=== PATIENT | female | born 1990 | race Caucasian/White ===

== ENCOUNTER 2017-05-30 17:30 | Outpatient (RCR) | payer MEDICARE, MEDICAID, SELFPAY ==
--- NOTE | 2017-02-23 19:43 | HP.PTDCS(2) ---
HP - PT D/C Summary (2) It has been my pleasure to treat CELESTE SIDHU under orders from Pamella Mccall D.C., for the diagnosis of for a total of visit(s). Discharge Date: Please see the following information for a summary of their discharge status. - D/C Information If there are questions or concerns regarding this patient's physical therapy, please feel free to call me at [phone]. Thank you for the referral of this patient. Sincerely, Linette Clarke
--- NOTE | 2017-02-23 19:45 | HP.PTEVAL_ITS ---
Patient's Visit Information CELESTE SIDHU is a 26 year old F referred to Physical Therapy by Pamella Mccall D.C. with a diagnosis of CP and Ligament laxity. Date of Evaluation: 02/22/17 Physical Therapist: Linette Clarke - Visit Plan Frequency: 1x/Week Duration: 2 Weeks Plan: At this point we will see the pt one additional time to see if she will be more of an active participant in therapy. We will teach parents ROM and some exercises for them to do with the pt at home. AT this time I would recommend a tilted wheelchair with a neck support as the way the pt is sitting now is NOT in any way good for the patient and I fear if she continues to hang her head in this posture further damage to her neck and ligaments will occur. - Subjective Subjective: Pt's mom Trini gave most of the information. Pt was here in the fall with her mom in the pool in the fall for therapy. Mom reports that is made her legs stronger but she trips on her one foot. When she was in her 20's is when the CP came into her legs. She falls easy. SHe walks around at home and tires easy. Pt was seeing Dr Henriquez...pt is non-verbal. Pt is getting a new wheel chair at home that is more of a tilt type chair and a portable adult stroller. - Objective Pt is able to sit to stand with some CGA. She is able to stand for approx [address] before she begins to bounce as her legs start to gicw out. Posture: She sits in her chair with her head flexed to her chest with abnormal posture. She is unable to lift her head into full upright position. She is able to laterally felx her neck to lift her head some but unable to hold that position for more than seconds. SHe does not follow commands. She tolerated PROM in sitting of neck extension with no active assisted help. Therapist held that position for approx 30 seconds and then the pt would activily flex her neck into or she would use her hands to pull me my hands away. She was put on a nu-step bike but did not activly initiate the bike. Mom and therapist held hands on the handles and pushed bike but she would not help with the movement. Tried the pt on the leg press and the pt would push with both legs into extension after therapist placed legs on the plate at 12.5#. She would not activly bend knees from the extended position - Rehabilitation Potential Rehabilitation Potential: Questionable - Anticipated Interventions Therapeutic Exercise to Include: Strength training, Postural training, Passive ROM, Active ROM, Scapular Strength/Stabilization For the Purpose of:: To decrease pain, To increase ROM, To increase oxygenation perfusion Thank you for the opportunity to evaluate your patient. For Medicare and Medicare HMO plans, please review the plan of care and approve it. It will need to be FAXED BACK to us at [phone] for Medicare purposes. Please let me know if there are questions or concerns regarding this plan of care. Physician Signature: Date:
--- NOTE | 2017-03-23 18:04 | HP.SP.AD ---
History - History Date of Eval: 03/21/17 Medical Diagnosis (from RX): expressive language Previous speech therapy: Yes Results: Unavailable Other Relevant Medical History/Diagnoses/Surgery: autism, CP, and seizures Medications related to this diagnosis: List no provided, but medication is seizure related Smoking Status: Never smoker Hx Smoking: No Hx Tobacco Use: No - Pain Is pain an issue with your current prescribed condition?: No - Personal Occupation: workshop Right Hearing Abillity: Normal Left Hearing Abillity: Normal Visual Assistive Devices: None Patients Living Arrangements: With Family Patient Allergies - Allergies Allergies No Known Allergies Allergy (Verified 06/15/13 18:59) Subjective AAC - AAC Subjective: Per mom, pt had some words and may or may not use them. Mom would like pt to communicate since pt is older. Pt used to have low tech device used via pictures for communication. Objective AAC - AAC Objective: Pt given two choices to select from for markers for phrase competion of I want... Pt selected picture wanted and used marker presented to pt for simple line on paper. Pt made five other choices for communicating the color wanted. Pt then provide with yes/no faces and asked if wanted to listen to music, per mom information. Pt did not answer to mom modeled and received music as chosen. Pt still did not choose. Pt given choice of three animals to chose to look at. Pt made selection given time and repetitions. Pt is able to choose from field of 2 and 3. This LIEUTENANT FIRE FIGHTER suggested that mom bring activities to assist with making choices. Plan - Plan Plan: ST warranted to trial basic communication methods via selection from ervin of at least 4 from a variety of AAC pictures from low vs high tech. Pt mom would like some form of communication. - Frequency Frequency: 1x/Week Duration: 2-4 Months - Prognosis Prognosis: Good - Goal #1-5 Goal #1: Pt will communicate basic wants from field of at least 4 pictures when given a choice. Prompts: Min Accuracy: 80% # Sessions: 3/4 Goal #2: Pt will complete simple phrases using a variety of devices (low vs high) from a field of at least 4. Accuracy: 80% # Sessions: 3/4 Goal #3: Pt will complete additional evaluation of communication as warranted for goal modification and addition. G Codes - Type of Therapy Type of Therapy: Speech-Language Pathology - Other LIEUTENANT FIRE FIGHTER Other LIEUTENANT FIRE FIGHTER Current: CL - 60-79% Other LIEUTENANT FIRE FIGHTER Goal: CI - 1-19% Education - Patient has Indicated that the Following Identified Educational Needs: Motivation, Cognitively Impaired - Patient Instruction Patient Education: Treatment Plan, Goals Person Taught: Primary Caregiver Teaching Method: Discussion, Demonstration Response to teaching: Verbalize understanding
--- NOTE | 2017-06-01 12:24 | HP.SP.LETT ---
HP - SP Letter - Letter AAC Considerations Communication: Liset's mom is seeking improved functional communication for her daughter. I have seen Liset for five therapy sessions. Liset has limited joint attention but attention does wax and wane depending on the activity. She is primarily non-verbal, though Mom reports that she has verbalized words and phrases in the past. This has not yet been observed during therapy sessions. To make requests at this time, Liset will choose a desired object from a field of two by touching the object. She has limited fine motor skills which makes isolating a finger for pointing difficult. In addition, Liset has limited eye contact with people and often items, so eye gaze is limited. Mom reports that picture exchange has been attempted in the past, but that Liset was not motivated to use the pictures and did not have any success. She does seem more motivated by cause and effect toys/devices that talk and/or make noise. Mom reports that 2-3 years ago, the patient did attempt manipulation of a game on an iPad; however, Liset has not had access to a tablet since that time. Any advice and/or recommendations for AAC options would be appreciated.
--- NOTE | 2017-12-26 15:33 | HP.SP.DC_ITS ---
ST Discharge Summary - Discharged: Discharge: Liset Alvarado is discharged from outpatient speech therapy at this time. Liset attended 7 therapy sessions following her initial evaluation targeting functional language skills via any modality - speech, sign, pictures, and AAC. Limited progress was made and it was recommended that the patient attend an AAC clinic for further ideas. The patient was on a planned hold from therapy until the evaluation was completed, however, per Liset's mother, due to insurance changes Liset did not complete an evaluation at the AAC clinic. She does have a new script in place for this fall, however. Therefore, it was determined we would hold therapy until after the evaluation, with Liset's mom encouraged to reach out to this CUSTOMER SERVICE SECURITY OFFICER before or after the evaluation for assistance as needed. Please reconsult as necessary.
== END 2017-05-30 19:00 | disposition home or self-care (01) ==
LOC: SP 17:30
PROVIDERS: Family Provider Student in an Organized Health Care Education/Training Program; PCP Student in an Organized Health Care Education/Training Program; Visit Provider Chiropractor
DX: F84.0 Autistic disorder (principal); F73 Profound intellectual disabilities; Q89.8 Other specified congenital malformations; G40.309 Generalized idiopathic epilepsy and epileptic syndromes, not intractable, without status epilepticus; M24.20 Disorder of ligament, unspecified site; F80.1 Expressive language disorder
CPT/HCPCS: 92507; 92523; 97162; 97530; G8981; G8982; G9174; G9175

== ENCOUNTER 2017-09-27 13:08 | Outpatient (RCR) | payer MEDICARE, SELFPAY ==
--- NOTE | 2017-09-30 11:51 | HP.PTEVAL ---
Patient's Visit Information CELESTE SIDHU is a 27 year old F referred to Physical Therapy by EVELINA VEGA with a diagnosis of EPILEPSY,HYPOTONIA. Date of Evaluation: 09/27/17 Physical Therapist: Pee Castillo, PT, - Visit Plan Frequency: 1 VISIT Plan: RECOMMEND MANUAL W/C TILT AND SPACE WITH ALL ASSESSORIES DUE TO PATIENT UNABLE TO WALK SAFELY DUE TO SEIZURES ,HYPOTONIA LEGS/ARM UNABLE TO HOLD HEAD UP AND CONSTANT FALLING - Subjective Subjective: This 27 y/o female presents to physical therapy for w/c evaluation with diagnosis of epilepsy and hypotonia. Patient will need w/c for community moblity and at home due to seizures which patient will fall which seizures can last up to over a minute.Ocassionally,will have grand mall seizure. Patient is aphasic. Patient express wants needs by grabbing by hand. Patient is continence. Patient also attends workshops. Patient will be needing w/c for 3- 4hours at at time. Patient needs w/c to maintain optimize level of function.Patient is inable to ambulate safely because of seizures. Patient ambulation is compared by stamina endurance When patient patient has seizure ,patient will fall. The w/c will be used at home and work shop. Patient is dependant with bathing,dressing ,ADLS' 24 supervision. Patient dominic to feeed self but with assist. HOME SITUATION: alena with ramp ,walk in shower ,manual w/c hospital bed with rails. 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 PALPALTION: unremarkable. TRANSFERS: extra time SBA/CGA with vebal cues. BED MOBILITY:SBA/CGA with verbal cues. NEURO: unable to assess comprehension and aphasia expressive,poor tone hypotonic,reflexes achilles ,patella 0/3. PROM: WFL all planes of motion. MMT: at least 3/5 ,unable to test due to unable to follow commands. BALANCE: sitting fair,standing fair-. GAIT: ambulates unsteady hips/knees mod flexed ,right leg ER greater than left less than 10 feet in PT with close SBA /CGA - Goals Goal 1:: Complete W/C Evalution. - Rehabilitation Potential Physical Therapy Diagnosis: This patient has epilepsy with grand mal seizures ,hypotonia with unable to ambulate safely. along with poor stamina ,endurance this benifit from manual tilt n space w/c ,patient unable to use cane or walker. Also due to poor tone patient is not a safe in ambulation. Rehabilitation Potential: Poor - Anticipated Interventions Patient/Client Instruction: Educate patient on: Condition Other: W/C Thank you for the opportunity to evaluate your patient. For Medicare and Medicare HMO plans, please review the plan of care and approve it. It will need to be FAXED BACK to us at [phone] for Medicare purposes. Please let me know if there are questions or concerns regarding this plan of care. Physician Signature: Date:
--- NOTE | 2017-10-07 14:16 | HP.PTEVAL ---
Patient's Visit Information CELESTE SIDHU is a 27 year old F referred to Physical Therapy by EVELINA EVGA with a diagnosis of EPILEPSY,HYPOTONIA. Date of Evaluation: 09/27/17 Physical Therapist: Pee Castillo PT, - Visit Plan Frequency: 1WEEK Plan: RECOMMEND MANUAL W/C TILT AND SPACE WITH ALL ASSESSORIES DUE TO PATIENT UNABLE TO WALK SAFELY DUE TO SEIZURES ,HYPOTONIA LEGS/ARM UNABLE TO HOLD HEAD UP AND CONSTANT FALLING - Subjective Subjective: This 27 y/o female presents to physical therapy for w/c evaluation with diagnosis of epilepsy and hypotonia. Patient will need w/c for community moblity and at home due to seizures which patient will fall which seizures can last up to over a minute.Ocassionally,will have grand mall seizure. Patient is aphasic. Patient express wants needs by grabbing by hand. Patient is continence. Patient also attends workshops. Patient will be needing w/c for 3- 4hours at at time. Patient needs w/c to maintain optimize level of function.Patient is unable to ambulate safely because of seizures. Patient ambulation is comprimised by decrease stamina endurance.During a seisure ,patient may collapse. The w/c will be used at home and work shop. Patient is dependant with bathing,dressing ,ADLS' 24 supervision. Patient able to feed self but with assist. HOME SITUATION: alena with ramp ,walk in shower ,manual w/c hospital bed with rails. 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 PALPALTION: unremarkable. TRANSFERS: extra time SBA/CGA with vebal cues. BED MOBILITY:SBA/CGA with verbal cues. NEURO: unable to assess due to comprehension and aphasia expressive,poor tone hypotonic,reflexes achilles ,patella 0/3. PROM: WFL all planes of motion. MMT: at least 3/5 ,unable to test due to unable to follow commands. BALANCE: sitting fair,standing fair-. GAIT: ambulates unsteady hips/knees mod flexed ,right leg ER greater than left less than 10 feet in PT with close SBA /CGA - Goals Goal 1:: Complete W/C Evalution. - Rehabilitation Potential Physical Therapy Diagnosis: This patient has epilepsy with grand mal seizures ,hypotonia with unable to ambulate safely. along with poor stamina ,endurance this benifit from manual tilt n space w/c ,patient unable to use cane or walker. Also due to poor tone patient is not a safe in ambulation. Rehabilitation Potential: Poor - Anticipated Interventions Patient/Client Instruction: Educate patient on: Condition Other: W/C Thank you for the opportunity to evaluate your patient. For Medicare and Medicare HMO plans, please review the plan of care and approve it. It will need to be FAXED BACK to us at [phone] for Medicare purposes. Please let me know if there are questions or concerns regarding this plan of care. Physician Signature: Date:
== END 2017-09-27 19:00 | disposition home or self-care (01) ==
LOC: PT 13:08
PROVIDERS: Family Provider Student in an Organized Health Care Education/Training Program; PCP Student in an Organized Health Care Education/Training Program
DX: G40.919 Epilepsy, unspecified, intractable, without status epilepticus (principal); R29.898 Other symptoms and signs involving the musculoskeletal system
CPT/HCPCS: 97163

== ENCOUNTER 2018-05-02 13:51 | Emergency (ER) | payer MEDICARE, MEDICAID, SELFPAY ==
[2018-05-02 13:53] VITALS: BP 111/78; PULSE 83; RESP 16; TEMP 35.6; BMI 25.7
--- NOTE | 2018-05-02 14:24 | ED.VISSUMM ---
- ER Visit Summary Date of Service: 05/02/18 Chief Complaint: Cough History of Present Illness: The patient is a 27 F informant is mother and caregiver due to history of autism and nonverbal. Cough for 3 weeks. No fevers. No wheeze. Reports appears patient unable to clear her congestion. Clear rhinorrhea. No respiratory distress. Reports saw PCP 3 weeks ago was put on a 5-day course of antibiotics, likely Zithromax. States still coughing. Reports she was at 2-3 years ago had suctioning, she was not intubated. Caregiver states likely from [facility] for secretions. No vomiting or diarrhea. He is tolerating oral fluids. Mother tried [id number] dextromethorphan and Mucinex, however patient would not take the medications. She does not do liquids. These were pills. Mother states has to crush her pills and Heideman in her food. Physical Examination: General: Nonverbal, nontoxic no acute distress HEENT: Normocephalic, atraumatic. No posterior pharyngeal erythema. TMs normal bilaterally moist mucosa membranes Neck: supple, nontender. Cardiovascular: Regular rate and rhythm, no murmurs Respiratory: Normal breath sounds, symmetric, no distress. No wheezing. Abdomen: Soft, nontender, nondistended Extremities: Nontender, no edema, pulses intact ?4 Neuro: no focal neurological deficits. Test Results: chest x-ray: No acute process Emergency Department Course and Treatment: Patient vital signs completely normal. There is no coughing episodes during my evaluation. Chest x-ray was obtained and reviewed myself shows no acute process. Family reassured. Discussed using vapor. Prescription for loratadine to help with drainage. Follow-up with PCP. Treatment Plan: [] Disposition: Discharge Impression: Upper respiratory infection This note was generated with [employer] dictation software. It may contain incorrect words, spelling, and punctuation that were not noted in review of the chart prior to signing ED Disposition - Plan for ED Patient: Disposition: Home or Assisted Living Chief Complaint: Cough Diagnosis: Upper respiratory infection Instructions: ED Upper Resp Infec No Abx Tx Prescriptions: Loratadine [Claritin] 10 mg PO DAILY #30 tablet Referrals: Gen Reed DO [Primary Care Provider] - 5-7 Days Additional Instructions: May use vapor rubs at night. Continue oral hydration. Loratadine to help with drainage.
--- NOTE | 2018-05-02 14:27 | ED.DCSUM_ITS ---
- ER Visit Summary Date of Service: 05/02/18 Chief Complaint: Cough History of Present Illness: The patient is a 27 F informant is mother and caregiver due to history of autism and nonverbal. Cough for 3 weeks. No fevers. No wheeze. Reports appears patient unable to clear her congestion. Clear rhinorrhea. No respiratory distress. Reports saw PCP 3 weeks ago was put on a 5-day course of antibiotics, likely Zithromax. States still coughing. Reports she was at 2-3 years ago had suctioning, she was not intubated. Caregiver states likely from [facility] for secretions. No vomiting or diarrhea. He is tolerating oral fluids. Mother tried [id number] dextromethorphan and Mucinex, however patient would not take the medications. She does not do liquids. These were pills. Mother states has to crush her pills and Heideman in her food. Physical Examination: General: Nonverbal, nontoxic no acute distress HEENT: Normocephalic, atraumatic. No posterior pharyngeal erythema. TMs normal bilaterally moist mucosa membranes Neck: supple, nontender. Cardiovascular: Regular rate and rhythm, no murmurs Respiratory: Normal breath sounds, symmetric, no distress. No wheezing. Abdomen: Soft, nontender, nondistended Extremities: Nontender, no edema, pulses intact ?4 Neuro: no focal neurological deficits. Test Results: chest x-ray: No acute process Emergency Department Course and Treatment: Patient vital signs completely normal. There is no coughing episodes during my evaluation. Chest x-ray was obtained and reviewed myself shows no acute process. Family reassured. Discussed using vapor. Prescription for loratadine to help with drainage. Follow-up with PCP. Treatment Plan: [] Disposition: Discharge Impression: Upper respiratory infection This note was generated with [employer] dictation software. It may contain incorrect words, spelling, and punctuation that were not noted in review of the chart prior to signing ED Disposition - Plan for ED Patient: Disposition: Home or Assisted Living Chief Complaint: Cough Diagnosis: Upper respiratory infection Instructions: ED Upper Resp Infec No Abx Tx Prescriptions: Loratadine [Claritin] 10 mg PO DAILY #30 tablet Referrals: Gen Reed DO [Primary Care Provider] - 5-7 Days Additional Instructions: May use vapor rubs at night. Continue oral hydration. Loratadine to help with drainage.
--- NOTE | 2018-05-02 14:57 | RAD_ITS ---
STUDY: X-RAY CHEST REASON FOR EXAM: Female, 27 years old. Congestion. TECHNIQUE: PA and lateral views of the chest. COMPARISON: Comparison is made with prior study dated March 11, 2016. FINDINGS: There is a 2.4 cm x 0.8 cm cylindrical metallic density overlying the T1 vertebrae. This may be outside the patient. Clinical correlation is recommended. The lungs are clear and expanded. There is no demonstrated pleural abnormality. Normal size heart. Normal mediastinum and wily. Normal visualized pulmonary arteries. Normal visualized aortic arch and descending thoracic aorta. Normal visualized thoracic spine. Normal visualized ribs, clavicles, and shoulders. There is no demonstrated abnormality of the visualized soft tissue structures of the upper abdomen. RAD/Chest PA and Lateral IMPRESSION: No acute adenopathy is seen. Cylindrical metallic density is seen in the lower cervical region as described. Electronically Signed: Chin Gonzales MD at 15:15 EST Tel [phone], Service support ,
== END 2018-05-02 15:22 | disposition home or self-care (01) ==
PROVIDERS: Emergency Provider Emergency Medicine; Family Provider Student in an Organized Health Care Education/Training Program; PCP Student in an Organized Health Care Education/Training Program
DX: J06.9 Acute upper respiratory infection, unspecified (principal); G40.909 Epilepsy, unspecified, not intractable, without status epilepticus; F84.0 Autistic disorder; Z79.899 Other long term (current) drug therapy
CPT/HCPCS: 71046; 99282

== ENCOUNTER 2018-06-10 20:06 | Emergency (ER) | payer MEDICARE, MEDICAID, SELFPAY ==
[2018-06-10 20:08] VITALS: PULSE 90; RESP 18; TEMP 36.8; O2SAT 100; BMI 26.3
--- NOTE | 2018-06-10 20:14 | ED.RN ---
PATIENT ACTIVELY SEIZING. PATIENT PROTECTING AIRWAY. MAINTAINING O2 SATURATION. DR. DÍAZ AT BEDSIDE.
[2018-06-10] MEDS: LORazepam 2 MG/ML Syringe IV ×4 (20:16→21:01)
--- NOTE | 2018-06-10 20:19 | ED.RN ---
PATIENT ACTIVELY SEIZING. DR DÍAZ AT BEDSIDE. NEW ORDERS OBTAINED. WILL CONTINUE TO MONITOR.
--- NOTE | 2018-06-10 20:20 | ED.RN ---
PATIENT RESTLESS AND PULLING AT TUBES AND THRASHING AROUND IN BED. ATTEMPTED TO REDIRECT PATIENT AND EXPLAIN TO PATIENT, AND FAMILY TRIED TO DE-ESCALATE PATIENT WITH NO SUCCESS. ORDER FOR SOFT WRIST RESTRAINTS OBTAINED. PATIENT TOLERATED WELL. FAMILY AGREEABLE.
--- NOTE | 2018-06-10 20:26 | ED.RN ---
PATIENT ACTIVELY SEIZING. DR DÍAZ NOTIFIED. PATIENT CONTINUES TO PROTECT AIRWAY. MAINTAINING O2 SATURATION OF 95% OR GREATER. NEW ORDERS OBTAINED. WILL CONTINUE TO MONITOR.
[2018-06-10] MEDS: levETIRAcetam IV 1,000 MG/100 ML BAG 400 MG IV (20:27)
[2018-06-10 20:29] VITALS: BP 129/83; PULSE 99; RESP 18; O2SAT 100
--- NOTE | 2018-06-10 20:45 | ED.RN ---
PATIENT IS AUTISTIC AND NONVERBAL.
[2018-06-10 20:53] LABS: Absolute Lymphocyte Count 0.79 X10^3/ul (0.83-4.51); Absolute Neutrophil Count 2.7 X10^3/uL (2.0-7.7); Eosinophil# 0.05 X10^3/uL; Eosinophils% 1.2 % (0-5); Hematocrit 41.2 % (37-47); Lymphocyte # 0.79 X10^3/ul (4.0); Lymphocyte % 19.3 % (19-41); Mean Corpuscular Hgb 29.9 pg (27.0-32.0); Mean Platelet Vol. 9.1 fl (6.2-12.0); Monocyte# 0.51 X10^3/uL; Monocyte% 12.5 % (0-10); Neutrophil # 2.74 X10^3/uL (2.7-7.7); Platelet Count 141 K/mm3 (150-450); RBC Distribution Width CV 12.8 % (11.6-14.6); RBC Distribution Width SD 41.1 fl (35.1-43.9); Red Blood Count 4.68 M/mm3 (4.2-5.4); White Blood Count 4.1 K/mm3 (4.4-11.0)
[2018-06-10 20:54] LABS: POSITIVE COUNT NO; POSITIVE DIFFERENTIAL NO; POSITIVE MORPHOLOGY NO
--- NOTE | 2018-06-10 21:00 | ED.RN ---
PATIENT ACTIVELY SEIZING. DR DÍAZ NOTIFIED. NEW ORDERS OBTAINED. WILL CONTINUE TO MONITOR.
[2018-06-10 21:08] LABS: AST(SGOT) 21 U/L (15-37); Alanine Aminotransfer ALT/SGPT 24 U/L (13-56); Albumin, Serum 3.9 g/dL (3.2-5.0); Alkaline Phosphatase 87 U/L (45-117); Anion Gap 10 (5-15); BUN 11 mg/dL (7-18); BUN/Creat Ratio 15.9 RATIO (10-20); Calcium,Total 8.8 mg/dL (8.5-10.1); Chloride 106 mmol/L (98-107); Creatinine, Serum 0.69 mg/dL (0.55-1.02); EST Glomerular Filtration Rate 107 mL/min (>60); Est Glom Filt Rate - Afr Amer 129 mL/min (>60); Estimated Creatinine Clearance 99.52 ml/min; Globulin 3.9 g/dL (2.2-4.2); Glucose 98 mg/dL (74-106); Potassium 3.8 mmol/L (3.5-5.1); Protein, Total 7.8 g/dL (6.4-8.2); Sodium Level 140 mmol/L (136-145)
[2018-06-10 21:17] LABS: Phenytoin (Dilantin) Level 11.1 mL (10.0-20.0)
[2018-06-10 21:27] VITALS: BP 104/69; PULSE 85; RESP 15; O2SAT 99
--- NOTE | 2018-06-10 21:59 | CT_ITS ---
STUDY: CT BRAIN WITHOUT CONTRAST REASON FOR EXAM: Female, 28 years old. Seizures and fall, hitting head. History of seizures. History of autism with a chromosomal abnormality. RADIATION DOSAGE (If Supplied By Facility): CTDIvol = ( 44.99 ) mGy, DLP = ( 745.49 ) mGycm TECHNIQUE: Transaxial CT imaging of the brain was performed without administration of intravenous contrast material. Individualized dose optimization techniques were used for this CT. COMPARISON: 05/17/2012. FINDINGS: Normal soft tissue structures. Normal calvarium. Normal size ventricles and extra-axial spaces for the patient's age. Normal white matter tracts of the cerebral hemispheres. Normal basal ganglia and thalami. Normal brainstem. Normal cerebellum. There is no intracranial hemorrhage. There are no findings of an acute ischemic infarction. Normal visualized paranasal sinuses. CT/Brain/Head without Contrast IMPRESSION: Normal unenhanced CT scan of the brain. Electronically Signed: Melecio Otero MD at 0:11 EST , Service support ,
[2018-06-10 22:02] VITALS: BP 111/73; PULSE 79; RESP 15; O2SAT 100
--- NOTE | 2018-06-10 22:25 | ED.RN ---
ATTEMPTED TO CALL REPORT, RN TAKING PATIENT UNABLE TO TAKE REPORT AT THIS TIME. ASKED TO CALL BACK IN 15 MINUTES.
--- NOTE | 2018-06-10 22:39 | ED.VISSUMM ---
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 She presents today by EMS for seizures. She had seizure activity starting around 6 PM. She has had multiple seizures this evening. EMS was unable to obtain IV access, so the patient was not treated prior to arrival. She does take Dilantin, clonazepam, and Keppra. She has been compliant, except this evening, she had some issues with drooling and spitting and she has been up some pill fragments. She has been having seizures every day this week. They have been getting worse and more frequent. Her doctor checked a Dilantin level and increase her dose of clonazepam, but this is not helping. Family reports that she has been hitting her head more frequently given her more frequent seizures. Other than that, no changes or new issues for the patient. Physical Examination: Afebrile and vital signs unremarkable. Head and neck are grossly atraumatic. Patient is staring and responds to pain only on my evaluation. Heart regular. Lungs clear. Abdomen soft. Patient is moving all extremities. Skin appears unremarkable. Test Results: CBC and CMP unremarkable. Phenytoin level 11.1. CT brain pending. Emergency Department Course and Treatment: Patient presents with ongoing and intermittent seizures. Shortly after I began examining her, she had some repetitive and tonic movements. She received 2 mg of Ativan and had continued seizure activity, so 2 more were ordered. I also ordered a gram of Keppra. Seizures briefly stopped, and the patient began moaning. She is nonverbal at baseline. Family thought that she was coming out of her seizure. She had at least 2 other seizures after that while she was here and required a total of 8 mg of Ativan. She did receive Keppra. Her phenytoin level was therapeutic. I advised the family that if the patient has continued seizures, she will have respiratory depression. She will need intubation and possible further sedation to stop her seizures. Family advised that intubation and sedation makes her seizures worse. They are opposed to intubation and refusing intubation. I discussed the risks. Seizure activity seemed to stop, and the patient improved. Family requested a CT of her brain because she is sitting her head frequently. We will check that. Results are pending. I did speak with Dr. Spear at [facility]. The patient will need further monitoring. He accepted the patient and we are awaiting transport. On reevaluation, prior to transport, the patient is doing better. Given the patient's presentation and medication requirements, I still believe the patient would benefit from neuro evaluation. Patient will be transferred. Oncoming physician will check the results of the CT. Treatment Plan: As above Disposition: Transfer to [facility] Impression: 1. Status epilepticus This note was generated with [employer] dictation software. It may contain incorrect words, spelling, and punctuation that were not noted in review of the chart prior to signing ED Disposition - Plan for ED Patient: Chief Complaint: Seizure Referrals: Gen Reed DO [Primary Care Provider] -
--- NOTE | 2018-06-10 22:47 | ED.DCSUM_ITS ---
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 She presents today by EMS for seizures. She had seizure activity starting around 6 PM. She has had multiple seizures this evening. EMS was unable to obtain IV access, so the patient was not treated prior to arrival. She does take Dilantin, clonazepam, and Keppra. She has been compliant, except this evening, she had some issues with drooling and spitting and she has been up some pill fragments. She has been having seizures every day this week. They have been getting worse and more frequent. Her doctor checked a Dilantin level and increase her dose of clonazepam, but this is not helping. Family reports that she has been hitting her head more frequently given her more frequent seizures. Other than that, no changes or new issues for the patient. Physical Examination: Afebrile and vital signs unremarkable. Head and neck are grossly atraumatic. Patient is staring and responds to pain only on my evaluation. Heart regular. Lungs clear. Abdomen soft. Patient is moving all extremities. Skin appears unremarkable. Test Results: CBC and CMP unremarkable. Phenytoin level 11.1. CT brain pending. Emergency Department Course and Treatment: Patient presents with ongoing and intermittent seizures. Shortly after I began examining her, she had some repetitive and tonic movements. She received 2 mg of Ativan and had continued seizure activity, so 2 more were ordered. I also ordered a gram of Keppra. Seizures briefly stopped, and the patient began moaning. She is nonverbal at baseline. Family thought that she was coming out of her seizure. She had at least 2 other seizures after that while she was here and required a total of 8 mg of Ativan. She did receive Keppra. Her phenytoin level was therapeutic. I advised the family that if the patient has continued seizures, she will have respiratory depression. She will need intubation and possible further sedation to stop her seizures. Family advised that intubation and sedation makes her seizures worse. They are opposed to intubation and refusing intubation. I discussed the risks. Seizure activity seemed to stop, and the patient improved. Family requested a CT of her brain because she is sitting her head frequently. We will check that. Results are pending. I did speak with Dr. Spear at [facility]. The patient will need further monitoring. He accepted the patient and we are awaiting transport. On reevaluation, prior to transport, the patient is doing better. Given the patient's presentation and medication requirements, I still believe the patient would benefit from neuro evaluation. Patient will be transferred. Oncoming physician will check the results of the CT. Treatment Plan: As above Disposition: Transfer to [facility] Impression: 1. Status epilepticus This note was generated with [employer] dictation software. It may contain incorrect words, spelling, and punctuation that were not noted in review of the chart prior to signing ED Disposition - Plan for ED Patient: Chief Complaint: Seizure Referrals: Gen Reed DO [Primary Care Provider] -
[2018-06-10 22:49] VITALS: BP 108/67; PULSE 82; RESP 15; O2SAT 99
[2018-06-10 23:20] VITALS: BP 120/85; PULSE 83; RESP 16; O2SAT 100
[2018-06-11 00:16] VITALS: BP 107/76; PULSE 88; RESP 15; O2SAT 100
--- NOTE | 2018-06-11 00:24 | ED.RN ---
WHILE TRANSPORT TEAM HOOKING PATIENT UP TO MONITOR PATIENT HAD SEIZURE. DR. CURRY NOTIFIED. NEW ORDER OBTAINED.
[2018-06-11] MEDS: LORazepam 2 MG/ML Syringe IV (00:26)
== END 2018-06-11 00:46 | disposition short-term general hospital (02) ==
PROVIDERS: Emergency Medicine; Emergency Provider Emergency Medicine; Family Provider Student in an Organized Health Care Education/Training Program; PCP Student in an Organized Health Care Education/Training Program
DX: G40.901 Epilepsy, unspecified, not intractable, with status epilepticus (principal); F84.0 Autistic disorder; G80.9 Cerebral palsy, unspecified; Q99.8 Other specified chromosome abnormalities; Z79.899 Other long term (current) drug therapy
CPT/HCPCS: 70450; 80053; 80185; 85025; 96365; 96375; 96376; 99285; A4216

== ENCOUNTER 2018-06-29 17:59 | Emergency (ER) | payer MEDICARE, MEDICAID, SELFPAY ==
[2018-06-29] VITALS (7 sets, daily range): BP systolic 101–146; BP diastolic 60–120; PULSE 73–98; RESP 12–22; TEMP 37.3; O2SAT 79–98; BMI 25.0
[2018-06-29] MEDS: LORazepam 2 MG/ML Syringe IV ×3 (18:05→20:19)
--- NOTE | 2018-06-29 18:14 | EKG12_ITS ---
Test Reason : SEIZURE Blood Pressure : / mmHG Vent. Rate : 094 BPM Atrial Rate : 094 BPM P-R Int : 156 ms QRS Dur : 078 ms QT Int : 358 ms P-R-T Axes : 042 081 039 degrees QTc Int : 447 ms Normal sinus rhythm Normal ECG Confirmed by LIANG ORTIZ, ZENAIDA ([id number]), city editor ANGUS LINN ([id number] on 07/03/2018 9:20:23 AM Referred By: BEBA Confirmed By:ZENAIDA TAVERA MD
[2018-06-29 19:08] LABS: Phosphorus 3.4 mg/dL (2.5-4.9)
[2018-06-29 19:10] LABS: ALB/GLOB Ratio 0.7 RATIO (0.9-2.4); AST(SGOT) 19 U/L (15-37); Alanine Aminotransfer ALT/SGPT 22 U/L (13-56); Albumin, Serum 3.4 g/dL (3.2-5.0); Alkaline Phosphatase 75 U/L (45-117); Anion Gap 11 (5-15); BUN 7 mg/dL (7-18); BUN/Creat Ratio 10.8 RATIO (10-20); Chloride 106 mmol/L (98-107); Creatinine, Serum 0.65 mg/dL (0.55-1.02); EST Glomerular Filtration Rate 114 mL/min (>60); Est Glom Filt Rate - Afr Amer 139 mL/min (>60); Estimated Creatinine Clearance 114.91 ml/min; Globulin 4.8 g/dL (2.2-4.2); Glucose 108 mg/dL (74-106); Magnesium 2.1 mg/dL (1.6-2.6); Potassium 3.5 mmol/L (3.5-5.1); Protein, Total 8.2 g/dL (6.4-8.2); Sodium Level 139 mmol/L (136-145)
[2018-06-29 19:34] LABS: Bacteria 0 SEEN /hpf (None Seen); White Blood Cells 0 SEEN /hpf (0-5)
[2018-06-29 19:35] LABS: Color, Urine Yellow (Yellow); Glucose, Dipstick Normal (Normal); Ketone-Dipstick Negative (Negative); Leukocyte Esterase-Dipstick Negative /ul (Negative); Nitrite-Dipstick Negative (Negative); Occult Blood-Urine 25 /ul (Negative); Protein-Dipstick 15 mg/dl (Negative); Urine Bilirubin Dipstick Negative (Negative); Urine Clarity Clear (Clear); Urine Urobilinogen Normal (Normal)
[2018-06-29 19:41] LABS: Mucous, Urine 1+ /hpf (<or=2+); Red Blood Cells-Urine 0-5 SEEN /hpf (0-5); Squamous Epithelial Cells - UA 0-5 SEEN /hpf (5-10)
--- NOTE | 2018-06-29 20:14 | ED.RN ---
[facility] neuro paged at this time
--- NOTE | 2018-06-29 20:55 | ED.RN ---
spoke with neurology with again repaging doctor at this time
--- NOTE | 2018-06-29 21:00 | ED.RN ---
[facility] neurology called back at this time
--- NOTE | 2018-06-29 22:32 | ED.VISSUMM ---
- ER Visit Summary Date of Service: 06/29/18 Chief Complaint: Seizure History of Present Illness: The patient is a 28 F presenting for evaluation secondary to seizures. Patient has a underlying history of difficult to control seizure disorder with partial seizures. Patient is on Dilantin, Klonopin, Keppra, and Banzel. Patient was admitted early June for worsening tract infection. She had increasing doses given to her of her Keppra. She currently is on 2000 mg twice daily of Keppra. Patient apparently over the course of the last day or so has been complaining of some GI symptoms. This morning at about 11:00 she had some difficulty with increasing seizure activity. These are partial seizures. Patient was not able to keep down her nighttime doses of medications, and was having persistent seizure activity, so family decided to have her brought into the emergency department. Physical Examination: Vital signs within normal limits. Well-nourished female. Head normocephalic. PRL, evidence of eye deviation on initial exam without any evidence of icterus. Moist mucous membranes. No JVD. Heart regular rate and rhythm lungs clear. Abdomen soft nontender. Extremities nontender nonedematous. Skin normal color no rash, patient was alert but not verbally responsive having occasional partial seizures with contracture of the left side of her body and deviation of the eyes. Test Results: Chemistry panel unremarkable, urinalysis negative. EKG shows sinus with isoelectric ST segments normal T waves normal intervals. Emergency Department Course and Treatment: Patient presented with refractory seizures. Patient was given 5 mg of Valium by EMS. On initial presentation the patient was given 4 mg of Ativan IV. He had some improvement of her seizure activity, and then during the workup she had some worsening again so she was given another 2 mg. Patient is very difficult to obtain IV access on, so we were only able to obtain a metabolic panel on the patient which was found to be normal. Urinalysis and EKG were also normal. I had a discussion with pharmacy as well as with the on-call neurology resident at [facility] that helps care for the patient, and they recommended loading IV doses of Keppra at 2000 mg, and Dilantin at 1.3 g. Patient had improvement of her seizure activity throughout a 5-1/2-hour observation time and medication time in the emergency department with multiple re-evaluations. Plan at this time is for the patient to be discharged with close outpatient follow-up. Family is very reliable, and the understands signs and symptoms for which to return. Disposition: Discharge Impression: 1. Breakthrough partial seizures with status epilepticus, resolved Critical care time 45 This note was generated with [employer] dictation software. It may contain incorrect words, spelling, and punctuation that were not noted in review of the chart prior to signing ED Disposition - Plan for ED Patient: Disposition: Home or Assisted Living Chief Complaint: Seizure Diagnosis: Breakthrough seizure Instructions: ED Seizure Recurrent Referrals: Gen Reed DO [Primary Care Provider] - Additional Instructions: Re-start your medications as usual Followup GREGORY with neurology
--- NOTE | 2018-06-29 22:35 | ED.DCSUM_ITS ---
- ER Visit Summary Date of Service: 06/29/18 Chief Complaint: Seizure History of Present Illness: The patient is a 28 F presenting for evaluation secondary to seizures. Patient has a underlying history of difficult to control seizure disorder with partial seizures. Patient is on Dilantin, Klonopin, Keppra, and Banzel. Patient was admitted early June for worsening tract infection. She had increasing doses given to her of her Keppra. She currently is on 2000 mg twice daily of Keppra. Patient apparently over the course of the last day or so has been complaining of some GI symptoms. This morning at about 11:00 she had some difficulty with increasing seizure activity. These are partial seizures. Patient was not able to keep down her nighttime doses of medications, and was having persistent seizure activity, so family decided to have her brought into the emergency department. Physical Examination: Vital signs within normal limits. Well-nourished female. Head normocephalic. PRL, evidence of eye deviation on initial exam without any evidence of icterus. Moist mucous membranes. No JVD. Heart regular rate and rhythm lungs clear. Abdomen soft nontender. Extremities nontender nonedematous. Skin normal color no rash, patient was alert but not verbally responsive having occasional partial seizures with contracture of the left side of her body and deviation of the eyes. Test Results: Chemistry panel unremarkable, urinalysis negative. EKG shows sinus with isoelectric ST segments normal T waves normal intervals. Emergency Department Course and Treatment: Patient presented with refractory s eizures. Patient was given 5 mg of Valium by EMS. On initial presentation the patient was given 4 mg of Ativan IV. He had some improvement of her seizure activity, and then during the workup she had some worsening again so she was given another 2 mg. Patient is very difficult to obtain IV access on, so we were only able to obtain a metabolic panel on the patient which was found to be normal. Urinalysis and EKG were also normal. I had a discussion with pharmacy as well as with the on-call neurology resident at [facility] that helps care for the patient, and they recommended loading IV doses of Keppra at 2000 mg, and Dilantin at 1.3 g. Patient had improvement of her seizure activity throughout a 5-1/2-hour observation time and medication time in the emergency department with multiple re-evaluations. Plan at this time is for the patient to be discharged with close outpatient follow-up. Family is very reliable, and the understands signs and symptoms for which to return. Disposition: Discharge Impression: 1. Breakthrough partial seizures with status epilepticus, resolved Critical care time 45 This note was generated with [employer] dictation software. It may contain incorrect words, spelling, and punctuation that were not noted in review of the chart prior to signing ED Disposition - Plan for ED Patient: Disposition: Home or Assisted Living Chief Complaint: Seizure Diagnosis: Breakthrough seizure Instructions: ED Seizure Recurrent Referrals: Gen Reed DO [Primary Care Provider] - Additional Instructions: Re-start your medications as usual Followup GREGORY with neurology
--- OUTSIDE RECORDS SUMMARY | 2018-09-03 12:34 | XMS RPT_ITS ---
:1990 Author Organization OHIP Support Name Relationship Address Phone D Unavailable Unavailable Unavailable LIPARMOND PETER/VENITA Unavailable [address] + [place] [address] WELLERT, VENITA Unavailable Unavailable + VENITA, LIPIAN Unavailable Unavailable + VENITA, LIPIAN Unavailable Unavailable + LIPIAN, VENITA HOLLEY Unavailable Unavailable + D Unavailable Unavailable Unavailable LIPARMOND, PETER/VENITA Unavailable [address] + [place] [address] WELLERT, VENITA Unavailable Unavailable + VENITA, LIPIAN Unavailable Unavailable + VENITA, LIPIAN Unavailable Unavailable + LIPIAN, VENITA HOLLEY Unavailable Unavailable + D Unavailable Unavailable Unavailable LIPARMOND, PETER/VENITA Unavailable [address] + [place] [address] WELLERT, VENITA Unavailable Unavailable + VENITA, LIPIAN Unavailable Unavailable + VENITA, LIPIAN Unavailable Unavailable + LIPIAN, VENITA HOLLEY Unavailable Unavailable + D Unavailable Unavailable Unavailable LIPARMOND, PETER/VENITA Unavailable [address] + [place] [address] WELLERT, VENITA Unavailable / + [place] [address] D Unavailable Unavailable Unavailable LIPTAHMINA LEAHY/VENITA Unavailable [address] + [place] [address] WELLERT, VENITA Unavailable / + [place] [address] Care Team Providers Name Role Phone Juan Manuelsideann, Pamella Monroy Attending Unavailable Gen Reed Primary Care Unavailable HEATHER UNGER Attending Unavailable HEATHER UNGER Referring Unavailable ReedGen Primary Care Unavailable Reed, Gen Primary Care Unavailable Stephon Olmedo Attending Unavailable Reed, Gen Primary Care Unavailable Demetrsi Blevins Attending Unavailable Reed, Gen Primary Care Unavailable Rommel Burns Attending Unavailable KAMILLA MERA L (FRENCH EDGE OPERATOR) Attending Unavailable YOHANNES MERAANDA L (FRENCH EDGE OPERATOR) Referring Unavailable KEVIN TREVIZO (CLASSIFIED COPY CONTROL CLERK) Referring Unavailable KEVIN TREVIZO (CLASSIFIED COPY CONTROL CLERK) Attending Unavailable KAMILLA MERA (FRENCH EDGE OPERATOR) Attending Unavailable DEEPAK HOPE (IT SUPPORT TECHNICIAN) Attending Unavailable Ms. Ene Graham Attending Unavailable Dr. Gen Reed Primary Care Unavailable Dr. Jacob Jameson Attending Unavailable Dr. Gen Reed Primary Care Unavailable RAINER HIDALGO, SHAMA Admitting Unavailable RAINER HIDALGO CIRO Referring Unavailable Dr. Gen Reed Primary Care Unavailable Dr. Roque Read Attending Unavailable PROBLEMS PROBLEMS DATE TYPE CONDITION / CODE ATTENDING STATUS SOURCE 06/14/2018 Final diagnosis Other specified [facility] (discharge[facility] chromosome [facility] Grac[facility] abnormalities / [facility] Q99.8(ICD-10) 06/14/2018 Admitting Generalized [facility] diagnosis idiopathic epilepsy, Dr. Graciela [facility] intractable, w stat [facility] epi / G40.311(ICD-10) 06/14/2018 Final diagnosis Generalized [facility] (discharge) idiopathic epilepsy, Dr. Graciela [facility] intractable, w stat [facility] epi / G40.311(ICD-10) 06/14/2018 Final diagnosis Autistic disorder / [facility] (discharge) F84.0(ICD-10) [facility] 06/14/2018 Final diagnosis Urinary tract [facility] (discharge) infection, site not Dr. Yolis Owens specified / [facility] N39.0(ICD-10) 06/14/2018 Final diagnosis Unsp Escherichia [facility] (discharge) coli as the cause of Dr. Graciela [facility] diseases classd [facility] elswhr / B96.20(ICD-10) 06/14/2018 Final diagnosis Dysphagia, Miguel Active [place] (discharge) unspecified / Dr. Graciela [facility] R13.10(ICD-10) [facility] 06/14/2018 Final diagnosis Flex-[facility] (discharge) syndrome, Dr. Graciel[facility] intractable, w [facility] status epilepticus / G40.813(ICD-10) 06/14/2018 Final diagnosis Unspecified Miguel [facility] [place] (discharge) intellectual Dr. Graciela [facility] disabilities / [facility] F79(ICD-10) 11/17/2016 Active Generalized NA Active [place] idiopathic epilepsy Clinic Main and epileptic [place] syndromes, not Repository intractable, without status epilepticus / G40.309(ICD-10) 06/09/2018 Active Other fatigue / NA Active [place] R53.83(ICD-10) Clinic Main [place] Rep[facility] 05/25/2018 Final diagnosis Epilepsy, unsp, Dr. Gisell [facility] (discharge) intractable, without [facility] status epilepticus / Repository G40.919(ICD-10) 05/25/2018 Final diagnosis Oth symptoms and Dr. Gisell [facility] (discharge) signs w cognitive [facility] functions and Repository awareness / R41.89(ICD-10) 05/25/2018 Final diagnosis Gingival enlargement Dr. Gisell [facility] (discharge) / K06.1(ICD-10) [facility] Repository 12/22/2017 Final diagnosis Oth symptoms and Ms. Santos [facility] (discharge) signs involving the [facility] musculoskeletal Repository system / R29.898(ICD-10) 12/22/2017 Final diagnosis Disturbances of Ms. Santos [facility] (discharge) salivary secretion / [facility] K11.7(ICD-10) Repository 01/18/2018 Unknown G40.919 - Epilepsy, HEATHER UNGER Active [place] unspecified, Community intractable, without Hospital status epilepticus / Repository G40.919(ICD-10) 12/27/2017 Unknown F84.0 - Autistic Dossie, Pamella Active [place] disorder / [facility] F84.0(ICD-10) Hospital Repository PROCEDURES PROCEDURES DATE CODE DESCRIPTION STATUS SOURCE 06/12/2018 [id number](ICD10- [id number] Completed [facility] Repository RESULTS RESULTS PROGRESS Observed: 07/06/2018 Status: COMPLETED Source: [place] 9:23 AM [facility] REPOSITORY HNO ID: [id number] Author: Kamilla Quan (John) Samaria Service: (none) Author Type: Nurse Practitioner Type: Progress Notes Filed: 07/06/2018 9:58 AM Note Text: HPI/CC: Liset Sidhu is a 28 year old female who presents to the office today for ER F/U UTI on 06/29/18. Patient presents with recurrent sz activity. She was also admitted for UTI for 5 days a UH from 06/13- 06/17. UTI cleared as of 06/29. Family and caregiver report decreased appetite. Denies fevers, chills, vomiting, change in stools or urination, cough. Concerned for ear infection or throat infection. Awaiting call from neurology for further recommendations Requesting lift chair for assistance to lower level family area. ROS as above, otherwise non-contributory. Reviewed PMHx, PSHx, social Hx, medications and allergies. 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 [facility] at [facility] PAST SURGICAL HISTORY Procedure Laterality Date - NONE FAMILY HISTORY Problem Relation Age of Onset - other (Gallbladder) Father - Stroke Paternal Grandmother - Cancer Paternal Grandmother - Diabetes Paternal Grandmother Social History Marital status: Single Spouse name: Years of education: Number of children: Occupational History Occupation Employer Comment disabled Social History Main Topics Smoking status: Never Smoker Smokeless tobacco: Never Used Alcohol use: No Drug use: No Sexual activity: No Social History Narrative Lives with mother, her caregiver. Current Outpatient Prescriptions on File Prior to Visit: nystatin (MYCOSTATIN) powder Apply 1 application to affected area four times daily. Menthol-Zinc Oxide (CALMOSEPTINE) 0.44-20.6 % Apply 1 application to affected area twice daily as needed. Rash in groin clotrimazole (ANTIFUNGAL, CLOTRIMAZOLE,) 1 % cream Apply 1 application to affected area twice daily. triamcinolone (KENALOG) 0.1 % lotion Apply 1 application to affected area three times daily. rufinamide (BANZEL) 200 mg tablet 1/2 tablet twice daily folic acid 1 mg tablet Take 1 tablet by mouth once daily. clonazePAM 1 mg tablet 1 tab by mouth three times a day scopolamine (TRANSDERM-SCOP) 1.5 mg TRANSDERM. PT72 Apply 1 patch every 3-4 days No current facility-administered medications on file prior to visit. ALLERGIES No Known Allergies PHYSICAL EXAMINATION: BP 112/62 Pulse 84 Resp 16 General appearance: Well appearing, alert, in no acute distress, well-hydrated, well nourished. and Overweight Skin: Skin color, texture, turgor normal, no suspicious rashes or lesions Head: Normocephalic, no masses, lesions, tenderness or abnormalities Ears: External ears normal, canals clear, TM's normal Nose/Sinuses: Not examined Oropharynx: Lips, mucosa, and tongue normal, teeth and gums normal, oropharynx normal Lungs: Lungs clear to auscultation. No wheezing, rhonchi, rales Heart: RRR without murmur, gallop, or rubs. No ectopy Abdomen: Normal abdominal exam, Abdomen soft, non-tender. Bowel sounds normal. No masses, organomegaly ASSESSMENT/PLAN: 1. Active autistic disorder - ICD9: 299.00, ICD10: F84.0 (primary diagnosis) 2. Profound intellectual disabilities - ICD9: 318.2, ICD10: F73 3. 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 Nonintractable generalized idiopathic epilepsy without status epilepticus (HCC) - ICD9: 345.90, ICD10: G40.309 - follow with neurology for recommendations Kamilla Mera APRN.FRENCH EDGE OPERATOR CNOV Observed: 07/06/2018 Status: COMPLETED Source: [place] 9:20 AM [facility] REPOSITORY [facility] LISET SIDHU ([id number]) 1990 F Date Time Provider Department 07/06/18 9:20 AM KAMILLA MERA (JOHN) ROSEANNE During your visit today, we recorded the following information about you: Pulse Respiration Blood pressure 84/minute 16/minute 112/62 Kamilla Mera APRN.CNP 07/06/2018 9:58 AM Signed HPI/CC: Liset Sidhu is a 28 year old female who presents to the office today for ER F/U UTI on 06/29/18. Patient presents with recurrent sz activity. She was also admitted for UTI for 5 days a UH from 06/13- 06/17. UTI cleared as of 06/29. Family and caregiver report decreased appetite. Denies fevers, chills, vomiting, change in stools or urination, cough. Concerned for ear infection or throat infection. Awaiting call from neurology for further recommendations Requesting lift chair for assistance to lower level family area. ROS as above, otherwise non-contributory. Reviewed PMHx, PSHx, social Hx, medications and allergies. 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 [facility] at [facility] PAST SURGICAL HISTORY Procedure Laterality Date - NONE FAMILY HISTORY Problem Relation Age of Onset - other (Gallbladder) Father - Stroke Paternal Grandmother - Cancer Paternal Grandmother - Diabetes Paternal Grandmother Social History Marital status: Single Spouse name: Years of education: Number of children: Occupational History Occupation Employer Comment disabled Social History Main Topics Smoking status: Never Smoker Smokeless tobacco: Never Used Alcohol use: No Drug use: No Sexual activity: No Social History Narrative Lives with mother, her caregiver. Current Outpatient Prescriptions on File Prior to Visit: nystatin (MYCOSTATIN) powder Apply 1 application to affected area four times daily. Menthol-Zinc Oxide (CALMOSEPTINE) 0.44-20.6 % Apply 1 application to affected area twice daily as needed. Rash in groin clotrimazole (ANTIFUNGAL, CLOTRIMAZOLE,) 1 % cream Apply 1 application to affected area twice daily. triamcinolone (KENALOG) 0.1 % lotion Apply 1 application to affected area three times daily. rufinamide (BANZEL) 200 mg tablet 1/2 tablet twice daily folic acid 1 mg tablet Take 1 tablet by mouth once daily. clonazePAM 1 mg tablet 1 tab by mouth three times a day scopolamine (TRANSDERM-SCOP) 1.5 mg TRANSDERM. PT72 Apply 1 patch every 3-4 days No current facility-administered medications on file prior to visit. ALLERGIES No Known Allergies PHYSICAL EXAMINATION: BP 112/62 Pulse 84 Resp 16 General appearance: Well appearing, alert, in no acute distress, well-hydrated, well nourished. and Overweight Skin: Skin color, texture, turgor normal, no suspicious rashes or lesions Head: Normocephalic, no masses, lesions, tenderness or abnormalities Ears: External ears normal, canals clear, TM's normal Nose/Sinuses: Not examined Oropharynx: Lips, mucosa, and tongue normal, teeth and gums normal, oropharynx normal Lungs: Lungs clear to auscultation. No wheezing, rhonchi, rales Heart: RRR without murmur, gallop, or rubs. No ectopy Abdomen: Normal abdominal exam, Abdomen soft, non-tender. Bowel sounds normal. No masses, organomegaly ASSESSMENT/PLAN: 1. Active autistic disorder - ICD9: 299.00, ICD10: F84.0 (primary diagnosis) 2. Profound intellectual disabilities - ICD9: 318.2, ICD10: F73 3. 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 [Q99.8] Nonintractable generalized idiopathic epilepsy without status epilepticus (HCC) [G40.309] Order(s):COMPOUNDED PRESCRIPTIONObtain and install Electronic Straight StairliftDisp: 1 EachRfl: 0 Prescriptions as of 07/06/2018 Sig: PHENYTOIN SODIUM EXTENDED 100* Take 1 capsule morning and unique* LEVETIRACETAM 1,000 MG TABLET Take 2 tablets by mouth twice* RUFINAMIDE 200 MG TABLET Take 3 tablets by mouth twice* NYSTATIN 100,000 UNIT/GRAM TO* Apply 1 application to affect* MENTHOL 0.44 %-ZINC OXIDE 20.* Apply 1 application to affect* CLOTRIMAZOLE 1 % TOPICAL CREAM Apply 1 application to affect* TRIAMCINOLONE ACETONIDE 0.1 %* Apply 1 application to affect* FOLIC ACID 1 MG TABLET Take 1 tablet by mouth once d* * CLONAZEPAM 1 MG TABLET 1 tab by mouth three times a * * TRANSDERM-SCOP 1.5 MG TRANSDE* Apply 1 patch every 3- 4 days COMPOUNDED PRESCRIPTION Obtain and install Electronic* Problem List As Of Date 07/06/2018 Noted Resolved Active autistic disorder [F84.0] INVALID FOR* GEN CONVULSIVE EPILEPSY [345.1] INVALID FOR*01/23/2008 Nonintractable generalized idiopathic epilepsy *INVALID FOR* PROFOUND MENTAL RETARDAT [F73] INVALID FOR* 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 Disc: Duplicate Entry leveTIRAcetam (KEPPRA) 500 mg tablet 0 03/20/2012 07/06/2018 Class: Med Update Sig: three tabs in the a.m. and three tabs at night Disc: Duplicate Entry Cosign accepted by MEGAN MEJIAS DO[[id number]] on 03/20/2012 3:15 PM rufinamide (BANZEL) 200 mg tablet 06/22/2013 07/06/2018 Class: Historical Med Si/2 tablet twice daily Disc: Reason for discontinue is not on file. Encounter Status:Closed by KAMILLA MERA CNP on 07/06/18 12 LEAD ELECTROCARDIOGRAM Observed: 07/03/2018 Status: F Source: [place] 9:20 AM [facility] Cardiovascular Services [address] [place] [address] 12 Lead EKG 06/29/18 1840 MR#: [id number] Acct: [id number] Name: LISET SIDHU Rep #: [id number] : 1990 28 From: José Miguel Eaton MD Attending Dr: Status: DEP ER Ordering Dr: Rommel Burns MD Date: 06/29/18 Location: ED Sex: F C Admitted: Test Reason : SEIZURE Blood Pressure : / mmHG Vent. Rate : 094 BPM Atrial Rate : 094 BPM P-R Int : 156 ms QRS Dur : 078 ms QT Int : 358 ms P-R-T Axes : 042 081 039 degrees QTc Int : 447 ms Normal sinus rhythm Normal ECG Confirmed by JOSÉ MIGUEL EATON MD ([id number]), advertising editor ANGUS LINN ([id number]) on 07/03/2018 9:20:23 AM Referred By: BEBA Confirmed By:JOSÉ MIGUEL EATON MD 07/03/18 0920 Date José Miguel Eaton MD CC: Gen Aguirre DO; Rommel Burns Signed EMERGENCY DEPARTMENT Observed: 06/30/2018 Status: F Source: [facility]OS[facility] SUMMARY 12:21 AM [facility] Medical Records Department [address] [place] [address] Emergency Department Summary 06/29/18 2232 MR#: [id number] Acct: [id number] Name: LISET SIDHU Rep #: [id number] : 1990 28 From: Rommel Burns MD PCP: Gen Aguirre DO Status: DEP ER - ER Visit Summary Date of Service: 06/29/18 Chief Complaint: Seizure History of Present Illness: The patient is a 28 F presenting for evaluation secondary to seizures. Patient has a underlying history of difficult to control seizure disorder with partial seizures. Patient is on Dilantin, Klonopin, Keppra, and Banzel. Patient was admitted early June for worsening tract infection. She had increasing doses given to her of her Keppra. She currently is on 2000 mg twice daily of Keppra. Patient apparently over the course of the last day or so has been complaining of some GI symptoms. This morning at about 11:00 she had some difficulty with increasing seizure activity. These are partial seizures. Patient was not able to keep down her nighttime doses of medications, and was having persistent seizure activity, so family decided to have her brought into the emergency department. Physical Examination: Vital signs within normal limits. Well- nourished female. Head normocephalic. PRL, evidence of eye deviation on initial exam without any evidence of icterus. Moist mucous membranes. No JVD. Heart regular rate and rhythm lungs clear. Abdomen soft nontender. Extremities nontender nonedematous. Skin normal color no rash, patient was alert but not verbally responsive having occasional partial seizures with contracture of the left side of her body and deviation of the eyes. Test Results: Chemistry panel unremarkable, urinalysis negative. EKG shows sinus with isoelectric ST segments normal T waves normal intervals. Emergency Department Course and Treatment: Patient presented with refractory seizures. Patient was given 5 mg of Valium by EMS. On initial presentation the patient was given 4 mg of Ativan IV. He had some improvement of her seizure activity, and then during the workup she had some worsening again so she was given another 2 mg. Patient is very difficult to obtain IV access on, so we were only able to obtain a metabolic panel on the patient which was found to be normal. Urinalysis and EKG were also normal. I had a discussion with pharmacy as well as with the on-call neurology resident at [facility] that helps care for the patient, and they recommended loading IV doses of Keppra at 2000 mg, and Dilantin at 1.3 g. Patient had improvement of her seizure activity throughout a 5-1/2-hour observation time and medication time in the emergency department with multiple re-evaluations. Plan at this time is for the patient to be discharged with close outpatient follow-up. Family is very reliable, and the understands signs and symptoms for which to return. Disposition: Discharge Impression: 1. Breakthrough partial seizures with status epilepticus, resolved Critical care time 45 This note was generated with [employer]ation software. It may contain incorrect words, spelling, and punctuation that were not noted in review of the chart prior to signing ED Disposition - Plan for ED Patient: Disposition: Home or Assisted Living Chief Complaint: Seizure Diagnosis: Breakthrough seizure Instructions: ED Seizure Recurrent Referrals: Gen Reed DO [Primary Care Provider] - Additional Instructions: Re-start your medications as usual Followup GREGORY with neurology What to do if you have Problems For any increased pain, shortness of breath, bleeding, nausea or vomiting, chest pain, or any unexpected problems, contact your Primary Care Provider. Call [facility] ([phone]) or report to the closest Emergency Room. Call 911 if necessary. 06/30/18 0021 <Electronically signed by Rommel Burns MD> Date Rommel Burns MD Cosigner Signature (If Indicated): Date CC: Gen Aguirre DO URINALYSIS, COMPLETE Collected: 06/29/2018 Status: F Source: [place] 7:30 PM [facility] REPOSITORY Order Comment: Order Date: 06/29/18 How was Urine Obtained? CATHETER SPECIMEN TYPE CODE TESTS RESULT OUT OF RANGE REFERENCE UNITS LAB L400.3000 Yellow COLOR Normal Yellow LAB L400.3050 Clear Normal CLARITY Clear LAB L400.3200 Normal mg/dl Normal GLUCOSE, UR Normal LAB L400.3300 Negative mg/dL Normal BILIRUBIN URINE Negative LAB L400.3400 Negative mg/dl Normal KETONE UR Negative LAB L400.3465 1.002-1.030 Normal SP.GR. DIPSTX 1.020 LAB L400.3550 5.0 - 8.0 pH UR Normal 6.0 LAB L400.3600 Negative mg/dl High PROT 15 DIPSTX LAB L400.3700 Normal mg/dl Normal UROBILI Normal LAB L400.3750 Negative Normal NITRITE UR Negative LAB L400.3780 Negative /ul High 25 OCCULT BLOOD-UR LAB L400.3800 Negative /ul LEUK Normal ESTERASE Negative LAB L400.4050 0-5 /hpf WBC 0 Normal SEEN LAB L400.4100 0-5 /hpf Normal RBC-UA 0-5 SEEN LAB L400.4150 5-10 /hpf SQUAM Normal EPI 0-5 SEEN LAB L400.4300 None Seen /hpf 0 Normal BACTERIA SEEN LAB L400.4350 <or=2+ /hpf 1+ Normal MUCUS, URINE Performed By: #### L400.0001 #### [facility] [address] [place], [address] PHOSPHORUS Collected: 06/29/2018 Status: F Source: [place] 6:35 PM [facility] REPOSITORY TYPE CODE TESTS RESULT OUT OF RANGE REFERENCE UNITS LAB L501.2300 2.5-4.9 mg/dL Normal PHOS 3.4 Performed By: #### L501.2300 #### [facility] [address] [place], [address] COMPREHENSIVE METABOLIC Collected: 06/29/2018 Status: F Source: [facility] 6:35 PM [facility] REPOSITORY TYPE CODE TESTS RESULT OUT OF RANGE REFERENCE UNITS LAB L501.0100 74-106 mg/dL High GLU 108 Result Comment: Fasting Glucose result from 100 to 125 mg/dL suggests IMPAIRED HOMEOSTASIS per A.D.A. criteria. Please note revised GLUCOSE reference range effective 2017. LAB L501.1000 7-18 mg/dL Normal BUN 7 LAB L501.1100 0.55-1.02 mg/dL Normal CREAT,SERUM 0.65 Result Comment: The validity of the calculated GFR AND GFRAA in patients over 70 years has not been determined. Clinical correlation is essential. LAB L501.1110 >60 mL/min Normal EST GFR 114 Result Comment: Non- GFR Calc LAB L501.1115 >60 mL/min Normal EST GFR - AA 139 Result Comment: GFR Calc LAB L501.1255 ml/min Normal Estimated CRCL 114.91 LAB L501.1300 10-20 RATIO BUN/CRE Normal 10.8 LAB L501.1500 6.4-8. g/dL 2 T PROT Normal 8.2 LAB L501.1800 3.2-5. g/dL 0 ALB Normal 3.4 LAB L501.1950 2.2-4. g/dL High 2 GLOB 4.8 LAB L501.2000 0.9-2. RATIO Low 4 A/G 0.7 LAB L501.2200 8.5-10 mg/dL .1 CA Normal 9.0 LAB L501.4100 15-37 U/L AST Normal 19 LAB L501.4305 45-117 U/L ALK P Normal 75 LAB L501.4405 13-56 U/L ALT Normal 22 LAB L501.4600 0.20-1 mg/dL .00 T BILI Normal 0.20 LAB L501.5300 136-14 mmol/L 5 NA Normal 139 LAB L501.5600 3.5-5. mmol/L 1 K Normal 3.5 LAB L501.5900 98-107 mmol/L CL Normal 106 LAB L501.6100 21.0-3 mmol/L 2.0 CO2 Normal 22.0 LAB L501.6200 5-15 GAP Normal 11 Performed By: #### L500.4050, L501.5200 #### [facility] [address] [place], [address] MAGNESIUM Collected: 06/29/2018 Status: F Source: ABIE 6:35 PM [facility] REPOSITORY TYPE CODE TESTS RESULT OUT OF RANGE REFERENCE UNITS LAB L501.5200 1.6-2.6 mg/dL Normal MG 2.1 Performed By: #### L500.4050, L501.5200 #### [facility] [address] [place], [address] DISCHARGE PROFILE2 Observed: 06/14/2018 Status: UNK Source: [facility] 12:54 PM HOSPITALS REPOSITORY Discharge Orders: Anticipated Discharge Date: Anticipated Discharge [id number] Problem List: Admitting Dx: Status epilepticus: Catalog Name: Epilepsy, unspecified, not intractable, with status epilepticus 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 May shower. Weight-bearing Instructions: weight-bearing as tolerated. Other activity instructions: No engagement in any activity that might result in harm to self and/or others in the event of altered awareness and/or loss of consciousness, these include (but not limited to) driving, climbing ladders, swimming, hot-tub bathing, cooking, operating heavy machinery; for at least 6 months from time of last seizure and until next follow up appointment/upon further discussion with your Neurologist. Diet: Dietregular Diet Consistency/Texturepureed, nectar/thick Additional Orders: Additional Instructions Please start patient on pureed diet with thickened liquids. As patient becomes more alert can slowly advance diet to previous diet of regular solids/thin liquids. Referral given for outpatient speech therapy who can assist with timing of diet advancement. Provider FINAL REVIEW of Orders: Final Review: Final Review of Medication Reconciliation and Orders Completedby Physician Reviewing ProviderRoselia Mora MD (Resident) at 14-Jun-2018 14:09:05 Appointments: Follow-Up Appointment 01: Physician/Dept/ServiceDr. Jameson - Pediatric Neurology Call to Schedule in4 weeks Scheduled Date/Ravu45-[id number]-[id number] 11:00 Phone [phone] CommentsOrder received after discharge Electronic Signatures: Oskar Ledezma (PT ACC REP) (Signed 16-Jun-2018 16:24) Authored: Appointments Roselia Mora (Resident)) (Signed 14-Jun-2018 14:09) Authored: Discharge Orders, Stroke, Provider FINAL REVIEW of Orders, Appointments, Gold Form - Commercial Retoucher Summary Last Updated: 16-Jun-2018 16:24 by Oskar Ledezma (PT ACC REP) CBC Collected: 06/14/2018 Status: F Source: [facility] 4:10 AM HOSPITALS REPOSITORY TYPE CODE TESTS RESULT OUT OF REFERENCE UNITS RANGE LAB WBCR(LOINC 4.4 - 11.3 x10E9/L ) Low WBC 3.5 LAB NRBC(LOINC 0.0-0.0 /100 WBC ) NUCLEATED RBC 0.0 LAB RBCCT(LOIN 4.00 - 5.20 x10E12/L C) RBC 4.15 LAB HGB(LOINC) 12.0 - 16.0 g/dL HGB 12.7 LAB HCT(LOINC) 36.0 - 46.0 % HCT 36.2 LAB MCV(LOINC) 80 - 100 fL MCV 87 LAB MCHC2(LOIN 32.0 - 36.0 g/dL C) MCHC 35.1 LAB PLTCT(LOIN 150 - 450 x10E9/L C) Low PLT 139 LAB RDWCV(LOIN 11.5 - 14.5 % C) RDW-CV 12.3 Performed By: #### CBC #### [facility] [address] [place] [address] RENAL FUNCTION PANEL Collected: 06/14/2018 Status: F Source: [facility] 4:10 AM HOSPITALS REPOSITORY TYPE CODE TESTS RESULT OUT OF REFERENCE UNITS RANGE LAB GLU(LOINC) 74 - 99 mg/dL GLUCOSE 93 LAB SOD(LOINC) 136 - 145 mmol/L SODIUM 137 LAB K(LOINC) 3.5 - 5.3 mmol/L POTASSIUM 4.0 LAB CHLOR(LOIN 98 - 107 mmol/L C) CHLORIDE 101 LAB BIC(LOINC) 21 - 32 mmol/L BICARBONATE 29 LAB ANGAP(LOIN 10 - 20 mmol/L C) ANION GAP 11 LAB UREA(LOINC 6 - 23 mg/dL ) UREA NITROGEN 11 LAB CREA(LOINC 0.50 - 1.05 mg/dL ) CREATININE 0.56 LAB GFRFN(LOIN >60 mL/min/1.7 C) 3m2 GFR-NON AM. >60 LAB GFRAA(LOIN >60 mL/min/1.7 C) 3m2 GFR- AM. >60 Result Comment: CALCULATIONS OF ESTIMATED GFR ARE PERFORMED USING THE MDRD STUDY EQUATION FOR THE IDMS-TRACEABLE CREATININE METHODS. CLIN CHEM 2007;53:766-72 LAB CA(LOINC) 8.6 - 10.6 mg/dL CALCIUM 9.0 LAB PHOS(LOINC) 2.5 - 4.9 mg/dL PHOSPHORUS 4.7 Result Comment: The performance characteristics of phosphorus testing in heparinized plasma have been validated by the individual laboratory site where testing is performed. Testing on heparinized plasma is not approved by the FDA; however, such approval is not necessary. LAB ALB(LOINC) 3.4 - 5.0 g/dL ALBUMIN 3.7 Performed By: #### RENAL #### [facility] [address] [place] [address] CLINICAL EVENT Observed: 06/14/2018 Status: UNK Source: [place] NOTE-RESTRAINT RENEWAL 1:21 AM HOSPITALS REPOSITORY Event: Topic: Restraint renewal Details: Patient's restraints renewed overnight after discussion with nursing. Patient's was recently seizing very frequently, Dobhoff and peripheral IV in place and must not be disturbed. Will not trial off restraints overnight given prior reaching for lines this admission. Benefits outweigh risks. Electronic Signatures: Jesus Porras ( (Resident)) (Signed 14-Jun-2018 01:22) Authored: Event Last Updated: 14-Jun-2018 01:22 by Jesus Porras (Resident)) SWALLOW EVALUATION Observed: 06/13/2018 Status: UNK Source: [place] V2-BEDSIDE CLINICAL 10:58 AM HOSPITALS REPOSITORY SWALLOW, CULL GRADER Rehab: Info: Mode of TreatmentSpeech-Language Pathology Time IN07:50 Time OUT08:30 Total Treatment [id number] Patient in ... 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 Jameson), autism, intellectual disability presenting [facility] as a transfer from OSH in setting of increased seizure frequency. Infectious work up to date is negative. Cause of increased seizure frequency at this time is unclear but could be due to missed medication doses (which could be suspected given patients reported history of missing doses by drooling or spitting out medication). Now has IV access and fospheny and keppra load given yesterday 06/11 Impression: CULL GRADER Swallowing DiagnosisDysphagia Assessment (Swallow Eval)Swallow evaluation completed. Pt known to CULL GRADER from previous admit. MBSS completed 02/2016 with recs for puree/nectar thick liquids. Per mother, at bedside, pt only consumed that diet while in the hospital and has eaten a regular diet/thin liquids since. This date, pt lethargic with decreased ability to manage secretions independently. Pt non- verbal and unable to follow commands at baseline. Given tsp sips of thin liquids x3. Pt with limited bolus manipulation; anterior loss of majority of bolus noted. No initiation of the swallow observed with the remainder of the liquid suctioned by CULL GRADER via Y[place]auer. No further trials given 2/2 severity/risk of aspiration/hx of dysphagia. CULL GRADER recommends STRICT NPO with frequent aggressive oral care. Instrumental assessment contraindicated at this time given baseline mental status, current medical status and lethargy. Question need at this time for GOC discussion vs. care home means nutrition/hydration. Extensive education provided to mother regarding NPO status and the need for repeat instrumental exam when appropriate prior to PO intake. Mother reported that she was not interested in instrumental swallow assessment and would feed her dtr despite the risk of aspiration; defer PO intake to medical team. Nursing and MD aware of recommendations/results. Will follow peripherally/as indicated by medical team. Therapy Frequency (CULL GRADER)1 time/wk CULL GRADER Diet Recommendations (Swallow Eval)STRICT NPO with frequent aggressive oral care Short Term Goals: Dysphagia/Swallow: Established [id number] Dysphagia/Swallow: Goal DetailsPt will tolerate the least restrictive diet with no overt clinical s/s of aspiration/penetration 100% of the time. Dysphagia/Swallow: Time Frame for GoalBy discharge Electronic Signatures: Taina James (ANU) (Signed 13-Jun-2018 11:12) Authored: Rehab Last Updated: 13-Jun-2018 11:12 by Tania James (ANU) DAILY PROGRESS Observed: 06/13/2018 Status: COMPLETED Source: [facility]ERS[facility] NOTE-EPILEPSY 8:37 AM HOSPITALS REPOSITORY Service: Epilepsy Subjective Data: LISET SIDHU is a 28 year old Female who is Hospital Day # 3. Objective Data: Objective Information: ---- Intake and Output ----- Mn/Dy/Year TimeIntakeOutputNet Jun 13, 2018 6:00 [id number] Jun 12, 2018 10:00 [id number] Jun 12, 2018 2:00 [id number] The Intake and Output Totals for the last 24 hours are: IntakeOutputNet [id number] T PRBPSpO2 [id number]/6599% Date/Time06/13 8: 8: 8: 8:/ 8:00 Range(36C - 36.9C ) (72 - 102 ) (12 - 20 ) (81 - 108 )/ (55 - 70 ) (98% - 100% ) As of 12-Jun-2018 16:00:00, patient is on 0 L/min of oxygen via room air. Highest temp of 36.9 C was recorded at 06/13 0:00 Physical Exam: Neurological: Eyes closed, does not open to command but will open briefly to noxious stim, unable to assess orientation, CN exam grossly normal with limited exam, motor moves all extremities to noxious stim, sensory withdraw to noxious stim Medication: Medications: CENTRAL NERVOUS SYSTEM AGENTS: 1. Acetaminophen Oral Liquid: 650 mg Oral Every 4 Hours PRN 2. fentaNYL Injectable: 100 microgram(s) IntraVenous Push Once 3. levETIRAcetam Oral Liquid: 2000 mg Feeding tube 2 Times a Day 4. Phenytoin Oral Liquid: 100 mg Feeding tube Daily 5. Phenytoin Oral Liquid: 100 mg Feeding tube <User Schedule> 6. Phenytoin Oral Liquid: 200 mg Feeding tube Every Night 7. Rufinamide - PEDS: 600 mg NasoGastric Tube Every 12 Hours 8. clonazePAM (KLONOPIN): 1.5 mg Feeding tube Every 8 Hours 9. LORazepam Injectable - PEDS: 2 mg IntraVenous Push Every 5 Minutes PRN 10. Midazolam Injectable: 2 mg IntraVenous Push Once COAGULATION MODIFIERS: 1. Enoxaparin SubCutaneous: 40 mg SubCutaneous Every 24 Hours 2. Heparin Flush 10 unit/ mL PF Injectable: 5 mL IntraVenous Flush Every 12 Hours PRN 3. Heparin Flush 10 unit/ mL PF Injectable PRN: 5 mL IntraVenous Flush According to Flush Policy PRN GASTROINTESTINAL AGENTS: 1. Esomeprazole Oral Packet: 20 mg NasoGastric Tube Daily METABOLIC AGENTS: 1. Dextrose 50% in Water Injectable: 12.5 gram(s) IntraVenous Push Every 15 Minutes PRN 2. Dextrose 50% in Water Injectable: 25 gram(s) IntraVenous Push Every 15 Minutes PRN 3. Glucagon Injectable: 1 mg IntraMuscular Every 15 Minutes PRN NUTRITIONAL PRODUCTS: 1. Magnesium Sulfate 2 gram/Sterile Water 50 mL Premix Soln: 2 gram(s) IntraVenous Piggyback Every 6 Hours PRN 2. Magnesium Sulfate 4 gram/Sterile Water 100 mL Premix Soln: 4 gram(s) IntraVenous Piggyback Every 6 Hours PRN 3. Potassium Chloride 20 mEq/Sterile Water 100 mL Premix IVPB: 20 mEq IntraVenous Piggyback Every 6 Hours PRN 4. Sodium Chloride 0.9% Injectable Flush: 10 mL IntraVenous Flush Every 12 Hours 5. Sodium Chloride 0.9% Injectable Flush PRN: 10 mL IntraVenous Flush According to Flush Policy PRN 6. Sodium Chloride 0.9% Injectable Flush PRN: 20 mL IntraVenous Flush According to Flush Policy PRN 7. Folic Acid: 1 mg Feeding tube Daily Recent Lab Results: Results: I have reviewed these laboratory results: Glucose_POCT 13-Jun-2018 05:55:00 ResultValue Glucose-POCT 103 H Complete Blood Count + Differential 13-Jun-2018 02:46:00 ResultValue White Blood Cell Count 3.6 L Nucleated Erythrocyte Count 0.0 Red Blood Cell Count 4.09 HGB 12.5 HCT 35.0 L MCV 86 MCHC 35.7 PLT 144 L RDW-CV 12.2 Neutrophil % 68.9 Immature Granulocytes % 0.3 Lymphocyte % 17.0 Monocyte % 12.1 Eosinophil % 1.4 Basophil % 0.3 Neutrophil Count 2.51 Lymphocyte Count 0.62 L Monocyte Count 0.44 Eosinophil Count 0.05 Basophil Count 0.01 Renal Function Panel 13-Jun-2018 02:46:00 ResultValue Glucose, Serum 127 H NA 138 K 4.0 CL 102 Bicarbonate, Serum 28 Anion Gap, Serum 12 BUN 8 CREAT 0.56 GFR-Non >60 GFR- >60 Calcium, Serum 9.1 Phosphorus, Serum 3.9 ALB 3.7 Magnesium, Serum 13-Jun-2018 02:46:00 ResultValue Magnesium, Serum 1.96 Calcium, Ionized Level 13-Jun-2018 02:46:00 ResultValue Calcium, Ionized Level 1.24 Assessment and Plan: Assessment: 28 yo woman w/ hx of Chr 15 anomaly, epilepsy followed by peds neuro, autism presenting with increased frequency of seizures for 1 week. Presented to OSH for GTC and transferred for further workup. Phenytoin level OSH was 11.1. Unclear etiology of increased seizure frequency, although this may be due to spitting up of pills leading to subtherapeutic AED level, vs. increased episodes in setting of increased clonazepam. vEEG improved overnight, 7 brief automotor seizures were seen overnight. Per discussion with relatives this is her baseline. #breakthrough seizures -PHT level 19.5 -Continue keppra 2gm BID IV -Continue phenytoin dose 100mg qam, 100mg noon, 200mg every night -Continue clonazepam 1.5mg TID -Continue banzel 600mg BID -Continue VEEG #UTI -UCx growing E coli -started bactrim DS BID for 3 day course #dysphagia -CULL GRADER evaluated - recommended NPO with MBS -in past pt was recommended a thickened liquid diet based on MBS but family was not adherent -will discuss further testing and GOC with family regarding nutrition F: 200 cc water flushes q6 E: daily rfp, replete as needed N: TF via NG FULL CODE Signature/Cosignature/Attestation: Attending AttestationI saw and evaluated the patient. I personally obtained the guerra and critical portions of the history and physical exam or was physically present for guerra and critical portions performed by the resident/fellow. I reviewed the resident/fellows documentation and discussed the patient with the resident/fellow. I agree with the resident/fellows medical decision making as documented in the residents note. I personally evaluated the patient (as noted in the above attestation) on 13-Jun-2018 Comments/ Additional Findings I spent 30 minutes with this patient. Greater than 50% of this time was spent in counseling and /or coordination of care. Electronic Signatures: Roque Read) (Signed 13-Jun-2018 20:43) Authored: Assessment and Plan, Signature/Cosignature/Attestation Co-Signer: Signature/Cosignature/Attestation Roselia Mora (Resident)) (Signed 13-Jun-2018 13:44) Authored: Service, Subjective Data, Objective Data, Assessment and Plan, Signature/Cosignature/Attestation Last Updated: 13-Jun-2018 20:43 by Roque Read) DAILY PROGRESS NOTE - Observed: 06/13/2018 Status: UNK Source: [facility] 6:06 AM HOSPITALS REPOSITORY This report has been cancelled. GLUCOSE-POCT Collected: 06/13/2018 Status: F Source: [place] 5:55 AM HOSPITALS REPOSITORY TYPE CODE TESTS RESULT OUT OF RANGE REFERENCE UNITS LAB GLUP(LOINC) 74 - 99 mg/dL High 103 GLUCOSE-POCT Performed By: #### GLUPO #### [facility] [address] [place] [address] CBC AND DIFFERENTIAL Collected: 06/13/2018 Status: F Source: [place] 2:46 AM HOSPITALS REPOSITORY TYPE CODE TESTS RESULT OUT OF REFERENCE UNITS RANGE LAB WBCR(LOINC 4.4 - 11.3 x10E9/L ) Low WBC 3.6 LAB NRBC(LOINC 0.0-0.0 /100 WBC ) NUCLEATED RBC 0.0 LAB RBCCT(LOIN 4.00 - 5.20 x10E12/L C) RBC 4.09 LAB HGB(LOINC) 12.0 - 16.0 g/dL HGB 12.5 LAB HCT(LOINC) 36.0 - 46.0 % Low HCT 35.0 LAB MCV(LOINC) 80 - 100 fL MCV 86 LAB MCHC2(LOIN 32.0 - 36.0 g/dL C) MCHC 35.7 LAB PLTCT(LOIN 150 - 450 x10E9/L C) Low PLT 144 LAB RDWCV(LOIN 11.5 - 14.5 % C) RDW-CV 12.2 LAB NEUT(LOINC 40.0 - 80.0 % ) % NEUTROPHIL 68.9 LAB IG(LOINC) 0.0 - 0.9 % % AUTOMATED 0.3 IMMATURE GRAN Result Comment: Percent differential counts (%) should be interpreted in the context of the absolute cell counts (cells/L). LAB LYMPH(LOINC) 13.0 - 44.0 % % LYMPHOCYTE 17.0 LAB MONO(LOINC) 2.0 - 10.0 % % MONOCYTE 12.1 LAB EOS(LOINC) 0.0 - 6.0 % % EOSINOPHIL 1.4 LAB BASO(LOINC) 0.0 - 2.0 % % BASOPHIL 0.3 LAB #NEUT(LOINC) 1.20 - 7.70 x10E9/L NEUTROPHIL 2.51 LAB #LYMP(LOINC) 1.20 - 4.80 x10E9/L LYMPHOCYTE Low 0.62 LAB #MONO(LOINC) 0.10 - 1.00 x10E9/L MONOCYTE 0.44 LAB #EOS(LOINC) 0.00 - 0.70 x10E9/L EOSINOPHIL 0.05 LAB #BASO(LOINC) 0.00 - 0.10 x10E9/L BASOPHIL 0.01 Performed By: #### CBCDF #### [facility] [address] [place] [address] CALCIUM, IONIZED Collected: 06/13/2018 Status: F Source: [place] 2:[address] [place] [address] REPOSITORY TYPE CODE TESTS RESULT OUT OF RANGE REFERENCE UNITS LAB CAION(LOINC 1.10 - 1.33 mmol/L ) 1.24 CALCIUM,IONI ZED Result Comment: The performance characteristics of ionized calcium tested in heparinized plasma or serum have been validated by the individual laboratory site where testing is performed. Testing on heparinized plasma or serum is not approved by the FDA; however, such approval is not necessary. Performed By: #### IONC1 #### [facility] [address] [place] [address] MAGNESIUM Collected: 06/13/2018 Status: F Source: [place] 2:[address] [place] [address] REPOSITORY TYPE CODE TESTS RESULT OUT OF REFERENCE UNITS RANGE LAB MG(LOINC) 1.60 - 2.40 mg/dL MAGNESIUM 1.96 Performed By: #### MG #### [facility] [address] [place] [address] RENAL FUNCTION PANEL Collected: 06/13/2018 Status: F Source: [place] [id number] [place] [address] REPOSITORY TYPE CODE TESTS RESULT OUT OF REFERENCE UNITS RANGE LAB GLU(LOINC) 74 - 99 mg/dL GLUCOSE High 127 LAB SOD(LOINC) 136 - 145 mmol/L SODIUM 138 LAB K(LOINC) 3.5 - 5.3 mmol/L POTASSIUM 4.0 LAB CHLOR(LOIN 98 - 107 mmol/L C) CHLORIDE 102 LAB BIC(LOINC) 21 - 32 mmol/L BICARBONATE 28 LAB ANGAP(LOIN 10 - 20 mmol/L C) ANION GAP 12 LAB UREA(LOINC 6 - 23 mg/dL ) UREA NITROGEN 8 LAB CREA(LOINC 0.50 - 1.05 mg/dL ) CREATININE 0.56 LAB GFRFN(LOIN >60 mL/min/1.7 C) 3m2 GFR-NON AM. >60 LAB GFRAA(LOIN >60 mL/min/1.7 C) 3m2 GFR- AM. >60 Result Comment: CALCULATIONS OF ESTIMATED GFR ARE PERFORMED USING THE MDRD STUDY EQUATION FOR THE IDMS-TRACEABLE CREATININE METHODS. CLIN CHEM 2007;53:766-72 LAB CA(LOINC) 8.6 - 10.6 mg/dL CALCIUM 9.1 LAB PHOS(LOINC) 2.5 - 4.9 mg/dL PHOSPHORUS 3.9 Result Comment: The performance characteristics of phosphorus testing in heparinized plasma have been validated by the individual laboratory site where testing is performed. Testing on heparinized plasma is not approved by the FDA; however, such approval is not necessary. LAB ALB(LOINC) 3.4 - 5.0 g/dL ALBUMIN 3.7 Performed By: #### RENAL #### [facility] [address] [place] [address] GLUCOSE-POCT Collected: 06/12/2018 Status: F Source: [place] 11:26 PM HOSPITALS REPOSITORY TYPE CODE TESTS RESULT OUT OF RANGE REFERENCE UNITS LAB GLUP(LOINC) 74 - 99 mg/dL High 120 GLUCOSE-POCT Performed By: #### GLUPO #### [facility] [address] [place] [id number] URINE Observed: 06/12/2018 Status: F Source: [place] CULTURE,BACTERIAL 5:24 PM HOSPITALS REPOSITORY PATIENT: LISET SIDHU LOCATION: [facility] BILL#: [id number] : 88 AGE: SEX: F ORDERED BY: MISTI COTTER SOURCE: URINE COLLECTED: 06/12/18 17:24 ANTIBIOTICS AT KAN.: RECEIVED : 06/12/18 21:12 SITE: Straight Cath R E S U L T S URINE CULTURE,BACTERIAL FINAL 06/13/18 16:30 ISOLATE1 : Escherichia coli >100,000 CFU/ML SENSITIVITIES RECENTLY PERFORMED- SEE PREVIOUS CULTURE RESULTS. [id number] 06/11/18 Performed By: #### URINC #### [facility] [address] [place] [address] EMR ADDON Collected: 06/12/2018 Status: F Source: [facility] 3:12 PM HOSPITALS REPOSITORY TYPE CODE TESTS RESULT OUT OF REFERENCE UNITS RANGE LAB EMRAC(MANDYIN C) ADDON CONFIRMATION REQUEST REC'D Performed By: #### EMRAD #### NO LOCATION NEEDED SWALLOW EVALUATION Observed: 06/12/2018 Status: UNK Source: [place] [id number] PATHOLOGY 2:23 PM HOSPITALS REPOSITORY Rehab: Info: Mode of Treatmentattempted; speech-language pathology Time IN14:23 Communicated with ... at end of sessionbedside nurse; physician Evaluation Not Performedpt unable to open eyes d/t lethargy post seizures. postictal state pt's mom present and states pt ate regular p.o. and liquids well prior to admit ( last meal was 06/10.) Pt now NPO with dobhoff with family considering a peg tube for seizure meds to ensue proper dosage d/t pt pockets meds even when crushed. Pt drools baseline. pt nonverbal baseline and uses a picture ACC device Electronic Signatures: Gayatri Fields (ANU) (Signed 12-Jun-2018 14:29) Authored: Rehab Last Updated: 12-Jun-2018 14:29 by Gayatri Fields (SP) NUTRITION THERAPY-ASSESSMENT Observed: 06/12/2018 Status: UNK Source: [facility] 11:41 AM HOSPITALS REPOSITORY Assessment Subjective/Objective: Note Type: Assessment Note Authored by: Registered Dietitian Manager Occupational Pager Number: [phone] Nutrition Note: The patient is a 28 year old Female with PMH of chromosome pair 15 anomoly, intractable epilepsy, autism, and intellectual disability who presented to OSH with increase in seizure activity (baseline a few seizures per month). Transferred to [facility] for further care. Etiology: possibly missed medications vs. infection vs. combination of both. Pt inappropriate for swallow eval with CULL GRADER d/t seizure activity. Has dobhoff. Objective Information: Intake Output Enteral - Tube 220 mL Urine 200 mL IV Fluids 460 mL Height/Weight: Height in cm: 157.4 centimeter(s) Weight (kg): 66.3 BMI (kg/m2): 26.761 square meter DBW (kg): 50 %DBW: 133 Weight history/ % weight change: 03/12/16: 64.8 kg -from previous admission. Significant Weight Change: no Recent Lab Results: Results: I have reviewed these laboratory results: Renal Function Panel 12-Jun-2018 03:42:00 ResultValue Glucose, Serum 121 H NA 136 K 3.3 L CL 103 Bicarbonate, Serum 27 Anion Gap, Serum 9 L BUN 7 CREAT 0.51 GFR-Non >60 GFR- >60 Calcium, Serum 9.0 Phosphorus, Serum 4.2 ALB 3.8 Magnesium, Serum 12-Jun-2018 03:42:00 ResultValue Magnesium, Serum 2.11 Complete Blood Count + Differential 12-Jun-2018 03:40:00 ResultValue White Blood Cell Count 5.2 Nucleated Erythrocyte Count 0.0 Red Blood Cell Count 4.29 HGB 13.2 HCT 39.1 MCV 91 MCHC 33.8 PLT 152 RDW-CV 12.4 Neutrophil % 82.3 Immature Granulocytes % 0.2 Lymphocyte % 9.5 Monocyte % 7.4 Eosinophil % 0.4 Basophil % 0.2 Neutrophil Count 4.25 Lymphocyte Count 0.49 L Monocyte Count 0.38 Eosinophil Count 0.02 Basophil Count 0.01 Calcium, Ionized Level 12-Jun-2018 03:40:00 ResultValue Calcium, Ionized Level 1.24 Brain Natriuretic Peptide 11-Jun-2018 17:26:00 ResultValue Brain Natriuretic Peptide 21 Current Active Medications/PN: Folic Acid, Tablet DOSE = 1 mg Feeding tube Daily, 11-Jun-2018 Esomeprazole Oral Packet, DOSE = 20 mg NasoGastric Tube Daily, 11-Jun-2018 levETIRAcetam Oral Liquid, (KEPPRA) DOSE = 2,000 mg Feeding tube 2 Times a Day, 11-Jun-2018 Nutrition Orders: NPO, Routine ., 11-Jun-2018 Enteral Feeding ([facility]), Routine, Isosource 1.5 Andrew Rate: ( Continuous & Cycle Only)- mL/hr: 20 ,<Continuous> Route: PO/NG/OG, Continuous Special Instructions: start at 10ml/H, after 6 H inc to 20ml/H, 11-Jun-2018 Food/Nutrition Related History: Pt consumes a regular consistency, gluten free diet at baseline. Appetite has been good. No recent weight changes. Pt non-verbal at baseline. Total feed. Nutrition Focused Physical Findings: Physical Findings: deferred Too many visitors in room. Other Physical Findings: Skin: intact Edema: +1, generalized Change in Metabolic Demand: unclear Subjective Global Assessment Rating: malnutrition not present at this time Estimated Needs: kcals/day: ~1600 gms protein/day: ~60-70 mL fluid/day: ~1600 or per MD Nutrition Diagnosis: No Nutritional Diagnosis at this time. Additional Assessment Information: Pt unable to take PO at this time d/t decreased level of alertness from seizure activity and AED load. Has dobhoff. Nutrition Interventions: Individualized Nutrition Prescription Provided for: enteral nutrition, fluids Provided Nutrition Support Recommendations: Isosource 1.5 @ 45ml/hr (TF + Prostat provides 1620 kcals, 73 grams protein, 825ml free water daily) Coordination of Care with: NSU team, nursing Nutrition Goals: Goals: Nutrition Therapy: nutrition support is meeting 75% of nutrient needs, tube feed tolerance, electrolytes within normal limits, maintain stable weight NUTRITION RECOMMENDATIONS: Recommendations: -Please increase TF by 10ml every 6 hrs as tolerated to new goal of 45ml/hr. -Free water per NSU team or consider 200ml every 6 hours. -Formal swallow eval with CULL GRADER once seizures controlled and level of alertness improves. Once put on PO diet, please add gluten free to diet order. Dietitian Monitoring and Evaluation Plan: Monitoring and Evaluation Plan: Nutrition Support tolerance/adequacy, weight trend, labs Time Spent (minutes): 60 Nutrition Support: yes Electronic Signatures: Terri Mcgovern (BLESSING, BRANDAN) (Signed 12-Jun-2018 11:54) Authored: Assessment Subjective/Objective, Nutrition Focused Physical Findings, Estimated Needs, Nutrition Diagnosis, Nutrition Interventions, Nutrition Goals, Nutrition Recommendations, Dietitian Monitoring and Evaluation Plan, Time Spent/Nutrition Support Last Updated: 12-Jun-2018 11:54 by Terri Mcgovern (BLESSING, BRANDAN) CLINICAL EVENT Observed: 06/12/2018 Status: UNK Source: [facility] NOTE-CLARIFICATION ON XRAY 8:51 AM [facility] REPOSITORY RESULT Event: Topic: clarification on xray result Details: Patient had chest xray yesterday after attempted subclavian placement. No pneumothorax. Final radiology read note: Linear opacity overlying the neck and superior mediastinum could represent a retained wire from central venous access versus overlying lead placement. Please correlate clinically. Short-term follow- up recommended. To clarify, guidewire was never even used given inability to get in the vessel. The image is demonstrating a lead, not a guidewire. No further chest xray needed at this time. Brionna Vizcarra MD Pediatric Neurology PGY-3 #[id number] Electronic Signatures: Brionna Vizcarra ( (Resident)) (Signed 12-Jun-2018 08:54) Authored: Event Last Updated: 12-Jun-2018 08:54 by Brionna Vizcarra ( (Resident)) DAILY PROGRESS Observed: 06/12/2018 Status: COMPLETED Source: [facility] NOTE-EPILEPSY 8:07 AM [facility]IT[facility] REPOSITORY Service: Epilepsy Subjective Data: LISET SIDHU is a 28 year old Female who is Hospital Day # 2. No events overnight, received keppra and fosphenytoin load. Objective Data: Objective Information: ---- Intake and Output ----- Mn/Dy/Year TimeIntakeOutputNet Jun 12, 2018 6:00 [id number] Jun 11, 2018 10:00 [id number] Jun 11, 2018 2:00 pm000 The Intake and Output Totals for the last 24 hours are: IntakeOutputNet [id number] T PRBPSpO2 [id number]/97306% Date/Time06/12 8: 8: 8: 8: 8:00 Range(35.6C - 36.3C ) (57 - 101 ) (7 - 19 ) (92 - 133 )/ (54 - 96 ) (94% - 100% ) As of 12-Jun-2018 08:00:00, patient is on 2 L/min of oxygen via nasal cannula. Physical Exam: Neurological: Eyes closed, does not open to command but will open briefly to noxious stim, unable to assess orientation, CN exam grossly normal with limited exam, motor moves all extremities to noxious stim, sensory withdraw to noxious stim Medication: Medications: CENTRAL NERVOUS SYSTEM AGENTS: 1. Acetaminophen Oral Liquid: 650 mg Oral Every 4 Hours PRN 2. fentaNYL Injectable: 100 microgram(s) IntraVenous Push Once 3. levETIRAcetam Oral Liquid: 2000 mg Feeding tube 2 Times a Day 4. Phenytoin Oral Liquid: 100 mg Feeding tube Daily 5. Phenytoin Oral Liquid: 100 mg Feeding tube <User Schedule> 6. Phenytoin Oral Liquid: 200 mg Feeding tube Every Night 7. Rufinamide - PEDS: 600 mg NasoGastric Tube Every 12 Hours 8. clonazePAM (KLONOPIN): 1.5 mg Feeding tube Every 8 Hours 9. LORazepam Injectable - PEDS: 2 mg IntraVenous Push Every 5 Minutes PRN 10. Midazolam Injectable: 2 mg IntraVenous Push Once COAGULATION MODIFIERS: 1. Enoxaparin SubCutaneous: 40 mg SubCutaneous Every 24 Hours 2. Heparin Flush 10 unit/ mL PF Injectable: 5 mL IntraVenous Flush Every 12 Hours PRN 3. Heparin Flush 10 unit/ mL PF Injectable PRN: 5 mL IntraVenous Flush According to Flush Policy PRN GASTROINTESTINAL AGENTS: 1. Esomeprazole Oral Packet: 20 mg NasoGastric Tube Daily METABOLIC AGENTS: 1. Dextrose 50% in Water Injectable: 12.5 gram(s) IntraVenous Push Every 15 Minutes PRN 2. Dextrose 50% in Water Injectable: 25 gram(s) IntraVenous Push Every 15 Minutes PRN 3. Glucagon Injectable: 1 mg IntraMuscular Every 15 Minutes PRN MISCELLANEOUS AGENTS: 1. Lidocaine 1% Injectable (PICC KIT): 1 mL IntraDermal Once PRN NUTRITIONAL PRODUCTS: 1. Calcium Gluconate IVPB: 1 gram(s) IntraVenous Piggyback Every 6 Hours PRN 2. Calcium Gluconate IVPB: 2 gram(s) IntraVenous Piggyback Every 6 Hours PRN 3. Magnesium Sulfate 2 gram/Sterile Water 50 mL Premix Soln: 2 gram(s) IntraVenous Piggyback Every 6 Hours PRN 4. Magnesium Sulfate 4 gram/Sterile Water 100 mL Premix Soln: 4 gram(s) IntraVenous Piggyback Every 6 Hours PRN 5. Potassium Chloride 20 mEq/Sterile Water 100 mL Premix IVPB: 20 mEq IntraVenous Piggyback Every 6 Hours PRN 6. Potassium Chloride Powder Packet: 40 mEq Oral Once 7. Sodium Chloride 0.9% Injectable Flush: 10 mL IntraVenous Flush Every 12 Hours 8. Sodium Chloride 0.9% Injectable Flush PRN: 10 mL IntraVenous Flush According to Flush Policy PRN 9. Sodium Chloride 0.9% Injectable Flush PRN: 20 mL IntraVenous Flush According to Flush Policy PRN 10. Sodium Chloride 0.9% IV Bolus: 500 mL IntraVenous Piggyback Once 11. 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 Presented to OSH for GTC and transferred for further workup. Phenytoin level OSH was 11.1. Unclear etiology of increased seizure frequency, although this may be due to spitting up of pills leading to subtherapeutic AED level, vs. increased episodes in setting of increased clonazepam. vEEG improved overnight, no seizures noted in last 24 hours, likely due to increase in keppra and phenytoin load. -Continue keppra 2gm BID IV -Continue phenytoin dose 100mg qam, 100mg noon, 200mg every night, please check level tomorrow AM -Continue clonazepam 1.5mg TID -Continue banzel 600mg BID -Continue VEEG -CULL GRADER assessment pending Signature/Cosignature/Attestation: Attending AttestationI saw and evaluated the patient. I personally obtained the guerra and critical portions of the history and physical exam or was physically present for guerra and critical portions performed by the resident/fellow. I reviewed the resident/fellows documentation and discussed the patient with the resident/fellow. I agree with the resident/fellows medical decision making as documented in the residents note. I personally evaluated the patient (as noted in the above attestation) on 12-Jun-2018 Comments/ Additional Findings I spent 30 minutes with this patient. Greater than 50% of this time was spent in counseling and /or coordination of care. Electronic Signatures: Roque Read) (Signed 13-Jun-2018 20:39) Authored: Signature/Cosignature/Attestation Co-Signer: Assessment and Plan, Signature/Cosignature/Attestation Rommel Layne (Resident)) (Signed 12-Jun-2018 12:01) Authored: Service, Subjective Data, Objective Data, Assessment and Plan, Signature/Cosignature/Attestation Last Updated: 13-Jun-2018 20:39 by Roque Read) DAILY PROGRESS NOTE Observed: 06/12/2018 Status: COMPLETED Source: [facility] 6:04 AM HOSPITALS REPOSITORY Service: Critical Care Service: ServiceNSU Subjective Data: ID Statement: LISET SIDHU is a 28 year old Female who is Hospital Day # 2 and ICU Day #2. No acute events overnight. No EEG report yet. Obtained IV access (had to be central line after many peripheral attempts). Received 20mg/kg keppra load and 5mg/kg fosphenytoin load. Basic labs and infectious work up completed. CBC unremarkable. UA unremarkable. Bcx x1 pending. K+ slightly low. UOP low- bolus this morning. Objective Data: Objective Information T PRBPSpO2 [id number]% Date/Time06/12 4: 5: 5: 5: 5:00 Range(35.6C - 36.3C ) (57 - 101 ) (7 - 19 ) (92 - 133 )/ (54 - 96 ) (96% - 100% ) As of 12-Jun-2018 04:00:00, patient is on 2 L/min of oxygen via nasal cannula. Pain reported at 06/11 22:00: 0 ---- Intake and Output ----- Mn/Dy/Year TimeIntakeOutputNet Jun 12, 2018 6:00 [id number] Jun 11, 2018 10:00 [id number] Jun 11, 2018 2:00 pm000 The Intake and Output Totals for the last 24 hours are: IntakeOutputNet [id number] Physical Exam: Physical Exam: Neurological: Mental status: baseline nonverbal and minimally responds and minimally follows commands per family. Opens eyes to noxious stim. does not track. Does not follow commands. PERRL. Motor: WD to noxious stim in all 4 extremities, some spontaneous movement of all 4. Normal bulk and tone Cardiovascular: RRR, no m/r/g Respiratory/Thorax: CTAB no increased WOB Genitourinary: diapered Gastrointestinal: abd soft, nontender nondistended Constitutional: nonverbal at baseline Allergies: Allergies: vancomycin: Itching, Rash, Other, Hives/Urticaria lithium: Unknown Medications: Medications: Continuous Medications No continuous medications are active Scheduled Medications 1. clonazePAM (KLONOPIN): 1.5 mg Feeding tube Every 8 Hours 2. Enoxaparin SubCutaneous: 40 mg SubCutaneous Every 24 Hours 3. Esomeprazole Oral Packet: 20 mg NasoGastric Tube Daily 4. fentaNYL Injectable: 100 microgram(s) IntraVenous Push Once 5. Folic Acid: 1 mg Feeding tube Daily 6. levETIRAcetam Oral Liquid: 2000 mg Feeding tube 2 Times a Day 7. Midazolam Injectable: 2 mg IntraVenous Push Once 8. Phenytoin Oral Liquid: 100 mg Feeding tube Daily 9. Phenytoin Oral Liquid: 100 mg Feeding tube <User Schedule> 10. Phenytoin Oral Liquid: 200 mg Feeding tube Every Night 11. Rufinamide - PEDS: 600 mg NasoGastric Tube Every 12 Hours 12. Sodium Chloride 0.9% Injectable Flush: 10 mL IntraVenous Flush Every 12 Hours PRN Medications 1. Acetaminophen Oral Liquid: 650 mg Oral Every 4 Hours 2. Calcium Gluconate IVPB: 1 gram(s) IntraVenous Piggyback Every 6 Hours 3. Calcium Gluconate IVPB: 2 gram(s) IntraVenous Piggyback Every 6 Hours 4. Dextrose 50% in Water Injectable: 12.5 gram(s) IntraVenous Push Every 15 Minutes 5. Dextrose 50% in Water Injectable: 25 gram(s) IntraVenous Push Every 15 Minutes 6. Glucagon Injectable: 1 mg IntraMuscular Every 15 Minutes 7. Heparin Flush 10 unit/ mL PF Injectable: 5 mL IntraVenous Flush Every 12 Hours 8. Heparin Flush 10 unit/ mL PF Injectable PRN: 5 mL IntraVenous Flush According to Flush Policy 9. Lidocaine 1% Injectable (PICC KIT): 1 mL IntraDermal Once 10. LORazepam Injectable - PEDS: 2 mg IntraVenous Push Every 5 Minutes 11. Magnesium Sulfate 2 gram/Sterile Water 50 mL Premix Soln: 2 gram(s) IntraVenous Piggyback Every 6 Hours 12. Magnesium Sulfate 4 gram/Sterile Water 100 mL Premix Soln: 4 gram(s) IntraVenous Piggyback Every 6 Hours 13. Potassium Chloride 20 mEq/Sterile Water 100 mL Premix IVPB: 20 mEq IntraVenous Piggyback Every 6 Hours 14. Sodium Chloride 0.9% Injectable Flush PRN: 10 mL IntraVenous Flush According to Flush Policy 15. Sodium Chloride 0.9% Injectable Flush PRN: 20 mL IntraVenous Flush According to Flush Policy Recent Lab Results: Results: CBC: 06/12/2018 03:40 \ Hgb / \ 13.2 / WBC Plt 5.2 152 / Hct \ / 39.1 \ RBC: 4.29 MCV: 91 Neutrophil %: 82.3 CMP: 06/11/2018 16:28 NA+ Cl- BUN / 139 104 6 / Glucose 99 K+ HCO3- Creat \ 3.4 L 27 0.47 L \ \ T Bili / \ 0.4 / AST x ---- x ALT null x ---- x 13 / Alk P \ / 81 \ Calcium : 9.0 Anion Gap : 11 Albumin : 3.9 T Protein : 6.7 RFP: 06/12/2018 03:42 NA+ Cl- BUN / 136 103 7 / Glucose 121 H K+ HCO3- Creat \ 3.3 L 27 0.51 \ Calcium : 9.0Anion Gap : 9 L Albumin : 3.8 Phos : 4.2 Coagulation: 06/12/2018 03:41 PT / 13.5 H / -------< INR < 1.2 H PTT\ 27 L \ Assessment and Plan: Daily Risk Screen: Does patient have a central lineyes Central Line Typenon-tunneled Plan for non-tunneled central line removal todayyes Does patient have an indwelling urinary catheterno Is the patient intubatedno Neurology: Assessment: Liset is a 28 year 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 Jameson), autism, intellectual disability presenting to the [facility] overnight as a transfer from OSH in setting of increased seizure frequency. Infectious work up to date is negative. Cause of increased seizure frequency at this time is unclear but could be due to missed medication doses (which could be suspected given patients reported history of missing doses by drooling or spitting out medication). Now has IV access and fospheny and keppra load given yesterday. Plan: NEURO #intractable seizures -vEEG (follow up report) -rufinamide 600mg BID -clonazepam 1.5mg TID (after confirming with sister, she was taking 2mg TID for last week or so) -keppra 2000mg BID (increased 06/11) -s/p keppra load 1500mg IV 06/11 -Phenytoin 100mg AM and noon, 200mg HS -s/p IV fosfenytoin load 5mg/kg (06/11) -phenytoin level 06/12 19.5 -f/u epilepsy recs Pulm: -No acute issues -On room air GI: -dobhoff placed -start tube feeds today while sleepy, then CULL GRADER assessment once more awake and sz under better control Renal/: -low UOP today--> bolus Hematologic: -No acute issues ID: -No leukocytosis, UA normal, CXR ok -Bcx x1 pending 06/11 Endocrine: -No acute issues Trauma/MSK/Ortho/Skin: -No acute issues Fluids: none--> 500ccNS bolus today given low uop Diet: tube feeds to start Access: R fem line DVT PPX: Lovenox, SCDs GI PPX: PPI Sleep/Delirium PPX: Blinds open during day, lights on. At night, lights out, blinds closed, minimal interruptions. FULL CODE Code Status: Code StatusFull Code Signature/Cosignature/Attestation: Attending AttestationI saw and evaluated the patient. I personally obtained the guerra and critical portions of the history and physical exam or was physically present for guerra and critical portions performed by the resident/fellow. I reviewed the resident/fellows documentation and discussed the patient with the resident/fellow. I agree with the resident/fellows medical decision making as documented in the resident/fellows note with the exception/addition of the following: I personally evaluated the patient (as noted in the above attestation) on 12-Jun-2018 Comments/ Additional Findings 28 yo PMH of autism, epilepsy (PHT, clonazepam, LEV, benzal) p/w status epilepticus (PHT 11). NRL: EEG, cont AEDs. F/u epilepsy recs. CCV: no issues. Pulm: NC. GI: on feeds. On ppx. Hem: On ppx. FC Statement of Acuity: I have reviewed and evaluated all relevant data of the last 24 hours, personally examined the patient and formulated the plan of care. This patient was critically ill and required continued critical care treatment. Total critical care time: 35 min. Critical Care PatientI have reviewed and evaluated the most recent data and results, personally examined the patient, and formulated the plan of care as presented above. This patient was critically ill and required continued critical care treatment. Teaching and any separately billable procedures are not included in the time calculation. Billing Provider Critical Care Time35 minute(s) Primary Critical Care Issue/Treatment (See Assessment and Plan for greater detail)-- For the nature of the critical condition and treatment, this documentation has been prepared by the attending physician/WANDY- billing provider of these critical care services. Electronic Signatures: Shama Pillai) (Signed 12-Jun-2018 11:29) Authored: Signature/Cosignature/Attestation Brionna Vizcarra (Resident)) (Signed 12-Jun-2018 09:44) Authored: Service, Subjective Data, Objective Data, Assessment and Plan, Signature/Cosignature/Attestation Last Updated: 12-Jun-2018 11:29 by Shama Pillai) PHENYTOIN Collected: 06/12/2018 Status: F Source: [facility] 3:42 [facility] REPOSITORY TYPE CODE TESTS RESULT OUT OF REFERENCE UNITS RANGE LAB PHNYT(LOIN 10.0 - 20.0 ug/mL C) PHENYTOIN 19.5 Performed By: #### PHNYT #### [facility] [address] [place] [address] MAGNESIUM Collected: 06/12/2018 Status: F Source: [facility] 3:42 [facility] REPOSITORY TYPE CODE TESTS RESULT OUT OF REFERENCE UNITS RANGE LAB MG(LOINC) 1.60 - 2.40 mg/dL MAGNESIUM 2.11 Performed By: #### MG #### [facility] [address] [place] [address] RENAL FUNCTION PANEL Collected: 06/12/2018 Status: F Source: [facility] 3:42 AM [facility] REPOSITORY TYPE CODE TESTS RESULT OUT OF REFERENCE UNITS RANGE LAB GLU(LOINC) 74 - 99 mg/dL GLUCOSE High 121 LAB SOD(LOINC) 136 - 145 mmol/L SODIUM 136 LAB K(LOINC) 3.5 - 5.3 mmol/L Low POTASSIUM 3.3 LAB CHLOR(LOIN 98 - 107 mmol/L C) CHLORIDE 103 LAB BIC(LOINC) 21 - 32 mmol/L BICARBONATE 27 LAB ANGAP(LOIN 10 - 20 mmol/L C) Low ANION GAP 9 LAB UREA(LOINC 6 - 23 mg/dL ) UREA NITROGEN 7 LAB CREA(LOINC 0.50 - 1.05 mg/dL ) CREATININE 0.51 LAB GFRFN(LOIN >60 mL/min/1.7 C) 3m2 GFR-NON AM. >60 LAB GFRAA(LOIN >60 mL/min/1.7 C) 3m2 GFR- AM. >60 Result Comment: CALCULATIONS OF ESTIMATED GFR ARE PERFORMED USING THE MDRD STUDY EQUATION FOR THE IDMS-TRACEABLE CREATININE METHODS. CLIN CHEM 2007;53:766-72 LAB CA(LOINC) 8.6 - 10.6 mg/dL CALCIUM 9.0 LAB PHOS(LOINC) 2.5 - 4.9 mg/dL PHOSPHORUS 4.2 Result Comment: The performance characteristics of phosphorus testing in heparinized plasma have been validated by the individual laboratory site where testing is performed. Testing on heparinized plasma is not approved by the FDA; however, such approval is not necessary. LAB ALB(LOINC) 3.4 - 5.0 g/dL ALBUMIN 3.8 Performed By: #### RENAL #### [facility] [address] [place] [address] PROCALCITONIN Collected: 06/12/2018 Status: F Source: [facility] 3:42 [facility] REPOSITORY TYPE CODE TESTS RESULT OUT OF REFERENCE UNITS RANGE LAB PCALC(LOIN <=0.07 ng/mL C) PROCALCITONIN <0.02 Result Comment: Note new reference range and methodology as of 07/26/2017. . Procalcitonin (PCT) results measured serially can aid in decision-making for antibiotic discontinuation in patients with suspected or confirmed sepsis in conjunction with additional clinical information. Antibiotic discontinuation may be considered with a change in PCT of >80% from the peak result or when PCT falls below 0.50 ng/mL. . Procalcitonin results should not be used in isolation but should be interpreted in conjunction with additional clinical and laboratory findings. Procalcitonin results should not be used to guide the initiation of antibiotic therapy. . Falsely low PCT values in the presence of bacterial infection may occur in early infection, with atypical pathogens, localized infections, and subacute infectious endocarditis. . Falsely elevated results outside of severe bacterial infection/sepsis may be seen in patients with renal failure or insufficiency, severe trauma or hicks, recent major abdominal/cardiac surgery, acute multi-organ failure, rarely in patients with medullary thyroid carcinoma and rare neuroendocrine tumors, and non-specific interfering antibodies (heterophile antibodies, rheumatoid factor, human anti-mouse antibodies (HAMA), etc). . Performance of the PCT test in pediatric patients (<18yo), women, immunocompromised patients, and patients on immunomodulatory medications has not been evaluated. Performed By: #### PCALC #### [facility] [email or web address] [address] COAGULATION SCREEN Collected: 06/12/2018 Status: F Source: [facility] 3:41 [facility] REPOSITORY TYPE CODE TESTS RESULT OUT OF REFERENCE UNITS RANGE LAB PT(LOINC) 9.7 - 12.7 sec PROTHROMBIN High TIME 13.5 Result Comment: Note new reference range as of 04/04/2018. LAB INR(LOINC) 0.9 - 1.1 High PT, INR 1.2 LAB APTT(LOINC) 28 - 38 sec Low APTT 27 Result Comment: Note new reference range as of 04/04/2018. THE APTT IS NO LONGER USED FOR MONITORING UNFRACTIONATED HEPARIN THERAPY. FOR MONITORING HEPARIN THERAPY, USE THE HEPARIN ASSAY. Performed By: #### COAGS #### [facility] [email or web address] [address] CBC AND DIFFERENTIAL Collected: 06/12/2018 Status: F Source: [facility] 3:40 [facility] REPOSITORY TYPE CODE TESTS RESULT OUT OF REFERENCE UNITS RANGE LAB WBCR(LOINC 4.4 - 11.3 x10E9/L ) WBC 5.2 LAB NRBC(LOINC 0.0-0.0 /100 WBC ) NUCLEATED RBC 0.0 LAB RBCCT(LOIN 4.00 - 5.20 x10E12/L C) RBC 4.29 LAB HGB(LOINC) 12.0 - 16.0 g/dL HGB 13.2 LAB HCT(LOINC) 36.0 - 46.0 % HCT 39.1 LAB MCV(LOINC) 80 - 100 fL MCV 91 LAB MCHC2(LOIN 32.0 - 36.0 g/dL C) MCHC 33.8 LAB PLTCT(LOIN 150 - 450 x10E9/L C) PLT 152 LAB RDWCV(LOIN 11.5 - 14.5 % C) RDW-CV 12.4 LAB NEUT(LOINC 40.0 - 80.0 % ) % NEUTROPHIL 82.3 LAB IG(LOINC) 0.0 - 0.9 % % AUTOMATED 0.2 IMMATURE GRAN Result Comment: Percent differential counts (%) should be interpreted in the context of the absolute cell counts (cells/L). LAB LYMPH(LOINC) 13.0 - 44.0 % % LYMPHOCYTE 9.5 LAB MONO(LOINC) 2.0 - 10.0 % % MONOCYTE 7.4 LAB EOS(LOINC) 0.0 - 6.0 % % EOSINOPHIL 0.4 LAB BASO(LOINC) 0.0 - 2.0 % % BASOPHIL 0.2 LAB #NEUT(LOINC) 1.20 - 7.70 x10E9/L NEUTROPHIL 4.25 LAB #LYMP(LOINC) 1.20 - 4.80 x10E9/L LYMPHOCYTE Low 0.49 LAB #MONO(LOINC) 0.10 - 1.00 x10E9/L MONOCYTE 0.38 LAB #EOS(LOINC) 0.00 - 0.70 x10E9/L EOSINOPHIL 0.02 LAB #BASO(LOINC) 0.00 - 0.10 x10E9/L BASOPHIL 0.01 Performed By: #### CBCDF #### [facility] [address] [place] [address] CALCIUM, IONIZED Collected: 06/12/2018 Status: F Source: [facility] 3:40 [facility] REPOSITORY TYPE CODE TESTS RESULT OUT OF RANGE REFERENCE UNITS LAB CAREN(LOINC 1.10 - 1.33 mmol/L ) 1.24 CALCIUM,IONI ZED Result Comment: The performance characteristics of ionized calcium tested in heparinized plasma or serum have been validated by the individual laboratory site where testing is performed. Testing on heparinized plasma or serum is not approved by the FDA; however, such approval is not necessary. Performed By: #### IONC1 #### [facility] [address] [place] [id number] URINALYSIS Collected: 06/11/2018 Status: F Source: [facility] 5:41 [facility] [[email or web address]] REPOSITORY TYPE CODE TESTS RESULT OUT OF RANGE REFERENCE UNITS LAB COLU(LOIN STRAW,YELLOW C) COLOR YELLOW LAB APPRU(YOLANDA CLEAR NC) APPEARANCE CLEAR LAB SPGRU(YOLANDA 1.005 - 1.035 NC) SPECIFIC GRAVITY 1.010 LAB MICHELLE(LOINC 5.0 - 8.0 ) pH 6.0 LAB PROTU(YOLANDA NEGATIVE mg/dL NC) PROTEIN NEGATIVE LAB GLUCU(YOLANDA NEGATIVE mg/dL NC) GLUCOSE NEGATIVE LAB BLDU(LOIN NEGATIVE C) BLOOD NEGATIVE LAB KETU(LOIN NEGATIVE mg/dL C) KETONES NEGATIVE LAB BILIU(YOLANDA NEGATIVE NC) BILIRUBIN NEGATIVE LAB UROU2(YOLANDA 0.0 - 1.9 mg/dL NC) UROBILINOGEN <2.0 LAB NITRU(YOLANDA NEGATIVE NC) NITRITE NEGATIVE LAB LEUKU(YOLANDA NEGATIVE NC) LEUKOCYTE Abnormal ESTERASE TRACE Performed By: #### UA #### [facility] [address] [place] [id number] UA MICROSCOPIC Collected: 06/11/2018 Status: F Source: [facility] 5:[address] [place] [address] REPOSITORY TYPE CODE TESTS RESULT OUT OF RANGE REFERENCE UNITS LAB WBCUR(LOIN 0-5 /HPF C) WBC <1 LAB RBCUR(LOIN 0-5 /HPF C) RBC 1 LAB EPSQE(LOIN /HPF C) SQUAMOUS 1 EPITH. CELLS LAB BACUR(LOIN /HPF C) Abnormal BACTERIA 1+ Performed By: #### UAMIC #### [facility] [address] [place] [address] URINE Observed: 06/11/2018 Status: F Source: [facility] CULTURE,BACTERIAL 5:41 [facility] [[email or web address]] REPOSITORY PATIENT: LISET SIDHU LOCATION: [facility] BILL#: [id number] : 88 AGE: SEX: F ORDERED BY: RITA JOHNSON SOURCE: URINE COLLECTED: 06/11/18 17:41 ANTIBIOTICS AT KAN.: RECEIVED : 06/11/18 21:23 SITE: Clean Catch/Voided R E S U L T S URINE CULTURE,BACTERIAL FINAL 06/13/18 09:04 ISOLATE1 : Escherichia coli >100,000 CFU/ML Organism E coli Antibiotic BP INTRP Ampicillin R Amox/Clavulanate S Cefazolin S Ciprofloxacin S Nitrofurantoin S Gentamicin S Levofloxacin S Piperc/Tazobact S Trimeth/Sulfa S Tetracycline S S=SUSCEPTIBLE I=INTERMEDIATE R=RESISTANT SDD=SUSCEPTIBLE DOSE DEPENDENT NS=NONSUSCEPTIBLE X=REPORTED IN ERROR Performed By: #### URINC #### [facility] [address] [place] [address] COAGULATION SCREEN Collected: 06/11/2018 Status: F Source: [facility] 5:40 [facility] REPOSITORY TYPE CODE TESTS RESULT OUT OF REFERENCE UNITS RANGE LAB PT(LOINC) 9.7 - 12.7 sec PROTHROMBIN High TIME 14.3 Result Comment: Note new reference range as of 04/04/2018. LAB INR(LOINC) 0.9 - 1.1 High PT, INR 1.3 LAB APTT(LOINC) 28 - 38 sec APTT 32 Result Comment: Note new reference range as of 04/04/2018. THE APTT IS NO LONGER USED FOR MONITORING UNFRACTIONATED HEPARIN THERAPY. FOR MONITORING HEPARIN THERAPY, USE THE HEPARIN ASSAY. Performed By: #### COAGS #### [facility] [address] [place] [address] BNP Collected: 06/11/2018 Status: F Source: [facility] 5:26 PM HOSPITALS REPOSITORY TYPE CODE TESTS RESULT OUT OF RANGE REFERENCE UNITS LAB BNP2(LOINC) 0 - 99 pg/mL BNP 21 Result Comment: . <100 pg/mL - Heart failure unlikely 100-299 pg/mL - Intermediate probability of acute heart . failure exacerbation. Correlate with clinical . context and patient history. >=300 pg/mL - Heart Failure likely. Correlate with clinical . context and patient history. BNP testing is performed using different testing methodology at [facility] than at other [facility]. Direct result comparisons should only be made within the same method. Performed By: #### BNP2 #### [facility] [address] [place] [address] CHEST 1 VIEW Observed: 06/11/2018 Status: F Source: [facility] 4:49 PM [facility] REPOSITORY Patient Name: LISET SIDHU STUDY: CHEST 1 VIEW; 06/11/2018 4:49 pm INDICATION: Signs/Symptoms: attempted subclavian placement- unsuccessful, r/o pneumothorax. COMPARISON: Radiograph dated 06/11/2020 at 3 a.m. ACCESSION NUMBER(S): [id number] ORDERING CLINICIAN: BRIONNA VIZCARRA FINDINGS: There is a linear opacity overlying left neck and superior mediastinum, which may represent a retained wire from central venous catheter placement versus overlying lead placement. Enteric tube is seen descending midleft as diaphragm with bone field of view of this examination. CARDIOMEDIASTINAL SILHOUETTE: Cardiomediastinal silhouette is normal in size and configuration. LUNGS: There is no focal consolidation, sizeable pleural effusion, or pneumothorax. ABDOMEN: No remarkable upper abdominal findings. BONES: No acute osseous changes. IMPRESSION: 1. Linear opacity overlying the neck and superior mediastinum could represent a retained wire from central venous access versus overlying lead placement. Please correlate clinically. Short-term follow-up recommended. 2. No pneumothorax. I personally reviewed the images/study and I agree with the findings as stated. This study was interpreted at [place], [place]. Electronically signed by: Bre LAWSON MD POST PROCEDURE NOTE - Observed: 06/11/2018 Status: COMPLETED Source: [facility] NOT IN OR-RIGHT 4:38 PM HOSPITALS REPOSITORY FEMORAL CENTRAL LINE Pre-procedure Verification and Time Out: Pre-Procedure Verification and Time Out: Procedure Locationbedside PRE-PROCEDURE Verificationcompleted TIME OUT - Final Verificationcompleted General Information: Date/Time of Procedure: 11-Jun-2018 16:38 Post-Procedure Diagnosis: Right femoral line Procedure Name: Right femoral central line Findings: grossly normal anatomy Procedure performed by: Tool And Die Technician(s): none Estimated Blood Loss (mL): none Specimen: no Informed Consent: written consent obtained Procedure Details: Procedure Details: The patient was prepped and draped in the usual sterile manner using chlorhexidine scrub. 1% lidocaine was used to numb the region. The finder needle was used to locate the right femoral vein. A quad-lumen 8.5 Lao 20 cm catheter was inserted using the Seldinger technique. All ports aspirate and flushed without difficulty. The patient tolerated the procedure well without any immediate complications. The line was sutured into place and the area was cleaned and Tegaderm applied. Tolerance: good Signature/Cosignature/Attestation: Attending AttestationI was not present for the procedure Electronic Signatures: Trung Shields (Resident)) (Signed 11-Jun-2018 16:39) Authored: Pre-procedure Verification and Time Out, General Information, Procedure Details, Signature/Cosignature/Attestation Shama Pillai) (Signed 12-Jun-2018 12:18) Authored: Signature/Cosignature/Attestation Co-Signer: Pre-procedure Verification and Time Out, General Information, Procedure Details, Signature/Cosignature/Attestation Last Updated: 12-Jun-2018 12:18 by Shama Pillai) POST PROCEDURE NOTE - Observed: 06/11/2018 Status: COMPLETED Source: [facility] NOT IN OR-LEFT 4:33 PM HOSPITALS REPOSITORY SUBCLAVIAN CENTRAL LINE Pre-procedure Verification and Time Out: Pre-Procedure Verification and Time Out: Procedure Locationbedside PRE-PROCEDURE Verificationcompleted TIME OUT - Final Verificationcompleted General Information: Date/Time of Procedure: 11-Jun-2018 14:33 Post-Procedure Diagnosis: attempted Left subclavian central line Procedure Name: Left subclavian central line Findings: grossly normal anatomy Procedure performed by: Tool And Die Technician(s): none Estimated Blood Loss (mL): none Specimen: no Informed Consent: written consent obtained Procedure Details: Procedure Details: CENTRAL LINE PROCEDURE NOTE: A time out was preformed identifying the correct procedure, the correct location with the nursing staff. The ([id number]) was prepped with 2% chlorhexidine and draped with a full length sterile sheet in the usual fashion. 1% lidocaine was administered subcutaneously for local anesthesia. 3 attempts were made to access the Left subclavian. Procedure was aborted and CXR was ordered to confirm absence of pneumothorax Tolerance: good Signature/Cosignature/Attestation: Attending AttestationI was not present for the procedure Electronic Signatures: Trung Shields (Resident)) (Signed 11-Jun-2018 16:38) Authored: Pre-procedure Verification and Time Out, General Information, Procedure Details, Signature/Cosignature/Attestation Shama Pillai) (Signed 12-Jun-2018 12:18) Authored: Signature/Cosignature/Attestation Co-Signer: Pre-procedure Verification and Time Out, General Information, Procedure Details, Signature/Cosignature/Attestation Last Updated: 12-Jun-2018 12:18 by Shama Pillai) CBC AND DIFFERENTIAL Collected: 06/11/2018 Status: F Source: [facility] 4:28 PM HOSPITALS REPOSITORY TYPE CODE TESTS RESULT OUT OF REFERENCE UNITS RANGE LAB WBCR(LOINC 4.4 - 11.3 x10E9/L ) WBC 5.8 LAB NRBC(LOINC 0.0-0.0 /100 WBC ) NUCLEATED RBC 0.0 LAB RBCCT(LOIN 4.00 - 5.20 x10E12/L C) RBC 4.43 LAB HGB(LOINC) 12.0 - 16.0 g/dL HGB 13.3 LAB HCT(LOINC) 36.0 - 46.0 % HCT 39.5 LAB MCV(LOINC) 80 - 100 fL MCV 89 LAB MCHC2(LOIN 32.0 - 36.0 g/dL C) MCHC 33.7 LAB PLTCT(LOIN 150 - 450 x10E9/L C) PLT 153 LAB RDWCV(LOIN 11.5 - 14.5 % C) RDW-CV 12.5 LAB NEUT(LOINC 40.0 - 80.0 % ) % NEUTROPHIL 80.9 LAB IG(LOINC) 0.0 - 0.9 % % AUTOMATED 0.5 IMMATURE GRAN Result Comment: Percent differential counts (%) should be interpreted in the context of the absolute cell counts (cells/L). LAB LYMPH(LOINC) 13.0 - 44.0 % % LYMPHOCYTE 9.9 LAB MONO(LOINC) 2.0 - 10.0 % % MONOCYTE 8.2 LAB EOS(LOINC) 0.0 - 6.0 % % EOSINOPHIL 0.3 LAB BASO(LOINC) 0.0 - 2.0 % % BASOPHIL 0.2 LAB #NEUT(LOINC) 1.20 - 7.70 x10E9/L NEUTROPHIL 4.71 LAB #LYMP(LOINC) 1.20 - 4.80 x10E9/L LYMPHOCYTE Low 0.58 LAB #MONO(LOINC) 0.10 - 1.00 x10E9/L MONOCYTE 0.48 LAB #EOS(LOINC) 0.00 - 0.70 x10E9/L EOSINOPHIL 0.02 LAB #BASO(LOINC) 0.00 - 0.10 x10E9/L BASOPHIL 0.01 Performed By: #### CBCDF #### [facility] [id number] [place] [address] CALCIUM, IONIZED Collected: 06/11/2018 Status: F Source: [facility] 4:[address] [place] [address] REPOSITORY TYPE CODE TESTS RESULT OUT OF RANGE REFERENCE UNITS LAB CAION(LOINC 1.10 - 1.33 mmol/L ) 1.29 CALCIUM,IONI ZED Result Comment: The performance characteristics of ionized calcium tested in heparinized plasma or serum have been validated by the individual laboratory site where testing is performed. Testing on heparinized plasma or serum is not approved by the FDA; however, such approval is not necessary. Performed By: #### IONC1 #### [facility] [address] [place] [address] COMPREHENSIVE PANEL Collected: 06/11/2018 Status: F Source: [facility] 4:28 PM HOSPITALS REPOSITORY TYPE CODE TESTS RESULT OUT OF REFERENCE UNITS RANGE LAB GLU(LOINC) 74 - 99 mg/dL GLUCOSE 99 LAB SOD(LOINC) 136 - 145 mmol/L SODIUM 139 LAB K(LOINC) 3.5 - 5.3 mmol/L Low POTASSIUM 3.4 LAB CHLOR(LOIN 98 - 107 mmol/L C) CHLORIDE 104 LAB BIC(LOINC) 21 - 32 mmol/L BICARBONATE 27 LAB ANGAP(LOIN 10 - 20 mmol/L C) ANION GAP 11 LAB UREA(LOINC 6 - 23 mg/dL ) UREA NITROGEN 6 LAB CREA(LOINC 0.50 - 1.05 mg/dL ) Low CREATININE 0.47 LAB GFRFN(LOIN >60 mL/min/1.7 C) 3m2 GFR-NON AM. >60 LAB GFRAA(LOIN >60 mL/min/1.7 C) 3m2 GFR- AM. >60 Result Comment: CALCULATIONS OF ESTIMATED GFR ARE PERFORMED USING THE MDRD STUDY EQUATION FOR THE IDMS-TRACEABLE CREATININE METHODS. CLIN CHEM 2007;53:766-72 LAB CA(LOINC) 8.6 - 10.6 mg/dL CALCIUM 9.0 LAB ALB(LOINC) 3.4 - 5.0 g/dL ALBUMIN 3.9 LAB AP(LOINC) 33 - 110 U/L ALKALINE PHOSPHATASE 81 LAB TP(LOINC) 6.4 - 8.2 g/dL TOTAL PROTEIN 6.7 LAB AST(LOINC) 9 - 39 U/L AST 11 LAB TBILI(LOINC) 0.0 - 1.2 mg/dL BILIRUBIN,TOTAL 0.4 LAB ALT(LOINC) 7 - 45 U/L ALT 13 Result Comment: Patients treated with Sulfasalazine may generate falsely decreased results for ALT. Performed By: #### CMP #### [facility] [address] [place] [address] MAGNESIUM Collected: 06/11/2018 Status: F Source: [facility] 4:28 [facility] [[email or web address]] REPOSITORY TYPE CODE TESTS RESULT OUT OF REFERENCE UNITS RANGE LAB MG(LOINC) 1.60 - 2.40 mg/dL MAGNESIUM 2.06 Performed By: #### MG #### [facility] [address] [place] [address] PHOSPHORUS Collected: 06/11/2018 Status: F Source: [facility] 4:28 PM HOSPITALS REPOSITORY TYPE CODE TESTS RESULT OUT OF REFERENCE UNITS RANGE LAB PHOS(LOINC 2.5 - 4.9 mg/dL ) PHOSPHORUS 3.8 Result Comment: The performance characteristics of phosphorus testing in heparinized plasma have been validated by the individual laboratory site where testing is performed. Testing on heparinized plasma is not approved by the FDA; however, such approval is not necessary. Performed By: #### PHOS #### [facility] [address] [place] [address] Observed: 06/11/2018 Status: F Source: [facility] BLOOD CULTURE, 4:28 PM HOSPITALS REPOSITORY BACTERIAL PATIENT: LISET SIDHU LOCATION: [facility] BILL#: [id number] : 88 AGE: SEX: F ORDERED BY: JESUS PORRAS SOURCE: Blood COLLECTED: 06/11/18 16:28 ANTIBIOTICS AT KAN.: RECEIVED : 06/11/18 21:25 SITE: CENTRAL LINE R E S U L T S BLOOD CULTURE, BACTERIAL FINAL 06/16/18 21:42 No Growth at 1 days No Growth at 2 days No Growth at 3 days No Growth at 4 days NO GROWTH - FINAL REPORT Performed By: #### BLDC #### [facility] [address] [place] [address] DAILY PROGRESS Observed: 06/11/2018 Status: COMPLETED Source: [facility] NOTE-EPILEPSY 10:14 AM HOSPITALS REPOSITORY Service: Epilepsy Subjective Data: LISET SIDHU is a 28 year old Female who is Hospital Day # 1. Transferred overnight for seizures, she had 2-3 clinical episodes of seizure per hour overnight and 15-20 episodes of subclinical per hour. Objective Data: Objective Information: T PRBPSpO2 [id number]/6699% Date/Time06/11 8: 8: 8: 8: 8:00 Range(36.1C - 36.5C ) (77 - 86 ) (13 - 18 ) (98 - 120 )/ (66 - 84 ) (86% - 99% ) As of 11-Jun-2018 08:00:00, patient is on 2 L/min of oxygen via nasal cannula. Pain reported at 06/11 8:00: 0 Physical Exam: Neurological: Eyes closed, does not open to command but will open briefly to noxious stim, unable to assess orientation, CN exam grossly normal with limited exam, motor moves all extremities to noxious stim, sensory withdraw to noxious stim Medication: Medications: CENTRAL NERVOUS SYSTEM AGENTS: 1. Fosphenytoin IV Piggy Back: 1500 mg Phenytoin Equiv IntraVenous Piggyback Once 2. levETIRAcetam Oral Liquid: 1500 mg Feeding tube 2 Times a Day 3. Phenytoin Oral Liquid: 100 mg Feeding tube Daily 4. Phenytoin Oral Liquid: 100 mg Feeding tube <User Schedule> 5. Phenytoin Oral Liquid: 200 mg Feeding tube Every Night 6. Rufinamide - PEDS: 600 mg NasoGastric Tube Every 12 Hours 7. clonazePAM (KLONOPIN): 1.5 mg Feeding tube Every 8 Hours 8. LORazepam Injectable - PEDS: 2 mg IntraVenous Push Every 5 Minutes PRN COAGULATION MODIFIERS: 1. Enoxaparin SubCutaneous: 40 mg SubCutaneous Every 24 Hours GASTROINTESTINAL AGENTS: 1. Esomeprazole Oral Packet: 20 mg NasoGastric Tube Daily METABOLIC AGENTS: 1. Dextrose 50% in Water Injectable: 25 gram(s) IntraVenous Push Every 15 Minutes PRN 2. Dextrose 50% in Water Injectable: 12.5 gram(s) IntraVenous Push Every 15 Minutes PRN 3. Glucagon Injectable: 1 mg IntraMuscular Every 15 Minutes PRN NUTRITIONAL PRODUCTS: 1. Calcium Gluconate IVPB: 1 gram(s) IntraVenous Piggyback Every 6 Hours PRN 2. Calcium Gluconate IVPB: 2 gram(s) IntraVenous Piggyback Every 6 Hours PRN 3. Magnesium Sulfate 2 gram/Sterile Water 50 mL Premix Soln: 2 gram(s) IntraVenous Piggyback Every 6 Hours PRN 4. Magnesium Sulfate 4 gram/Sterile Water 100 mL Premix Soln: 4 gram(s) IntraVenous Piggyback Every 6 Hours PRN 5. Potassium Chloride 20 mEq/Sterile Water 100 mL Premix IVPB: 20 mEq IntraVenous Piggyback Every 6 Hours PRN 6. Sodium Chloride 0.9% Infusion: 1000 mL IntraVenous <Continuous> 7. 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 Presented to OSH for GTC and transferred for further workup. Phenytoin level OSH was 11.1. Unclear etiology of increased seizure frequency, although this may be due to spitting up of pills leading to subtherapeutic AED level, vs. increased episodes in setting of increased clonazepam. Currently having multiple electrographic seizures and clinical seizures each hour. -Increase keppra 2gm BID IV, load 1500mg now -Fosphenytonin 5mg/kg load, target level 20, check level tomorrow, continue phenytoin dose 100mg qam, 100mg noon, 200mg qhs -Wean clonazepam, 1/2 dose to 1.5mg TID given she was taking 3mg TID for last week -Continue banzel -Continue VEEG Signature/Cosignature/Attestation: Attending AttestationI saw and evaluated the patient. I personally obtained the guerra and critical portions of the history and physical exam or was physically present for guerra and critical portions performed by the resident/fellow. I reviewed the resident/fellows documentation and discussed the patient with the resident/fellow. I agree with the resident/fellows medical decision making as documented in the residents note. I personally evaluated the patient (as noted in the above attestation) on 12-Jun-2018 Comments/ Additional Findings I spent 30 minutes with this patient. Greater than 50% of this time was spent in counseling and /or coordination of care. Electronic Signatures: Roma Perez) (Signed 27-Jun-2018 20:43) Co-Signer: Assessment and Plan, Signature/Cosignature/Attestation Roque Read) (Signed 13-Jun-2018 20:37) Authored: Signature/Cosignature/Attestation Rommel Layne (Resident)) (Signed 11-Jun-2018 11:03) Authored: Service, Subjective Data, Objective Data, Assessment and Plan, Signature/Cosignature/Attestation Last Updated: 27-Jun-2018 20:43 by Roma Perez) DAILY PROGRESS NOTE Observed: 06/11/2018 Status: COMPLETED Source: [facility] 8:08 AM HOSPITALS REPOSITORY Service: Critical Care Service: ServiceNSU Subjective Data: ID Statement: LISET SIDHU is a 28 year old Female who is Hospital Day # 1 and ICU Day #1. Formal EEG report not yet read, but prelim reported to show episode of status last night which resolved and she has ongoing intermittent seizure activity. She continues to have intermittent clinical seizures characterized by head drop and some arm flexing/stiffening. Objective Data: Objective Information T PRBPSpO2 [id number]/7199% Date/Time06/11 8: 6: 6: 6: 6:00 Range(36.1C - 36.5C ) (84 - 86 ) (13 - 18 ) (98 - 120 )/ (71 - 84 ) (86% - 99% ) As of 11-Jun-2018 06:00:00, patient is on 2 L/min of oxygen via nasal cannula. Weights 06/11 2:42: Weight in kg (Weight (kg)) 66.3 06/11 2:42: Weight in lbs ((lbs)) 146.1 06/11 2:42: BMI (kg/m2) (BMI (kg/m2)) 26.761 Physical Exam: Physical Exam: Neurological: Mental status: baseline nonverbal and minimally responds and minimally follows commands per family. Opens eyes to noxious stim. does not track. Does not follow commands. PERRL. Motor: WD to noxious stim in all 4 extremities, some spontaneous movement of all 4. Normal bulk and tone Unable to elicit patellar reflexes Cardiovascular: RRR, no m/r/g Respiratory/Thorax: CTAB no increased WOB Genitourinary: diapered Gastrointestinal: abd soft, nontender nondistended Constitutional: nonverbal at baseline Allergies: Allergies: vancomycin: Itching, Rash, Other, Hives/Urticaria lithium: Unknown Recent Lab Results: Results: CBC: 06/11/2018 03:46 \ Hgb / \ Canceled / WBC Plt Canceled Canceled / Hct \ / Canceled \ RBC: Canceled MCV: Canceled Neutrophil %: Canceled CMP: 06/11/2018 03:46 NA+ Cl- BUN / Canceled Canceled Canceled / Glucose Canceled K+ HCO3- Creat \ Canceled Canceled Canceled \ \ T Bili / \ Canceled / AST x ---- x ALT null x ---- x Canceled Patients treated with Sulfasalazine may generate falsely decreased results for ALT. / Alk P \ / Canceled \ Calcium : Canceled Anion Gap : Canceled Albumin : Canceled T Protein : Canceled Coagulation: 06/11/2018 03:46 PT / Canceled Note new reference range as of 04/04/2018. / -------< INR < Canceled PTT\ Canceled Note new reference range as of 04/04/2018. THE APTT IS NO LONGER USED FOR MONITORING UNFRACTIONATED HEPARIN THERAPY. FOR MONITORING HEPARIN THERAPY, USE THE HEPARIN ASSAY. 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 Jameson), autism, intellectual disability presenting to the [facility] overnight as a transfer from OSH in setting of increased seizure frequency. Cause of increased seizure frequency at this time is unclear but could be due to missed medication doses (which could be suspected given patients reported history of missing doses by drooling or spitting out medication) versus infection (which seems a bit less likely as patient looks well and per family hasnt been ill- appearing of late) versus a combination of the two. Basic labs at OSH and CXR not concerning for infection. Unable to obtain working IV access today so proceeding with central line (no PICC team on weekend). Plan: NEURO #intractable seizures -vEEG (follow up report) -rufinamide 600mg BID -clonazepam 1.5mg TID (after confirming with sister, she was taking 2mg TID for last week or so) -keppra 1500mgBID--> increase to 2000mg BID after load of 1500mg IV today -Phenytoin 100mg AM and noon, 200mg HS -IV fosfenytoin load 5mg/kg once IV access obtained -check phenytoin level tomorrow Pulm: -No acute issues -On room air GI: -dobhoff placed -start tube feeds today while sleepy, then CULL GRADER assessment once more awake and sz under better control Renal/: -No acute issues Hematologic: -No acute issues ID: -repeat CBC given potential leukopenia (WBC 4 at OSH) -obtain bxc, UA, UCx Endocrine: -No acute issues Trauma/MSK/Ortho/Skin: -No acute issues Fluids: none Diet: tube feeds to start Access: will need central line today, then PICC DVT PPX: Lovenox, SCDs GI PPX: PPI Sleep/Delirium PPX: Blinds open during day, lights on. At night, lights out, blinds closed, minimal interruptions. FULL CODE Code Status: Code StatusFull Code Signature/Cosignature/Attestation: Attending AttestationI saw and evaluated the patient. I personally obtained the guerra and critical portions of the history and physical exam or was physically present for guerra and critical portions performed by the resident/fellow. I reviewed the resident/fellows documentation and discussed the patient with the resident/fellow. I agree with the resident/fellows medical decision making as documented in the resident/fellows note with the exception/addition of the following: I personally evaluated the patient (as noted in the above attestation) on 11-Jun-2018 Comments/ Additional Findings 28 yo PMH of autism, epilepsy (PHT, clonazepam, LEV, benzal) p/w status epilepticus (PHT 11). NRL: EEG, cont AEDs. CCV: no issues. Pulm: NC. GI: on feeds. On ppx. Hem: On ppx. FC Statement of Acuity: I have reviewed and evaluated all relevant data of the last 24 hours, personally examined the patient and formulated the plan of care. This patient was critically ill and required continued critical care treatment. Total critical care time: 35 min. Critical Care PatientI have reviewed and evaluated the most recent data and results, personally examined the patient, and formulated the plan of care as presented above. This patient was critically ill and required continued critical care treatment. Teaching and any separately billable procedures are not included in the time calculation. Billing Provider Critical Care Time35 minute(s) Primary Critical Care Issue/Treatment (See Assessment and Plan for greater detail)-- For the nature of the critical condition and treatment, this documentation has been prepared by the attending physician/WANDY- billing provider of these critical care services. Electronic Signatures: Shama Pillai) (Signed 11-Jun-2018 09:55) Authored: Signature/Cosignature/Attestation Brionna Vizcarra ( (Resident)) (Signed 11-Jun-2018 14:04) Authored: Service, Subjective Data, Objective Data, Assessment and Plan Last Updated: 11-Jun-2018 14:04 by Brionna Vizcarra ( (Resident)) HISTORY AND PHYSICAL - Observed: 06/11/2018 Status: COMPLETED Source: [facility] NEURO-EPILEPSY 3:31 AM HOSPITALS REPOSITORY History of Present Illness: /Lactating: Are You no (1) Are You Currently Breastfeedingno (1) Service: Service: Epilepsy History Present Illness: HPI: HPI This is a 28 year old female with PMH pertinent for 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 Jameson), autism, intellectual disability presenting to the [facility] overnight as a transfer from OSH in setting of increased seizure frequency. At OSH ED ([facility]) prior to transfer patient received Ativan 2mg x4, 1g keppra. Phenytoin level was 11 (levels prior to discharge in 2016 at same phenytoin dose were in the 23-27 range). The patients seizures typically occur sporadically (a few times per month during the day). She has frequent seizures at night which manifest as head drop. She has at baseline different types of seizures including atonic seizures, absence seizures and GTCs. They have also historically presented in a subclinical setting. Exam on recent 05/25/[address] Jameson office notable for 5/5 strength throughout, normal reflexes, narrow based gait, gingival hyperplasia. Since approximately 05/28/2018 the patient has been having more frequent day time seizures. These seizures have manifested in various ways including head drop, mouth movement, and episodes of flexion of hands up toward the head. They have now been occurring up to >10 times per day. On 06/10 (day prior to admission) the patient had a GTC which lasted <1 minute. No tongue biting that family is aware of. At [facility], CBC 4.1>14.0<141. RFP notable for BUN/Cr 11/0.69. Phenytoin 11.1. Epilepsy risk factors: The patient was the product of a NVD of a full term , with no complications at . There was no history of febrile convulsions or IT SUPPORT TECHNICIAN infections. At age 6 months the patient stopped moving, was further evaluated and ultimately diagnosed with autism. No history of IT SUPPORT TECHNICIAN surgery. No epilepsy in the family. Sleep is interrupted at night with seizures manifesting as head drop episodes. Denies EtOH or substance use. 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 Jameson) Autistic Intellectual disability Social history Lives with parents No alcohol No smoking No drugs Surgical history None Allergies: vancomycin: Itching, Rash, Other, Hives/Urticaria lithium: Unknown General Neurology: General Neurology Extensive Exam: GENERAL APPEARANCE: No distress, alert, interactive and cooperative. CARDIOVASCULAR: Regular rate and rhythm. MENTAL STATE: Unable to assess. Patient non-verbal at baseline. OPHTHALMOSCOPIC: Limited. Patient poorly cooperative. CRANIAL NERVES: CN 2 Difficult to assess blink to threat, patient poorly cooperative. CN 3, 4, 6 VOR intact. CN 5 Unable to assess readily. Patient non-verbal at baseline. CN 7 Face grossly symmetric. CN 8 Responds in limited, non-verbal fashion to sister at bedside. CN 9 Unable to assess. Patient poorly cooperative. CN 11 Unable to assess. Patient poorly cooperative. CN 12 Unable to assess. Patient poorly cooperative. MOTOR: Moving all four extremities. Unable to assess in great detail. Patient poorly cooperative. REFLEXES: RIGHT UE LEFT UE Biceps:2 Biceps:2 Triceps:2 Triceps:2 RIGHT LLE LEFT LLE Knee:mute Knee:mute Ankle:mute Ankle:mute SENSORY: Moves to noxious stimuli in all four extremities. Sensory exam was normal. In both upper and lower extremities, sensation was intact to light touch; sharp/dull, vibration and joint position sense. COORDINATION: Unable to assess given baseline mental status. GAIT: Deferred for patient safety. 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 Jameson), autism, intellectual disability [facility] as a transfer from [facility]SH in setting of increased seizure frequency. Cause of increased seizure frequency at this time is unclear but could be due to missed medication doses (which could be suspected given patients reported history of missing doses by drooling or spitting out medication) versus infection (which seems a bit less likely as patient looks well and per family hasnt been ill- appearing of late) versus a combination of the two. Plan Briefly: -Basic labs -vEEG -Dobhoff placement -Continue home meds -Infectious workup Neuro: #Seizure -On arrival 12/30 AM, s/p Ativan 2mg x4, 1g keppra -Continuous vEEG monitoring -EKG given use of Banzel -Continue home AEDs -Workup for infectious causes of seizure (blood cultures x2, UA with reflex to urine culture, CXR) Pulm: -No acute issues -On room air GI: -No acute issues Renal/: -No acute issues Hematologic: -No acute issues ID: -Infectious workup as per above Endocrine: -No acute issues Trauma/MSK/Ortho/Skin: -No acute issues Fluids: Diet: Access: maintain PIV DVT PPX: Lovenox, SCDs GI PPX: PPI Sleep/Delirium PPX: Blinds open during day, lights on. At night, lights out, blinds closed, minimal interruptions. Dispo: PT/OT/CULL GRADER Code: FULL CODE (confirmed with family on admission; our team spoke with them in-depth on this point; they would NOT want intubation electively simply in setting of concern for airway protection -- only intubation in extremem circumstances, e.g., respiratory failure) Signatures/Attestation/Certification: Attending AttestationI saw and evaluated the patient. I personally obtained the guerra and critical portions of the history and physical exam or was physically present for guerra and critical portions performed by the resident/fellow. I reviewed the resident/fellows documentation and discussed the patient with the resident/fellow. I agree with the resident/fellows medical decision making as documented in the residents note. I personally evaluated the patient (as noted in the above attestation) on 12-Jun-2018 Comments/ Additional Findings I spent 50 minutes with this patient. Greater than 50% of this time was spent in counseling and /or coordination of care. Attending Provider Inpatient Certification StatementI certify this patients need for inpatient care based on the above documentation including; the order to admit as inpatient, the anticipated length of stay, diagnosis, problem list and plan of care, and discharge plan. Electronic Signatures: Jesus Porras (Resident)) (Signed 11-Jun-2018 04:22) Authored: History of Present Illness, Allergies, Objective, Assessment and Plan, Signatures/Attestation/Certification, Comorbidities Roma Perez) (Signed 27-Jun-2018 20:43) Co-Signer: History of Present Illness, Allergies, Objective, Assessment and Plan, Signatures/Attestation/Certification, Comorbidities Roque Read) (Signed 13-Jun-2018 20:33) Authored: Signatures/Attestation/Certification Last Updated: 27-Jun-2018 20:43 by Roma Perez) DISCHARGE PLANNING Observed: 06/11/2018 Status: UNK Source: UNIVERSITY NOTE 3:28 AM HOSPITALS REPOSITORY Other Learner: Learnerlegal guardian(1) Factors that Impact Ability to Learnnone(2) Other Factors: Functional Screen: In the recent/past 2-4 weeks, patient or family have noticeda significant change in function affecting balance, or the ability to safely transfer or ambulate (And is not on bedrest)(2) Discharge Planning: Discharge Planning: Pt was admitted from outside hospital. Pt is here for seizures and unable to discharge at this time Electronic Signatures: Rommel Zamarripa (GERMAN) (Signed 11-Jun-2018 03:31) Authored: Discharge Planning Note Last Updated: 11-Jun-2018 03:31 by Rommel Zamarripa (GERMAN) References: 1. Data Referenced From 5. Education 06/11/2018 02:29 AM 2. Data Referenced From Admission Risk Screen - Adult 06/11/2018 02:29 AM CHEST 1 VIEW Observed: 06/11/2018 Status: F Source: [facility] 3:08 AM HOSPITALS REPOSITORY Patient Name: LISET SIDHU STUDY: CHEST 1 VIEW; 06/11/2018 3:08 am INDICATION: Signs/Symptoms: possible aspiration. COMPARISON: Chest radiograph dated 03/13/2016 ACCESSION NUMBER(S): [id number] ORDERING CLINICIAN: RITA JOHNSON FINDINGS: Patient is rotated to the left. Enteric tube is seen coursing below the left hemidiaphragm with distal tip projecting over the expected location of the gastric body. CARDIOMEDIASTINAL SILHOUETTE: Cardiomediastinal silhouette is normal in size and configuration. LUNGS: There is no focal consolidation, pleural effusion, or pneumothorax. ABDOMEN: No remarkable upper abdominal findings. BONES: No acute osseous changes. IMPRESSION: 1. No evidence of acute cardiopulmonary process. I personally reviewed the images/study and I agree with the findings as stated. This study was interpreted at [facility], [place], [place]. Electronically signed by: Bre LAWSON MD PATIENT PROFILE - Observed: 06/11/2018 Status: UNK Source: [facility] ADULT V2 2:42 AM HOSPITALS REPOSITORY Profile: Initial Info: How to be AddressedEsther. Spoken Language PreferredEnglish Source of Informationlegal guardian Are you currently using the Personal Electronic Health Record or BettyvisionCAREno Are you interested in learning more about [facility] for the management of your healthnot at this time Stated Reason for AdmissionUnable to assess. Pt nonverbal and sedated from AED's Arrived Fromemergency department Patient Belongingsnone Medications Brought to [facility] General Health: Weight in kg66.3 kilogram(s) Weight in jqy957.1 pound(s) Height in feet5 feet Height in inches2 inch(es) Height in cm157.4 centimeter(s) BMI (kg/m2)26.761 square meter Weight Methodactual (measured) Scale Typebed Height Methodestimated RSP Based Care: How would you like to participate in your careUnable to assess, pt nonverbal at baseline What is the number one concern for you during this hospitalizationUnable to assess, pt nonverbal at baseline What is the most important thing we can do to support you during this hospitalizationUnable to assess, pt nonverbal at baseline Is there anything we need to know to best care for youUnable to assess, pt nonverbal at baseline Substance: Substance Useunable to assess, Unable to assess, pt nonverbal at baseline Health Mgmt: Symptoms/Conditions Managed at HomeUnable to assess, pt nonverbal at baseline Are You Currently Breastfeedingno Are You no Relationship/Environ: Primary Source of Support/Comfortparent; sibling(s) Lives Withparent(s); sibling(s) Living Arrangementshouse Resource/Environmental Concernsnone Anticipated Transition [place] [facility] Anticipated at Transitionnone Significant IndicatorsComplete Information Review: Allergies, Home Meds and Significant Events have been Reviewed and Verified with Patient/Familyno, Unable to assess, pt nonverbal at baseline ALLERGY, INTOLERANCE, ADVERSE EVENT: Allergies: vancomycin: Drug, Itching, Rash, Other, Hives/Urticaria, Active lithium: Drug, Unknown, Active Electronic Signatures: Jaleesa Choi) (Signed 11-Jun-2018 02:51) Authored: Profile, Additional Information Last Updated: 11-Jun-2018 02:51 by Jaleesa Choi (DAKSHA) ADMISSION RISK SCREEN Observed: 06/11/2018 Status: UNK Source: [facility] ADULT 2:29 AM HOSPITALS REPOSITORY Allergies: Allergies: vancomycin: Itching, Rash, Other, Hives/Urticaria lithium: Unknown Patient Verification: New W ID Band Applied in my Departmentyes Patient Identity Verified Byparent/legal guardian ID Band FULL Name, include Middle, spelling matches patient's ID used for verificationyes ID Band Matches Patient ID used for Verficationyes ID Band MRN Matches EMR MRNyes Advance Directive: Advance Directive Medicalno Advance Directive Information Givenpatient/family declined Falls Screen: Type of Assessmentadmission Moderate Risk Factorspatient care equipment (scds, ivs, chest tubes, gonzalez, etc) High Risk Factorsrecent falls Risk for Injury Associated with Fallcoagulation blood thinners (Coumadin, heparin gtt), coagulopathy Fall Risk Conclusionhigh falls risk with risk for associated injury Everetts Safety InterventionsWDL except, orient to call system, instruct to call for assistance before getting out of bed, non-slip footwear when patient is out of bed, call wetzel in reach, personal items and telephone in reach, physically safe environment (no spills or clutter), bed in lowest position with wheels locked, appropriate side rails in place, room/bathroom lighting operational, light cord in reach, appropriate signage on door Fall and Injury Risk Interventionssupervised toileting (mandatory for all high risk patients), exit (bed/chair) alarms (mandatory for all high risk patients), bed alarm - zero scale to ensure bed alarm operation, educate pt/family, individualized toileting schedule, educate patient/family for risk for injury (fractures and bleeding), do not leave patient unattended while in the bathroom Family Violence Screen: Are you or have you been threatened or abused physically, emotionally, or sexually by anyoneunable to assess Pt nonverbal and sedated from AED's Do you feel UNSAFE going back to the place where you are livingunable to assess Pt nonverbal and sedated from AED's Clinical assessment: Are there any apparent signs of injuries/behaviors that could be related to abuse/neglectunable to assess Pt nonverbal and sedated from AED's Social Service Consult for abuse/neglect needed this visitno Functional screen: Functional Screen: In the recent/past 2-4 weeks, patient or family have noticeda significant change in function affecting balance, or the ability to safely transfer or ambulate (And is not on bedrest) Learning Assessment (Patient): Patient is Able to be Assessed for Learningno Reason Unable to Assessdevelopmental level mentally impaired sedated Other Learnerslegal guardian Learning Assessment (Other Learner): Other learner availableyes... Learnerlegal guardian Factors Influencing Readiness to Learnacuteness of illness Factors that Impact Ability to Learnnone Devices/Methods Used to Communicatenone Learning Preferencesverbal instruction, written material Cultural Considerationsnone Developmental Considerationsdevelopmental considerations explain everything before performing procedures, music therapy is soothing Restoration Considerationsnone Suicide/Depression Screen: During the past month, have you often been bothered by feeling down, depressed or hopelessunable to assess Pt nonverbal at baseline and sedated from AED's During the past month, have you often had little interest or pleasure in doing thingsunable to assess Pt nonverbal at baseline and sedated from AED's Have you had any thoughts of harming yourselfunable to assess Pt nonverbal at baseline and sedated from AED's Have you had any thoughts of harming anyone elseunable to assess Pt nonverbal at baseline and sedated from AED's Adult Nutrition Screen: Have you recently lost weight without tryingno Have you been eating poorly because of a decreased appetiteno MST Score0 RiskMST = 0 or 1 Not at risk. Eating well with little or no weight loss Nutrition Consult needed this visitno Can Patient Participate in Room Serviceyes, with assistance Patient requires Paper Dishes/Plastic Utensilsno Pain Screen: Pain ScaleFACES Pain Scale Educationunable to educate Pt nonverbal and sedated from AED's Reasons for inability to educatecurrent condition Current Pain Levelunable to assess Acceptable Pain Levelunable to assess Expression of Pain (nonverbal)withdrawn Chronic Painno Spiritual Screen: Are there any cultural, spiritual, congregation practices/values/needs that are important for us to knowno CAGE: Is this an [place] a [place] [facility] no Vaccinations: Vaccination - Influenza Vaccination Screen: Is it flu season (between and )Yes Screening for identified contraindications to influenza vaccination patient/caregiver refusal Vaccination - Pneumonia Vaccination Screen: Patient has received a previous pneumonia vaccine:no/unknown... Immunocompetent persons with underlying chronic conditions or reside in remote computer terminal operator care facilitiesnone of these conditions Persons with Functional or Anatomic Asplenianone of these conditions Immunocompromised Personsnone of these conditions Pneumonia vaccine NOT indicated due to:patient DOES NOT have a condition that indicates vaccination patient/caregiver refusal at this time Anson: Skin - Anson Scale: Anson: Sensory Perception (response to environment)(3) slightly limited Anson: Moisture (degree skin exposed to moisture)(3) occasionally moist Anson: Activity (ability to walk)(1) bedfast Anson: Mobility (amount/control of body movement)(3) slightly limited Anson: Nutrition (quality of food intake)(3) adequate Anson: Friction and Shear(2) potential problem Anson: Score15 Skin Intervention Orders (Nursing orders will be generated)elevate heels, up in chair < 1 hr intervals, turn side to side every 2 hrs, assess for therapeutic equipment, assess pressure points, hygiene care, toilet/ADL every 2 hrs awake, toilet/ADL every 4 hrs asleep, educate prevent/treat pressure ulcer Significant Indicatiors: Significant Indicators: Complete Pressure Injury: Pressure Injury Present on Admissionno Electronic Signatures: Jaleesa Choi) (Signed 11-Jun-2018 02:42) Authored: Admission Risk Screens, Vaccinations, Anson, Pressure Injury Last Updated: 11-Jun-2018 02:42 by Jaleesa Choi (RN) Observed: 06/11/2018 Status: CANCELLED Source: [facility] BLOOD CULTURE, 2:28 AM HOSPITALS REPOSITORY BACTERIAL TEST BLOOD CULTURE, BACTERIAL WAS CANCELLED, 06/11/2018 04:00 ?Cancel Reason: Cancelled. PATIENT: LISET SIDHU LOCATION: [facility] BILL#: [id number] : 88 AGE: SEX: F ORDERED BY: RITA JOHNSON SOURCE: Blood COLLECTED: ANTIBIOTICS AT KAN.: RECEIVED : SITE: R E S U L T S BLOOD CULTURE, BACTERIAL CANCELLED 06/11/18 03:45 Performed By: #### BLDC #### [facility] [address] [place] [id number] LACTATE Collected: 06/11/2018 Status: CANCELLED Source: [facility] 2:28 AM HOSPITALS REPOSITORY Order Comment: TEST LACTATE WAS CANCELLED, 06/11/2018 02:27 ?Cancel Reason: Cancelled. TYPE CODE TESTS RESULT OUT OF REFERENCE UNITS RANGE LAB LACT(LOINC ) LACTATE Canceled Result Comment: Venipuncture immediately after or during the administration of Metamizole may lead to falsely low results. Testing should be performed immediately prior to Metamizole dosing. Performed By: #### LACT #### [facility] [address] [place] [address] Observed: 06/11/2018 Status: CANCELLED Source: [facility] BLOOD CULTURE, 2:28 HOSPITALS REPOSITORY BACTERIAL TEST BLOOD CULTURE, BACTERIAL WAS CANCELLED, 06/11/2018 04:00 ?Cancel Reason: Cancelled. PATIENT: LISET SIDHU LOCATION: [facility] BILL#: [id number] : 88 AGE: SEX: F ORDERED BY: RITA JOHNSON SOURCE: Blood COLLECTED: ANTIBIOTICS AT KAN.: RECEIVED : SITE: R E S U L T S BLOOD CULTURE, BACTERIAL CANCELLED 06/11/18 03:45 Performed By: #### BLDC #### [facility] [address] [place] [id number] BNP Collected: 06/11/2018 Status: CANCELLED Source: [facility] 2:28 HOSPITALS REPOSITORY Order Comment: TEST BNP WAS CANCELLED, 06/11/2018 02:27 ?Cancel Reason: Cancelled. TYPE CODE TESTS RESULT OUT OF REFERENCE UNITS RANGE LAB BNP2(LOINC) BNP Canceled Result Comment: . <100 pg/mL - Heart failure unlikely 100-299 pg/mL - Intermediate probability of acute heart . failure exacerbation. Correlate with clinical . context and patient history. >=300 pg/mL - Heart Failure likely. Correlate with clinical . context and patient history. BNP testing is performed using different testing methodology at [facility] than at other [facility]. Direct result comparisons should only be made within the same method. Performed By: #### BNP2 #### [facility] [address] [place] [address] CBC AND DIFFERENTIAL Collected: 06/11/2018 Status: CANCELLED Source: [facility] 2:28 HOSPITALS REPOSITORY Order Comment: TEST CBC AND DIFFERENTIAL WAS CANCELLED, 06/11/2018 02:27 ?Cancel Reason: Cancelled. TYPE CODE TESTS RESULT OUT OF REFERENCE UNITS RANGE LAB WBCR(LOINC ) WBC Canceled LAB NRBC(LOINC ) NUCLEATED RBC Canceled LAB RBCCT(LOIN C) RBC Canceled LAB HGB(LOINC) HGB Canceled LAB HCT(LOINC) HCT Canceled LAB MCV(LOINC) MCV Canceled LAB MCHC2(LOIN C) MCHC Canceled LAB PLTCT(LOIN C) PLT Canceled LAB RDWCV(LOIN C) RDW-CV Canceled LAB NEUT(LOINC ) % NEUTROPHIL Canceled LAB IG(LOINC) % AUTOMATED Canceled IMMATURE GRAN Result Comment: Percent differential counts (%) should be interpreted in the context of the absolute cell counts (cells/L). LAB LYMPH(LOINC) % LYMPHOCYTE Canceled LAB MONO(LOINC) % MONOCYTE Canceled LAB EOS(LOINC) % EOSINOPHIL Canceled LAB BASO(LOINC) % BASOPHIL Canceled LAB #NEUT(LOINC) NEUTROPHIL Canceled LAB #LYMP(LOINC) LYMPHOCYTE Canceled LAB #MONO(LOINC) MONOCYTE Canceled LAB #EOS(LOINC) EOSINOPHIL Canceled LAB #BASO(LOINC) BASOPHIL Canceled LAB MDIF(LOINC) DIFFERENTIAL Canceled Performed By: #### CBCDF #### [facility] [address] [place] [address] COAGULATION SCREEN Collected: 06/11/2018 Status: CANCELLED Source: [address] REPOSITORY Order Comment: TEST COAGULATION SCREEN WAS CANCELLED, 06/11/2018 02:27 ?Cancel Reason: Cancelled. TYPE CODE TESTS RESULT OUT OF REFERENCE UNITS RANGE LAB PT(LOINC) PROTHROMBIN TIME Canceled Result Comment: Note new reference range as of 04/04/2018. LAB INR(LOINC) Canceled PT, INR LAB APTT(LOINC) Canceled APTT Result Comment: Note new reference range as of 04/04/2018. THE APTT IS NO LONGER USED FOR MONITORING UNFRACTIONATED HEPARIN THERAPY. FOR MONITORING HEPARIN THERAPY, USE THE HEPARIN ASSAY. Performed By: #### COAGS #### [facility] [address] [place] [id number] MAGNESIUM Collected: 06/11/2018 Status: CANCELLED Source: [address] REPOSITORY Order Comment: TEST MAGNESIUM WAS CANCELLED, 06/11/2018 02:27 ?Cancel Reason: Cancelled. TYPE CODE TESTS RESULT OUT OF REFERENCE UNITS RANGE LAB MG(LOINC) MAGNESIUM Canceled Performed By: #### MG #### [facility] [address] [place] [address] COMPREHENSIVE PANEL Collected: 06/11/2018 Status: CANCELLED Source: [address] REPOSITORY Order Comment: TEST COMPREHENSIVE PANEL WAS CANCELLED, 06/11/2018 02:27 ?Cancel Reason: Cancelled. TYPE CODE TESTS RESULT OUT OF REFERENCE UNITS RANGE LAB GLU(LOINC) GLUCOSE Canceled LAB SOD(LOINC) SODIUM Canceled LAB K(LOINC) POTASSIUM Canceled LAB CHLOR(LOIN C) CHLORIDE Canceled LAB BIC(LOINC) BICARBONATE Canceled LAB ANGAP(LOIN C) ANION GAP Canceled LAB UREA(LOINC ) UREA NITROGEN Canceled LAB CREA(LOINC ) CREATININE Canceled LAB GFRFN(LOIN C) GFR-NON AM. Canceled LAB GFRAA(LOIN C) GFR- AM. Canceled Result Comment: CALCULATIONS OF ESTIMATED GFR ARE PERFORMED USING THE MDRD STUDY EQUATION FOR THE IDMS-TRACEABLE CREATININE METHODS. CLIN CHEM 2007;53:766-72 LAB CA(LOINC) CALCIUM Canceled LAB ALB(LOINC) ALBUMIN Canceled LAB AP(LOINC) ALKALINE Canceled PHOSPHATASE LAB TP(LOINC) TOTAL PROTEIN Canceled LAB AST(LOINC) AST Canceled LAB TBILI(LOINC) BILIRUBIN,TOTAL Canceled LAB ALT(LOINC) ALT Canceled Result Comment: Patients treated with Sulfasalazine may generate falsely decreased results for ALT. Performed By: #### CMP #### [facility] [address] [place] [address] CALCIUM, IONIZED Collected: 06/11/2018 Status: CANCELLED Source: [address] REPOSITORY Order Comment: TEST CALCIUM, IONIZED WAS CANCELLED, 06/11/2018 02:27 ?Cancel Reason: Cancelled. TYPE CODE TESTS RESULT OUT OF REFERENCE UNITS RANGE LAB CAION(LOINC ) Canceled CALCIUM,IONI ZED Result Comment: The performance characteristics of ionized calcium tested in heparinized plasma or serum have been validated by the individual laboratory site where testing is performed. Testing on heparinized plasma or serum is not approved by the FDA; however, such approval is not necessary. Performed By: #### IONC1 #### [facility] [address] [place] [address] PHOSPHORUS Collected: 06/11/2018 Status: CANCELLED Source: [address] REPOSITORY Order Comment: TEST PHOSPHORUS WAS CANCELLED, 06/11/2018 02:27 ?Cancel Reason: Cancelled. TYPE CODE TESTS RESULT OUT OF REFERENCE UNITS RANGE LAB PHOS(LOINC ) PHOSPHORUS Canceled Result Comment: The performance characteristics of phosphorus testing in heparinized plasma have been validated by the individual laboratory site where testing is performed. Testing on heparinized plasma is not approved by the FDA; however, such approval is not necessary. Performed By: #### PHOS #### [facility] [address] [place] [address] KEPPRA Collected: 06/11/2018 Status: CANCELLED Source: [address] REPOSITORY Order Comment: TEST KEPPRA WAS CANCELLED, 06/12/2018 03:11 NO SPECIMEN RECEIVED IN LAB. TYPE CODE TESTS RESULT OUT OF REFERENCE UNITS RANGE LAB KEPPR(LOINC ) KEPPRA Canceled Result Comment: Brivaracetam may falsely increase the amount of levetiracetam measured by this method. Serum levels should be confirmed by a valid chromatographic method for patients with these drugs co-present in circulation. Performed By: #### KEPPR #### [facility] [address] [place] [address] PHENYTOIN Collected: 06/11/2018 Status: CANCELLED Source: [facility] 2:28 AM HOSPITALS REPOSITORY Order Comment: TEST PHENYTOIN WAS CANCELLED, 06/12/2018 03:11 NO SPECIMEN RECEIVED IN LAB. TYPE CODE TESTS RESULT OUT OF REFERENCE UNITS RANGE LAB PHNYT(LOIN C) PHENYTOIN Canceled Performed By: #### PHNYT #### [facility] [address] 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 She presents today by EMS for seizures. She had seizure activity starting around 6 PM. She has had multiple seizures this evening. EMS was unable to obtain IV access, so the patient was not treated prior to arrival. She does take Dilantin, clonazepam, and Keppra. She has been compliant, except this evening, she had some issues with drooling and spitting and she has been up some pill fragments. She has been having seizures every day this week. They have been getting worse and more frequent. Her doctor checked a Dilantin level and increase her dose of clonazepam, but this is not helping. Family reports that she has been hitting her head more frequently given her more frequent seizures. Other than that, no changes or new issues for the patient. Physical Examination: Afebrile and vital signs unremarkable. Head and neck are grossly atraumatic. Patient is staring and responds to pain only on my evaluation. Heart regular. Lungs clear. Abdomen soft. Patient is moving all extremities. Skin appears unremarkable. Test Results: CBC and CMP unremarkable. Phenytoin level 11.1. CT brain pending. Emergency Department Course and Treatment: Patient presents with ongoing and intermittent seizures. Shortly after I began examining her, she had some repetitive and tonic movements. She received 2 mg of Ativan and had continued seizure activity, so 2 more were ordered. I also ordered a gram of Keppra. Seizures briefly stopped, and the patient began moaning. She is nonverbal at baseline. Family thought that she was coming out of her seizure. She had at least 2 other seizures after that while she was here and required a total of 8 mg of Ativan. She did receive Keppra. Her phenytoin level was therapeutic. I advised the family that if the patient has continued seizures, she will have respiratory depression. She will need intubation and possible further sedation to stop her seizures. Family advised that intubation and sedation makes her seizures worse. They are opposed to intubation and refusing intubation. I discussed the risks. Seizure activity seemed to stop, and the patient improved. Family requested a CT of her brain because she is sitting her head frequently. We will check that. Results are pending. I did speak with Dr. Spear at [facility]. The patient will need further monitoring. He accepted the patient and we are awaiting transport. On reevaluation, prior to transport, the patient is doing better. Given the patient's presentation and medication requirements, I still believe the patient would benefit from neuro evaluation. Patient will be transferred. Oncoming physician will check the results of the CT. Treatment Plan: As above Disposition: Transfer to [facility] Impression: 1. Status epilepticus This note was generated with Inuvo dictation software. It may contain incorrect words, spelling, and punctuation that were not noted in review of the chart prior to signing ED Disposition - Plan for ED Patient: Chief Complaint: Seizure Referrals: Gen Reed, [Primary Care Provider] - What to do if you have Problems For any increased pain, shortness of breath, bleeding, nausea or vomiting, chest pain, or any unexpected problems, contact your Primary Care Provider. Call [facility] ([phone]) or report to the closest Emergency Room. Call 911 if necessary. 06/10/18 1459 <Electronically signed by Demetris Blevins MD> Date Demetris Blevins MD Cosigner Signature (If Indicated): Date CC: Gen Aguirre DO BRAIN/HEAD WITHOUT Observed: 06/10/2018 Status: F Source: [place] CONTR[facility] 9:59 PM [facility] REPOSITORY [facility] Imaging Services [address] [place] [address] Brain/Head without Contrast MR#: [id number] Acct: [id number] Name: LISET SIDHU Rep #: [id number] : 1990 F 28 From: Melecio Otero MD PCP: Gen Aguirre DO Status: REG ER Study: Brain/Head without Contrast Date of Exam: 06/10/18 Exam# [id number] Ordering Dr: Demetris Blevins MD STUDY: CT BRAIN WITHOUT CONTRAST REASON FOR EXAM: Female, 28 years old. Seizures and fall, hitting head. History of seizures. History of autism with a chromosomal abnormality. RADIATION DOSAGE (If Supplied By Facility): CTDIvol = ( 44.99 ) mGy, DLP = ( 745.49 ) mGycm TECHNIQUE: Transaxial CT imaging of the brain was performed without administration of intravenous contrast material. Individualized dose optimization techniques were used for this CT. COMPARISON: 05/17/2012. FINDINGS: Normal soft tissue structures. Normal calvarium. Normal size ventricles and extra-axial spaces for the patient's age. Normal white matter tracts of the cerebral hemispheres. Normal basal ganglia and thalami. Normal brainstem. Normal cerebellum. There is no intracranial hemorrhage. There are no findings of an acute ischemic infarction. Normal visualized paranasal sinuses. CT/Brain/Head without Contrast IMPRESSION: Normal unenhanced CT scan of the brain. Electronically Signed: Melecio Otero MD at 0:11 EST , Service support , CC: Deemtris Blevins MD; Gen Aguirre DO Ramp Lead: Signed CBC W/DIFF, AUTOMATED Collected: 06/10/2018 Status: F Source: [place] 8:35 PM [facility] REPOSITORY TYPE CODE TESTS RESULT OUT OF RANGE REFERENCE UNITS LAB L100.1000 4.4-11.0 K/mm3 Low WBC 4.1 LAB L100.1200 4.2-5.4 M/mm3 Normal RBC 4.68 LAB L100.1300 12.0-15.0 g/dl Normal HGB 14.0 LAB L100.1400 37-47 % Normal HCT 41.2 LAB L100.1500 81-99 fL Normal MCV 88.0 LAB L100.1600 27.0-32.0 pg Normal MCH 29.9 LAB L100.1700 32-36 g/gl Normal MCHC 34.0 LAB L100.1810 11.6-14.6 % Normal RDW CV 12.8 LAB L100.1820 35.1-43.9 fl Normal RDW SD 41.1 LAB L100.1900 150-450 K/mm3 Low PLT 141 LAB L100.2000 6.2-12.0 fl Normal MPV 9.1 LAB L100.2100 47-70 % Normal NEUT% 67.0 LAB L100.2200 19-41 % Normal LY% 19.3 LAB L100.2300 0-10 % High MONO% 12.5 LAB L100.2400 0-5 % Normal EO% 1.2 LAB L100.2500 0-1 % Normal BASO% 0.0 LAB L100.2550 0.0-0.9 % Normal IM GRAN % 0.000 Result Comment: IG% - Immature Granulocytes (promyelocytes, myelocytes and metamyelocytes) > 1% indicates that a LEFT SHIFT is Present. LAB L100.2620 2.0-7.7 X10 3/uL Normal Absolute Neut 2.7 LAB L100.2720 0.83-4.51 X10 3/ul Low Absolute Lymph 0.79 Performed By: #### L100.0100 #### [facility] [place], [address] COMPREHENSIVE METABOLIC Collected: 06/10/2018 Status: F Source: [place] [facility] 8:35 PM [facility] REPOSITORY TYPE CODE TESTS RESULT OUT OF RANGE REFERENCE UNITS LAB L501.0100 74-106 mg/dL Normal GLU 98 Result Comment: Please note revised GLUCOSE reference range effective 2017. LAB L501.1000 7-18 mg/dL Normal BUN 11 LAB L501.1100 0.55-1.02 mg/dL Normal CREAT,SERUM 0.69 Result Comment: The validity of the calculated GFR AND GFRAA in patients over 70 years has not been determined. Clinical correlation is essential. LAB L501.1110 >60 mL/min Normal EST GFR 107 Result Comment: Non- GFR Calc LAB L501.1115 >60 mL/min Normal EST GFR - AA 129 Result Comment: GFR Calc LAB L501.1255 ml/min Normal Estimated CRCL 99.52 LAB L501.1300 10-20 RATIO Normal BUN/CRE 15.9 LAB L501.1500 6.4-8. g/dL Normal 2 T PROT 7.8 LAB L501.1800 3.2-5. g/dL Normal 0 ALB 3.9 LAB L501.1950 2.2-4. g/dL Normal 2 GLOB 3.9 LAB L501.2000 0.9-2. RATIO Normal 4 A/G 1.0 LAB L501.2200 8.5-10 mg/dL Normal .1 CA 8.8 LAB L501.4100 15-37 U/L Normal AST 21 Result Comment: Slight Hemolysis, Result may be falsely increased. LAB L501.4305 45-117 U/L Normal ALK P 87 LAB L501.4405 13-56 U/L Normal ALT 24 LAB L501.4600 0.20-1.00 mg/dL Normal T BILI 0.20 LAB L501.5300 136-145 mmol/L Normal NA 140 LAB L501.5600 3.5-5.1 mmol/L Normal K 3.8 Result Comment: Slight Hemolysis, Result may be falsely increased. LAB L501.5900 98-107 mmol/L Normal CL 106 LAB L501.6100 21.0-32.0 mmol/L Normal CO2 24.0 LAB L501.6200 5-15 Normal GAP 10 Performed By: #### L500.4050 #### [facility] [address] [place], [address] PHENYTOIN (DILANTIN) Collected: 06/10/2018 Status: F Source: [facility] 8:35 PM [facility] REPOSITORY TYPE CODE TESTS RESULT OUT OF RANGE REFERENCE UNITS LAB L501.7700 10.0-20.0 mL Normal PHENYTOIN 11.1 Performed By: #### L501.7700 #### [facility] [address] [place], [address] COMP METABOLIC PANEL Collected: 06/09/2018 Status: F Source: [place] 12:15 PM [facility] [place] REPOSITORY TYPE CODE TESTS RESULT OUT OF REFERENCE UNITS RANGE LAB TP 6.3-8.0 g/dL Protein, Total 7.3 LAB ALB 3.9-4.9 g/dL Albumin 4.3 LAB CA 8.5-10.2 mg/dL Calcium, Total 9.5 LAB TBIL 0.2-1.3 mg/dL Bilirubin, Total 0.2 LAB ALKP 34-123 U/L Alkaline Phosphatase 81 LAB AST 13-35 U/L AST 17 LAB GLU 74-99 mg/dL Glucose High 108 LAB BUN 7-21 mg/dL BUN 12 LAB CRET 0.58-0.96 mg/dL Creatinine 0.59 LAB NA 136-144 mmol/L Sodium 140 LAB K 3.7-5.1 mmol/L Potassium 3.7 LAB CL 97-105 mmol/L Chloride 105 LAB CO2 22-30 mmol/L CO2 24 LAB AGAP mmol/L Anion Gap 11 LAB ALT 7-38 U/L ALT 15 LAB GFRAA eGFR- >60 Amer. LAB GFRNAA . eGFR-All Other Races >60 Result Comment: eGFR (Estimated GFR) Units of measure: mL/min/1.73 meters squared eGFR is derived from the reexpressed MDRD Study equation using the following parameters: serum creatinine, age, gender and race. The creatinine assay has been calibrated to be traceable to IDMS. An eGFR <60 mL/min/1.73m2 for >3 months is consistent with chronic kidney disease. Refer to KDOQI guidelines for clinical interpretation. In patients with unstable renal function, e.g. those with acute kidney injury, the eGFR may not accurately reflect actual GFR. ABIE CBC AND DIFF Collected: 06/09/2018 Status: F Source: [place] 11:58 AM [facility] REPOSITORY TYPE CODE TESTS RESULT OUT OF REFERENCE UNITS RANGE LAB WWBC 3.70-11.00 k/uL [place] WBC 4.75 LAB WRBC 3.90-5.20 m/uL [place] RBC 4.46 LAB WHGB 11.5-15.5 g/dL [place] Hemoglobin 13.5 LAB WHCT 36.0-46.0 % [place] Hematocrit 40.5 LAB WMCV 80.0-100.0 fL [place] MCV 90.8 LAB WMCH 26.0-34.0 pg [place] MCH 30.3 LAB WMCHC 30.5-36.0 g/dL [place] MCHC 33.3 LAB WRDW 11.5-15.0 % [place] RDW 13.0 LAB WPLT 150-400 k/uL [place] Platelet Cnt 159 LAB WMPV 9.0-12.7 fL [place] MPV 9.6 Result Comment: [facility] performed at: [facility], [address] [place] [address] Rd[address] [place] [address]. LAB WNEUT % [place] Neut% 73.3 LAB WLYMP % [place] Lymp% 17.7 LAB WMONOC % [place]% 8.4 LAB WEOS % [place] Eos% 0.6 LAB WBASO % [place] Baso% 0.0 LAB WANEUT 1.45-7.5 k/uL 0 [place] Abs Neut 3.48 LAB WALYMP 1.00-4.0 k/uL Low 0 [place] Abs Lymp 0.84 LAB WAMONO <0.87 k/uL [place] Abs [place] 0.40 LAB WAEOS <0.46 k/uL [place] Abs Eos 0.03 LAB WABASO <0.11 k/uL [place] Abs Baso <0.03 PHENYTOIN Collected: 06/09/2018 Status: F Source: [place] 11:49 AM [facility] REPOSITORY TYPE CODE TESTS RESULT OUT OF REFERENCE UNITS RANGE LAB PHT 10.0-20.0 ug/mL Phenytoin 13.5 Result Comment: Reference ranges and high/low indicator flags are provided as general guidelines only. The treating physician must determine appropriate target levels/dosing based on the specific clinical situation. Performed By: #### PHT, LEVET #### [facility] [place] [address] [place], [place] [address] LEVETIRACETAM Collected: 06/09/2018 Status: F Source: [place] 11:49 AM [facility] REPOSITORY TYPE CODE TESTS RESULT OUT OF REFERENCE UNITS RANGE LAB LEVETI 12.0-46.0 ug/mL Levetiracetam 34.2 Result Comment: This test is not suitable for patients receiving treatment with the drug brivaracetam (Briviact). The drug causes an interference that may lead to falsely elevated levetiracetam results. Reference ranges and high/low indicator flags are provided as general guidelines only. The treating physician must determine appropriate target levels/dosing based on the specific clinical situation. This test was developed and its performance characteristics determined by [facility] [place] ([facility]). It has not been cleared or approved by the FDA. [facility] is regulated under CLIA as qualified to perform high-complexity testing. This test is used for clinical purposes. It should not be regarded as investigational or for research. Performed By: #### PHT, LEVET #### [facility] [place] [address] [place], [place] [id number] PROGRESS Observed: 06/09/2018 Status: COMPLETED Source: [place] 10:22 AM [facility] REPOSITORY HNO ID: [id number] Author: Kevin Mcclure (Katie) Santhosh Service: (none) Author Type: Nurse Practitioner Type: Progress Notes Filed: 06/09/2018 6:12 PM Note Text: Chief Complaint Patient presents with: Seizures: mother reports that pt has been having seizures. has been more lethargic and no appetite HPI Liset Sidhu is a 28 year old female who presents here today for Above Complaints. Known seizure disorder, nonverbal. New to me. Brought in by mom 2/2 increase in seizure activity this past week. States follows with Neurologist in [place] and seen 2 weeks ago, note reviewed. Mother reports patient was with clinical care coordinator yesterday and noted seizure at 12:50 lasting 1 minute, then at 1 pm lasting 2 minutes, given extra 1/2 tablet clonazepam and then another seizure at 1:30 lasting 3 minutes and again at 4:15 pm lasting 4 minutes. Spoke with Neurologist last night and instructed to increase Clonazepam to 1 mg, take 2 tabs tid, (this is an increase from 1.5 tablet tid). Mother walked in on seizure in progress this morning 4 am states just coming out of it. Noted another seizure between 5:30-6 am. States seizures are grand mal, Neurologist wanted her checked out today by PCP to make sure no other underlying illness. Mother reports eating per her usual, had a good breakfast earlier this morning, fluid intake down slightly and admits not good with fluid intake. Denies any fever, chills or cough. Mom denies any hematuria. Patient is incontinent and uses depends. Drug levels were wnl 2 months ago. Past medical history, appointments, medications, allergies reviewed. 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 folic acid 1 mg tablet Take 1 tablet by mouth once daily. leveTIRAcetam (KEPPRA) 500 mg tablet three tabs in the a.m. and three tabs at night Menthol-Zinc Oxide (CALMOSEPTINE) 0.44-20.6 % Apply 1 application to affected area twice daily as needed. Rash in groin nystatin (MYCOSTATIN) powder Apply 1 application to affected area four times daily. PHENYTOIN SODIUM EXTENDED (DILANTIN ORAL) Take by mouth. rufinamide (BANZEL) 200 mg tablet 1/2 tablet twice daily triamcinolone (KENALOG) 0.1 % lotion Apply 1 application to affected area three times daily. scopolamine (TRANSDERM-SCOP) 1.5 mg TRANSDERM. PT72 Apply 1 patch every 3-4 days No current facility-administered medications on file prior to visit. Social History Social History Marital status: Single Spouse name: Years of education: Number of children: Occupational History Occupation Employer Comment disabled Social History Main Topics Smoking status: Never Smoker Smokeless tobacco: Never Used Alcohol use: No Drug use: No Sexual activity: No Social History Narrative Lives with mother, her caregiver. EXAM: BP 120/72 (BP Site: Left Arm, BP Position: Sitting, BP Cuff Size: Large Adult) Pulse 80 Temp 37.2 ?C (98.9 ?F) (Tympanic) Resp 16 LMP 05/19/2018 (Approximate) General Appearance: no apparent distress, Sitting upright in w/c in exam room, head bent forward, drooling. Eyes open, responds to verbal stimuli and touch. Eyes: Anicteric sclera. Pupils are equally round and reactive to light. Closes eyes to light stimuli and turns away Ears: External ears normal, canals clear. Oropharynx: Lips, mucosa, and tongue normal, teeth and gums normal, oropharynx normal. Neck: Supple, no adenopathy; thyroid symmetric, normal size, no bruits. Lungs: lungs clear to auscultation. No wheezing, rhonchi, rales. Heart: RRR without murmur, gallop, or rubs. No ectopy. Abdomen: Normal abdominal exam, Abdomen soft, non-tender. Bowel sounds normal. No CVA tenderness, No masses, organomegaly, exam completed while sitting in w/c. Neurologic: Awake, responds to name, during exam she was attempting to get out of the wheelchair. Easily directed back to seated upright position. Health Maintenance List PAP EVERY 3 YEARS (21-30 YEAR OLDS) due on 2010 DTAP,TDAP,TD(7 - Td) due on 03/15/2015 INFLUENZA(1) due on 02/11/2018 ASSESSMENT/PLAN: 1. Nonintractable generalized idiopathic epilepsy without status epilepticus (HCC) - ICD9: 345.90, ICD10: G40.309 (primary diagnosis) - Discussed with mother and sister who has shared guardianship, no obvious or unrevealing finding on exam at this time. Will get stat labs checking lytes and CBC, drug levels - Recommend f/u with Neurologist - COMP METABOLIC PANEL - PHENYTOIN/DILANTIN - LEVETIRACETAM 2. 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 Lethargy - ICD9: 780.79, ICD10: R53.83 - checking labs today. - [place] CBC AND DIFF - COMP METABOLIC PANEL Kevin Trevizo, MSN SOFTWARE TEST SPECIALIST.FRENCH EDGE OPERATOR CNOV Observed: 06/09/2018 Status: COMPLETED Source: [place] 9:40 AM [facility] REPOSITORY Office Visit (FAMPWS) LISET SIDHU ([id number]) 1990 F Date Time Provider Department 06/09/18 9:40 AM KEVIN TREVIZO (CLASSIFIED COPY CONTROL CLERK) FAMPWS During your visit today, we recorded the following information about you: Temperature Pulse Respiration Blood pressure 98.9 degrees 80/minute 16/minute 120/72 Last Period 05/19/18 Kevin Trevizo, MSN SOFTWARE TEST SPECIALIST.FRENCH EDGE OPERATOR 06/09/2018 6:12 PM Signed Chief Complaint Patient presents with: Seizures: mother reports that pt has been having seizures. has been more lethargic and no appetite HPI Lisether Humaira Sidhu is a 28 year old female who presents here today for Above Complaints. Known seizure disorder, nonverbal. New to me. Brought in by mom 2/2 increase in seizure activity this past week. States follows with Neurologist in [place] and seen 2 weeks ago, note reviewed. Mother reports patient was with clinical care coordinator yesterday and noted seizure at 12:50 lasting 1 minute, then at 1 pm lasting 2 minutes, given extra 1/2 tablet clonazepam and then another seizure at 1:30 lasting 3 minutes and again at 4:15 pm lasting 4 minutes. Spoke with Neurologist last night and instructed to increase Clonazepam to 1 mg, take 2 tabs tid, (this is an increase from 1.5 tablet tid). Mother walked in on seizure in progress this morning 4 am states just coming out of it. Noted another seizure between 5:30-6 am. States seizures are grand mal, Neurologist wanted her checked out today by PCP to make sure no other underlying illness. Mother reports eating per her usual, had a good breakfast earlier this morning, fluid intake down slightly and admits not good with fluid intake. Denies any fever, chills or cough. Mom denies any hematuria. Patient is incontinent and uses depends. Drug levels were wnl 2 months ago. Past medical history, appointments, medications, allergies reviewed. 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 folic acid 1 mg tablet Take 1 tablet by mouth once daily. leveTIRAcetam (KEPPRA) 500 mg tablet three tabs in the a.m. and three tabs at night Menthol-Zinc Oxide (CALMOSEPTINE) 0.44-20.6 % Apply 1 application to affected area twice daily as needed. Rash in groin nystatin (MYCOSTATIN) powder Apply 1 application to affected area four times daily. PHENYTOIN SODIUM EXTENDED (DILANTIN ORAL) Take by mouth. rufinamide (BANZEL) 200 mg tablet 1/2 tablet twice daily triamcinolone (KENALOG) 0.1 % lotion Apply 1 application to affected area three times daily. scopolamine (TRANSDERM-SCOP) 1.5 mg TRANSDERM. PT72 Apply 1 patch every 3-4 days No current facility-administered medications on file prior to visit. Social History Social History Marital status: Single Spouse name: Years of education: Number of children: Occupational History Occupation Employer Comment disabled Social History Main Topics Smoking status: Never Smoker Smokeless tobacco: Never Used Alcohol use: No Drug use: No Sexual activity: No Social History Narrative Lives with mother, her caregiver. EXAM: BP 120/72 (BP Site: Left Arm, BP Position: Sitting, BP Cuff Size: Large Adult) Pulse 80 Temp 37.2 ?C (98.9 ?F) (Tympanic) Resp 16 LMP 05/19/2018 (Approximate) General Appearance: no apparent distress, Sitting upright in w/c in exam room, head bent forward, drooling. Eyes open, responds to verbal stimuli and touch. Eyes: Anicteric sclera. Pupils are equally round and reactive to light. Closes eyes to light stimuli and turns away Ears: External ears normal, canals clear. Oropharynx: Lips, mucosa, and tongue normal, teeth and gums normal, oropharynx normal. Neck: Supple, no adenopathy; thyroid symmetric, normal size, no bruits. Lungs: lungs clear to auscultation. No wheezing, rhonchi, rales. Heart: RRR without murmur, gallop, or rubs. No ectopy. Abdomen: Normal abdominal exam, Abdomen soft, non-tender. Bowel sounds normal. No CVA tenderness, No masses, organomegaly, exam completed while sitting in w/c. Neurologic: Awake, responds to name, during exam she was attempting to get out of the wheelchair. Easily directed back to seated upright position. Health Maintenance List PAP EVERY 3 YEARS (21-30 YEAR OLDS) due on 2010 DTAP,TDAP,TD(7 - Td) due on 03/15/2015 INFLUENZA(1) due on 02/11/2018 ASSESSMENT/PLAN: 1. Nonintractable generalized idiopathic epilepsy without status epilepticus (HCC) - ICD9: 345.90, ICD10: G40.309 (primary diagnosis) - Discussed with mother and sister who has shared guardianship, no obvious or unrevealing finding on exam at this time. Will get stat labs checking lytes and CBC, drug levels - Recommend f/u with Neurologist - COMP METABOLIC PANEL - PHENYTOIN/DILANTIN - LEVETIRACETAM 2. 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 Lethargy - ICD9: 780.79, ICD10: R53.83 - checking labs today. - [place] CBC AND DIFF - COMP METABOLIC PANEL Kevin Trevizo, MSN SOFTWARE TEST SPECIALIST.FRENCH EDGE OPERATOR Referring Provider: SELF [[id number]] Allergies As of Date: 06/09/2018 (No Known Allergies) Date Reviewed: 06/09/2018 Reviewed by: Carlos Butler LPN - Fully Assessed Reason for Visit: Seizures [97] Cmt: mother reports that pt has been having seizures. has been more lethargic and no appetite Primary Visit Diagnosis:Nonintractable generalized idiopathic epilepsy without status epilepticus (HCC) [G40.309] Other Visit Diagnoses:Expressive speech disorder [F80.1] Lethargy [R53.83] Order(s):[place] CBC AND DIFF [SQWCBCDF] Order #: [id number] FUTURE COMP METABOLIC PANEL [SQCMP] Order #: [id number] FUTURE PHENYTOIN/DILANTIN [SQPHT] Order #: [id number] FUTURE LEVETIRACETAM [SQLEVET] Order #: [id number] FUTURE Prescriptions as of 06/09/2018 Sig: * CLONAZEPAM 1 MG TABLET 1 tab by mouth three times a * CLOTRIMAZOLE 1 % TOPICAL CREAM Apply 1 application to affect* FOLIC ACID 1 MG TABLET Take 1 tablet by mouth once d* * LEVETIRACETAM 500 MG TABLET three tabs in the a.m. and th* MENTHOL 0.44 %-ZINC OXIDE 20.* Apply 1 application to affect* NYSTATIN 100,000 UNIT/GRAM TO* Apply 1 application to affect* DILANTIN ORAL Take by mouth. 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 History of Present Illness Liset is a 28 year old young woman with seizures and cognitive impairments. She is currently on Klonopin 1.5 mg TID. She is also on Banzel 200 mg at 3 BID, Dilantin 100-100--200mg, Keppra 1500 mg BID a nd Folic Acid 1 mg daily. Seizures were not seen during her menses and, otherwise, occur sporadically (few per month). She did not need any extra medication. No medication side effects are reported. She continues in her day program on Tuesday, Tuesday and Tuesday. She is sleeping well. Appetite is good. She continues to be on a gluten free diet. A recent dental visit showed that all was good. A hearing exam showed a mild hearing loss. Vision evaluation showed that she is nearsighted. She is getting a communication device that will fit on her wheelchair. Review of Systems A review of systems finds no other pertinent positives. 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) Hypotonia (781.3) (R29.898) Incontinence (788.30) (R32) Intractable epilepsy without status epilepticus (345.91) (G40.919) Family History Family history of Chromosome [id number] duplication syndrome Social History Lives with parents Never a smoker No tobacco/smoke exposure Allergies No Known Drug Allergies Recorded By: Heather Gray; 04/25/2014 12:30:28 PM Current Meds Folic Acid 1 MG Oral Tablet; TAKE ONE TABLET BY MOUTH ONCE DAILY DIRECTED; Therapy: 74Gxh8369 to (Evaluate:20Jun2018) Requested for: 78Qyy9549; Last Rx:[id number] Ordered Rx By: Ene Graham; Dispense: 30 Days ; #:30 Tablet; Refill: 5;For: Health Maintenance; EDNA = N; Verified Transmission to [facility]; Last Updated By: Lissa Victoria; 12/22/2017 9:57:01 AM Unspecified Medication; 1 MONTH SUPPLY OF DEPENDS LARGE 62.79 KG REFILL X11; Therapy: 11Vmx0690 to (Last Rx:07Jul2017) Ordered Rx By: Ene Graham; Dispense: 0 Days ; #:1; Refill: 11;For: Incontinence; EDNA = N; Faxed To: [facility] Banzel 200 MG Oral Tablet; TAKE THREE TABLETS BY MOUTH TWICE DAILY; Therapy: 25Mar2016 to (Evaluate:01Aug2018) Requested for: 03Apr2018; Last Rx:03Apr2018 Ordered Rx By: Ene Graham; Dispense: 30 Days ; #:180 Tablet; Refill: 3;For: Intractable epilepsy without status epilepticus; EDNA = N; Verified Transmission to [facility] ClonazePAM 1 MG Oral Tablet; TAKE 1.5 TABLET 3 times daily; Therapy: 11Ahz9258 to (Evaluate:20Jun2018); Last Rx:22Dec2017 Ordered Rx By: Ene Graham; Dispense: 30 Days ; #:135 Tablet; Refill: 5;For: Intractable epilepsy without status epilepticus; EDNA = N; Print Rx 09/14/2017 PA REDONE VERBALLY FOR ADDISY. CS. 08/24/2017 PA SUBMITTED. CS. Disability Placard; Handicapped placard lifelong disability. Not to exceed 5 years; Therapy: 03Apr2015 to (Last Rx:03Apr2015) Ordered Rx By: Jacob Jameson; Dispense: 0 Days ; #:1; Refill: 0;For: Intractable epilepsy without status epilepticus; EDNA = N; Print Rx LevETIRAcetam 500 MG Oral Tablet; TAKE THREE TABLETS BY MOUTH TWICE DAILY; Therapy: 21Vos0384 to (Evaluate:31Aug2018) Requested for: 03Apr2018; Last Rx:03Apr2018 Ordered Rx By: Ene Graham; Dispense: 30 Days ; #:180 Tablet; Refill: 4;For: Intractable epilepsy without status epilepticus; EDNA = N; Verified Transmission to [facility] Phenytoin Sodium Extended 100 MG Oral Capsule; TAKE ONE CAPSULE BY MOUTH IN THE MORNING AND AT NOON, THEN TAKE 2 CAPSULES AT BEDTIME; Therapy: 31Whh7751 to (Evaluate:20Jun2018) Requested for: 79Stw2739; Last Rx:[id number] Ordered Rx By: Ene Graham; Dispense: 30 Days ; #:120 Capsule; Refill: 5;For: Intractable epilepsy without status epilepticus; EDNA = N; Verified Transmission to [facility]; Last Updated By: Lissa Egan; 12/22/2017 9:56:56 AM Vitals Vital Signs Recorded: 60Elp2934 02:25PM Heart Rate86 Tdqswgoc86 Wmkfeevnv54 Efpnqr765 lb 14.24 oz Physical Exam Constitutional - Well dressed, well nourished child, no apparent distress. Sits on her wheelchair. Skin - No neurocutaneous stigmata. HEENT- Normocephalic/atraumatic, mucous membranes moist and no scleral icterus, conjunctiva pink, drooling noted. Respiratory - Respirations regular. Abdomen - Soft, non-tender/non-distended. Extremities - Full range of motion. warm and well perfused with brisk capillary refill. Neurologic - awake, nonverbal. Cranial Nerves: II: Visual ervin full to confrontation bilaterally. Fundoscopic exam with sharp disc margins, no evidence of papilledema, normal retinal vessels bilaterally. III, IV, : Extraocular movements intact with no nystagmus. Pupils equal, round and reactive to light. V: Sensation intact in all three distributions of trigeminal nerve. VII: Face symmetric. VIII: Hearing intact to finger rub bilaterally. Motor: Strength 5/5 throughout No pronator drift. Normal bulk and tone. No involuntary movements seen. DTR: 2/4 throughout. Sensory: Intact. Gait: Normal narrow based gait with symmetric arm swing. Stressed gait performed without difficulty. Additional Findings -. Mild-moderate gingival hyperplasia. 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 Seizures are sporadic. 1. No medication changes are needed at this time. Refills will be sent as needed. 2. Mother asked about a glider chair for home. I told her to get a recommendation from a therapist. 3. Follow up will be in 6 months. Mom will call with updates before that time. Signatures Electronically signed by : Jacob Jameson MD; May 25 2018 6:42PM EST (Author) EMERGENCY DEPARTMENT Observed: 05/02/2018 Status: F Source: [facility] SUMMARY 3:09 PM [facility] REPOSITORY [facility] Medical Records Department [address] [place] [address] Emergency Department Summary 05/02/18 1424 MR#: [id number] Acct: [id number] Name: LISET SIDHU Rep #: [id number] : 1990 27 From: Stephon Bueno PCP: Gen Aguirre DO Status: REG ER - ER Visit Summary Date of Service: 05/02/18 Chief Complaint: Cough History of Present Illness: The patient is a 27 F informant is mother and caregiver due to history of autism and nonverbal. Cough for 3 weeks. No fevers. No wheeze. Reports appears patient unable to clear her congestion. Clear rhinorrhea. No respiratory distress. Reports saw PCP 3 weeks ago was put on a 5-day course of antibiotics, likely Zithromax. States still coughing. Reports she was at 2-3 years ago had suctioning, she was not intubated. Caregiver states likely from [facility] for secretions. No vomiting or diarrhea. He is tolerating oral fluids. Mother tried aaax-dut-upvjach dextromethorphan and Mucinex, however patient would not take the medications. She does not do liquids. These were pills. Mother states has to crush her pills and [place] in her food. Physical Examination: General: Nonverbal, nontoxic no acute distress HEENT: Normocephalic, atraumatic. No posterior pharyngeal erythema. TMs normal bilaterally moist mucosa membranes Neck: supple, nontender. Cardiovascular: Regular rate and rhythm, no murmurs Respiratory: Normal breath sounds, symmetric, no distress. No wheezing. Abdomen: Soft, nontender, nondistended Extremities: Nontender, no edema, pulses intact 4 Neuro: no focal neurological deficits. Test Results: chest x-ray: No acute process Emergency Department Course and Treatment: Patient vital signs completely normal. There is no coughing episodes during my evaluation. Chest x-ray was obtained and reviewed myself shows no acute process. Family reassured. Discussed using vapor. Prescription for loratadine to help with drainage. Follow-up with PCP. Treatment Plan: [] Disposition: Discharge Impression: Upper respiratory infection This note was generated with Inuvo dictation software. It may contain incorrect words, spelling, and punctuation that were not noted in review of the chart prior to signing ED Disposition - Plan for ED Patient: Disposition: Home or Assisted Living Chief Complaint: Cough Diagnosis: Upper respiratory infection Instructions: ED Upper Resp Infec No Abx Tx Prescriptions: Loratadine [Claritin] 10 mg PO DAILY #30 tablet Referrals: Gen Reed DO [Primary Care Provider] - 5-7 Days Additional Instructions: May use vapor rubs at night. Continue oral hydration. Loratadine to help with drainage. What to do if you have Problems For any increased pain, shortness of breath, bleeding, nausea or vomiting, chest pain, or any unexpected problems, contact your Primary Care Provider. Call [facility] ([phone]) or report to the closest Emergency Room. Call 911 if necessary. 05/02/18 1509 <Electronically signed by Stephon Bueno> Date Stephon Bueno Cosigner Signature (If Indicated): Date CC: Gen Aguirre DO CHEST PA AND LATERAL Observed: 05/02/2018 Status: F Source: [place] 2:42 PM [facility] REPOSITORY [facility] Imaging Services [address] [place] [address] [place] [address] Chest PA and Lateral MR#: [id number] Acct: [id number] Name: LISET SIDHU Rep #: [id number] : 1990 F 27 From: Chin Gonzales MD PCP: Gen Aguirre DO Status: REG ER Study: Chest PA and Lateral Date of Exam: 05/02/18 Exam# [id number] Ordering Dr: Stephon Olmedo DO STUDY: X-RAY CHEST REASON FOR EXAM: Female, 27 years old. Congestion. TECHNIQUE: PA and lateral views of the chest. COMPARISON: Comparison is made with prior study dated March 11, 2016. FINDINGS: There is a 2.4 cm x 0.8 cm cylindrical metallic density overlying the T1 vertebrae. This may be outside the patient. Clinical correlation is recommended. The lungs are clear and expanded. There is no demonstrated pleural abnormality. Normal size heart. Normal mediastinum and wily. Normal visualized pulmonary arteries. Normal visualized aortic arch and descending thoracic aorta. Normal visualized thoracic spine. Normal visualized ribs, clavicles, and shoulders. There is no demonstrated abnormality of the visualized soft tissue structures of the upper abdomen. RAD/Chest PA and Lateral IMPRESSION: No acute adenopathy is seen. Cylindrical metallic density is seen in the lower cervical region as described. Electronically Signed: Chin Gonzales MD at 15:15 EST Tel [phone], Service support , CC: Gen Aguirre DO; Stephno Olmedo Ramp Lead: Signed PROGRESS Observed: 04/18/2018 Status: COMPLETED Source: [place] 1:05 PM [facility] REPOSITORY HNO ID: [id number] Author: Rebecca Ramirez Apn Student Service: (none) Author Type: (none) Type: Progress Notes Filed: 04/18/2018 1:53 PM Note Text: This note was created using NoteWriter. Subjective Liset Sidhu is a 27 year old female. The history is provided by a relative and a caregiver. Cough This is a recurrent problem. The current episode started more than 1 week ago. The problem occurs constantly. The problem has not changed since onset.The cough is productive of sputum. There has been no fever. The fever has been present for less than 1 day. Pertinent negatives include no chest pain, no chills, no sweats, no weight loss, no ear congestion, no ear pain, no headaches, no rhinorrhea, no sore throat, no myalgias, no shortness of breath, no wheezing and no eye redness. She has tried decongestants for the symptoms. The treatment provided no relief. She is not a smoker. Her past medical history does not include bronchitis, pneumonia, bronchiectasis, COPD, emphysema or asthma. Patient has been taking guaifenesin 400mg every 4 hours Review of Systems Constitutional: Negative for chills and weight loss. HENT: Negative for ear pain, rhinorrhea and sore throat. Eyes: Negative for redness. Respiratory: Positive for cough. Negative for shortness of breath and wheezing. Cardiovascular: Negative for chest pain. Musculoskeletal: Negative for myalgias. Neurological: Negative for headaches. Objective BP 122/72 Pulse 84 Temp 36.6 ?C (97.8 ?F) Resp 16 Wt 68 kg (150 lb) BMI 29.29 kg/m? Physical Exam Cardiovascular: Normal rate, regular rhythm, S1 normal, S2 normal and normal heart sounds. Pulmonary/Chest: Effort normal. She has decreased breath sounds in the right upper field and the left upper field. She has rhonchi in the right middle field, the right lower field, the left middle field and the left lower field. She has rales in the right middle field, the right lower field, the left middle field and the left lower field. Neurological: She is alert. ASSESSMENT/PLAN: 1. URI, acute - ICD9: 465.9, ICD10: J06.9 - AZITHROMYCIN 250 MG TABLET - consider medrol if not improving Kamilla Mera APRN.FRENCH EDGE OPERATOR CNOV Observed: 04/18/2018 Status: COMPLETED Source: [place] 1:00 PM [facility] REPOSITORY [facility] LISET SIDHU ([id number]) 1990 F Date Time Provider Department 04/18/18 1:00 PM KAMILLA MERA (FRENCH EDGE OPERATOR) ROSEANNE During your visit today, we recorded the following information about you: Temperature Pulse Respiration Blood pressure 97.8 degrees 84/minute 16/minute 122/72 Weight 68 kg Rebecca Ramirez Picking Tech Student 04/18/2018 1:31 PM Signed This note was created using [employer] Group[employer]. Subjective Liset Sidhu is a 27 year old female. The history is provided by a relative and a caregiver. Cough This is a recurrent problem. The current episode started more than 1 week ago. The problem occurs constantly. The problem has not changed since onset.The cough is productive of sputum. There has been no fever. The fever has been present for less than 1 day. Pertinent negatives include no chest pain, no chills, no sweats, no weight loss, no ear congestion, no ear pain, no headaches, no rhinorrhea, no sore throat, no myalgias, no shortness of breath, no wheezing and no eye redness. She has tried decongestants for the symptoms. The treatment provided no relief. She is not a smoker. Her past medical history does not include bronchitis, pneumonia, bronchiectasis, COPD, emphysema or asthma. Patient has been taking guaifenesin 400mg every 4 hours Review of Systems Constitutional: Negative for chills and weight loss. HENT: Negative for ear pain, rhinorrhea and sore throat. Eyes: Negative for redness. Respiratory: Positive for cough. Negative for shortness of breath and wheezing. Cardiovascular: Negative for chest pain. Musculoskeletal: Negative for myalgias. Neurological: Negative for headaches. Objective BP 122/72 Pulse 84 Temp 36.6 ?C (97.8 ?F) Resp 16 Wt 68 kg (150 lb) BMI 29.29 kg/m? Physical Exam Cardiovascular: Normal rate, regular rhythm, S1 normal, S2 normal and normal heart sounds. Pulmonary/Chest: Effort normal. She has decreased breath sounds in the right upper field and the left upper field. She has rhonchi in the right middle field, the right lower field, the left middle field and the left lower field. She has rales in the right middle field, the right lower field, the left middle field and the left lower field. Neurological: She is alert. ASSESSMENT/PLAN: 1. URI, acute - ICD9: 465.9, ICD10: J06.9 - AZITHROMYCIN 250 MG TABLET - consider medrol if not improving Kamilla Mera APRN.FRENCH EDGE OPERATOR Referring Provider: SELF [200] Allergies As of Date: 04/18/2018 (No Known Allergies) Date Reviewed: 04/18/2018 Reviewed by: Shoaib Bernard LPN - Fully Assessed Reason for Visit: Cough [28] Cmt: moist x1 week; no fever;eating and drinking normally Primary Visit Diagnosis:URI, acute [J06.9] Order(s):azithromycin (ZITHROMAX Z-BASIA) 250 mg tabletTake 2 tablets day one, then, 1 tablet daily until gone.Disp: 1 PackageRfl: 0 Prescriptions as of 04/18/2018 Sig: NYSTATIN 100,000 UNIT/GRAM TO* Apply 1 application to affect* MENTHOL 0.44 %-ZINC OXIDE 20.* Apply 1 application to affect* CLOTRIMAZOLE 1 % TOPICAL CREAM Apply 1 application to affect* TRIAMCINOLONE ACETONIDE 0.1 %* Apply 1 application to affect* DILANTIN ORAL Take by mouth. RUFINAMIDE 200 MG TABLET 1/2 tablet twice daily FOLIC ACID 1 MG TABLET Take 1 tablet by mouth once d* * CLONAZEPAM 1 MG TABLET 1 tab by mouth three times a * * LEVETIRACETAM 500 MG TABLET three tabs in the a.m. 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 Medications Discontinued During This Encounter azithromycin (ZITHROMAX Z-BASIA) 250 m* 1 Pa* 0 06/12/2013 04/18/2018 Sig: Take 2 tablets day one, then, 1 tablet daily until gone. Disc: Reason for discontinue is not on file. Encounter Status:Closed by KAMILLA MERA CNP on 04/18/18 D/C SUMMARY- SP Observed: 12/26/2017 Status: F Source: ABIE 3:33 PM [facility] REPOSITORY [facility] [address] [place], [place] [address] Fax REHABILITATION SERVICES DISCHARGE SUMMARY MR#: [id number] Acct: [id number] Name: LISET SIDHU Rep #: [id number] : 1990 27 From: Blanche Dias M.S., FLORENCIA-CULL GRADER Referring Dr.: Pamella Mccall D.C. Status: REG RCR Insurance: MEDICARE PART A B MEDICAID Discharge Summary - Discharged: Discharge: Liset Sidhu is discharged from outpatient speech therapy at this time. Liset attended 7 therapy sessions following her initial evaluation targeting functional language skills via any modality - speech, sign, pictures, and AAC. Limited progress was made and it was recommended that the patient attend an AAC clinic for further ideas. The patient was on a planned hold from therapy until the evaluation was completed, however, per Liset's mother, due to insurance changes Liset did not complete an evaluation at the AAC clinic. She does have a new script in place for this fall, however. Therefore, it was determined we would hold therapy until after the evaluation, with Liset's mom encouraged to reach out to this CULL GRADER before or after the evaluation for assistance as needed. Please reconsult as necessary. <Electronically signed by Blanche Dias M.S., FLORENCIA-CULL GRADER> 12/26/17 1533 CC: Gen Aguirre DO; Pamella Mccall D.C. [place] Signed OFFICE VISIT Observed: 12/22/2017 Status: UNK Source: [facility] (PEDIATRIC NEUROLOGY) 10:13 AM HOSPITALS REPOSITORY Chief Complaint follow up office visit. Accompanied by mother. History of Present Illness Liset is a 27 year old young woman with seizures and cognitive impairments. She is currently on Klonopin 1.5 mg TID. She is also on Banzel 200 mg at 3 BID, Dilantin 100-100--200mg, Keppra 1500 mg BID a nd Folic Acid daily. Seizures were daily but are now only occurring twice weekly. No medication side effects are reported. She continues in her day program on Tuesday, Tuesday and Tuesday. She may be going on a trip with her sister. She is sleeping well. Appetite is good. She continues to be on a gluten free diet. A recent dental visit showed that all was good. A hearing exam showed a mild hearing loss. She will resume a speech therapy program in the fall. Family is still interested in determining if she can use an augmentive device. Review of Systems A review of systems finds no other pertinent positives. 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) Hypotonia (781.3) (R29.898) Incontinence (788.30) (R32) Intractable epilepsy without status epilepticus (345.91) (G40.919) Family History Family history of Chromosome 43f74-n47 duplication syndrome Social History Lives with parents Never a smoker No tobacco/smoke exposure Allergies No Known Drug Allergies Recorded By: Heather Gray; 04/25/2014 12:30:28 PM Current Meds Folic Acid 1 MG Oral Tablet; TAKE ONE TABLET BY MOUTH ONCE DAILY DIRECTED; Therapy: 52Ngu7032 to (Evaluate:66Zyz4573) Requested for: 07Jul2017; Last Rx:07Jul2017 Ordered Rx By: Ene Graham; Dispense: 30 Days ; #:30 Tablet; Refill: 5;For: Health Maintenance; EDNA = N; Verified Transmission to [facility]; Last Updated By: Lissa Victoria; 12/22/2017 9:57:01 AM Unspecified Medication; 1 MONTH SUPPLY OF DEPENDS LARGE 62.79 KG REFILL X11; Therapy: 56Jfw2002 to (Last Rx:07Jul2017) Ordered Rx By: Ene Graham; Dispense: 0 Days ; #:1; Refill: 11;For: Incontinence; EDNA = N; Faxed To: [facility] Banzel 200 MG Oral Tablet; TAKE THREE TABLETS BY MOUTH TWICE DAILY; Therapy: 25Mar2016 to (Evaluate:10Apr2018) Requested for: 12Oct2017; Last Rx:12Oct2017 Ordered Rx By: Ene Graham; Dispense: 30 Days ; #:180 Tablet; Refill: 5;For: Intractable epilepsy without status epilepticus; EDNA = N; Rx auto-faxed to [facility] 181 ClonazePAM 1 MG Oral Tablet; TAKE 1.5 TABLET 3 times daily; Therapy: 15Jan2016 to (Evaluate:10Mar2018); Last Rx:10Nov2017 Ordered Rx By: Ene Graham; Dispense: 30 Days ; #:135 Tablet; Refill: 3;For: Intractable epilepsy without status epilepticus; EDNA = N; Call Rx 09/14/2017 PA REDONE VERBALLY FOR QUANTIY. CS. 08/24/2017 PA SUBMITTED. CS. Disability Placard; Handicapped placard lifelong disability. Not to exceed 5 years; Therapy: 03Apr2015 to (Last Rx:03Apr2015) Ordered Rx By: Jacob Jameson; Dispense: 0 Days ; #:1; Refill: 0;For: Intractable epilepsy without status epilepticus; EDNA = N; Print Rx LevETIRAcetam 500 MG Oral Tablet; TAKE THREE TABLETS BY MOUTH TWICE DAILY; Therapy: 28Oct2014 to (Evaluate:10Apr2018) Requested for: 12Oct2017; Last Rx:12Oct2017 Ordered Rx By: Ene Graham; Dispense: 30 Days ; #:180 Tablet; Refill: 5;For: Intractable epilepsy without status epilepticus; EDNA = N; Rx auto-faxed to [facility]; Last Updated By: Lotus Victoria; 10/12/2017 9:09:52 AM Phenytoin Sodium Extended 100 MG Oral Capsule; TAKE ONE CAPSULE BY MOUTH IN THE MORNING AND AT NOON, THEN TAKE 2 CAPSULES AT BEDTIME; Therapy: 45Vko1212 to (Evaluate:33Jok2915) Requested for: 07Jul2017; Last Rx:07Jul2017 Ordered Rx By: Ene Graham; Dispense: 30 Days ; #:120 Capsule; Refill: 5;For: Intractable epilepsy without status epilepticus; EDNA = N; Verified Transmission to [facility] 18[facility]; Last Updated By: Lissa Egan; 12/22/2017 9:56:56 AM Vitals Vital Signs Recorded: 22Dec2017 09:38AM Heart Rate81 Krlnjike897 Jfcqqoazw90 Gzihjx070 lb 3 oz Physical Exam Today's exam finds her sitting quietly in her wheelchair. Constitutional - Well dressed, well nourished child, no apparent distress. Skin - No neurocutaneous stigmata. HEENT- Normocephalic/atraumatic, mucous membranes moist and no scleral icterus, conjunctiva pink, drooling noted. Respiratory - Respirations regular. Abdomen - Soft, non-tender/non-distended. Extremities - Full range of motion. warm and well perfused with brisk capillary refill. Neurologic - awake, nonverbal. Cranial Nerves: II: Visual ervin full to confrontation bilaterally. Fundoscopic exam with sharp disc margins, no evidence of papilledema, normal retinal vessels bilaterally. III, IV, : Extraocular movements intact with no nystagmus. Pupils equal, round and reactive to light. V: Sensation intact in all three distributions of trigeminal nerve. VII: Face symmetric. VIII: Hearing intact to finger rub bilaterally. Motor: Strength 5/5 throughout No pronator drift. Normal bulk and tone. No involuntary movements seen. DTR: 2/4 throughout. Sensory: Intact. Gait: Normal narrow based gait with symmetric arm swing. Stressed gait performed without difficulty. 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) Drooling (527.7) (K11.7) Lives with parents No tobacco/smoke exposure Orders Health Maintenance Renew: Folic Acid 1 MG Oral Tablet; TAKE ONE TABLET BY MOUTH ONCE DAILY DIRECTED Rx By: Ene Graham; Dispense: 30 Days ; #:30 Tablet; Refill: 5;For: Health Maintenance; EDNA = N; Verified Transmission to [facility]; Last Updated By: Gatito [employer]; 12/22/2017 9:57:01 AM Hypotonia, Intractable epilepsy without status epilepticus Speech Therapy Referral Evaluation and Treatment Evaluate AND Treat Status: Hold For - Scheduling Requested for: [id number] Ordered;For: Hypotonia, Intractable epilepsy without status epilepticus; Ordered By: Ene Graham Performed: Due: 22Mar2018 Intractable epilepsy without status epilepticus Renew: ClonazePAM 1 MG Oral Tablet; TAKE 1.5 TABLET 3 times daily Rx By: Ene Graham; Dispense: 30 Days ; #:135 Tablet; Refill: 5;For: Intractable epilepsy without status epilepticus; EDNA = N; Print Rx 09/14/2017 PA REDONE VERBALLY FOR RAZIA. CS. 08/24/2017 PA SUBMITTED. CS. Renew: Phenytoin Sodium Extended 100 MG Oral Capsule (Dilantin); TAKE ONE CAPSULE BY MOUTH IN THE MORNING AND AT NOON, THEN TAKE 2 CAPSULES AT BEDTIME Rx By: Ene Graham; Dispense: 30 Days ; #:120 Capsule; Refill: 5;For: Intractable epilepsy without status epilepticus; EDNA = N; Verified Transmission to [facility]; Last Updated By: Ishmael [employer]; 12/22/2017 9:56:56 AM Patient Discussion/Summary Liset is doing well. No medication changes are needed at this time. Refills have been provided. I have given them a new order for speech as their insurance changed and she will be resuming the evaluati on this fall. Follow up will be in 6 months. Mom will call with updates before that time. TimeTime Stamp_UH: Time Spent With Patient: 30 minutes of which greater than 50 percent was spent counseling and or coordinating care. End of Encounter Meds Banzel 200 MG Oral Tablet; TAKE THREE TABLETS BY MOUTH TWICE DAILY; Therapy: 25Mar2016 to (Evaluate:10Apr2018) Requested for: 68Mdc5606; Last Rx:12Oct2017 Ordered ClonazePAM 1 MG Oral Tablet; TAKE 1.5 TABLET 3 times daily; Therapy: 00Xwm8199 to (Evaluate:20Jun2018); Last Rx:[id number] Ordered Disability Placard; Handicapped placard lifelong disability. Not to exceed 5 years; Therapy: 03Apr2015 to (Last Rx:03Apr2015) Ordered Folic Acid 1 MG Oral Tablet; TAKE ONE TABLET BY MOUTH ONCE DAILY DIRECTED; Therapy: 99Fwk1674 to (Evaluate:20Jun2018) Requested for: 37Ucz4529; Last Rx:[id number] Ordered LevETIRAcetam 500 MG Oral Tablet; TAKE THREE TABLETS BY MOUTH TWICE DAILY; Therapy: 42Vcf9378 to (Evaluate:10Apr2018) Requested for: 16Yyj0966; Last Rx:12Oct2017 Ordered Phenytoin Sodium Extended 100 MG Oral Capsule (Dilantin); TAKE ONE CAPSULE BY MOUTH IN THE MORNING AND AT NOON, THEN TAKE 2 CAPSULES AT BEDTIME; Therapy: 67Zfv5008 to (Evaluate:20Jun2018) Requested for: 06Mje1663; Last Rx:[id number] Ordered Unspecified Medication; 1 MONTH SUPPLY OF DEPENDS LARGE 62.79 KG REFILL X11; Therapy: 46Yoy2995 to (Last Rx:07Jul2017) Ordered INITAL EVALUATION (1) Observed: 10/07/2017 Status: F Source: HOSEA Louise PT 2:21 PM [facility] REPOSITORY [facility] [address] [place] [address]. [address] [place] [address] Fax REHABILITATION SERVICES INITIAL EVALUATION MR#: [id number] Acct: [id number] Name: LISET SIDHU Rep #: [id number] : 1990 27 From: Pee Castillo PT, Cert. MDT, OCS Referring : Status: REG RCR Insurance: [facility] COMP HMO* NOT CONT SELF PAY INSURANCE Patient's Visit Information LISET SIDHU is a 27 year old F referred to Physical Therapy by JACOB JAMESON with a diagnosis of EPILEPSY,HYPOTONIA. Date of Evaluation: 09/27/17 Physical Therapist: Pee Castillo PT, - Visit Plan Frequency: 1WEEK Plan: RECOMMEND MANUAL W/C TILT AND SPACE WITH ALL ASSESSORIES DUE TO PATIENT UNABLE TO WALK SAFELY DUE TO SEIZURES ,HYPOTONIA LEGS/ARM UNABLE TO HOLD HEAD UP AND CONSTANT FALLING - Subjective Subjective: This 27 y/o female presents to physical therapy for w/c evaluation with diagnosis of epilepsy and hypotonia. Patient will need w/c for community moblity and at home due to seizures which patient will fall which seizures can last up to over a minute.Ocassionally,will have grand mall seizure. Patient is aphasic. Patient express wants needs by grabbing by hand. Patient is continence. Patient also attends workshops. Patient will be needing w/c for 3- 4hours at at time. Patient needs w/c to maintain optimize level of function.Patient is unable to ambulate safely because of seizures. Patient ambulation is comprimised by decrease stamina endurance.During a seisure ,patient may collapse. The w/c will be used at home and work shop. Patient is dependant with bathing,dressing ,ADLS' 24 supervision. Patient able to feed self but with assist. HOME SITUATION: alena with ramp ,walk in shower ,manual w/c hospital bed with rails. SOCAIL: lives with family DIRECTOR OF ANALYTICAL DEVELOPMENT 6 hours 5days week and Tuesday - Objective POSTURE: posterior pelvic tilt ,foward head poor tone ,round shoulders. PALPALTION: unremarkable. TRANSFERS: extra time SBA/CGA with vebal cues. BED MOBILITY:SBA/CGA with verbal cues. NEURO: unable to assess due to comprehension and aphasia expressive,poor tone hypotonic,reflexes achilles ,patella 0/3. PROM: WFL all planes of motion. MMT: at least 3/5 ,unable to test due to unable to follow commands. BALANCE: sitting fair,standing fair-. GAIT: ambulates unsteady hips/knees mod flexed ,right leg ER greater than left less than 10 feet in PT with close SBA /CGA - Goals Goal 1:: Complete W/C Evalution. - Rehabilitation Potential Physical Therapy Diagnosis: This patient has epilepsy with grand mal seizures ,hypotonia with unable to ambulate safely. along with poor stamina ,endurance this benifit from manual tilt n space w/c ,patient unable to use cane or walker. Also due to poor tone patient is not a safe in ambulation. Rehabilitation Potential: Poor - Anticipated Interventions Patient/Client Instruction: Educate patient on: Condition Other: W/C Thank you for the opportunity to evaluate your patient. For Medicare and Medicare HMO plans, please review the plan of care and approve it. It will need to be FAXED BACK to us at [phone] for Medicare purposes. Please let me know if there are questions or concerns regarding this plan of care. Physician Signature: Date: <Electronically signed by Pee Castillo PT, Cert. MDT, OCS> 10/07/17 1421 CC: Gen Aguirre DO; OUT OF TOWN DOCTOR CONSTANCE Signed For Medicare only, by signing this I certify the plan of care. Physicians Signature Date PROGRESS Observed: 08/01/2017 Status: COMPLETED Source: [place] 10:08 AM [facility] [place] REPOSITORY O ID: [id number] Author: Deepak YanesFront Office Supervisor) MARY Hope Service: (none) Author Type: Nurse Specialist Type: Progress Notes Filed: 08/01/2017 11:15 AM Note Text: OUTPATIENT VISIT DATE August 01, 2017 OUTPATIENT VISIT TYPE ESTABLISHED PRIMARY CARE PHYSICIAN: Gen Reed DO CHIEF COMPLAINT: Patient presents with: Recheck: Yeast infection between breast History of Present Illness: Liset Sidhu is a 27 year old female who was last seen 02/[address] Sprague. 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 Diflucan ordered per Dr. Reed. Presents with mother today who provides much of history. Rash seems about the same with the diflucan treatment over the last few day. Drooling down chest attributed to clonazepam use for seizures per neurologist. Hard to to keep this area dry. Pulls off garments if placed to catch this and keep skin dry. No recent hospital or ED visits. No new medical problems or medications. Able to obtain medications. No problems with taking medications or note side effects. PAST MEDICAL HISTORY Diagnosis Date - Anomaly of chromosome pair 15 [facility] at [facility] - Autistic disorder, current or active state [facility] at [facility] - Generalized convulsive epilepsy 03/15/2005 [facility] at [facility] PAST SURGICAL HISTORY Procedure Laterality Date - NONE FAMILY HISTORY Problem Relation Age of Onset - Gallbladder [OTHER] Father - Stroke Paternal Grandmother - Cancer Paternal Grandmother - Diabetes Paternal Grandmother Social History Substance Use Topics - Smoking status: Never Smoker - Smokeless tobacco: Never Used - Alcohol use No ALLERGIES: ALLERGIES No Known Allergies MEDICATIONS nystatin (MYCOSTATIN) powder Apply 1 application to affected area four times daily. fluconazole (DIFLUCAN) 100 mg tablet Take 1 tablet by mouth once daily for 3 days. Menthol-Zinc Oxide (CALMOSEPTINE) 0.44-20.6 % Apply 1 application to affected area twice daily as needed. Rash in groin clotrimazole (ANTIFUNGAL, CLOTRIMAZOLE,) 1 % cream Apply 1 application to affected area twice daily. triamcinolone (KENALOG) 0.1 % lotion Apply 1 application to affected area three times daily. PHENYTOIN SODIUM EXTENDED (DILANTIN ORAL) Take by mouth. rufinamide (BANZEL) 200 mg tablet 1/2 tablet twice daily folic acid 1 mg tablet Take 1 tablet by mouth once daily. clonazePAM 1 mg tablet 1 tab by mouth three times a day leveTIRAcetam (KEPPRA) 500 mg tablet three tabs in the a.m. and three tabs at night scopolamine (TRANSDERM-SCOP) 1.5 mg TRANSDERM. PT72 Apply 1 patch every 3-4 days REVIEW OF SYSTEMS: GENERAL: Negative for: Weight loss or gain, Fever or Chills, Weakness and Sleep difficulties. Physical Examination: BP 102/62 Pulse 80 Resp 16 Extended Vitals not filed for this encounter. General appearance: Well appearing, alert, in no acute distress, well-hydrated, well nourished. Skin: Skin color, texture, turgor normal, + red rash between breasts on chest wall and inframammary consistent with intertrigo Peripheral pulses: Normal Neuro: Gait normal. Sensation grossly intact. Reviewed chart, outside records, tests I personally interviewed, confirmed and edited the above information if obtained by others. TESTING: Glucose (mg/dL) Date Value 04/13/2017 80 Potassium (mmol/L) Date Value 04/13/2017 4.1 Sodium (mmol/L) Date Value 04/13/2017 136 Chloride (mmol/L) Date Value 04/13/2017 99 CO2 (mmol/L) Date Value 04/13/2017 25 Creatinine (mg/dL) Date Value 04/13/2017 0.64 BUN (mg/dL) Date Value 04/13/2017 13 Anion Gap (mmol/L) Date Value 04/13/2017 12 Calcium (mg/dL) Date Value 04/13/2017 9.3 Glucose (mg/dL) Date Value 04/13/2017 80 Potassium (mmol/L) Date Value 04/13/2017 4.1 Sodium (mmol/L) Date Value 04/13/2017 136 Chloride (mmol/L) Date Value 04/13/2017 99 CO2 (mmol/L) Date Value 04/13/2017 25 Creatinine (mg/dL) Date Value 04/13/2017 0.64 BUN (mg/dL) Date Value 04/13/2017 13 Anion Gap (mmol/L) Date Value 04/13/2017 12 Calcium (mg/dL) Date Value 04/13/2017 9.3 Protein, Total (g/dL) Date Value 04/13/2017 7.5 Albumin (g/dL) Date Value 04/13/2017 4.0 Bilirubin, Total (mg/dL) Date Value 04/13/2017 0.2 Alkaline Phosphatase (U/L) Date Value 04/13/2017 75 AST (U/L) Date Value 04/13/2017 22 ALT (U/L) Date Value 04/13/2017 16 Hemoglobin (g/dL) Date Value 04/13/2017 13.5 Hematocrit (%) Date Value 04/13/2017 41.4 WBC (k/uL) Date Value 04/13/2017 2.47 LDL Chol, [place] (mg/dL) Date Value 11/07/2007 77 HBA1C, [place] Date Value Ref Range Status 01/03/2008 5.2 4.2 - 5.8 % Final Comment: Test performed by: [facility], [address] [place] [address]. Ejection Fraction: No results found IMPRESSION: Ms. Sidhu is a 27 year old woman presents for visit regarding rash. After my examination and review of data, I make the following recommendations. PLAN AND RECOMMENDATIONS: 1. Intertrigo - ICD9: 695.89, ICD10: L30.4 (primary diagnosis) Advise keeping area clean and dry. Keep gauze between skin folds, change in 3-4 times a day or as becomes wet Consider bib or alternate fabric under her shirt to catch moisture and remove as gets wet Use antifungal powder and cream as needed Keep area clean, dry, . Can use blow dryer on cool setting. Cotton clothing/bra. Drooling is attributed to clonazepam for seizures per neurologist. May need intermittent treatment unless source of excess moisture is controlled. 2. Antibiotics causing adverse effect in therapeutic use, sequela - ICD9: 909.5, ICD10: T36.95XS - NYSTATIN 100,000 UNIT/GRAM TOPICAL POWDER Advised to go to ER if develops chest pain, shortness of breath, or severe worsening of symptoms. Discussed risks, benefits, alternatives, and potential side effects of medications. Ms. Sidhu expressed understanding and agreed with the plan. Deepak Hope, IT SUPPORT TECHNICIAN ALLERGIES ALLERGIES DATE TYPE / CODE NAME / CODE REACTION SEVERITY SOURCE 06/29/2018 Drug No Known Unknown [facility] Allergy/416 Allergies/Q81611 Hospital 034821(SNOM 0388(RXNORM) Repository ED CT) Drug NO KNOWN [facility] Class/89876 ALLERGIES Main [place] 1003(SNOMED Repository CT) ENCOUNTERS ENCOUNTERS ADMIT/DISCHARGE ACCOUNT ADMITTING ENCOUNTER LOCATION SOURCE NUMBER CLASS 07/06/2018/07/07/19 [id number] Ambulatory [address] Repository 06/29/2018/06/29/19 [id number] Emergency [address] ing:ED Repository 06/11/2018/06/14/19 [id number] [facility] Inpatient UHCBuilding:[facility] [address], [facility] TNSU01 06/10/2018/06/11/20 [id number] Emergency [address] ing:ED Repository 06/09/2018/06/09/20 [id number] Ambulatory [address] Repository 06/09/2018/06/12/20 [id number] Ambulatory [address] Repository 05/25/2018 [id number] Ambulatory [facility] Repository 05/02/2018/05/02/20 [id number] Emergency [address] ing:ED Repository 04/18/2018/04/19/20 [id number] Ambulatory [address] Repository 12/22/2017 [id number] Ambulatory [facility] Repository 09/27/2017/09/28/19 [id number] Ambulatory [address] ing:PT Repository 08/01/2017/08/04/19 [id number] Ambulatory [address] Repository 05/30/2017/05/30/20 [id number] Ambulatory [place] [facility] ing:SP Repository PAYERS PAYERS ENCOUNTER GUARANTOR PAYER SUBSCRIBER SOURCE 06/29/2018 LISET K Primary LISET K [place] [id number] Insurance:MEDICARE LIPIANDOB: [facility] [place] PART A BPolic [id number] Number: Repository [id number]: [phone]) [id number] [phone] (HP) Date:2018-06-29 06/29/2018 Secondary LISET K [place] Insurance:MEDICAIDPol LIPIANDOB: [facility] icy Number: [id number] Hospital [id number] Repository Date:2018-06-29 06/29/2018 Tertiary [facility] [place] Insurance:SELF PAY [facility] Number: Effective Repository Date:2018-06-29 06/11/2018 [facility] LIPIANDOB: Insurance:MedicarePol LIPIANDOB: Hospitals icy Number: [id number] Repository [place] [id number] 4 [place], [place] Date:Plan Name:[place], [place] [id number]: A [id number]: (HP) (HP) 06/11/2018 [facility] Insurance:MedicarePol LIPIANDOB: Hospitals icy Number: [id number] Repository [id number] 4 [place] Date:Plan Name:[place], [place] B [id number]: (HP) 06/11/2018 [facility] Insurance:MedicaidPol LIPIANDOB: Hospitals icy Number: [id number] Repository [id number] 4 [place] Date:9415-83-11[place]xlw[place], [place] Name:[facility] [id number]: [address] [address]LQ: [phone] ([phone] 06/10/2018 LISET K Primary LISET K [place] [id number] Insurance:MEDICARE LIPIANDOB: [facility] [place] PART A BPolic [id number], [place] Number: Repository [id number]: [phone] [id number] [phone] (HP) Date:2018-06-10 06/10/2018 Secondary LISET K [place] Insurance:MEDICAIDPol LIPIANDOB: [facility] icy Number: [id number] Hospital [id number] Repository Date:2018-06-10 06/10/2018 Tertiary NOT GIVENUNK [place] Insurance:SELF PAY [facility] Effective Repository Date:2018-06-10 05/25/2018 [facility] LIPIANDOB: Insurance:MedicarePol LIPIANDOB: [facility] icy Number: [id number] [facility] [place] [id number] 4 [place] Date:Plan Name:[place], [place] [id number]: A [id number]: (HP) (HP) 05/25/2018 [facility] Insurance:MedicarePol LIPIANDOB: [facility] icy Number: [id number] Repository [id number] 4 [place] Date:Plan Name:[place], [place] B [id number]: (HP) 05/25/2018 [facility] Insurance:MedicaidPol LIPIANDOB: Hospitals icy Number: [id number] Repository [id number] 4 [place] Date:8602-99-82Rpyt[place], [place] Name:Health [id number]: [address], [place] [address]XI: [phone] (HP) [phone] 05/02/2018 LISET K Primary LISET K [place] [id number] Insurance:MEDICARE LIPIANDOB: Community [place] PART A BPolicy [id number], [place] Number: Repository [id number]: [phone] [id number] [phone] (HP) Date:2018-05-02 05/02/2018 Secondary LISET K [place] Insurance:MEDICAIDPol LIPIANDOB: Community icy Number: [id number] Hospital [id number] Repository Date:2018-05-02 05/02/2018 Tertiary NOT GIVENUNK [place] Insurance:SELF PAY [facility] Number: Effective Repository Date:2018-05-02 12/22/2017 LISET Primary LISET University LIPIANDOB: Insurance:MedicarePol LIPIANDOB: [facility] icy Number: [id number] Repository [place] [id number] [address] [place], [place] Date:Plan Name:[place], [place] [id number]: A [id number]: (HP) (HP) 12/22/2017 Secondary LISET University Insurance:MedicarePol LIPIANDOB: [facility] icy Number: [id number] Repository [id number] [place] Date:Plan Name:[place], [place] B [id number]: (HP) 12/22/2017 Tertiary [facility] University Insurance:MedicaidPol LIPIANDOB: Hospitals icy Number: [id number] Repository [id number] 4 [place] Date:9852-35-75GbqkIn[place], [place] Name:HealthP [id number]: [address], [place] [address]CJ: [phone] (HP) [phone] 09/27/2017 LISET K Primary Insurance:[facility] LISET K [place] [id number] MCRDUAL COMP HMO* NOT LIPIANDOB: [facility] SCOTT CONTPolicy Number: [id number], [place] [id number] Repository [address]Xma: 330) Date:8366-88-22L[phone] () [place], [place] [address]N[place]: 09/27/2017 Secondary NOT GIVENUNK [place] Insurance:SELF PAY [facility] Number: Effective Repository Date:2017-09-15 05/30/2017 Liset K Primary Liset K [place] [id number] Insurance:MEDICARE LipianDOB: Community [place] PART A BPolicy [id number] Number: Repository [address]Owe: [phone] [id number] [phone] () Date:2009-04-13 05/30/2017 Secondary Liset K [place] Insurance:MEDICAIDPol LipianDOB: Community icy Number: [id number] Hospital [id number] Repository Date:2017-03-13 05/30/2017 Tertiary NOT GIVENUNK [place] Insurance:SELF PAY [facility] Number: Effective Repository Date:2017-02-15
== END 2018-06-29 23:54 | disposition home or self-care (01) ==
PROVIDERS: Emergency Provider Emergency Medicine; Family Provider Student in an Organized Health Care Education/Training Program; PCP Student in an Organized Health Care Education/Training Program
DX: G40.201 Localization-related (focal) (partial) symptomatic epilepsy and epileptic syndromes with complex partial seizures, not intractable, with status epilepticus (principal)
CPT/HCPCS: 80053; 81001; 83735; 84100; 93005; 96365; 96366; 96367; 96375; 96376; 99285; P9612; A4216

== ENCOUNTER 2018-07-09 12:20 | Emergency (ER) | payer MEDICARE, MEDICAID, SELFPAY ==
[2018-06-29 18:01] VITALS: BMI 25.0
[2018-07-09] VITALS (10 sets, daily range): BP systolic 108–139; BP diastolic 66–95; PULSE 82–120; RESP 18–28; TEMP 36.7; O2SAT 90–99; BMI 32.4
[2018-07-09] MEDS: LORazepam 2 MG/ML Syringe IV ×2 (12:44→14:10)
[2018-07-09 12:54] LABS: Absolute Lymphocyte Count 0.38 X10^3/ul (0.83-4.51); Absolute Neutrophil Count 6.3 X10^3/uL (2.0-7.7); Basophil# 0.01 X10^3/uL; Basophil% 0.1 % (0-1); Hematocrit 40.2 % (37-47); Hemoglobin 13.4 g/dl (12.0-15.0); Lymphocyte # 0.38 X10^3/ul (4.0); Lymphocyte % 5.4 % (19-41); Mean Corp Hgb Conc 33.3 g/gl (32-36); Mean Corpuscular Hgb 29.7 pg (27.0-32.0); Mean Corpuscular Volume 89.1 fL (81-99); Monocyte# 0.42 X10^3/uL; Monocyte% 5.9 % (0-10); Neutrophil # 6.28 X10^3/uL (2.7-7.7); Neutrophil % 88.5 % (47-70); Platelet Count 252 K/mm3 (150-450); RBC Distribution Width CV 13.3 % (11.6-14.6); RBC Distribution Width SD 43.3 fl (35.1-43.9); Red Blood Count 4.51 M/mm3 (4.2-5.4); White Blood Count 7.1 K/mm3 (4.4-11.0)
[2018-07-09 12:55] LABS: Differential Indicated SCAN CRITERIA MET; POSITIVE COUNT NO; POSITIVE DIFFERENTIAL YES; POSITIVE MORPHOLOGY YES
[2018-07-09 13:05] LABS: Anion Gap 13 (5-15); BUN 8 mg/dL (7-18); BUN/Creat Ratio 10.5 RATIO (10-20); Calcium,Total 9.4 mg/dL (8.5-10.1); Chloride 103 mmol/L (98-107); Creatinine, Serum 0.76 mg/dL (0.55-1.02); EST Glomerular Filtration Rate 95 mL/min (>60); Est Glom Filt Rate - Afr Amer 115 mL/min (>60); Estimated Creatinine Clearance 117.32 ml/min; Glucose 121 mg/dL (74-106); Potassium 3.5 mmol/L (3.5-5.1); Sodium Level 141 mmol/L (136-145)
--- NOTE | 2018-07-09 13:07 | ED.VISSUMM ---
- ER Visit Summary Date of Service: 07/09/18 Chief Complaint: Seizure History of Present Illness: The patient is a [address] Reed and Dr. Santoyo, and neurologist at [facility]. Patient does have a history of seizures. Mother reports that she had been on Keppra 2 g twice daily until last week. She is not taking 500 mg of Keppra in the morning and at night. She is taking 1000 mg at 11 AM. She is also on Dilantin 100 mg twice daily and 200 mg nightly. She is also on Banzel 600 mg BID and clonazepam 1.5 mg TID. Despite these medications for seizures been hard to control. Mother reports that she began having seizures approximately midnight. She has had 4 seizures. These last 30-60 seconds. They consist of her tightening up, her eyes rolled back, and she drools. She was given extra dose of Klonopin without relief. Mother reports she has not been ill lately otherwise. No fever, cough, shortness of breath, vomiting, diarrhea, or rash. Physical Examination: Vitals: 98.0, 111/95, 20, 28, 93% room air which is not hypoxic. General: Well-nourished and well-developed. Head: Normocephalic atraumatic. Neck: Supple, no lymphadenopathy. No JVD. Nontender. Cardiovascular: Tachycardic regular rhythm. No murmurs. Respiratory: No respiratory distress. Clear to auscultation bilaterally. Abdominal: Soft, nontender, nondistended, normal bowel sounds. No guarding, rebound, or peritoneal signs. Back: Nontender. Extremities: Nontender, no edema. Skin: Normal color, no rash. Neurologic: Postictal. Moves all extremities well. Test Results: CBC is marked for segment neutrophils 89 lymphocytes 5. Chem-7 is more for glucose 121. Dilantin level was 5.2. Emergency Department Course and Treatment: Patient has had 4 brief seizures while in the emergency department. She was given 4 mg of Ativan IV. She was given a 750 mill grams of Keppra IV. She was given a gram of Dilantin IV. Treatment Plan: Patient was discussed with Dr. Goldberg, neurologist at [facility]. She is not returning to her baseline between seizures. She will be transferred there for further evaluation and treatment. Disposition: Transferred in improved condition. Impression: 1. Recurrent seizure. 2. Subtherapeutic Dilantin level. This note was generated with [employer] dictation software. It may contain incorrect words, spelling, and punctuation that were not noted in review of the chart prior to signing ED Disposition - Plan for ED Patient: Chief Complaint: Seizure Referrals: Gen Reed DO [Primary Care Provider] -
--- NOTE | 2018-07-09 13:40 | ED.RN ---
Mother states pt had another seizure lasting approx 15 seconds
[2018-07-09 13:44] LABS: Phenytoin (Dilantin) Level 5.2 mL (10.0-20.0)
--- NOTE | 2018-07-09 14:27 | NURSING ---
CALLING DR EVELINA LI, PEDS NEUROLOGIST FOR DR MORRIS [phone]
--- NOTE | 2018-07-09 16:23 | NURSING ---
CALLED [facility] TRANSFER LINE. KATHY SAID THEY ARE CLOSE TO GETTING A ROOM
--- NOTE | 2018-07-09 18:03 | NURSING ---
[id number] called and talked to Juan, transfer line at [facility]. No bed yet
--- NOTE | 2018-07-09 19:28 | ED.RN ---
CALLED TO CHECK THE STATUS OF A ROOM ASSIGNMENT, PER DIAZ IN THE TRANSFER CENTER, A ROOM HAS BEEN ASSIGNED AND THEY ARE WAITING FOR THE ROOM TO BE CLEANED PRIOR TO CALLING US WITH THE INFORMATION
[2018-07-09] MEDS: 0.9% Normal Saline 1,000 ML 200 ML IV (21:45)
== END 2018-07-09 22:08 | disposition short-term general hospital (02) ==
LOC: ED 12:37
PROVIDERS: Emergency Provider Emergency Medicine; Family Provider Student in an Organized Health Care Education/Training Program; PCP Student in an Organized Health Care Education/Training Program
DX: G40.909 Epilepsy, unspecified, not intractable, without status epilepticus (principal)
CPT/HCPCS: 80048; 80185; 85025; 96361; 96365; 96367; 96375; 96376; 99285; J7040

== ENCOUNTER → 2018-11-11 07:41 | Outpatient (CLI) | payer MEDICARE, MEDICAID, SELFPAY ==
[2018-07-09 12:22] VITALS: BMI 32.4
[2018-11-11 09:03] LABS: Phenytoin (Dilantin) Level 14.6 mL (10.0-20.0)
== END ==
PROVIDERS: Family Provider Student in an Organized Health Care Education/Training Program; PCP Student in an Organized Health Care Education/Training Program
DX: G40.919 Epilepsy, unspecified, intractable, without status epilepticus (principal)
CPT/HCPCS: 36415; 80185

== ENCOUNTER → 2019-05-03 06:15 | Outpatient (CLI) | payer MEDICARE, MEDICAID, SELFPAY ==
[2018-07-09 12:22] VITALS: BMI 32.4
[2019-05-03 08:01] LABS: Phenytoin (Dilantin) Level 18.7 mL (10.0-20.0)
[2019-05-05 13:02] LABS: KEPPRA (LEVETIRACETAM) 20.4 ug/mL (10.0-40.0)
== END ==
LOC: LAB.FUTURE 06:23 → LAB 06:26
PROVIDERS: Family Provider Student in an Organized Health Care Education/Training Program; PCP Student in an Organized Health Care Education/Training Program
DX: G40.919 Epilepsy, unspecified, intractable, without status epilepticus (principal)
CPT/HCPCS: 36415; 80177; 80185

== ENCOUNTER → 2019-07-02 12:15 | Outpatient (CLI) | payer MEDICARE, MEDICAID, SELFPAY ==
[2018-07-09 12:22] VITALS: BMI 32.4
[2019-07-02 13:25] LABS: Absolute Lymphocyte Count 0.62 X10^3/uL (0.83-4.51); Absolute Neutrophil Count 1.5 X10^3/uL (2.0-7.7); Basophil# 0.01 X10^3/uL; Basophil% 0.4 % (0-1); Eosinophil# 0.02 X10^3/uL; Eosinophils% 0.8 % (0-5); Hematocrit 39.2 % (37-47); Hemoglobin 13.5 g/dL (12.0-15.0); Lymphocyte # 0.62 X10^3/ul (4.0); Lymphocyte % 24.8 % (19-41); Mean Corp Hgb Conc 34.4 g/dL (32-36); Mean Corpuscular Hgb 30.3 pg (27.0-32.0); Mean Corpuscular Volume 88.1 fL (81-99); Mean Platelet Vol. 9.3 fl (6.2-12.0); Monocyte# 0.34 X10^3/uL; Monocyte% 13.6 % (0-10); NRBC Flagged by Analyzer 0 % (0-5); Platelet Count 182 K/mm3 (150-450); RBC Distribution Width SD 38.8 fl (35.1-43.9); Red Blood Count 4.45 M/mm3 (4.2-5.4); White Blood Count 2.5 K/mm3 (4.4-11.0)
[2019-07-02 13:47] LABS: Hemoglobin A1c 4.7 % (4.2-6.3)
[2019-07-02 13:50] LABS: T3 Total - Triiodothyronine 0.77 ng/mL (0.6-1.81); Vitamin B12 274 pg/mL (211-911); Vitamin D,25 Hydroxy 7.9 ng/mL (29.95-100.01)
[2019-07-02 13:51] LABS: AST(SGOT) 16 U/L (15-37); Alanine Aminotransfer ALT/SGPT 28 U/L (13-56); Albumin, Serum 3.7 g/dL (3.2-5.0); Alkaline Phosphatase 83 U/L (45-117); Anion Gap 5 (5-15); BUN 12 mg/dL (7-18); BUN/Creat Ratio 16.5 RATIO (10-20); Calcium,Total 8.9 mg/dL (8.5-10.1); Chloride 106 mmol/L (98-107); Cholesterol 173 mg/dL (200); Creatinine, Serum 0.73 mg/dL (0.55-1.02); EST Glomerular Filtration Rate 100 mL/min (>60); Est Glom Filt Rate - Afr Amer 121 mL/min (>60); Free T3 2.7 pg/mL (2.18-3.98); Globulin 3.8 g/dL (2.2-4.2); Glucose 111 mg/dL (74-106); High Density Lipoprotein 48 mg/dL; Potassium 3.7 mmol/L (3.5-5.1); Protein, Total 7.5 g/dL (6.4-8.2); Sodium Level 140 mmol/L (136-145); T4 Free Direct 0.78 ng/dL (0.76-1.46); T4 Total, Thyroxin 6.6 ug/dL (4.8-13.9); Thyroid Stim Hormone (TSH) 0.89 uIU/mL (0.358-3.74); Triglycerides 150 mg/dL; Very Low Density Lipoprotein 30 mg/dL (5-40)
== END ==
PROVIDERS: PCP Student in an Organized Health Care Education/Training Program; Referring Provider Student in an Organized Health Care Education/Training Program; Visit Provider Student in an Organized Health Care Education/Training Program
DX: R63.4 Abnormal weight loss (principal); R63.0 Anorexia; R53.83 Other fatigue; R63.1 Polydipsia; G40.909 Epilepsy, unspecified, not intractable, without status epilepticus; E55.9 Vitamin D deficiency, unspecified; E16.2 Hypoglycemia, unspecified
CPT/HCPCS: 36415; 80053; 80061; 82306; 82607; 83036; 84436; 84439; 84443; 84480; 84481; 85025; 86140

== ENCOUNTER → 2019-07-10 14:12 | Outpatient (CLI) | payer MEDICARE, MEDICAID, SELFPAY ==
[2018-07-09 12:22] VITALS: BMI 32.4
[2019-07-10 15:59] LABS: Absolute Lymphocyte Count 0.73 X10^3/uL (0.83-4.51); Absolute Neutrophil Count 2.1 X10^3/uL (2.0-7.7); Basophil# 0.01 X10^3/uL; Basophil% 0.3 % (0-1); Eosinophil# 0.03 X10^3/uL; Eosinophils% 0.9 % (0-5); Hematocrit 39.4 % (37-47); Hemoglobin 13.4 g/dL (12.0-15.0); Lymphocyte # 0.73 X10^3/ul (4.0); Mean Corpuscular Hgb 30.5 pg (27.0-32.0); Mean Corpuscular Volume 89.5 fL (81-99); Mean Platelet Vol. 9.8 fl (6.2-12.0); Monocyte# 0.31 X10^3/uL; Monocyte% 9.7 % (0-10); NRBC Flagged by Analyzer 0 % (0-5); Neutrophil # 2.09 X10^3/uL (2.7-7.7); Neutrophil % 65.8 % (47-70); Platelet Count 180 K/mm3 (150-450); RBC Distribution Width CV 12.2 % (11.6-14.6); RBC Distribution Width SD 39.9 fl (35.1-43.9); White Blood Count 3.2 K/mm3 (4.4-11.0)
[2019-07-10 16:06] LABS: Rheumatoid Factor < 10.0 IU/mL (<15)
== END ==
PROVIDERS: PCP Student in an Organized Health Care Education/Training Program; Referring Provider Student in an Organized Health Care Education/Training Program; Visit Provider Student in an Organized Health Care Education/Training Program
DX: R79.82 Elevated C-reactive protein (CRP) (principal); R63.4 Abnormal weight loss; R73.01 Impaired fasting glucose; D72.818 Other decreased white blood cell count
CPT/HCPCS: 36415; 83036; 85025; 86140; 86431

== ENCOUNTER → 2019-07-12 07:38 | Outpatient (CLI) | payer MEDICARE, MEDICAID, SELFPAY ==
[2018-07-09 12:22] VITALS: BMI 32.4
[2019-07-12 09:02] LABS: Hemoglobin A1c 4.8 % (4.2-6.3)
[2019-07-24 20:15] LABS: RNP Ab 6.4; Smith Ab 0.4
== END ==
PROVIDERS: PCP Student in an Organized Health Care Education/Training Program; Referring Provider Student in an Organized Health Care Education/Training Program; Visit Provider Student in an Organized Health Care Education/Training Program
DX: R73.01 Impaired fasting glucose (principal); R79.82 Elevated C-reactive protein (CRP); R63.4 Abnormal weight loss; D72.818 Other decreased white blood cell count
CPT/HCPCS: 36415; 83036; 86038; 86235

== ENCOUNTER 2021-06-25 17:18 | Emergency (ER) | payer MEDICARE, MEDICAID, SELFPAY ==
[2021-06-25] VITALS (9 sets, daily range): BP systolic 105–161; BP diastolic 57–99; PULSE 99–159; RESP 16–37; TEMP 36.7–36.8; O2SAT 96–99; BMI 28.8
[2021-06-25] MEDS: Midazolam 5 MG/ML Syringe IM (17:26)
[2021-06-25] MEDS: LORazepam 2 MG/ML Syringe 1 MG IV ×2 (17:34→22:39)
--- NOTE | 2021-06-25 17:34 | EKG12_ITS ---
Test Reason : SIEZURES Blood Pressure : / mmHG Vent. Rate : 102 BPM Atrial Rate : 102 BPM P-R Int : 152 ms QRS Dur : 072 ms QT Int : 360 ms P-R-T Axes : 000 147 145 degrees QTc Int : 469 ms Consider limb lead misplacement Consider Repeat ECG Confirmed by ONEIDA ORTIZ, LATHA ([id number]), editor at large PETEY NEVAREZ ([id number]) on 06/29/2021 11:27:55 AM Referred By: SHAYAN Confirmed By:LATHA MOHAMUD MD
--- NOTE | 2021-06-25 17:35 | CT_ITS ---
STUDY: CT BRAIN WITHOUT CONTRAST REASON FOR EXAM: Female, 31 years old. status epilepticus TECHNIQUE: Transaxial CT imaging of the brain was performed without administration of intravenous contrast material. Individualized dose optimization techniques were used for this CT. COMPARISON: 06.10.18 FINDINGS: Normal calvarium. Normal soft tissues. Normal size ventricles and extra-axial spaces for the patient''s age. Normal white matter tracts of the cerebral hemispheres. Normal basal ganglia and thalami. Normal brainstem. Normal cerebellum. There is no intracranial hemorrhage. There are no findings of an acute ischemic infarction. Frontal and ethmoid sinus disease. ASPECTS 10 CT/Brain/Head without Contrast IMPRESSION: There are no acute intracranial findings. Electronically Signed: Robby Cardoso MD at 19:32 EST , Service support ,
--- NOTE | 2021-06-25 17:37 | EDS_ITS ---
HPI History of Present Illness Chief Complaint: Seizure Informant: legal guardian Onset/Context/Timing Onset: Today Context: Sudden Onset Timing: Continuous Quality: grand mal sz Location: all over Current Severity: Severe Maximum Severity: Severe Worsened by: nothing in particular Relieved by: nothing Associated Symptoms Associated Symptoms: diarrhea earlier today Narrative Narrative: Patient with a history of epilepsy since she was age 12, she is on multiple medications for her seizures and has been compliant with them, her parent and guardian make sure she get them at the exact same time every day. She has an evening medications do right now. Before these were due a short while ago, she started having grand mal seizures and they have been continuous. She does not have rectal Valium at home since long ago they did not work. 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 She follows with a neurologist at [facility]. No recent medication changes. She had some diarrhea earlier today after eating some fruits and vegetables, guardian fears she may be a little dehydrated as a result of this. No other recent illness and states she was at her baseline all day otherwise. No recent injury. [facility] Medical History Seizures Home Medications clonazepam [Klonopin] 1.5 mg PO TID 06/15/13 [History Last Taken Unknown] folic acid 1 mg PO DAILY 06/15/13 [History Last Taken Unknown] levetiracetam 2,000 mg PO BID 06/15/13 [History Last Taken Unknown] phenytoin sodium extended 100 mg PO BID 06/15/13 [History Last Taken Unknown] phenytoin sodium extended 200 mg PO QHS 06/15/13 [History Last Taken Unknown] rufinamide [Banzel] 600 mg PO BID 06/15/13 [History Last Taken Unknown] Allergy/AdvReac Type Severity Reaction Status Date / Time lacosamide [From Vimpat] Allergy Mild Hives Verified 06/25/21 17:28 vancomycin Allergy Shortness Verified 06/25/21 17:28 of breath Social History Smoking Status: Unknown if ever smoked ROS ROS ED Review of Systems ROS Unobtainable: due to mental status Gastrointestinal Gastrointestinal: Reports diarrhea EXAM Physical Exam Const Vital Signs: 06/25/21 17:29 06/25/21 17:37 06/25/21 18:00 Temperature 98.3 F 98.3 F 98.3 F Temperature Source Temporal Temporal Temporal Pulse Rate 147 H 159 H Respiratory Rate 37 H Blood Pressure 138/99 H 138/99 H 119/78 Blood Pressure Mean 112 112 91 Pulse Ox 97 96 Oxygen Delivery Method Non-Rebreather Non-Rebreather Oxygen Flow Rate (L/min) 15 15 06/25/21 18:18 06/25/21 18:20 06/25/21 18:45 Temperature 98.3 F 98.1 F Temperature Source Temporal Temporal Pulse Rate 117 H Respiratory Rate 16 Blood Pressure 112/71 Blood Pressure Mean 84 Pulse Ox 99 Oxygen Delivery Method Non-Rebreather Non-Rebreather Oxygen Flow Rate (L/min) 15 15 06/25/21 19:30 Temperature Temperature Source Pulse Rate 99 Respiratory Rate 20 H Blood Pressure 105/57 L Blood Pressure Mean 73 Pulse Ox 97 Oxygen Delivery Method Room Air Oxygen Flow Rate (L/min) Positive well nourished and well developed General Appearance ED: well developed HEENT Reports moist mucous membranes normocephalic and atraumatic Eyes PERRL Eyes Narrative: No forced deviation Neck full ROM and supple Resp normal respiratory effort and clear to auscultation bilaterally Cardio regular rate, regular rhythm and no murmurs Rate: tachycardic GI non-distended Auscultation: normoactive bowel sounds Palpation: soft Back/Spine no CVA tenderness General Back: other FROM Extremity normal to inspection General Extremety ED: Negative for edema, pulses abnormal or tenderness General Extremity: Negative for edema or pulses abnormal Neuro Neuro Narrative: Patient actively clustering with grand mal seizures lasting several minutes at a time. Sonorous respirations with audible upper airway sounds in between. Skin no rashes or lesions noted and no wounds MDM MDM MDM Narrative Medical decision making narrative: Patient continued to cluster in status epilepticus, despite midazolam 5 mg IM and once we finally got an IV line, Ativan 1 mg IV, which was all done simultaneously while I ordered the patient's evening dose of Keppra 2000 mg to be mixed IV and instead of her evening dose of Dilantin 200 mg, phenytoin 500 mg mixed IV, which were eventually delivered stop by the pharmacy and started as soon as they were available, the Keppra was finished first and has the phenytoin stopped, the patient's seizure activity continued to slow down and eventually ceased. Prior to this activity ceasing, when she was still getting the phenytoin and having seizures that were shorter in duration, I was still concerned about the patient's sonorous respirations mixed with her secretions and the possibility of aspiration and recommended intubation and propofol. The guardian refused this and asked that I first discussed with her neurologist which certainly I was fine doing, Dr. Jameson with neurology [facility]. It was while waiting for this call that the patient's seizure activity finally ceased. While discussing with the fellow on- call, the patient has been seizure-free for 25 minutes. She recommended repeating the phenytoin level, the initial one came back at 16.9, now that we have given her a bolus. Discussed with neurology at , since she is on 3 or more antiepileptics they want me to discuss with epilepsy and intensive care. Clinically at this time, the patient is somnolent but actually opens her eyes every now and then, she has no oxygen supplementation and is 97% on room air, her tachycardia is resolved at 99, blood pressure 105/57, and she has had no more grand-mal seizure activity for the last 2 hours. However she started having seizures according to the guardian, they involve lipsmacking and staring off, COVID-pneumonia the guardian states that she normally does this 4 or 5 times per evening and this is her normal. She was able to get her to drink some water and take her nighttime Banzel, even while appearing somnolent to myself; the guardian states this is her baseline and she is now at her baseline. Discussed with multiple physicians at [facility], accepted by Dr. Bush to their [facility] after discussing with him and the epilepsy neurologist Dr. Argueta. Lab Data Attestation: I reviewed the patient's lab results. Labs: Laboratory Results - last 24 hr 06/25/21 06/25/21 06/25/21 06:20 17:34 17:34 WBC RBC Hgb Hct MCV MCH MCHC RDW Std Deviation RDW Coeff of Sylvia Plt Count MPV Immature Gran % (Auto) Neut % (Auto) Lymph % (Auto) [place] % (Auto) Eos % (Auto) Baso % (Auto) Absolute Neuts (auto) Absolute Lymphs (auto) Nucleated RBC % Sodium 138 Potassium 3.4 L Chloride 107 Carbon Dioxide 22.0 Anion Gap 9 BUN 14 Creatinine 0.74 Estim Creat Clear Calc 82.36 Est GFR (MDRD) Af Amer 117 Est GFR (MDRD) Non-Af 97 BUN/Creatinine Ratio 19.0 Glucose 120 H Lactic Acid Calcium 9.3 Total Bilirubin 0.30 AST 25 ALT 23 Alkaline Phosphatase 70 Total Creatine Kinase 1500 H Total Protein 8.2 Albumin 3.8 Globulin 4.4 H Albumin/Globulin Ratio 0.9 Urine Color Yellow Urine Clarity Clear Urine pH 5.0 Ur Specific [place] 1.020 Urine Protein 15 H Urine Glucose (UA) Normal Urine Ketones Negative Urine Occult Blood 25 H Urine Nitrite Negative Urine Bilirubin Negative Urine Urobilinogen Normal Ur Leukocyte Esterase Negative Urine RBC 0-5 SEEN Urine WBC 0 SEEN Ur Squamous Epith Cells 0-5 SEEN Urine Bacteria 0 SEEN Urine Mucus 0 SEEN Phenytoin 16.9 06/25/21 06/25/21 17:40 17:54 WBC 8.7 RBC 4.41 Hgb 13.4 Hct 39.3 MCV 89.1 MCH 30.4 MCHC 34.1 RDW Std Deviation 41.4 RDW Coeff of Sylvia 12.8 Plt Count 302 MPV 8.8 Immature Gran % (Auto) 0.300 Neut % (Auto) 73.8 H Lymph % (Auto) 16.5 L [place] % (Auto) 9.1 Eos % (Auto) 0.1 Baso % (Auto) 0.2 Absolute Neuts (auto) 6.4 Absolute Lymphs (auto) 1.43 Nucleated RBC % 0 Sodium Potassium Chloride Carbon Dioxide Anion Gap BUN Creatinine Estim Creat Clear Calc Est GFR (MDRD) Af Amer Est GFR (MDRD) Non-Af BUN/Creatinine Ratio Glucose Lactic Acid 2.8 H* Calcium Total Bilirubin AST ALT Alkaline Phosphatase Total Creatine Kinase Total Protein Albumin Globulin Albumin/Globulin Ratio Urine Color Urine Clarity Urine pH Ur Specific [place] Urine Protein Urine Glucose (UA) Urine Ketones Urine Occult Blood Urine Nitrite Urine Bilirubin Urine Urobilinogen Ur Leukocyte Esterase Urine RBC Urine WBC Ur Squamous Epith Cells Urine Bacteria Urine Mucus Phenytoin Radiography Diagnostic Testing: Clinical Impression(s) from Imaging Studies Brain CT 06/25/21 17:35 IMPRESSION: There are no acute intracranial findings. Electronically Signed: Robby Cardoso MD at 19:32 EST , Service support , Chest X-Ray 06/25/21 19:10 IMPRESSION: No radiographic evidence of acute cardiopulmonary disease. Electronically Signed: Robby Cardoso MD at 19:33 EST , Service support , EKG Initial EKG: Attestation: I personally reviewed and interpreted this EKG as follows: Interpretation: Sinus Rhythm and No Acute Injury Pattern Comments: Normal EKG Critical Care Time Critical Care Time: Yes Critical care time (excluding procedures): 75-104 minutes (80 min), Including time spent:, Discussing w/Patient &/or Family/Senior Compliance Officer, Discussing w/Co nsultants, Arranging Admission or Transfer and Performing Direct Patient Care at Bedside Discharge Plan Triage Chief Complaint: Seizure ED Provider: Yuan Sanchez Dx/Rx/DC Orders Clinical Impression: Status epilepticus, Autism disorder, Generalized epilepsy Prescriptions: No Action levetiracetam 500 MG tablet 2,000 mg PO BID RF: 0 clonazepam [Klonopin] 1 MG tablet 1.5 mg PO TID RF: 0 phenytoin sodium extended 100 MG capsule 200 mg PO QHS RF: 0 phenytoin sodium extended 100 MG capsule 100 mg PO BID RF: 0 folic acid 0.8 MG tablet 1 mg PO DAILY RF: 0 rufinamide [Banzel] 200 MG tablet 600 mg PO BID RF: 0 Primary Care Provider: Gen Reed Referrals: Gen Reed DO [Primary Care Provider] - Disposition Disposition: Acute Care Hospital
[2021-06-25] MEDS: 0.9% Normal Saline 1,000 ML 999 ML IV (17:50)
[2021-06-25] MEDS: levETIRAcetam IV 1,000 MG/100 ML BAG 400 MG IV ×2 (17:54→18:11)
[2021-06-25 18:04] LABS: Absolute Lymphocyte Count 1.43 X10^3/uL (0.83-4.51); Absolute Neutrophil Count 6.4 X10^3/uL (2.0-7.7); Basophil# 0.02 X10^3/uL; Basophil% 0.2 % (0-1); Eosinophil# 0.01 X10^3/uL; Eosinophils% 0.1 % (0-5); Hematocrit 39.3 % (37-47); Hemoglobin 13.4 g/dL (12.0-15.0); Lymphocyte # 1.43 X10^3/ul (0.83-4.51); Lymphocyte % 16.5 % (19-41); Mean Corp Hgb Conc 34.1 g/dL (32-36); Mean Corpuscular Hgb 30.4 pg (27.0-32.0); Mean Corpuscular Volume 89.1 fL (81-99); Mean Platelet Vol. 8.8 fl (6.2-12.0); Monocyte# 0.79 X10^3/uL; Monocyte% 9.1 % (0-10); NRBC Flagged by Analyzer 0 % (0-5); Neutrophil % 73.8 % (47-70); Platelet Count 302 K/mm3 (150-450); RBC Distribution Width CV 12.8 % (11.6-14.6); RBC Distribution Width SD 41.4 fl (35.1-43.9); Red Blood Count 4.41 M/mm3 (4.2-5.4); White Blood Count 8.7 K/mm3 (4.4-11.0)
[2021-06-25 18:42] LABS: Phenytoin (Dilantin) Level 16.9 mL (10.0-20.0)
[2021-06-25 18:49] LABS: Bacteria 0 SEEN /hpf (None Seen); Mucous, Urine 0 SEEN /hpf (<or=2+); White Blood Cells 0 SEEN /hpf (0-5)
[2021-06-25 18:51] LABS: Color, Urine Yellow (Yellow); Glucose, Dipstick Normal (Normal); Ketone-Dipstick Negative (Negative); Leukocyte Esterase-Dipstick Negative /ul (Negative); Nitrite-Dipstick Negative (Negative); Occult Blood-Urine 25 /ul (Negative); Protein-Dipstick 15 mg/dl (Negative); Urine Bilirubin Dipstick Negative (Negative); Urine Clarity Clear (Clear); Urine Urobilinogen Normal (Normal)
[2021-06-25 18:54] LABS: Lactic Acid 2.8 mmol/L (0.4-1.9)
[2021-06-25 18:57] LABS: Red Blood Cells-Urine 0-5 SEEN /hpf (0-5); Squamous Epithelial Cells - UA 0-5 SEEN /hpf (5-10)
[2021-06-25 19:02] LABS: Reflex Lactate? Y
--- NOTE | 2021-06-25 19:10 | RAD_ITS ---
EXAM: XR CHEST, 1 VIEW CLINICAL INDICATION: sob TECHNIQUE: Frontal view of the chest. This report was created using [employer] report generation technology. COMPARISON: 05.02.18 FINDINGS: LUNGS AND PLEURAL SPACES: Unremarkable. No consolidation or edema. No pneumothorax. No effusion. HEART: Unremarkable. Cardiac silhouette not enlarged. MEDIASTINUM: Central airways and mediastinal contour are unremarkable. BONES/JOINTS: Unremarkable. SOFT TISSUES: Unremarkable. RAD/Chest 1 View (Portable) IMPRESSION: No radiographic evidence of acute cardiopulmonary disease. Electronically Signed: Robby Cardoso MD at 19:33 EST , Service support ,
[2021-06-25 19:42] LABS: ALB/GLOB Ratio 0.9 RATIO (0.9-2.4); AST(SGOT) 25 U/L (15-37); Alanine Aminotransfer ALT/SGPT 23 U/L (13-56); Albumin, Serum 3.8 g/dL (3.2-5.0); Alkaline Phosphatase 70 U/L (45-117); Anion Gap 9 (5-15); BUN 14 mg/dL (7-18); CPK Total, Creatine Kinase 1500 U/L (26-192); Calcium,Total 9.3 mg/dL (8.5-10.1); Chloride 107 mmol/L (98-107); Creatinine, Serum 0.74 mg/dL (0.55-1.02); EST Glomerular Filtration Rate 97 mL/min (>60); Est Glom Filt Rate - Afr Amer 117 mL/min (>60); Estimated Creatinine Clearance 82.36 ml/min; Globulin 4.4 g/dL (2.2-4.2); Glucose 120 mg/dL (74-106); Potassium 3.4 mmol/L (3.5-5.1); Protein, Total 8.2 g/dL (6.4-8.2); Sodium Level 138 mmol/L (136-145)
[2021-06-25 21:25] LABS: Phenytoin (Dilantin) Level 22.9 mL (10.0-20.0)
== END 2021-06-25 23:36 | disposition short-term general hospital (02) ==
PROVIDERS: Emergency Provider Emergency Medicine; PCP Student in an Organized Health Care Education/Training Program; Visit Provider Emergency Medicine
DX: G40.401 Other generalized epilepsy and epileptic syndromes, not intractable, with status epilepticus (principal); F84.0 Autistic disorder; Z79.899 Other long term (current) drug therapy
CPT/HCPCS: 36415; 51702; 70450; 71045; 80053; 80185; 81001; 82550; 83605; 85025; 87040; 87086; 87426; 93005; 96365; 96368; 96375; 96376; 99285; J7050; A4216

== ENCOUNTER 2021-08-08 09:58 | Emergency (ER) | payer MEDICARE, MEDICAID, SELFPAY ==
[2021-08-08 09:59] VITALS: BP 112/83; PULSE 85; RESP 16; TEMP 35.4; O2SAT 100
--- NOTE | 2021-08-08 10:27 | EDS_ITS ---
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 She is on Dilantin and other antiseizure medications. Reportedly yesterday Dilantin level was obtained was around 40. She has had increased irritation recently. They sent her in to be evaluated. Patient's accompanied by her sister who is her legal guardian. The sister is giving me all the history. The patient herself is unable to communicate and this is her baseline. She was hospitalized at facility in June for approximately a week. Prior similar symptoms: No Recent Illness/Hospitalization: No [facility] Medical History (Updated 08/08/21 @ 12:[address] Fox Cox MD) Autism Seizures Home Medications clonazepam [Klonopin] 1.5 mg PO TID 06/15/13 [History Last Taken Unknown] folic acid 1 mg PO DAILY 06/15/13 [History Last Taken Unknown] levetiracetam 2,000 mg PO BID 06/15/13 [History Last Taken Unknown] phenytoin sodium extended 100 mg PO BID 06/15/13 [History Last Taken Unknown] phenytoin sodium extended 200 mg PO QHS 06/15/13 [History Last Taken Unknown] rufinamide [Banzel] 600 mg PO BID 06/15/13 [History Last Taken Unknown] Allergy/AdvReac Type Severity Reaction Status Date / Time lacosamide [From Vimpat] Allergy Mild Hives Verified 08/08/21 10:03 vancomycin Allergy Shortness Verified 08/08/21 10:03 of breath Social History Smoking Status: Never smoker ROS ROS ED ROS Narrative Constipation. Review of Systems ROS Unobtainable: due to mental status; Denies due to encephalopathy Constitutional Constitutional ED: Denies fever(s) Eyes Eyes: Denies change in vision ENT ENT ED: Denies ear pain Cardiovascular Cardiovascular: Denies chest pain Respiratory/Chest Respiratory/Chest: Denies dyspnea Gastrointestinal Gastrointestinal: Reports constipation; Denies abdominal pain Genitourinary Genitourinary ED: Denies dysuria Musculoskeletal Musculoskeletal: Denies myalgias Integumentary Denies rash Neurologic Neurologic: Denies headache(s) Psychiatric Psychiatric: Denies depression Endocrine Endocrinology: Denies polyuria Allergic/Immunologic Allergic/Immunologic ED: Denies urticaria EXAM Physical Exam Narrative Exam Narrative: 31-year-old female no acute distress. Vital signs stable afebrile. Pulse ox 9% on room air. No signs of hypoxia. Patient is in no distress. H EENT exam pupils round reactive light. Moist mucous membranes. No signs of trauma. Neck nontender. No lymphadenopathy. No meningismus. Lungs clear to auscultation bilaterally. Heart regular rhythm rate about 85 no murmur. Abdomen is soft nondistended. Normal bowel sounds no peritoneal signs. There is absolutely no distention. For reportedly not having a bowel movement for 1 week her abdomen is benign. Soft. Normal bowel sounds. Extremities are nontender without deformity. Back is nontender. Right arm there is a few areas of a red rash. Appear to be early hives. Neurologically her eyes are open. She moves her extremities. She does not follow commands. Const Vital Signs: 08/08/21 09:59 08/08/21 12:08 Temperature 95.7 F L Temperature Source Temporal Pulse Rate 85 Respiratory Rate 16 Respiratory Pattern Normal Blood Pressure 112/83 H Blood Pressure Mean 92 Pulse Ox 100 Oxygen Delivery Method Room Air Positive well nourished and well developed; Negative for cachectic, contractures or unkempt General Appearance ED: well developed and NAD; Negative for unkempt, cachectic, contractures, cyanotic or diaphoretic Nutritional Appearance: Negative for cachectic HEENT Reports moist mucous membranes Negative for trauma or tenderness Eyes PERRL and EOMs intact bilaterally Neck no lymphadenopathy, supple and no JVD General: Negative for tenderness Chest Wall inspection of chest normal and palpation of chest normal Resp normal respiratory effort and clear to auscultation bilaterally Auscultation: Negative for rales, rhonchi or wheezes Cardio regular rate, regular rhythm, S1 normal heart sound, S2 normal heart sound and no murmurs GI normal to inspection, nondistended, normoactive bowel sounds, non-tender, non- distended and no masses Auscultation: normoactive bowel sounds Palpation: soft; Negative for tender, guarding or rebound tenderness present Back/Spine no CVA tenderness General Back: Negative for CVA tenderness Extremity normal to inspection Extremity Narrative: Hives right arm. General Extremety ED: Negative for edema or tenderness General Extremity: Negative for edema Neuro Neuro Narrative: Eyes open. Moves extremities. Does not follow commands. Cannot verbally communicate. Psych Appearance: Negative for unkempt MDM MDM MDM Narrative Medical decision making narrative: Patient with elevated Dilantin level with a history of seizures. Screening labs are being obtained. Exam is benign. She is in no distress. She has normal vital signs. Repeat exam at 1252 patient is doing well. Discussed with her sister who is her legal guardian. They are comfortable being discharged home. We will do Dilantin today and tomorrow. Have a Dilantin level drawn on Tuesday to determine when to restart the Dilantin. Magnesium citrate for the constipation. Lab Data Attestation: I reviewed the patient's lab results. Lab results narrative: Electrolytes are unremarkable. Note normal BUN and creatinine. Normal glucose. Dilantin level is elevated at 50.1. Unable to obtain a CBC. Family did not want recurrent blood sticks. Labs: Laboratory Results - last 24 hr 08/08/21 08/08/21 08/08/21 10:25 10:25 10:25 WBC Cancelled Corrected WBC Cancelled RBC Cancelled Hgb Cancelled Hct Cancelled MCV Cancelled MCH Cancelled MCHC Cancelled RDW Std Deviation Cancelled RDW Coeff of Sylvia Cancelled Plt Count Cancelled MPV Cancelled Immature Gran % (Auto) Cancelled Neut % (Auto) Cancelled Lymph % (Auto) Cancelled [place] % (Auto) Cancelled Eos % (Auto) Cancelled Baso % (Auto) Cancelled Absolute Neuts (auto) Cancelled Absolute Lymphs (auto) Cancelled Total Counted Cancelled Neutrophils % (Manual) Cancelled Band Neutrophils % Cancelled Lymphocytes % (Manual) Cancelled Monocytes % (Manual) Cancelled Eosinophils % (Manual) Cancelled Basophils % (Manual) Cancelled Metamyelocytes % Cancelled Myelocytes % Cancelled Promyelocytes % Cancelled Blast Cells % Cancelled Plasma Cell % (Manual) Cancelled Other Cells % Cancelled Nucleated RBC % Cancelled Nucleated RBCs/100 WBC Cancelled Differential Comment Cancelled Diff Path Review Cancelled Hypersegmented Neuts Cancelled Atypical Lymphocytes Cancelled Reactive Lymphocytes Cancelled Smudge Cells Cancelled Toxic Granulation Cancelled Toxic Vacuolation Cancelled Dohle Bodies Cancelled Jasson Rods Cancelled Platelet Estimate Cancelled Plt Morphology Comment Cancelled RBC Morphology Cancelled Polychromasia Cancelled Hypochromasia Cancelled Poikilocytosis Cancelled Basophilic Stippling Cancelled Anisocytosis Cancelled Microcytosis Cancelled Macrocytosis Cancelled Spherocytes Cancelled Sickle Cells Cancelled Target Cells Cancelled Tear Drop Cells Cancelled Ovalocytes Cancelled Stomatocytes Cancelled Vasquez-Florien Bodies Cancelled Holderness Cells Cancelled Bite Cells Cancelled Crenated Cell Cancelled Acanthocytes (Spur) Cancelled Rouleaux Cancelled Schistocytes Cancelled Sodium 137 Potassium 3.6 Chloride 105 Carbon Dioxide 27.0 Anion Gap 5 BUN 12 Creatinine 0.59 Estim Creat Clear Calc 103.30 Est GFR (MDRD) Af Amer 151 Est GFR (MDRD) Non-Af 124 BUN/Creatinine Ratio 20.2 H Glucose 77 Calcium 8.5 Phenytoin 50.1 H* Discharge Plan Triage Chief Complaint: Abn Labs ED Provider: Fox Cox Dx/Rx/DC Orders Clinical Impression: Dilantin toxicity, Constipation, History of seizure Instructions: ED Constipation (Adult) Prescriptions: No Action levetiracetam 500 MG tablet 2,000 mg PO BID RF: 0 clonazepam [Klonopin] 1 MG tablet 1.5 mg PO TID RF: 0 phenytoin sodium extended 100 MG capsule 200 mg PO QHS RF: 0 phenytoin sodium extended 100 MG capsule 100 mg PO BID RF: 0 folic acid 0.8 MG tablet 1 mg PO DAILY RF: 0 rufinamide [Banzel] 200 MG tablet 600 mg PO BID RF: 0 Primary Care Provider: Gen Reed Referrals: Gen Reed, [Primary Care Provider] - 3-5 Days if not improving Activity Restrictions/Additional Instructions: Plenty of fluids. Fruits, vegetables and fiber for the constipation. Drink 1 bottle of the magnesium citrate. Should have a bowel movement in 2 to 4 hours. If not use the second. Hold the Dilantin today and tomorrow. Get a Dilantin level checked on Tuesday. When that returns if it is back to normal then the Dilantin can be restarted. Disposition Disposition: Home, Self Care
[2021-08-08 10:48] LABS: Anion Gap 5 (5-15); BUN 12 mg/dL (7-18); BUN/Creat Ratio 20.2 RATIO (10-20); Calcium,Total 8.5 mg/dL (8.5-10.1); Chloride 105 mmol/L (98-107); Creatinine, Serum 0.59 mg/dL (0.55-1.02); EST Glomerular Filtration Rate 124 mL/min (>60); Est Glom Filt Rate - Afr Amer 151 mL/min (>60); Glucose 77 mg/dL (74-106); Potassium 3.6 mmol/L (3.5-5.1); Sodium Level 137 mmol/L (136-145)
[2021-08-08 11:19] LABS: Phenytoin (Dilantin) Level 50.1 mL (10.0-20.0)
[2021-08-08 13:38] VITALS: PULSE 81; RESP 18; O2SAT 98
== END 2021-08-08 13:39 | disposition home or self-care (01) ==
PROVIDERS: Emergency Provider Emergency Medicine; PCP Student in an Organized Health Care Education/Training Program; Visit Provider Emergency Medicine
DX: T42.0X1A Poisoning by hydantoin derivatives, accidental (unintentional), initial encounter (principal); G40.909 Epilepsy, unspecified, not intractable, without status epilepticus; F84.0 Autistic disorder; K59.00 Constipation, unspecified; Z79.899 Other long term (current) drug therapy
CPT/HCPCS: 80048; 80185; 99284; A4216

== ENCOUNTER 2021-08-15 02:49 | Emergency (ER) | payer MEDICARE, MEDICAID, SELFPAY ==
[2021-08-15 02:49] VITALS: BP 117/72; PULSE 100; RESP 13; TEMP 35.8; O2SAT 97; BMI 29.5
--- NOTE | 2021-08-15 03:22 | CT_ITS ---
EXAM: CT HEAD WITHOUT INTRAVENOUS CONTRAST : 1990 CLINICAL INDICATION: injury/fall s/p seizure TECHNIQUE: Multiple axial images were obtained of the head without intravenous contrast. This CT exam was performed using one or more of the following dose reduction techniques: automated exposure control, adjustment of the mA and/or kV according to patient size, and/or use of iterative reconstruction technique. This report was created using [employer] report generation technology. COMPARISON: 06/25/21 FINDINGS: BRAIN AND EXTRA-AXIAL SPACES: Unremarkable. No intra- or extra-axial hemorrhage. No evidence of acute infarct. No intracranial mass or mass effect. There is preservation of the ayala/white matter interface. Posterior fossa structures are unremarkable. Ventricles are appropriate for age. No hydrocephalus. Basal cisterns are patent. BONES/JOINTS: Unremarkable. No discrete lytic or blastic abnormalities. SINUSES: Unremarkable as visualized. Clear. MASTOID AIR CELLS: Unremarkable. Clear. ORBITS: Visualized globes, extraocular muscles, optic nerves and retrobulbar fat appear unremarkable. CT/Brain/Head without Contrast IMPRESSION: Negative head/brain CT without intravenous contrast. Individualized dose optimization techniques were used for this CT. at 0433 Reported and signed by: Robby Zapata MD Electronically Signed: Robby Zapata MD at 4:32 EST ,
--- NOTE | 2021-08-15 03:23 | EDS_ITS ---
HPI History of Present Illness Chief Complaint: Seizure Informant: legal guardian and EMS Onset/Context/Timing Onset: Yesterday Context: Sudden Onset Timing: Intermittent and Lasts (less than 1 min each) Quality: full body tonic-clonic, more upper body/face Current Severity: Moderate Maximum Severity: Moderate Worsened by: n/a Relieved by: clonazepam temporarily Associated Symptoms Associated Symptoms: fell out of bed and possibly hit head Narrative Narrative: Patient with a history of epilepsy frequently has brief breakthrough seizures, had a supratherapeutic phenytoin level a week ago or so with a level being 50 so the medication was discontinued, she continued to stay on her other seizure medications, they did another level a couple days later but it did not come back, so then later there was another level done that came back at 1.5 and so she was declared okay to restart the phenytoin at a lower dose which she had the first dose tonight around 4 or so hours ago. She had had some seizures prior to that that were brief. Then she started having more seizures at about 1 AM tonight, she was given a dose of her clonazepam per protocol, and then around 140 she started clustering and so EMS was called. Clustering is less frequent upon arrival here around 3-3:15 AM, but patient still having an occasional seizure, and the first half hour while they were here she had two that lasted 10-20 seconds each. Apparently during the clustering she fell out of bed and mom was suspicious that she hit her head according to the guardian who is here with the patient. She gets her care at neurology. The new phenytoin dosing is meant to be 100 mg every morning, 100 mg afternoon, 150 mg nightly; she got the latter tonight. [facility] Medical History (Updated 08/15/21 @ 06:[address] Yuan Sanchez MD) Autism Generalized epilepsy Seizures Home Medications clonazepam [Klonopin] 1.5 mg PO TID 06/15/13 [History Last Taken Unknown] folic acid 1 mg PO DAILY 06/15/13 [History Last Taken Unknown] levetiracetam 2,000 mg PO BID 06/15/13 [History Last Taken Unknown] phenytoin sodium extended 100 mg PO BID 06/15/13 [History Last Taken Unknown] rufinamide [Banzel] 600 mg PO BID 06/15/13 [History Last Taken Unknown] phenytoin sodium extended See Rx Instructions .ROUTE .COMPLEX #0 cap 08/15/21 [Rx Last Taken Unknown] Allergy/AdvReac Type Severity Reaction Status Date / Time lacosamide [From Vimpat] Allergy Mild Hives Verified 08/15/21 02:55 vancomycin Allergy Shortness Verified 08/15/21 02:55 of breath Social History Smoking Status: Never smoker ROS ROS ED Review of Systems ROS Unobtainable: due to mental condition Gastrointestinal Gastrointestinal: Reports other Details: Recently very constipated, yesterday morning she had 6 bowel movements in 1 morning. EXAM Physical Exam Const Vital Signs: 08/15/21 02:49 08/15/21 04:27 08/15/21 05:00 Temperature 96.4 F L Temperature Source Temporal Pulse Rate 100 91 97 Respiratory Rate 13 13 15 Blood Pressure 117/72 121/69 H 135/94 H Blood Pressure Mean 87 86 107 Pulse Ox 97 100 99 Oxygen Delivery Method Room Air Room Air Positive well nourished and well developed General Appearance ED: well developed and NAD HEENT Reports moist mucous membranes normocephalic and atraumatic Eyes PERRL and EOMs intact bilaterally Neck full ROM and supple Resp normal respiratory effort and clear to auscultation bilaterally Cardio regular rate, regular rhythm and no murmurs GI non-tender and non-distended Auscultation: normoactive bowel sounds Palpation: soft Back/Spine no CVA tenderness General Back: other FROM Extremity normal to inspection General Extremety ED: Negative for edema, pulses abnormal or tenderness General Extremity: Negative for edema or pulses abnormal Neuro no focal motor deficits and no sensory deficits noted Neuro Narrative: Nonverbal. At baseline per players club representative/guardian. Sensorium / Orientation: awake and alert Motor Exam: strength 5/5 throughout Skin no rashes or lesions noted and no wounds MDM MDM MDM Narrative Medical decision making narrative: Basic labs obtained in addition to the phenytoin level, it is 10. This is actually higher than I expected it to be, however its level is somewhere in between her peak and her trough. Therefore, since she recently was supratherapeutic, I gave her 500 mg bolus over an hour or so, and continue monitoring her. She stopped clustering but did have multiple occasional isolated and brief breakthrough seizures. The players club representative states this is very common when she sleeps, and she is half in and half out of sleep here overnight in the ER due to all the interruptions and machines, which is understandable. We did CT her head given the possibility of an injury, it is negative. At this time had a discussion with the players club representative she is comfortable taking her home and states this is close to her baseline and her phenytoin is due here soon, I recommend taking it as scheduled and contacting their neurologist at for further instructions regarding a repeat phenytoin level if it is desired. We discussed reasons to return she is comfortable with the overall plan. Lab Data Attestation: I reviewed the patient's lab results. Labs: Laboratory Results - last 24 hr 08/15/21 08/15/21 08/15/21 03:20 03:20 03:20 WBC 4.8 RBC 4.40 Hgb 13.7 Hct 40.4 MCV 91.8 MCH 31.1 MCHC 33.9 RDW Std Deviation 43.8 RDW Coeff of Sylvia 13.1 Plt Count 200 MPV 8.9 Immature Gran % (Auto) 0.200 Neut % (Auto) 81.2 H Lymph % (Auto) 10.0 L [place] % (Auto) 8.4 Eos % (Auto) 0.0 Baso % (Auto) 0.2 Absolute Neuts (auto) 3.9 Absolute Lymphs (auto) 0.48 L Nucleated RBC % 0 Differential Comment SCANNED Sodium 138 Potassium 3.8 Chloride 106 Carbon Dioxide 27.0 Anion Gap 5 BUN 9 Creatinine 0.51 L Estim Creat Clear Calc 119.50 Est GFR (MDRD) Af Amer 181 Est GFR (MDRD) Non-Af 149 BUN/Creatinine Ratio 17.8 Glucose 102 Calcium 9.0 Phenytoin 10.0 Radiography Diagnostic Testing: Clinical Impression(s) from Imaging Studies Brain CT 08/15/21 03:22 IMPRESSION: Negative head/brain CT without intravenous contrast. Individualized dose optimization techniques were used for this CT. at 0433 Reported and signed by: Robby Zapata MD Electronically Signed: Robby Zapata MD at 4:32 EST , Discharge Plan Triage Chief Complaint: Seizure ED Provider: Yuan Sanchez Dx/Rx/DC Orders Clinical Impression: Breakthrough seizure, Epilepsy Instructions: ED Seizure, Recurrent (Adult) Prescriptions: Continued levetiracetam 500 MG tablet 2,000 mg PO BID RF: 0 clonazepam [Klonopin] 1 MG tablet 1.5 mg PO TID RF: 0 phenytoin sodium extended 100 MG capsule 100 mg PO BID RF: 0 folic acid 0.8 MG tablet 1 mg PO DAILY RF: 0 rufinamide [Banzel] 200 MG tablet 600 mg PO BID RF: 0 Changed phenytoin sodium extended 100 MG capsule See Rx Instructions .ROUTE .COMPLEX Qty: 0 RF: 0 Primary Care Provider: Gen Reed Referrals: Neurologist, [Other] (contact when able to discuss follow up and/or repeat Dilantin level if desired (was 10 sometime after her first dose and before 500mg IV bolus)) Gen Reed, DO [Primary Care Provider] - Disposition Disposition: Home, Self Care
[2021-08-15 03:30] LABS: Absolute Lymphocyte Count 0.48 X10^3/uL (0.83-4.51); Absolute Neutrophil Count 3.9 X10^3/uL (2.0-7.7); Basophil# 0.01 X10^3/uL; Basophil% 0.2 % (0-1); Hematocrit 40.4 % (37-47); Hemoglobin 13.7 g/dL (12.0-15.0); Lymphocyte # 0.48 X10^3/ul (0.83-4.51); Mean Corp Hgb Conc 33.9 g/dL (32-36); Mean Corpuscular Hgb 31.1 pg (27.0-32.0); Mean Corpuscular Volume 91.8 fL (81-99); Mean Platelet Vol. 8.9 fl (6.2-12.0); Monocyte% 8.4 % (0-10); NRBC Flagged by Analyzer 0 % (0-5); Neutrophil # 3.88 X10^3/uL (2.7-7.7); Neutrophil % 81.2 % (47-70); POSITIVE DIFFERENTIAL YES; Platelet Count 200 K/mm3 (150-450); RBC Distribution Width CV 13.1 % (11.6-14.6); RBC Distribution Width SD 43.8 fl (35.1-43.9); White Blood Count 4.8 K/mm3 (4.4-11.0)
[2021-08-15 03:34] LABS: Differential Indicated SCAN CRITERIA MET
[2021-08-15 03:46] LABS: Differential Comment SCANNED
[2021-08-15 03:57] LABS: Anion Gap 5 (5-15); BUN 9 mg/dL (7-18); BUN/Creat Ratio 17.8 RATIO (10-20); Chloride 106 mmol/L (98-107); Creatinine, Serum 0.51 mg/dL (0.55-1.02); EST Glomerular Filtration Rate 149 mL/min (>60); Est Glom Filt Rate - Afr Amer 181 mL/min (>60); Glucose 102 mg/dL (74-106); Potassium 3.8 mmol/L (3.5-5.1); Sodium Level 138 mmol/L (136-145)
[2021-08-15 04:27] VITALS: BP 121/69; PULSE 91; RESP 13; O2SAT 100
[2021-08-15 05:00] VITALS: BP 135/94; PULSE 97; RESP 15; O2SAT 99
[2021-08-15 06:25] VITALS: BP 119/73; PULSE 95; RESP 19; TEMP 36.2; O2SAT 98
--- NOTE | 2021-08-15 06:33 | ED.RN ---
patient had 30 second seizure and vs stayed stable with SPO2 in mid 90s to 100. Patient came out of seizure and is awake. We discussed prn ativan with sister but she prefers to wait for the mother to come and get her and will give her the morning meds as they were due at 0600 and feels she does not want to change anything up. Discussed the ativan and only taking half of the omvi with the bzo as a combo but states she feels the IV ativan will knock her out making it harder to give her the home meds, which are PO.
== END 2021-08-15 06:44 | disposition home or self-care (01) ==
PROVIDERS: Emergency Provider Emergency Medicine; PCP Student in an Organized Health Care Education/Training Program; Visit Provider Emergency Medicine
DX: G40.909 Epilepsy, unspecified, not intractable, without status epilepticus (principal); F84.0 Autistic disorder; Z79.899 Other long term (current) drug therapy
CPT/HCPCS: 70450; 80048; 80185; 85025; 96365; 96366; 99285; J7030; A4216

== ENCOUNTER 2021-08-16 00:56 | Emergency (ER) | payer MEDICARE, MEDICAID, SELFPAY ==
[2021-08-16] VITALS (18 sets, daily range): BP systolic 98–135; BP diastolic 59–84; PULSE 70–106; RESP 12–22; TEMP 36.6–37.1; O2SAT 95–99; BMI 28.8
--- NOTE | 2021-08-16 01:38 | EX.ED.DYSGE1 ---
HPI History of Present Illness Chief Complaint: Seizure Informant: legal guardian Onset/Context/Timing Onset: Today Narrative Narrative: Patient with a history of epilepsy, she was seen here last night for breakthrough seizures and clustering that we controlled relatively, she was subtherapeutic on her phenytoin because it had been temporarily discontinued after being supratherapeutic with a level of 50, yesterday after 1 dose she started clustering and her level was 10 so we boosted it and she has been taking her normal new dosing of phenytoin and her other medications all day today. She has had 2 or 3 different episodes of clustering despite taking all of these medications. Nothing else new or different. No fevers or chills. They did talk with her neurologist at , they advised coming in having another phenytoin level drawn and if it is therapeutic, which for her is usually around 23, she may need to be transferred to for further management. [facility] Medical History Autism Generalized epilepsy Seizures Home Medications clonazepam [Klonopin] 1.5 mg PO TID 06/15/13 [History Last Taken Unknown] folic acid 1 mg PO DAILY 06/15/13 [History Last Taken Unknown] levetiracetam 2,000 mg PO BID 06/15/13 [History Last Taken Unknown] phenytoin sodium extended 100 mg PO BID 06/15/13 [History Last Taken Unknown] rufinamide [Banzel] 600 mg PO BID 06/15/13 [History Last Taken Unknown] phenytoin sodium extended See Rx Instructions .ROUTE .COMPLEX #0 cap 08/15/21 [Rx Last Taken Unknown] Allergy/AdvReac Type Severity Reaction Status Date / Time lacosamide [From Vimpat] Allergy Mild Hives Verified 08/15/21 02:55 vancomycin Allergy Shortness Verified 08/15/21 02:55 of breath Social History Smoking Status: Never smoker ROS ROS ED Review of Systems ROS Unobtainable: due to mental condition EXAM Physical Exam Const Vital Signs: 08/16/21 00:57 08/16/21 01:03 08/16/21 02:52 Temperature 97.8 F 98.4 F 97.8 F Temperature Source Temporal Temporal Temporal Pulse Rate 93 91 70 Respiratory Rate 15 12 19 H Blood Pressure 104/65 98/64 111/73 Blood Pressure Mean 78 75 85 Pulse Ox 97 98 Oxygen Delivery Method Room Air Room Air Room Air 08/16/21 03:09 08/16/21 04:07 08/16/21 06:00 Temperature 98.4 F Temperature Source Temporal Pulse Rate 90 91 93 Respiratory Rate 14 21 H 15 Blood Pressure 113/77 123/77 H Blood Pressure Mean 89 92 Pulse Ox 98 98 Oxygen Delivery Method Room Air Room Air Room Air Positive well nourished and well developed General Appearance ED: well developed and NAD HEENT Reports moist mucous membranes normocephalic and atraumatic Eyes PERRL and EOMs intact bilaterally Neck full ROM and supple Resp normal respiratory effort and clear to auscultation bilaterally Cardio regular rate, regular rhythm and no murmurs GI non-tender and non-distended Auscultation: normoactive bowel sounds Palpation: soft Back/Spine no CVA tenderness General Back: other FROM Extremity normal to inspection General Extremety ED: Negative for edema, pulses abnormal or tenderness General Extremity: Negative for edema or pulses abnormal Neuro Neuro Narrative: Cranial nerves intact grossly. Moving all 4 extremities. No gross sensory deficits. Nonverbal. Eyes are open, and there are purposeful movements and localizing to discomfort. Sensorium / Orientation: awake and alert Skin no rashes or lesions noted and no wounds MDM MDM MDM Narrative Medical decision making narrative: I had obtain basic labs along with a Dilantin level yesterday so I did not think those needed to be repeated, so we just did a phenytoin level tonight. It is 17.4. Also added a urinalysis to rule out infection, it was negative. In order to try to get her to a level of about 23, where the patient registration specialist states she commonly is happy at and seizing less, I gave her an IV bolus of 500 mg of phenytoin. I discussed with one of the residents at who advised waiting a couple hours to recheck the level, and in that amount of time the patient had more than 10 seizures, continuing to have many episodic seizures lasting 1 to 2 minutes. She did not remain in continuous status epilepticus. However given all of this activity especially being abnormal for her, I think it would be reasonable to transfer her to so she can be managed by her team. Dilantin level and is pending at this time. We are giving her doses of Ativan to try to help manage her seizures. Also nursing was having trouble keeping the patient from pulling her IV out, having the interview to multiple times because she had peeled off all of the wraps and tape over top of it in order to get it out. Therefore in order to prevent her from interfering with her care, we felt putting her in soft wrist restraints was reasonable for now. Accepted to by Neurology Dr. Mann. Lab Data Attestation: I reviewed the patient's lab results. Labs: Laboratory Results - last 24 hr 08/16/21 08/16/21 01:45 02:25 Urine Color Yellow Urine Clarity Clear Urine pH 5.0 Ur Specific [place] 1.025 Urine Protein 15 H Urine Glucose (UA) Normal Urine Ketones 5 H Urine Occult Blood 25 H Urine Nitrite Negative Urine Bilirubin Negative Urine Urobilinogen Normal Ur Leukocyte Esterase Negative Urine RBC 0 SEEN Urine WBC 0 SEEN Ur Squamous Epith Cells 0-5 SEEN Urine Bacteria 1+ Urine Mucus 0 SEEN Phenytoin 17.4 Discharge Plan Triage Chief Complaint: Seizure ED Provider: Yuan Sanchez Dx/Rx/DC Orders Clinical Impression: Epilepsy, Intractable seizures Prescriptions: No Action levetiracetam 500 MG tablet 2,000 mg PO BID RF: 0 clonazepam [Klonopin] 1 MG tablet 1.5 mg PO TID RF: 0 phenytoin sodium extended 100 MG capsule 100 mg PO BID RF: 0 folic acid 0.8 MG tablet 1 mg PO DAILY RF: 0 rufinamide [Banzel] 200 MG tablet 600 mg PO BID RF: 0 phenytoin sodium extended 100 MG capsule See Rx Instructions .ROUTE .COMPLEX Qty: 0 RF: 0 Primary Care Provider: Gen Reed Referrals: Gen Reed DO [Primary Care Provider] - Disposition Disposition: Acute Care Hospital Discharge Location: Main
[2021-08-16 02:26] LABS: Phenytoin (Dilantin) Level 17.4 mL (10.0-20.0)
[2021-08-16 02:29] LABS: Mucous, Urine 0 SEEN /hpf (<or=2+); Red Blood Cells-Urine 0 SEEN /hpf (0-5); White Blood Cells 0 SEEN /hpf (0-5)
[2021-08-16 02:35] LABS: Color, Urine Yellow (Yellow); Glucose, Dipstick Normal (Normal); Ketone-Dipstick 5 mg/dl (Negative); Leukocyte Esterase-Dipstick Negative /ul (Negative); Nitrite-Dipstick Negative (Negative); Occult Blood-Urine 25 /ul (Negative); Protein-Dipstick 15 mg/dl (Negative); Specific Gravity, Urine 1.025 (1.002-1.030); Urine Bilirubin Dipstick Negative (Negative); Urine Clarity Clear (Clear); Urine Urobilinogen Normal (Normal)
[2021-08-16 02:38] LABS: Bacteria 1+ /hpf (None Seen); Squamous Epithelial Cells - UA 0-5 SEEN /hpf (5-10)
[2021-08-16] MEDS: LORazepam 2 MG/ML Syringe 1 MG IV (06:01)
--- NOTE | 2021-08-16 06:44 | NURSING ---
CALLED [facility] ABOUT TRANSFER. TALKED TO NIRALI. SHE WILL CALL BACK AND TALK TO DR REESE
[2021-08-16 07:37] LABS: Phenytoin (Dilantin) Level 24.8 mL (10.0-20.0)
--- NOTE | 2021-08-16 09:57 | NURSING ---
0938 CALLED [facility] TRANSFER LINE, TALKED TO SHARONDA. WAITING ON DISCHARGES FOR A BED
--- NOTE | 2021-08-16 11:43 | NURSING ---
CALLED [facility] ABOUT BED STATUS. TALKED TO TAMERA. WAITING ON A TOWER 4 BED.
--- NOTE | 2021-08-16 13:21 | ED.RN ---
mom reports giving dilantin at 1300. previously okayed with .
--- NOTE | 2021-08-16 13:24 | NURSING ---
[facility]ED [facility]. TALKED TO DULCE MARIA. PATIENT STILL WAITING FOR A BED. PROBABLY GOING TO TOWER 4ROBYN
[2021-08-16] MEDS: clonazePAM 1 MG Tablet PO (14:07)
--- NOTE | 2021-08-16 14:11 | ED.RN ---
spoke with, guardian, sister, Trini on phone. updated medication list. Sister states pt is having seizures, RN informed that I have not witnessed but we can order her Clonazepam- MD ordered 1 mg. mom feeding pt mashed potatoes and peas. pt eating well. asked mom if she would like soft wrist restraints removed but she stated she thought she would start pulling at things if we do. left in place at this time. Guardian stated she will be in to see pt soon. [facility] has been called and no beds available at this time.
--- NOTE | 2021-08-16 15:12 | NURSING ---
CALLED [facility] TRANSFER LINE, TALKED TO DULCE MARIA. NO BED YET
--- NOTE | 2021-08-16 15:14 | ED.RN ---
THIS NURSE CONTACTED TRANSFER LINE TO CHECK ON BED STATUS. PER TRANSFER CENTER, UNSURE IF THEY WILL HAVE A BED TODAY. THEY HAVE PATIENT'S WAITING FOR A BED SINCE 08/14
--- NOTE | 2021-08-16 16:58 | NURSING ---
CALLED [facility]. TALKED TO DULCE MARIA. SHE TOOK VITALS. NO BED.
--- NOTE | 2021-08-16 18:06 | NURSING ---
[facility] [phone]
--- NOTE | 2021-08-16 18:08 | ED.RN ---
attempted to call report to [facility], but unable to take at this time. left call back number with Michael CROOKS
--- NOTE | 2021-08-16 18:15 | NURSING ---
CALLED [facility], ETA IS [phone]
[2021-08-16] MEDS: 0.9% Normal Saline 1,000 ML 999 ML IV (18:43)
--- NOTE | 2021-08-16 21:11 | ED.RN ---
sister gave pt's home meds around 1900.
--- NOTE | 2021-08-16 21:30 | ED.RN ---
sister monitoring seizure activity during stay. they are brief, approx 15 seconds by RN count but happening a few times per hour.
== END 2021-08-16 21:32 | disposition short-term general hospital (02) ==
PROVIDERS: Emergency Provider Emergency Medicine; PCP Student in an Organized Health Care Education/Training Program; Visit Provider Emergency Medicine
DX: G40.919 Epilepsy, unspecified, intractable, without status epilepticus (principal); F84.0 Autistic disorder
CPT/HCPCS: 80185; 81001; 87426; 96361; 96365; 96366; 96375; 99285; J7030; J7050; P9612; A4216

== ENCOUNTER 2021-09-07 20:11 | Emergency (ER) | payer MEDICARE, MEDICAID, SELFPAY ==
[2021-09-07 20:13] VITALS: BP 107/56; PULSE 71; RESP 16; TEMP 36.6; O2SAT 97; BMI 27.3
--- NOTE | 2021-09-07 20:52 | ED.VIS.GI ---
HPI HPI - GI History of Present Illness Chief Complaint: Foreign Body Narrative Narrative: 31-year-old female with history of seizure disorder presenting with her mother for concern for PEG tube displacement. It has not completely displaced. She had this placed on the by a GI doctor at [facility]. He recommended that she come to the emergency room in [facility] to have it assessed. Her mother does not know how this would be of come dislodged. She has not had any change in her mental status, fever. Her vital signs have been normal. [facility] Medical History Autism Generalized epilepsy Seizures Home Medications folic acid 1 mg PO DAILY 06/15/13 [History Last Taken Unknown] levetiracetam 2,000 mg PO BID 06/15/13 [History Last Taken Unknown] phenytoin sodium extended 100 mg PO BID 06/15/13 [History Last Taken Unknown] rufinamide [Banzel] 600 mg PO BID 06/15/13 [History Last Taken Unknown] phenytoin sodium extended See Rx Instructions .ROUTE .COMPLEX #0 cap 08/15/21 [Rx Last Taken Unknown] clobazam 10 mg PO BID 08/16/21 [History Last Taken Unknown] clonazepam 0.5 - 1 mg PO TID PRN 08/16/21 [History Last Taken Unknown] Allergy/AdvReac Type Severity Reaction Status Date / Time lacosamide [From Vimpat] Allergy Mild Hives Verified 08/15/21 02:55 vancomycin Allergy Shortness Verified 08/15/21 02:55 of breath lithium AdvReac Other Verified 09/07/21 20:20 lorazepam [From Ativan] AdvReac Other Verified 09/07/21 20:20 Social History Smoking Status: Never smoker ROS ROS ED Constitutional Constitutional ED: Denies chills or fever(s) ENT ENT ED: Denies rhinorrhea or sore throat Cardiovascular Cardiovascular: Denies chest pain Respiratory/Chest Respiratory/Chest: Denies cough or dyspnea Gastrointestinal Gastrointestinal: Denies abdominal pain, nausea or vomiting Genitourinary Genitourinary ED: Denies dysuria Musculoskeletal Musculoskeletal: Denies back pain or neck pain Integumentary Denies rash Neurologic Neurologic: Denies headache(s) or weakness EXAM Physical Exam Const Vital Signs: 09/07/21 20:13 09/07/21 20:24 09/07/21 21:48 Temperature 97.8 F Temperature Source Temporal Pulse Rate 71 72 Respiratory Rate 16 14 Respiratory Effort Normal Non-Labored Blood Pressure 107/56 L 93/58 L Blood Pressure Mean 73 69 Pulse Ox 97 100 Oxygen Delivery Method Room Air Room Air General Appearance ED: NAD HEENT Reports moist mucous membranes normocephalic and atraumatic Eyes PERRL and EOMs intact bilaterally Resp normal respiratory effort and clear to auscultation bilaterally Cardio regular rate and regular rhythm GI GI Narrative: Abdomen soft and nontender. There is a PEG tube partially dislodged in the abdomen. You can feel the inflated balloon underneath the skin. No surrounding cellulitic changes. Extremity Negative for full ROM Neuro Sensorium / Orientation: Negative for alert, oriented to person, oriented to place or oriented to time MDM MDM MDM Narrative Medical decision making narrative: Patient has displaced PEG tube although is not all the way out. This was discussed with her GI doctor who placed this. He recommended transfer to [facility] where he can be consulted and take her to the OR for fluoroscopy and replacement of the PEG tube. This was discussed with her mother who was amenable to this. I did career guidance counselor her that this was the best way to handle this is to get her transferred because this is somebody else's surgical site. She also has a lot of medical conditions. She did asked me to call Dr. Swan and I did call him and he declined to do the procedure. At this point I think transferring her is the best case. I discussed this with the transfer line and the ER physician on-call at [facility] and they were amenable. Patient was transported in stable condition. Impression: 1. PEG tube displacement 2. History of autism 3. History of seizure disorder Discharge Plan Triage Chief Complaint: Foreign Body ED Provider: Tobi Duenas Dx/Rx/DC Orders Prescriptions: No Action levetiracetam 500 MG tablet 2,000 mg PO BID RF: 0 phenytoin sodium extended 100 MG capsule 100 mg PO BID RF: 0 folic acid 0.8 MG tablet 1 mg PO DAILY RF: 0 rufinamide [Banzel] 200 MG tablet 600 mg PO BID RF: 0 phenytoin sodium extended 100 MG capsule See Rx Instructions .ROUTE .COMPLEX Qty: 0 RF: 0 clonazepam 0.5 mg Tablet 0.5 - 1 mg PO TID PRN (Reason: Seizures) RF: 0 clobazam 10 mg Tablet 10 mg PO BID RF: 0 Primary Care Provider: Gen Reed Referrals: Gen Reed DO [Primary Care Provider] - Disposition Disposition: Acute Care Hospital Discharge Location: Other Acute Care Hospital Discharge Date/Time: 09/07/21 22:38
[2021-09-07 21:48] VITALS: BP 93/58; PULSE 72; RESP 14; O2SAT 100
--- NOTE | 2021-09-07 22:17 | ED.RN ---
ATTEMPTED IV INSERTION. UNABLE TO OBTAIN. DR. BOND AWARE AND OKAY WITH NO IV FOR TRANSPORT.
== END 2021-09-07 22:38 | disposition short-term general hospital (02) ==
LOC: ED 21:00
PROVIDERS: Emergency Provider Student in an Organized Health Care Education/Training Program; PCP Student in an Organized Health Care Education/Training Program; Visit Provider Student in an Organized Health Care Education/Training Program
DX: K94.23 Gastrostomy malfunction (principal); G40.409 Other generalized epilepsy and epileptic syndromes, not intractable, without status epilepticus; F84.0 Autistic disorder; Z79.899 Other long term (current) drug therapy
CPT/HCPCS: 99285; A4216

== ENCOUNTER 2022-01-05 17:01 | Emergency (ER) | payer MEDICARE, MEDICAID, SELFPAY ==
[2022-01-05 17:02] VITALS: BP 126/100; PULSE 69; RESP 16; TEMP 36.5; O2SAT 94; BMI 27.4
--- NOTE | 2022-01-05 18:10 | EDS_ITS ---
HPI History of Present Illness Chief Complaint: General Illness Informant: family Narrative Narrative: 31-year-old female with a history of autism (nonverbal) and seizure disorder presenting to the emergency room with change in behavior. The patient's sister states that caregiver today noted that her blood pressure was slightly low and she was more decile then she typically is. Family notes that she was started on Lasix due to water retention about 1 month ago and they wonder if her potassium is off. 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 Patient does have a history of aspiration. She has a feeding tube. No diarrhea or vomiting. No known fevers. [facility] Medical History Autism Generalized epilepsy Seizures Home Medications folic acid 800 mcg tablet 1 mg PO DAILY 06/15/13 [History Last Taken Unknown] levetiracetam 500 mg tablet 2,000 mg PO BID 06/15/13 [History Last Taken Unknown] rufinamide 200 mg tablet (Banzel) 600 mg PO BID 06/15/13 [History Last Taken Unknown] clobazam 10 mg tablet 15 mg PO BID 08/16/21 [History Last Taken Unknown] furosemide 40 mg tablet (Lasix) 40 mg PO DAILY 01/05/22 [History Last Taken Unknown] valproic acid (as sodium salt) 250 mg/5 mL oral solution 25 ml PO DAILY 01/05/22 [History Last Taken Unknown] Allergy/AdvReac Type Severity Reaction Status Date / Time lacosamide [From Vimpat] Allergy Mild Hives Verified 01/05/22 17:07 vancomycin Allergy Shortness Verified 01/05/22 17:07 of breath lithium AdvReac Other Verified 01/05/22 17:07 lorazepam [From Ativan] AdvReac Other Verified 01/05/22 17:07 Social History (Updated 01/05/22 @ 18:[address] Demetris Baldwin DO) Smoking Status: Never smoker substance use type: does not use ROS ROS ED ROS Narrative Change in behavior Decreased sleep at night Constitutional Constitutional ED: Denies chills, fever(s) or weight loss Eyes Eyes: Denies change in vision or diplopia ENT ENT ED: Denies ear pain, rhinorrhea or sore throat Cardiovascular Cardiovascular: Denies chest pain, orthopnea, palpitations or racing heartbeat Respiratory/Chest Respiratory/Chest: Denies cough, dyspnea or orthopnea Gastrointestinal Gastrointestinal: Denies abdominal pain, diarrhea, nausea or vomiting Genitourinary Genitourinary ED: Denies dysuria, hematuria or urinary frequency Musculoskeletal Musculoskeletal: Denies arthralgias or myalgias Integumentary Denies abscess or rash Neurologic Neurologic: Denies headache(s) or weakness Psychiatric Psychiatric: Denies anxiety, depression, suicidal ideation or suicidal thoughts Endocrine Endocrinology: Denies polydipsia, polyphagia or polyuria Allergic/Immunologic Allergic/Immunologic ED: Denies mouth swelling, tongue swelling or urticaria EXAM Physical Exam Const Vital Signs: 01/05/22 17:02 Temperature 97.7 F L Temperature Source Temporal Pulse Rate 69 Respiratory Rate 16 Blood Pressure 126/100 H Blood Pressure Mean 108 Pulse Ox 94 Oxygen Delivery Method Room Air Positive well nourished and well developed General Appearance ED: well developed HEENT Reports normocephalic, head/scalp atraumatic and moist mucous membranes Eyes PERRL and EOMs intact bilaterally Neck no lymphadenopathy, supple and no JVD Resp normal respiratory effort and clear to auscultation bilaterally Cardio regular rate, regular rhythm and no murmurs GI normal to inspection, nondistended, normoactive bowel sounds and non-tender Palpation: soft Back/Spine no CVA tenderness and normal ROM Extremity normal to inspection General Extremety ED: Negative for edema General Extremity: Negative for edema Neuro Neuro Narrative: Moves all extremities x4. Sensorium / Orientation: alert Psych mental status grossly normal Mood & Affect: Negative for depressed or tearful Skin no rashes or lesions noted and no wounds MDM MDM MDM Narrative Medical decision making narrative: My interpretation of the chest x-ray is no acute process. COVID test is negative. Urinalysis is negative. Despite multiple attempts with ultrasound and with laminating machine operator blood was not able to be obtained. I did offer a femoral stick under ultrasound guidance but the sister would like to hold on this. She is comfortable taking her home talking with her doctor tomorrow and see if they can do an outpatient drawl after hydrating tonight. I do think that this is reasonable she has stable vital signs. Lab Data Attestation: I reviewed the patient's lab results. Labs: Laboratory Results - last 24 hr 01/05/22 01/05/22 01/05/22 18:20 18:20 19:13 WBC Cancelled Corrected WBC Cancelled RBC Cancelled Hgb Cancelled Hct Cancelled MCV Cancelled MCH Cancelled MCHC Cancelled RDW Std Deviation Cancelled RDW Coeff of Sylvia Cancelled Plt Count Cancelled MPV Cancelled Immature Gran % (Auto) Cancelled Neut % (Auto) Cancelled Lymph % (Auto) Cancelled [place] % (Auto) Cancelled Eos % (Auto) Cancelled Baso % (Auto) Cancelled Absolute Neuts (auto) Cancelled Absolute Lymphs (auto) Cancelled Total Counted Cancelled Neutrophils % (Manual) Cancelled Band Neutrophils % Cancelled Lymphocytes % (Manual) Cancelled Monocytes % (Manual) Cancelled Eosinophils % (Manual) Cancelled Basophils % (Manual) Cancelled Metamyelocytes % Cancelled Myelocytes % Cancelled Promyelocytes % Cancelled Blast Cells % Cancelled Plasma Cell % (Manual) Cancelled Other Cells % Cancelled Nucleated RBC % Cancelled Nucleated RBCs/100 WBC Cancelled Differential Comment Cancelled Diff Path Review Cancelled Hypersegmented Neuts Cancelled Atypical Lymphocytes Cancelled Reactive Lymphocytes Cancelled Smudge Cells Cancelled Toxic Granulation Cancelled Toxic Vacuolation Cancelled Dohle Bodies Cancelled Jasson Rods Cancelled Platelet Estimate Cancelled Plt Morphology Comment Cancelled RBC Morphology Cancelled Polychromasia Cancelled Hypochromasia Cancelled Poikilocytosis Cancelled Basophilic Stippling Cancelled Anisocytosis Cancelled Microcytosis Cancelled Macrocytosis Cancelled Spherocytes Cancelled Sickle Cells Cancelled Target Cells Cancelled Tear Drop Cells Cancelled Ovalocytes Cancelled Stomatocytes Cancelled [place] Bodies Cancelled Alisha Cells Cancelled Bite Cells Cancelled Crenated Cell Cancelled Acanthocytes (Spur) Cancelled Rouleaux Cancelled Schistocytes Cancelled Sodium Cancelled Potassium Cancelled Chloride Cancelled Carbon Dioxide Cancelled Anion Gap Cancelled BUN Cancelled Creatinine Cancelled Estim Creat Clear Calc Cancelled Est GFR (MDRD) Af Amer Cancelled Est GFR (MDRD) Non-Af Cancelled BUN/Creatinine Ratio Cancelled Glucose Cancelled Calcium Cancelled Magnesium Cancelled Total Bilirubin Cancelled AST Cancelled ALT Cancelled Alkaline Phosphatase Cancelled Total Protein Cancelled Albumin Cancelled Globulin Cancelled Albumin/Globulin Ratio Cancelled Lipase Cancelled Urine Color Yellow Urine Clarity Clear Urine pH 6.5 Ur Specific [place] 1.010 Urine Protein 15 H Urine Glucose (UA) Normal Urine Ketones 5 H Urine Occult Blood 10 H Urine Nitrite Negative Urine Bilirubin Negative Urine Urobilinogen 1 H Ur Leukocyte Esterase Negative Urine RBC 0 SEEN Urine WBC 0 SEEN Ur Squamous Epith Cells 0 SEEN Calcium Oxalate Crystal 2+ Urine Bacteria RARE Urine Mucus 0 SEEN Radiography Diagnostic Testing: Clinical Impression(s) from Imaging Studies Chest X-Ray 01/05/22 19:30 IMPRESSION: No acute cardiopulmonary disease or interval change. Electronically Signed: Geovanny García DO at 19:49 EDT Reading Location ID and State: [address] [place] [address] Tel [phone], Service support , Discharge Plan Triage Chief Complaint: General Illness ED Provider: Demetris Baldwin Dx/Rx/DC Orders Clinical Impression: Autism disorder, Weakness, Epilepsy Instructions: ED Weakness (Uncertain Cause) Prescriptions: No Action levetiracetam 500 MG tablet 2,000 mg PO BID folic acid 0.8 MG tablet 1 mg PO DAILY rufinamide [Banzel] 200 MG tablet 600 mg PO BID clobazam 10 mg Tablet 15 mg PO BID Rx Instructions: 15 mg in the morning 20 mg at night valproic acid (as sodium salt) 250 mg/5 mL solution 25 ml PO DAILY Label Comments: take 25ml in the morning and 30ml at night furosemide [Lasix] 40 mg Tablet 40 mg PO DAILY Primary Care Provider: Gen Reed Referrals: Gen Reed DO [Primary Care Provider] - Disposition Disposition: Home, Self Care
[2022-01-05 19:30] LABS: Mucous, Urine 0 SEEN /hpf (<or=2+); Red Blood Cells-Urine 0 SEEN /hpf (0-5); Squamous Epithelial Cells - UA 0 SEEN /hpf (5-10); White Blood Cells 0 SEEN /hpf (0-5)
--- NOTE | 2022-01-05 19:30 | RAD_ITS ---
STUDY: X-RAY CHEST REASON FOR EXAM: Female, 31 years old. Cough. TECHNIQUE: Single AP portable view of the chest. COMPARISON: 06/25/2021. FINDINGS: The lungs are clear and expanded. There is no demonstrated pleural abnormality. Normal size heart. Normal mediastinum and wily. Normal visualized pulmonary arteries. Normal visualized aortic arch and descending thoracic aorta. Normal visualized thoracic spine. Normal visualized ribs, clavicles, and shoulders. There is no demonstrated abnormality of the visualized soft tissue structures of the upper abdomen. RAD/Chest 1 View (Portable) IMPRESSION: No acute cardiopulmonary disease or interval change. Electronically Signed: Geovanny García DO at 19:49 EDT ,
[2022-01-05 19:32] LABS: Color, Urine Yellow (Yellow); Glucose, Dipstick Normal (Normal); Ketone-Dipstick 5 mg/dl (Negative); Leukocyte Esterase-Dipstick Negative /ul (Negative); Nitrite-Dipstick Negative (Negative); Occult Blood-Urine 10 /ul (Negative); Protein-Dipstick 15 mg/dl (Negative); Urine Bilirubin Dipstick Negative (Negative); Urine Clarity Clear (Clear); Urine Urobilinogen 1 mg/dl (Normal); Urine pH 6.5 (5.0 - 8.0)
[2022-01-05 20:11] LABS: Bacteria RARE /hpf (None Seen); Calcium Oxalate Crystals Ur 2+ /hpf (<or=2+)
== END 2022-01-05 21:07 | disposition home or self-care (01) ==
PROVIDERS: Emergency Provider Emergency Medicine; PCP Student in an Organized Health Care Education/Training Program; Visit Provider Emergency Medicine
DX: G40.409 Other generalized epilepsy and epileptic syndromes, not intractable, without status epilepticus (principal); Z93.1 Gastrostomy status; F84.0 Autistic disorder; R53.1 Weakness; Z79.899 Other long term (current) drug therapy
CPT/HCPCS: 71045; 81001; 87811; 99283; P9612; A4216

== ENCOUNTER 2022-03-04 22:16 | Inpatient (IN) | payer MEDICARE, MEDICAID, SELFPAY ==
[2022-03-04 22:17] VITALS: BP 89/54; PULSE 84; RESP 16; TEMP 37.3; O2SAT 94; BMI 30.2
--- NOTE | 2022-03-04 22:27 | EKG12_ITS ---
Test Reason : DYSRHYTHMIA Blood Pressure : / mmHG Vent. Rate : 081 BPM Atrial Rate : 081 BPM P-R Int : 146 ms QRS Dur : 068 ms QT Int : 356 ms P-R-T Axes : 039 086 012 degrees QTc Int : 413 ms Normal sinus rhythm Normal ECG Confirmed by LIANG ORTIZ, ZENAIDA ([id number]), editor managing director PETEY NEVAREZ ([id number]) on 03/08/2022 9:48:21 AM Referred By: CAITIE Confirmed By:ZENAIDA TAVERA MD
--- NOTE | 2022-03-04 22:27 | CT_ITS ---
STUDY: CT BRAIN WITHOUT CONTRAST ADMINISTRATION OF 2327 HOURS ON 03/04/2022 REASON FOR EXAM: 31-year-old female with altered mental status. RADIATION DOSAGE (If Supplied By Facility): CTDIvol = ( 44.99 ) mGy, DLP = ( 796.11 ) mGycm. TECHNIQUE: Transaxial CT imaging of the brain was performed without administration of intravenous contrast material. Individualized dose optimization techniques were used for this CT. Sagittal and coronal reconstructions were obtained and all were demonstrated in osseous and soft tissue algorithms. COMPARISON: 08/15/2021. FINDINGS: Normal ventricular system without a midline shift. No subdural, epidural, or intracerebral hematoma, hemorrhage or contusion. No ischemic or hemorrhagic infarct. No intracranial neoplasms. Normal sella and pituitary. Normal brainstem and posterior fossa. Normal calvarium and paranasal sinuses. CT/Brain/Head without Contrast IMPRESSION: 1. Normal unenhanced CT of the brain. 2. No intracranial mass lesions. 3. No infarcts, hemorrhages or hematomas. 4. Normal calvarium and paranasal sinuses. Electronically Signed: Ian Irene MD at 0:24 EDT ,
--- NOTE | 2022-03-04 22:28 | CT_ITS ---
STUDY: CT ABDOMEN AND PELVIS WITHOUT CONTRAST ADMINISTRATION OF 2331 HOURS ON 03/04/2022 REASON FOR EXAM: 31-year-old female with abdominal pain and diarrhea. RADIATION DOSAGE (If Supplied By Facility): CTDIvol = ( 10.44 ) mGy, DLP = ( 576.50 ) mGycm. TECHNIQUE: Transaxial images were obtained from the dome of the diaphragm to the symphysis pubis without oral contrast, and without intravenous contrast. Sagittal and coronal images were reconstructed. COMPARISON: None. FINDINGS: There is moderate motion artifact in this examination. There is a moderate to marked right pleural effusion. There is a right middle lobe alveolar pneumonia. There is also suggestion of a right lower lobe pneumonia. No cardiomegaly. Normal liver. Normal gallbladder and extrahepatic biliary system. No cholecystitis or cholelithiasis. Normal spleen. Normal pancreas. No pancreatitis or pancreatic mass lesions. Normal bilateral adrenal glands. Normal kidneys without obstructive uropathy. No pyelonephritis. There is a G-tube in the gastric body.. Normal small intestine. No diverticulitis, colitis, or intestinal obstruction. The appendix is visualized and appears normal. No appendicitis. Normal abdominal aorta. Normal inferior vena cava. Normal retroperitoneum. Normal urinary bladder. Anteverted uterus. No ovarian abnormalities. Normal abdominal wall. Normal osseous structures. CT/Abdomen/Pelvis without Cont IMPRESSION: 1. Motion artifact, resulting in a less than optimal study. 2. Moderate to marked right pleural effusion with a right middle lobe alveolar pneumonia and the suggestion of a right lower lobe pneumonia. 3. No cardiomegaly. 4. No cholecystitis or pancreatitis. 5. Normal kidneys without obstructive uropathy or pyelonephritis. 6. Gastric tube in the gastric body. 7. No appendicitis, diverticulitis, colitis, or intestinal obstruction. 8. Normal anteverted uterus and normal ovaries. 9. No evidence of abdominal abscesses, free fluid or free air. Electronically Signed: Ian Irene MD at 0:31 EDT ,
--- NOTE | 2022-03-04 22:30 | EX.ED.DYSGE1 ---
HPI History of Present Illness Chief Complaint: General Illness Informant: family Narrative Narrative: Presents via EMS for evaluation of increased lethargy and diarrhea. History is provided by sister who is at bedside. Sister states for the past 4-week she has had increasing loose stools and more lethargic. They have to wake her up multiple times throughout the day. Patient was seen by her PCP yesterday and blood work was reported to be fairly unremarkable. Patient does get tube feeds. Sister states the odor from the tube feeds seem to be stronger than normal. She will have occasional vomiting episodes and last vomited 1 week ago. Sister feels that her breathing has been slightly irregular over the past couple weeks. Patient does have seizure disorder. When asked about last seizure sister states that she will have them at night. She states occasionally they will find her on the floor in her room but are unsure if she actually fell or lowered herself to the ground. [facility] Medical History Autism Generalized epilepsy Seizures Home Medications folic acid 800 mcg tablet 1 mg PO DAILY 06/15/13 [History Last Taken Unknown] levetiracetam 500 mg tablet 2,000 mg PO BID 06/15/13 [History Last Taken Unknown] rufinamide 200 mg tablet (Banzel) 600 mg PO BID 06/15/13 [History Last Taken Unknown] clobazam 10 mg tablet 15 mg PO BID 08/16/21 [History Last Taken Unknown] furosemide 40 mg tablet (Lasix) 40 mg PO DAILY 01/05/22 [History Last Taken Unknown] valproic acid (as sodium salt) 250 mg/5 mL oral solution 25 ml PO DAILY 01/05/22 [History Last Taken Unknown] calcium carbonate 600 mg calcium (1,500 mg) tablet 600 mg PO DAILY 03/04/22 [History Last Taken Unknown] clobazam 20 mg tablet 20 mg PO QHS 03/04/22 [History Last Taken Unknown] melatonin 5 mg tablet 5 mg PO QHS 03/04/22 [History Last Taken Unknown] valproic acid (as sodium salt) 250 mg/5 mL oral solution 1,500 mg PO BID 03/04/22 [History Last Taken Unknown] vit [id number] factor-folic acid cmb#2 500 mcg-20 mg-800 mcg tablet 1 tab PO DAILY 03/04/22 [History Last Taken Unknown] Allergy/AdvReac Type Severity Reaction Status Date / Time lacosamide [From Vimpat] Allergy Mild Hives Verified 03/04/22 22:20 vancomycin Allergy Shortness Verified 03/04/22 22:20 of breath lithium AdvReac Other Verified 03/04/22 22:20 lorazepam [From Ativan] AdvReac Other Verified 03/04/22 22:20 Social History Smoking Status: Never smoker substance use type: does not use ROS ROS ED ROS Narrative Review of systems unable to be performed from the patient secondary to mental status change. Sister does report diarrhea and increased lethargy. She denies that the patient has had a fever. EXAM Physical Exam Const Vital Signs: 03/04/22 22:17 03/04/22 22:34 03/04/22 23:19 Temperature 99.2 F H 99 F Temperature Source Temporal Temporal Pulse Rate 84 81 Respiratory Rate 16 17 Respiratory Effort Normal Non-Labored Respiratory Pattern Normal Blood Pressure 89/54 L 91/44 L Blood Pressure Mean 65 59 Pulse Ox 94 93 Oxygen Delivery Method Room Air Room Air 03/05/22 00:00 03/05/22 00:20 Temperature 98.4 F Temperature Source Temporal Pulse Rate 84 84 Respiratory Rate 19 H 19 H Respiratory Effort Respiratory Pattern Blood Pressure 105/54 L 102/49 L Blood Pressure Mean 71 66 Pulse Ox 95 94 Oxygen Delivery Method Room Air Room Air Positive well nourished and well developed General Appearance ED: well developed HEENT Reports normocephalic and head/scalp atraumatic Eyes PERRL and EOMs intact bilaterally Neck supple Chest Wall inspection of chest normal and palpation of chest normal Resp normal respiratory effort and clear to auscultation bilaterally Cardio regular rate and regular rhythm GI non-tender GI Narrative: Feeding tube site clean without sign of infection. Auscultation: normoactive bowel sounds Palpation: soft Extremity Extremity Narrative: 1+ bilateral lower extremity edema. Neuro Neuro Narrative: Patient rest with eyes closed. Will open eyes to look around the room to voice. Skin no rashes or lesions noted MDM MDM MDM Narrative Medical decision making narrative: Lab work and urinalysis obtained. Patient sent for CT scan of the head as well as the abdomen and pelvis. Chest x-ray obtained. Patient given IV fluids for initial blood pressure of 89/54. Lab Data Attestation: I reviewed the patient's lab results. Labs: Laboratory Results - last 24 hr 03/04/22 03/04/22 03/04/22 22:55 22:55 22:55 WBC 8.3 RBC 3.56 L Hgb 11.7 L Hct 34.5 L MCV 96.9 MCH 32.9 H MCHC 33.9 RDW Std Deviation 46.0 H RDW Coeff of Sylvia 13.1 Plt Count 163 MPV 8.8 Immature Gran % (Auto) 0.500 Neut % (Auto) 63.3 Lymph % (Auto) 17.1 L [place] % (Auto) 13.7 H Eos % (Auto) 5.0 Baso % (Auto) 0.4 Absolute Neuts (auto) 5.2 Absolute Lymphs (auto) 1.41 Nucleated RBC % 0 Sodium 139 Potassium 4.0 Chloride 98 Carbon Dioxide 33.0 H Anion Gap 8 BUN 15 Creatinine 0.67 Estim Creat Clear Calc 95.34 Est GFR (MDRD) Af Amer 130 Est GFR (MDRD) Non-Af 107 BUN/Creatinine Ratio 22.3 H Glucose 91 Lactic Acid Calcium 8.8 Total Bilirubin 0.20 Direct Bilirubin 0.11 AST 13 L ALT 12 L Alkaline Phosphatase 50 Total Protein 7.1 Albumin 2.3 L Globulin 4.8 H Lipase 79 Urine Color Urine Clarity Urine pH Ur Specific [place] Urine Protein Urine Glucose (UA) Urine Ketones Urine Occult Blood Urine Nitrite Urine Bilirubin Urine Urobilinogen Ur Leukocyte Esterase Urine RBC Urine WBC Ur Squamous Epith Cells Urine Bacteria Urine Mucus Valproic Acid 137 H 03/04/22 03/04/22 22:55 23:09 WBC RBC Hgb Hct MCV MCH MCHC RDW Std Deviation RDW Coeff of Sylvia Plt Count MPV Immature Gran % (Auto) Neut % (Auto) Lymph % (Auto) [place] % (Auto) Eos % (Auto) Baso % (Auto) Absolute Neuts (auto) Absolute Lymphs (auto) Nucleated RBC % Sodium Potassium Chloride Carbon Dioxide Anion Gap BUN Creatinine Estim Creat Clear Calc Est GFR (MDRD) Af Amer Est GFR (MDRD) Non-Af BUN/Creatinine Ratio Glucose Lactic Acid 2.2 H* Calcium Total Bilirubin Direct Bilirubin AST ALT Alkaline Phosphatase Total Protein Albumin Globulin Lipase Urine Color Yellow Urine Clarity Clear Urine pH 8.0 Ur Specific [place] 1.010 Urine Protein 15 H Urine Glucose (UA) Normal Urine Ketones Negative Urine Occult Blood Negative Urine Nitrite Negative Urine Bilirubin Negative Urine Urobilinogen Normal Ur Leukocyte Esterase Negative Urine RBC 0 SEEN Urine WBC 0 SEEN Ur Squamous Epith Cells 0-5 SEEN Urine Bacteria RARE Urine Mucus 0 SEEN Valproic Acid Radiography Diagnostic Testing: Clinical Impression(s) from Imaging Studies Brain CT 03/04/22 22:27 IMPRESSION: 1. Normal unenhanced CT of the brain. 2. No intracranial mass lesions. 3. No infarcts, hemorrhages or hematomas. 4. Normal calvarium and paranasal sinuses. Electronically Signed: Ian Irene MD at 0:24 EDT Reading Location ID and State: [id number] / [place] Tel , Service support , Abdomen/Pelvis CT 03/04/22 22:28 IMPRESSION: 1. Motion artifact, resulting in a less than optimal study. 2. Moderate to marked right pleural effusion with a right middle lobe alveolar pneumonia and the suggestion of a right lower lobe pneumonia. 3. No cardiomegaly. 4. No cholecystitis or pancreatitis. 5. Normal kidneys without obstructive uropathy or pyelonephritis. 6. Gastric tube in the gastric body. 7. No appendicitis, diverticulitis, colitis, or intestinal obstruction. 8. Normal anteverted uterus and normal ovaries. 9. No evidence of abdominal abscesses, free fluid or free air. Electronically Signed: Ian Irene MD at 0:31 EDT Reading Location ID and State: [place] / [place] Tel , Service support , Chest X-Ray 03/04/22 23:35 IMPRESSION: 1. Findings suggestive of a right lower lobe interstitial/alveolar pneumonia with a mild to moderate right pleural effusion. 2. No other active cardiopulmonary disease. 3. No cardiomegaly. 4. Normal-appearing left lung. 5. No subdiaphragmatic abnormalities. 6. Mild thoracic dextroscoliosis. Electronically Signed: Ian Irene MD at 0:21 EDT , Treatment and Re-Evaluation Narrative: CBC was normal white count with hemoglobin of 11.7. Chemistry studies reveal normal renal function. LFTs and lipase unremarkable. Lactic acid slightly elevated at 2.2. Valproic acid level is elevated at 137. Urinalysis reveals no acute infection. CT scan of the head is unremarkable. CT scan of the abdomen pelvis reveals a right pleural effusion and right middle lobe pneumonia. No other acute findings noted in the abdomen or pelvis. Chest x-ray does reveal right lower lobe infiltrate per my evaluation. Radiology reading is also confirmed. Patient's blood pressure is responding to IV fluids. She has been ordered a total of 30 cc/kg. Unasyn has been ordered for probable aspiration pneumonia. Blood and urine cultures are pending. I will speak with hospitalist regarding admission. Discharge Plan Triage Chief Complaint: General Illness ED Provider: Keiko Stone Dx/Rx/DC Orders Clinical Impression: Aspiration pneumonia of right lower lobe, Pleural effusion, Valproic acid toxicity Prescriptions: No Action levetiracetam 500 MG tablet 2,000 mg PO BID folic acid 0.8 MG tablet 1 mg PO DAILY rufinamide [Banzel] 200 MG tablet 600 mg PO BID clobazam 10 mg Tablet 15 mg PO BID Rx Instructions: 15 mg in the morning 20 mg at night valproic acid (as sodium salt) 250 mg/5 mL solution 25 ml PO DAILY Label Comments: take 25ml in the morning and 30ml at night furosemide [Lasix] 40 mg Tablet 40 mg PO DAILY valproic acid (as sodium salt) 250 mg/5 mL Solution 1,500 mg PO BID calcium carbonate 600 mg calcium (1,500 mg) tablet 600 mg PO DAILY Label Comments: TAKE 1 TABLET DAILY. melatonin 5 mg Tablet 5 mg PO QHS clobazam 20 mg Tablet 20 mg PO QHS vit [id number] fact-FA cmb #2 500-20-800 mcg-mg-mcg Tablet 1 tab PO DAILY Primary Care Provider: Gen Reed Referrals: Gne Reed DO [Primary Care Provider] - Disposition Disposition: Home, Self Care
[2022-03-04 23:08] LABS: Absolute Lymphocyte Count 1.41 X10^3/uL (0.83-4.51); Absolute Neutrophil Count 5.2 X10^3/uL (2.0-7.7); Basophil# 0.03 X10^3/uL; Basophil% 0.4 % (0-1); Eosinophil# 0.41 X10^3/uL; Hematocrit 34.5 % (37-47); Hemoglobin 11.7 g/dL (12.0-15.0); Lymphocyte # 1.41 X10^3/ul (0.83-4.51); Lymphocyte % 17.1 % (19-41); Mean Corp Hgb Conc 33.9 g/dL (32-36); Mean Corpuscular Hgb 32.9 pg (27.0-32.0); Mean Corpuscular Volume 96.9 fL (81-99); Mean Platelet Vol. 8.8 fl (6.2-12.0); Monocyte# 1.13 X10^3/uL; Monocyte% 13.7 % (0-10); NRBC Flagged by Analyzer 0 % (0-5); Neutrophil # 5.23 X10^3/uL (2.7-7.7); Neutrophil % 63.3 % (47-70); Platelet Count 163 K/mm3 (150-450); RBC Distribution Width CV 13.1 % (11.6-14.6); Red Blood Count 3.56 M/mm3 (4.2-5.4); White Blood Count 8.3 K/mm3 (4.4-11.0)
[2022-03-04 23:13] LABS: Mucous, Urine 0 SEEN /hpf (<or=2+); Red Blood Cells-Urine 0 SEEN /hpf (0-5); White Blood Cells 0 SEEN /hpf (0-5)
[2022-03-04] MEDS: 0.9% Normal Saline 1,000 ML 1000 ML IV (23:13)
[2022-03-04 23:19] VITALS: BP 91/44; PULSE 81; RESP 17; TEMP 37.2; O2SAT 93
[2022-03-04 23:26] LABS: Valproic Acid (Depakene) Level 137 ug/mL (50-100)
[2022-03-04 23:27] LABS: AST(SGOT) 13 U/L (15-37); Alanine Aminotransfer ALT/SGPT 12 U/L (13-56); Albumin, Serum 2.3 g/dL (3.2-5.0); Alkaline Phosphatase 50 U/L (45-117); Anion Gap 8 (5-15); BUN 15 mg/dL (7-18); BUN/Creat Ratio 22.3 RATIO (10-20); Bilirubin, Direct 0.11 mg/dL (0.00-0.30); Calcium,Total 8.8 mg/dL (8.5-10.1); Chloride 98 mmol/L (98-107); Creatinine, Serum 0.67 mg/dL (0.55-1.02); EST Glomerular Filtration Rate 107 mL/min (>60); Est Glom Filt Rate - Afr Amer 130 mL/min (>60); Estimated Creatinine Clearance 95.34 ml/min; Globulin 4.8 g/dL (2.2-4.2); Glucose 91 mg/dL (74-106); Lipase 79 U/L (73-393); Protein, Total 7.1 g/dL (6.4-8.2); Sodium Level 139 mmol/L (136-145)
[2022-03-04 23:33] LABS: Color, Urine Yellow (Yellow); Glucose, Dipstick Normal (Normal); Ketone-Dipstick Negative (Negative); Leukocyte Esterase-Dipstick Negative /ul (Negative); Nitrite-Dipstick Negative (Negative); Occult Blood-Urine Negative /ul (Negative); Protein-Dipstick 15 mg/dl (Negative); Urine Bilirubin Dipstick Negative (Negative); Urine Clarity Clear (Clear); Urine Urobilinogen Normal (Normal)
--- NOTE | 2022-03-04 23:35 | RAD_ITS ---
STUDY: PORTABLE AP UPRIGHT CHEST X-RAY OF 2330 HOURS ON 03/04/2022 REASON FOR EXAM: 31-year-old female with shortness of breath. TECHNIQUE: A single view portable AP upright chest x-ray was performed per protocol. COMPARISON: 01/05/2022. FINDINGS: Mild thoracic dextroscoliosis. Otherwise, normal osseous structures. No cardiomegaly. Presence of a mild to moderate right pleural effusion with a right lower lobe interstitial/alveolar infiltrative process, suggestive of a right lower lobe pneumonia. No subdiaphragmatic abnormalities. RAD/Chest 1 View (Portable) IMPRESSION: 1. Findings suggestive of a right lower lobe interstitial/alveolar pneumonia with a mild to moderate right pleural effusion. 2. No other active cardiopulmonary disease. 3. No cardiomegaly. 4. Normal-appearing left lung. 5. No subdiaphragmatic abnormalities. 6. Mild thoracic dextroscoliosis. Electronically Signed: Ian Irene MD at 0:21 EDT ,
[2022-03-05] VITALS (56 sets, daily range): BP systolic 66–118; BP diastolic 44–91; PULSE 58–105; RESP 12–93; TEMP 35.8–36.9; O2SAT 18–100; BMI 29.9
[2022-03-05 00:04] LABS: Lactic Acid 2.2 mmol/L (0.4-1.9)
[2022-03-05] MEDS: 0.9% Normal Saline 1,000 ML 999 ML IV ×2 (00:21→02:27)
[2022-03-05 00:23] LABS: Bacteria RARE /hpf (None Seen); Squamous Epithelial Cells - UA 0-5 SEEN /hpf (5-10)
--- NOTE | 2022-03-05 00:52 | HP.PCM.HOS_ITS ---
HPI - General General Date of Admission: 03/05/22 Date of Service: 03/05/22 Chief Complaint: Encephalopathy. 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 Navarrete (Neurology) at , Obesity who presents to the [facility] ED on 03/04/22 with history of increased loose stools, fatigue, lethargy ongoing over the last ~ 4 weeks reportedly sleeping during the day more than usual with recent PCP evaluation with reported per family unremarkable outpatient labs with incidentally noted foul smelling odor from her G-tube insertion site and also recent occasional nausea and emesis with last episode ~ 1 week prior. Family reports also that she has appeared to have some dyspnea but patient is nonverbal so evaluation is subjective. They also notes she has frequent nightly breakthrough seizure activity, often found on her floor. Family denies her having and recent fevers or chills associated. Patient did have a significant episode of emesis approximately 1 week prior while drinking a shake per sister report. Additionally per discussion with sister the patient does have occasional pleasure feeds but from prior speech therapy involvement it is likely that patient is supposed to be strictly NPO. Work-up in the ED included T99.2, heart rate 84, BP 89/54, respiratory rate 16, 94% room air, CBC with WC 8.3, hemoglobin 11.7, platelet 163 without marked shift, CMP with complex at 33 otherwise hepatic profile not marked appearing, lipase 79, lactic acid 2.2, urinalysis with no obvious evidence of UTI and normal specific gravity, Keppra level pending upon evaluation, valproic acid level 137 with upper level of normal 100, CT head with no acute intracranial findings, CT abdomen and pelvis with evidence of moderate to marked right pleural effusion with right middle lobe alveolar pneumonia as well as right lower lobe pneumonia, gastric tube in the gastric body, no acute intra-abdominal findings otherwise, chest x-ray with findings suggestive for right lower lobe interstitial/alveolar pneumonia with mild to moderate right pleural effusion with no other acute cardiopulmonary findings, urine culture pending per ED, blood culture x2 pending per ED. in the ED patient ministered 30 cc/kg IV fluid bolus and IV Unasyn. In the ED followi ng evaluation patient blood pressure while being administered her second liter did decrease again to 87/46 therefore to be cautious per discussion with ED physician we will admit to the ICU. [facility] Medical History (Updated 03/05/22 @ 00:[address] Inga Gonzalez MD) Autism Cerebral palsy Chromosomal anomaly Generalized epilepsy HTN (hypertension) Normocytic anemia Obesity Seizures Home Medications folic acid 800 mcg tablet 1 mg PO DAILY 06/15/13 [History Last Taken Unknown] levetiracetam 500 mg tablet 2,000 mg PO BID 06/15/13 [History Last Taken Unknown] rufinamide 200 mg tablet (Banzel) 600 mg PO BID 06/15/13 [History Last Taken Unknown] clobazam 10 mg tablet 15 mg PO BID 08/16/21 [History Last Taken Unknown] furosemide 40 mg tablet (Lasix) 40 mg PO DAILY 01/05/22 [History Last Taken Unknown] valproic acid (as sodium salt) 250 mg/5 mL oral solution 25 ml PO DAILY 01/05/22 [History Last Taken Unknown] calcium carbonate 600 mg calcium (1,500 mg) tablet 600 mg PO DAILY 03/04/22 [History Last Taken Unknown] clobazam 20 mg tablet 20 mg PO QHS 03/04/22 [History Last Taken Unknown] melatonin 5 mg tablet 5 mg PO QHS 03/04/22 [History Last Taken Unknown] valproic acid (as sodium salt) 250 mg/5 mL oral solution 1,500 mg PO BID 03/04/22 [History Last Taken Unknown] vit A80-bhrhpbcky factor-folic acid cmb#2 500 mcg-20 mg-800 mcg tablet 1 tab PO DAILY 03/04/22 [History Last Taken Unknown] Allergy/AdvReac Type Severity Reaction Status Date / Time lacosamide [From Vimpat] Allergy Mild Hives Verified 03/04/22 22:20 vancomycin Allergy Shortness Verified 03/04/22 22:20 of breath lithium AdvReac Other Verified 03/04/22 22:20 lorazepam [From Ativan] AdvReac Other Verified 03/04/22 22:20 Family History (Updated 03/05/22 @ 01:[address] Inga Gonzalez MD) Father CVA (cerebral vascular accident) Heart disease Mother Diabetes Surgical History (Updated 03/05/22 @ 00:[address] Inga Gonzalez MD) S/P gastric surgery Social History (Updated 03/05/22 @ 00:[address] Inga Gonzalez MD) household members: family Smoking Status: Never smoker alcohol intake: never substance use type: does not use ROS Review of Systems ROS Unobtainable: due to encephalopathy and due to mental condition Vital Signs Vital Signs Vital Signs: 03/04/22 22:17 03/04/22 22:34 03/04/22 23:19 Temperature 99.2 F H 99 F Temperature Source Temporal Temporal Pulse Rate 84 81 Respiratory Rate 16 17 Respiratory Effort Normal Non-Labored Respiratory Pattern Normal Blood Pressure 89/54 L 91/44 L Blood Pressure Mean 65 59 Pulse Ox 94 93 Oxygen Delivery Method Room Air Room Air 03/05/22 00:00 03/05/22 00:20 03/05/22 00:43 Temperature 98.4 F 98.1 F Temperature Source Temporal Temporal Pulse Rate 84 84 82 Respiratory Rate 19 H 19 H 22 H Respiratory Effort Respiratory Pattern Blood Pressure 105/54 L 102/49 L 101/82 H Blood Pressure Mean 71 66 88 Pulse Ox 95 94 94 Oxygen Delivery Method Room Air Room Air Room Air Weight Weight: 165 lb 5.547 oz Body Mass Index (BMI) 30.2 Physical Exam Narrative Physical Examination: General: Patient will awaken occasionally, not alert, not able to answer orientation questions, nonverbal baseline, laying in the ED bed, ill-appearing. Skin: Normal color, normal turgor, no icterus, no cyanosis. HEENT: AT/NC, EOM unable to be assessed well given acute presentation and underlying mental status, PERRLA dry MM, no carotid bruits or JVD noted. Lungs: Significantly diminished, greater right mid and based, decreased effort, no rales, ronchi or wheezing. Heart: Regular rate and rhythm; no gallop, rub audible. Abdomen: Soft, obese, NTTP, ND, hypoactive BS, no HSM. Extremities: No cyanosis, no clubbing, mild bilateral pedal swelling. Neurological: Patient will awaken occasionally, not alert, not able to answer orientation questions, nonverbal baseline, cognitive function decreased from baseline; pupils equally reactive to light and accommodation, cranial nerves difficult to assess given encephalopathy, moving all 4 extremities but decreased baseline with underlying CP, strength severely globally decreased. Psychiatric: Affect appears flat, lethargic, no acute evidence of depressive or anxiety feelings. Results Lab / Micro Data Result Diagrams: 03/04/22 22:55 03/04/22 22:55 Labs: Laboratory Results - last 24 hr 03/04/22 22:55: WBC 8.3, RBC 3.56 L, Hgb 11.7 L, Hct 34.5 L, MCV 96.9, MCH 32.9 H, MCHC 33.9, RDW Std Deviation 46.0 H, RDW Coeff of Sylvia 13.1, Plt Count 163, MPV 8.8, Immature Gran % (Auto) 0.500, Neut % (Auto) 63.3, Lymph % (Auto) 17.1 L , [place] % (Auto) 13.7 H, Eos % (Auto) 5.0, Baso % (Auto) 0.4, Absolute Neuts (auto) 5.2, Absolute Lymphs (auto) 1.41, Nucleated RBC % 0 03/04/22 22:55: Sodium 139, Potassium 4.0, Chloride 98, Carbon Dioxide 33.0 H, Anion Gap 8, BUN 15, Creatinine 0.67, Estim Creat Clear Calc 95.34, Est GFR (MDRD) Af Amer 130, Est GFR (MDRD) Non-Af 107, BUN/Creatinine Ratio 22.3 H, Glucose 91, Calcium 8.8, Total Bilirubin 0.20, Direct Bilirubin 0.11, AST 13 L, ALT 12 L, Alkaline Phosphatase 50, Total Protein 7.1, Albumin 2.3 L, Globulin 4.8 H, Lipase 79 03/04/22 22:55: Valproic Acid 137 H 03/04/22 22:55: Lactic Acid 2.2 H* 03/04/22 23:09: Urine Color Yellow, Urine Clarity Clear, Urine pH 8.0, Ur Specific [place] 1.010, Urine Protein 15 H, Urine Glucose (UA) Normal, Urine Ketones Negative, Urine Occult Blood Negative, Urine Nitrite Negative, Urine Bilirubin Negative, Urine Urobilinogen Normal, Ur Leukocyte Esterase Negative, Urine RBC 0 SEEN, Urine WBC 0 SEEN, Ur Squamous Epith Cells 0-5 SEEN, Urine Bacteria RARE, Urine Mucus 0 SEEN Radiology Impression Brain CT 03/04/22 22:27 IMPRESSION: 1. Normal unenhanced CT of the brain. 2. No intracranial mass lesions. 3. No infarcts, hemorrhages or hematomas. 4. Normal calvarium and paranasal sinuses. Electronically Signed: Ian Irene MD at 0:24 EDT , Abdomen/Pelvis CT 03/04/22 22:28 IMPRESSION: 1. Motion artifact, resulting in a less than optimal study. 2. Moderate to marked right pleural effusion with a right middle lobe alveolar pneumonia and the suggestion of a right lower lobe pneumonia. 3. No cardiomegaly. 4. No cholecystitis or pancreatitis. 5. Normal kidneys without obstructive uropathy or pyelonephritis. 6. Gastric tube in the gastric body. 7. No appendicitis, diverticulitis, colitis, or intestinal obstruction. 8. Normal anteverted uterus and normal ovaries. 9. No evidence of abdominal abscesses, free fluid or free air. Electronically Signed: Ian Irene MD at 0:31 EDT , Chest X-Ray 03/04/22 23:35 IMPRESSION: 1. Findings suggestive of a right lower lobe interstitial/alveolar pneumonia with a mild to moderate right pleural effusion. 2. No other active cardiopulmonary disease. 3. No cardiomegaly. 4. Normal-appearing left lung. 5. No subdiaphragmatic abnormalities. 6. Mild thoracic dextroscoliosis. 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 Navarrete (Neurology) at , Obesity who presents to the [facility] ED on 03/04/22 with history of increased loose stools, fatigue, lethargy ongoing over the last ~ 4 weeks reportedly sleeping during the day more than usual with recent PCP evaluation with reported per family unremarkable outpatient labs with incidentally noted foul smelling odor from her G-tube insertion site and also recent occasional nausea and emesis with last episode ~ 1 week prior. #1. Acute Sepsis (concern for possible Septic Shock, still being administered IVFs 30 cc/kg bolus) secondary to Acute Encephalopathy, Multifactorial, including Right Middle and RLL Pneumonia, Suspected Aspiration Pneumonia w/ associated lactic acidosis, hypotension and hypoxia and #2: Patient while in the ED did have hypotension down to 89/54 requiring 30 cc/kg IV fluid bolus with improvement initially up to only 102/49 with lactic acidosis with lactic acid 2.2; however, decreased again during her 2nd liter of note. Will admit to the ICU to be cautious, will request ICU physician consultation, maintain on oxygen with wean as tolerated to room air, place on ATC budesonide, PRN albuterol, maintained on IV Unasyn with pending MRSA screen, HOB, IS parameters w/ pending sputum cultures, full respiratory viral panel, obtain COVID antigen testing and urine antigens. Bld cx x 2 obtained in the ED. PT/OT/ST consultations as well as CM for discharge planning. Will temporarily hold GT feeds until further assessed to be cautious. Will maintain on IV PPI. Given loose stool history will also obtain c-diff and enteric pathogen assessment to be cautious; however, likely secondary to recent PNA aspiration. #2. 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 Navarrete (Neurology) at . Valproic acid level 137, mildly elevated above goal, pending Keppra level. We will temporaril y hold patient's home valproic acid a.m. level and repeat level late morning to assess resumption. We will continue patient other AED medication. #3. Normocytic anemia: Admission hemoglobin 11.7, MCV 96.9, not noted prior, will obtain guaiac to be safe, obtain iron panel, ferritin, vitamin B12 and folic acid levels. #4. Hypertension: Patient with low BP upon presentation as noted #1, holding Lasix, add back regimen once appropriate. #5. DVT prophylaxis: SCDs, Lovenox however if guaiac is positive will de- escalate off. #6. CODE status: Patient ANJELICA is her sister who is present. Patient does not have a living will. Discussed CODE status at length including difference between FULL code, DNR-CCA and DNR-CC status. Following discussions about the differences in these status, requested Full Code status. Advanced Care Planning Face to Face Time: 16 minutes. Charges/Coding Visit Charges Inpatient E&M: 84982 Init Hosp L3 Procedures Hospitalists Procedures: 26315 Advncd Care Plan 30 Min
[2022-03-05 01:53] LABS: Ferritin 125 ng/mL (8-252); Iron 36 ug/dL (50-170); Iron Binding Capacity,Total 306 ug/dL (250-450); Magnesium 2.1 mg/dL (1.6-2.6); PERCENT IRON SATURATION 11.8 % (15.0-55.0); Phosphorus 3.5 mg/dL (2.5-4.9)
[2022-03-05 03:02] LABS: Reflex Lactate? Y
[2022-03-05] MEDS: 0.9% Normal Saline 1,000 ML 125 ML IV ×3 (03:27→20:44)
[2022-03-05 05:02] LABS: Absolute Lymphocyte Count 1.25 X10^3/uL (0.83-4.51); Basophil# 0.03 X10^3/uL; Basophil% 0.5 % (0-1); Eosinophil# 0.46 X10^3/uL; Hemoglobin 10.1 g/dL (12.0-15.0); Lymphocyte # 1.25 X10^3/ul (0.83-4.51); Mean Corp Hgb Conc 33.7 g/dL (32-36); Mean Corpuscular Hgb 33.2 pg (27.0-32.0); Mean Corpuscular Volume 98.7 fL (81-99); Mean Platelet Vol. 8.6 fl (6.2-12.0); Monocyte# 0.83 X10^3/uL; Monocyte% 12.6 % (0-10); NRBC Flagged by Analyzer 0 % (0-5); Neutrophil # 3.96 X10^3/uL (2.7-7.7); Neutrophil % 60.3 % (47-70); Platelet Count 139 K/mm3 (150-450); RBC Distribution Width CV 13.3 % (11.6-14.6); RBC Distribution Width SD 47.2 fl (35.1-43.9); Red Blood Count 3.04 M/mm3 (4.2-5.4); White Blood Count 6.6 K/mm3 (4.4-11.0)
[2022-03-05 05:19] LABS: Vitamin B12 1198 pg/mL (211-911)
[2022-03-05 05:25] LABS: Lactic Acid 1.2 mmol/L (0.4-1.9)
[2022-03-05 05:33] LABS: ALB/GLOB Ratio 0.4 RATIO (0.9-2.4); AST(SGOT) 13 U/L (15-37); Alanine Aminotransfer ALT/SGPT 10 U/L (13-56); Albumin, Serum 1.7 g/dL (3.2-5.0); Alkaline Phosphatase 40 U/L (45-117); Anion Gap 7 (5-15); BUN 10 mg/dL (7-18); Calcium,Total 7.3 mg/dL (8.5-10.1); Chloride 112 mmol/L (98-107); Creatinine, Serum 0.48 mg/dL (0.55-1.02); EST Glomerular Filtration Rate 160 mL/min (>60); Est Glom Filt Rate - Afr Amer 193 mL/min (>60); Estimated Creatinine Clearance 133.08 ml/min; Globulin 3.8 g/dL (2.2-4.2); Glucose 83 mg/dL (74-106); Potassium 3.6 mmol/L (3.5-5.1); Protein, Total 5.5 g/dL (6.4-8.2); Sodium Level 142 mmol/L (136-145)
--- NOTE | 2022-03-05 06:44 | CON.PCM.CC_ITS ---
Assessment & Plan Assessment/Plan (1) Aspiration pneumonia of right lower lobe: PLAN: Plan RECOMMENDATIONS: 1. Continue empiric antimicrobials. 2. Supplemental oxygen for saturations greater than 90%. 3. Vasopressors, if needed, to maintain a mean arterial pressure at or above 65 mmHg. 4. Continue home antiepileptic therapy. 5. Nutritional support with tube feeding via G-tube. IMPRESSIONS: 1. Sepsis The patient presented with sepsis due to probable aspiration pneumonia with acute sepsis related organ dysfunction as evidenced by lactic acidemia and altered mentation. The patient's hemodynamics have been somewhat tenuous, despite fluid resuscitation. We will plan to continue to monitor clinically. If needed, vasopressor support will be initiated. In the interim, plan to continue empiric antimicrobials. Cultures are pending. I would recommend that we continue to hold the patient's baseline Lasix regimen. 2. History of epilepsy associated with a chromosomal anomaly/cerebral palsy The patient has a history of difficult to control seizures and is followed by neurology through [facility]. The patient is maintained on a number of antiepileptics in her home environment. Although the patient's VPA level was initially elevated, a recheck demonstrated that it was within normal limits. Therefore, I recommend that the patient's home antiepileptics be continued without change. 3. High risk for aspiration Speech therapy has been consulted to evaluate the patient. The patient should remain n.p.o. for now, pending improvement in her mentation. In the interim, we will provide nutritional support via G-tube with bolus tube feeds and free water flushes per home regimen. This note was generated with [employer] dictation software. It may contain incorrect words, spelling, and punctuation that were not noted in checking the note before signing. HPI Consult Data Date of Consult: 03/05/22 HPI Narrative Reason for Consultation: Aspiration pneumonia HPI Narrative: The patient is a 31-year-old female, with a history as outlined below, who presented to the emergency department on March 05 with increasing lethargy nausea and emesis. Patient has an underlying chromosomal abnormality with associated cerebral palsy and epilepsy. According to the patient's sister at t he bedside, the patient has been having loose stools with increasing lethargy and episodes of emesis. She is followed by neurologist through [facility]. Apparently, earlier this year, she spent 3 months admitted to [facility] due to refractory seizure activity. She receives the majority of her nutrition through bolus tube feeds with occasional pleasure feeds by mouth. On presentation to the emergency department, the patient was documented to have a temperature of 99.2 ?F. Initial blood pressure was documented to be 89/54 mmHg. Initial laboratory evaluation revealed no evidence of leukocytosis. Chemistry profile demonstrated a lactate of 2.2. Urinalysis was unrevealing. CT head revealed no acute intracranial abnormality. CT abdomen/pelvis demonstrated a right-sided pleural effusion with right middle lobe pneumonia. The patient received supplemental IV fluid hydration was started on empiric antimicrobials. She was admitted to the medical intensive care unit for further management. [facility] Medical History Autism Cerebral palsy Chromosomal anomaly Generalized epilepsy HTN (hypertension) Normocytic anemia Obesity Seizures Home Medications folic acid 800 mcg tablet 1 mg PO DAILY 06/15/13 [History Last Taken Unknown] levetiracetam 500 mg tablet 2,000 mg PO BID 06/15/13 [History Last Taken Unknown] rufinamide 200 mg tablet (Banzel) 600 mg PO BID 06/15/13 [History Last Taken Unknown] clobazam 10 mg tablet 15 mg PO 0700 seizures 08/16/21 [History Last Taken Unknown] furosemide 40 mg tablet (Lasix) 40 mg PO DAILY 01/05/22 [History Last Taken Unknown] valproic acid (as sodium salt) 250 mg/5 mL oral solution 25 ml PO DAILY 01/05/22 [History Last Taken Unknown] calcium carbonate 600 mg calcium (1,500 mg) tablet 600 mg PO DAILY 03/04/22 [History Last Taken Unknown] clobazam 20 mg tablet 20 mg PO 1900 seizures 03/04/22 [History Last Taken Unknown] melatonin 5 mg tablet 5 mg PO QHS 03/04/22 [History Last Taken Unknown] valproic acid (as sodium salt) 250 mg/5 mL oral solution 1,500 mg PO BID 03/04/22 [History Last Taken Unknown] vit Q34-gobskethj factor-folic acid cmb#2 500 mcg-20 mg-800 mcg tablet 1 tab PO DAILY 03/04/22 [History Last Taken Unknown] Isosource 1.5 Andrew 250 ml G-tube 4X/DAY nutrition 03/05/22 [History Last Taken Unknown] Allergy/AdvReac Type Severity Reaction Status Date / Time lacosamide [From Vimpat] Allergy Mild Hives Verified 03/04/22 22:20 vancomycin Allergy Shortness Verified 03/04/22 22:20 of breath lithium AdvReac Other Verified 03/04/22 22:20 lorazepam [From Ativan] AdvReac Other Verified 03/04/22 22:20 Family History Father CVA (cerebral vascular accident) Heart disease Mother Diabetes Surgical History S/P gastric surgery Social History household members: family Smoking Status: Never smoker alcohol intake: never substance use type: does not use ROS ROS Narrative Unable to obtain due to baseline mental status/nonverbal status. Review of Systems ROS Unobtainable: due to mental status Physical Exam Const no apparent distress Constitutional Narrative: Nonverbal at baseline. General Appearance: lethargic and ill appearing HEENT normocephalic and head/scalp atraumatic Eyes PERRL and EOMs intact bilaterally Neck supple General: trachea midline Chest inspection of chest normal Resp Resp Narrative: Exceedingly poor patient dependent inspiratory effort with diminished air movement bilaterally. Cardio regular rate and regular rhythm GI normal to inspection, nondistended, normoactive bowel sounds Inspection: GI tube present Extremity General Extremity: edema; Negative for clubbing Skin no rashes or lesions noted Neuro moves all extremities Psych Mood & Affect: flat affect Lab / Micro Data Result Diagrams: 03/05/22 04:58 03/05/22 04:38 Labs: Laboratory Results - last 24 hr 03/04/22 22:51: Phosphorus 3.5, Magnesium 2.1, Iron 36 L, TIBC 306, Iron Saturation 11.8 L, Ferritin 125 03/04/22 22:55: WBC 8.3, RBC 3.56 L, Hgb 11.7 L, Hct 34.5 L, MCV 96.9, MCH 32.9 H, MCHC 33.9, RDW Std Deviation 46.0 H, RDW Coeff of Sylvia 13.1, Plt Count 163, MPV 8.8, Immature Gran % (Auto) 0.500, Neut % (Auto) 63.3, Lymph % (Auto) 17.1 L , Daniels % (Auto) 13.7 H, Eos % (Auto) 5.0, Baso % (Auto) 0.4, Absolute Neuts (au to) 5.2, Absolute Lymphs (auto) 1.41, Nucleated RBC % 0 03/04/22 22:55: Sodium 139, Potassium 4.0, Chloride 98, Carbon Dioxide 33.0 H, Anion Gap 8, BUN 15, Creatinine 0.67, Estim Creat Clear Calc 95.34, Est GFR (MDRD) Af Amer 130, Est GFR (MDRD) Non-Af 107, BUN/Creatinine Ratio 22.3 H, Glucose 91, Calcium 8.8, Total Bilirubin 0.20, Direct Bilirubin 0.11, AST 13 L, ALT 12 L, Alkaline Phosphatase 50, Total Protein 7.1, Albumin 2.3 L, Globulin 4.8 H, Lipase 79 03/04/22 22:55: Valproic Acid 137 H 03/04/22 22:55: Lactic Acid 2.2 H* 03/04/22 22:55: Vitamin B12 1198 H 03/04/22 23:09: Urine Color Yellow, Urine Clarity Clear, Urine pH 8.0, Ur Specific [place] 1.010, Urine Protein 15 H, Urine Glucose (UA) Normal, Urine Ketones Negative, Urine Occult Blood Negative, Urine Nitrite Negative, Urine Bilirubin Negative, Urine Urobilinogen Normal, Ur Leukocyte Esterase Negative, Urine RBC 0 SEEN, Urine WBC 0 SEEN, Ur Squamous Epith Cells 0-5 SEEN, Urine Bact eria RARE, Urine Mucus 0 SEEN 03/05/22 04:38: Sodium 142, Potassium 3.6, Chloride 112 H, Carbon Dioxide 23.0, Anion Gap 7, BUN 10, Creatinine 0.48 L, Estim Creat Clear Calc 133.08, Est GFR (MDRD) Af Amer 193, Est GFR (MDRD) Non-Af 160, BUN/Creatinine Ratio 21.0 H, Glucose 83, Calcium 7.3 L, Total Bilirubin 0.20, AST 13 L, ALT 10 L, Alkaline Phosphatase 40 L, Total Protein 5.5 L, Albumin 1.7 L, Globulin 3.8, Albumin/Globulin Ratio 0.4 L, Folate 19.80 03/05/22 04:58: WBC 6.6, RBC 3.04 L, Hgb 10.1 L, Hct 30.0 L, MCV 98.7, MCH 33.2 H, MCHC 33.7, RDW Std Deviation 47.2 H, RDW Coeff of Sylvia 13.3, Plt Count 139 L, MPV 8.6, Immature Gran % (Auto) 0.600, Neut % (Auto) 60.3, Lymph % (Auto) 19.0, Daniels % (Auto) 12.6 H, Eos % (Auto) 7.0 H, Baso % (Auto) 0.5, Absolute Neuts (auto) 4.0, Absolute Lymphs (auto) 1.25, Nucleated RBC % 0 03/05/22 04:58: Lactic Acid 1.2 Micro: Microbiology 03/04/22 22:09 Urine Catheter - Catheter Legionella Antigen - Final 03/04/22 22:09 Urine Catheter - Catheter Streptococcus pneumoniae Antigen (M - Final Radiology Impression Brain CT 03/04/22 22:27 IMPRESSION: 1. Normal unenhanced CT of the brain. 2. No intracranial mass lesions. 3. No infarcts, hemorrhages or hematomas. 4. Normal calvarium and paranasal sinuses. Electronically Signed: Ian Irene MD at 0:24 EDT , Abdomen/Pelvis CT 03/04/22 22:28 IMPRESSION: 1. Motion artifact, resulting in a less than optimal study. 2. Moderate to marked right pleural effusion with a right middle lobe alveolar pneumonia and the suggestion of a right lower lobe pneumonia. 3. No cardiomegaly. 4. No cholecystitis or pancreatitis. 5. Normal kidneys without obstructive uropathy or pyelonephritis. 6. Gastric tube in the gastric body. 7. No appendicitis, diverticulitis, colitis, or intestinal obstruction. 8. Normal anteverted uterus and normal ovaries. 9. No evidence of abdominal abscesses, free fluid or free air. Electronically Signed: Ian Irene MD at 0:31 EDT , Chest X-Ray 03/04/22 23:35 IMPRESSION: 1. Findings suggestive of a right lower lobe interstitial/alveolar pneumonia with a mild to moderate right pleural effusion. 2. No other active cardiopulmonary disease. 3. No cardiomegaly. 4. Normal-appearing left lung. 5. No subdiaphragmatic abnormalities. 6. Mild thoracic dextroscoliosis. Electronically Signed: Ian Irene MD at 0:21 EDT , Charges/Coding Visit Charges Inpatient E&M: 77884 Init Hosp L3
[2022-03-05] MEDS: Budesonide Respules 0.5 MG/2 ML AMPUL.NEB. INHALATION (07:00)
[2022-03-05] MEDS: Folic Acid 1 MG Tablet PO (07:01)
[2022-03-05] MEDS: RUFINAMIDE 200 MG 600 MG PO ×2 (07:01→20:39)
[2022-03-05] MEDS: cloBAZam 10 MG TABLET 15 MG PO (07:02)
[2022-03-05] MEDS: levETIRAcetam 1,000 MG Tablet 2000 MG PO ×2 (07:02→20:38)
--- NOTE | 2022-03-05 07:03 | NURSING ---
Some of pt's 1000 meds given early per request of guardian/sister Trini since that's when she takes them at home.
[2022-03-05 07:22] LABS: M R Staph aureus DNA By PCR Negative (Negative); Probe Check PASS; Specimen Processing Control PASS
[2022-03-05 09:52] LABS: Valproic Acid (Depakene) Level 74 ug/mL (50-100)
--- NOTE | 2022-03-05 10:34 | PN.HOSP_ITS ---
Subjective Subjective Patient seen and examined. She is nonverbal. Her sister was by her bedside. No active events overnight. BP was in the 90s systolic at time of review. She was on 2L of oxygen. Review of systems is otherwise negative. Her sister enquired about her valproic acid which is held because her valproic acid level was elevat ed. Sister says she believes patient's valproic acid level was kept elevated in order to prevent seizures. She provided patient's neurology APPLE PICKER's contact number to clarify. Objective Data Objective Data Vital Signs: Vital Signs Temp Pulse Resp BP Pulse Ox O2 Del Method O2 Flow Rate 97.7 F L 72 16 98/57 L 94 Nasal Cannula 1 03/05/22 06:00 03/05/22 07:00 03/05/22 07:00 03/05/22 07:00 03/05/22 07:00 03/05/22 07:00 03/05/22 07:00 Oxygen Flow Rate (L/min) 1 Oxygen Delivery Method Nasal Cannula Weight: 165 lb 9.074 oz Body Mass Index (BMI) 29.9 Intake & Output: Intake and Output for Last 24 Hours 03/03/22 03/04/22 03/05/22 23:59 23:59 23:59 Intake Total 3507.50 / 3507.50 Balance 3507.50 / 3507.50 Lab / Micro Data Result Diagrams: 03/05/22 04:58 03/05/22 04:38 Labs: Laboratory Results - last 24 hr 03/04/22 22:51: Phosphorus 3.5, Magnesium 2.1, Iron 36 L, TIBC 306, Iron Saturation 11.8 L, Ferritin 125 03/04/22 22:55: WBC 8.3, RBC 3.56 L, Hgb 11.7 L, Hct 34.5 L, MCV 96.9, MCH 32.9 H, MCHC 33.9, RDW Std Deviation 46.0 H, RDW Coeff of Sylvia 13.1, Plt Count 163, MPV 8.8, Immature Gran % (Auto) 0.500, Neut % (Auto) 63.3, Lymph % (Auto) 17.1 L , Nance % (Auto) 13.7 H, Eos % (Auto) 5.0, Baso % (Auto) 0.4, Absolute Neuts (auto) 5.2, Absolute Lymphs (auto) 1.41, Nucleated RBC % 0 03/04/22 22:55: Sodium 139, Potassium 4.0, Chloride 98, Carbon Dioxide 33.0 H, Anion Gap 8, BUN 15, Creatinine 0.67, Estim Creat Clear Calc 95.34, Est GFR (MDRD) Af Amer 130, Est GFR (MDRD) Non-Af 107, BUN/Creatinine Ratio 22.3 H, Glucose 91, Calcium 8.8, Total Bilirubin 0.20, Direct Bilirubin 0.11, AST 13 L, ALT 12 L, Alkaline Phosphatase 50, Total Protein 7.1, Albumin 2.3 L, Globulin 4.8 H, Lipase 79 03/04/22 22:55: Valproic Acid 137 H 03/04/22 22:55: Lactic Acid 2.2 H* 03/04/22 22:55: Vitamin B12 1198 H 03/04/22 23:09: Urine Color Yellow, Urine Clarity Clear, Urine pH 8.0, Ur Specific [place] 1.010, Urine Protein 15 H, Urine Glucose (UA) Normal, Urine Ketones Negative, Urine Occult Blood Negative, Urine Nitrite Negative, Urine Bilirubin Negative, Urine Urobilinogen Normal, Ur Leukocyte Esterase Negative, Urine RBC 0 SEEN, Urine WBC 0 SEEN, Ur Squamous Epith Cells 0-5 SEEN, Urine Bacteria RARE, Urine Mucus 0 SEEN 03/05/22 04:38: Sodium 142, Potassium 3.6, Chloride 112 H, Carbon Dioxide 23.0, Anion Gap 7, BUN 10, Creatinine 0.48 L, Estim Creat Clear Calc 133.08, Est GFR (MDRD) Af Amer 193, Est GFR (MDRD) Non-Af 160, BUN/Creatinine Ratio 21.0 H, Glucose 83, Calcium 7.3 L, Total Bilirubin 0.20, AST 13 L, ALT 10 L, Alkaline Phosphatase 40 L, Total Protein 5.5 L, Albumin 1.7 L, Globulin 3.8, Albumin/Globulin Ratio 0.4 L, Folate 19.80 03/05/22 04:58: WBC 6.6, RBC 3.04 L, Hgb 10.1 L, Hct 30.0 L, MCV 98.7, MCH 33.2 H, MCHC 33.7, RDW Std Deviation 47.2 H, RDW Coeff of Sylvia 13.3, Plt Count 139 L, MPV 8.6, Immature Gran % (Auto) 0.600, Neut % (Auto) 60.3, Lymph % (Auto) 19.0, [place] % (Auto) 12.6 H, Eos % (Auto) 7.0 H, Baso % (Auto) 0.5, Absolute Neuts (auto) 4.0, Absolute Lymphs (auto) 1.25, Nucleated RBC % 0 03/05/22 04:58: Lactic Acid 1.2 03/05/22 05:35: MRSA (PCR) Negative 03/05/22 09:00: Valproic Acid 74 Micro: Microbiology 03/05/22 05:10 Mucosa - Nasopharyngeal Respiratory Panel (PCR) - Final 03/04/22 22:09 Urine Catheter - Catheter Legionella Antigen - Final 03/04/22 22:09 Urine Catheter - Catheter Streptococcus pneumoniae Antigen (M - Final Radiography Diagnostic Testing: Radiology Impression Brain CT 03/04/22 22:27 IMPRESSION: 1. Normal unenhanced CT of the brain. 2. No intracranial mass lesions. 3. No infarcts, hemorrhages or hematomas. 4. Normal calvarium and paranasal sinuses. Electronically Signed: Ian Irene MD at 0:24 EDT , Abdomen/Pelvis CT 03/04/22 22:28 IMPRESSION: 1. Motion artifact, resulting in a less than optimal study. 2. Moderate to marked right pleural effusion with a right middle lobe alveolar pneumonia and the suggestion of a right lower lobe pneumonia. 3. No cardiomegaly. 4. No cholecystitis or pancreatitis. 5. Normal kidneys without obstructive uropathy or pyelonephritis. 6. Gastric tube in the gastric body. 7. No appendicitis, diverticulitis, colitis, or intestinal obstruction. 8. Normal anteverted uterus and normal ovaries. 9. No evidence of abdominal abscesses, free fluid or free air. Electronically Signed: Ian Irene MD at 0:31 EDT , Chest X-Ray 03/04/22 23:35 IMPRESSION: 1. Findings suggestive of a right lower lobe interstitial/alveolar pneumonia with a mild to moderate right pleural effusion. 2. No other active cardiopulmonary disease. 3. No cardiomegaly. 4. Normal-appearing left lung. 5. No subdiaphragmatic abnormalities. 6. Mild thoracic dextroscoliosis. Electronically Signed: Ian Irene MD at 0:21 EDT , Physical Exam Const Constitutional Narrative: alert, non verbal HEENT head/scalp atraumatic and moist oral mucous membranes Head and Scalp: normocephalic Mouth: oral and palatal mucosa normal Eyes PERRL, EOMs intact bilaterally and conjunctivae normal Neck no lymphadenopathy and supple Resp normal respiratory effort, no retractions, no use of accessory muscles and clear to auscultation bilaterally Cardio regular rate, regular rhythm, S1 normal heart sound, S2 normal heart sound and no murmurs GI normal to inspection, nondistended, normoactive bowel sounds, soft to palpation, non-tender and non-distended Extremity normal to inspection Neuro Neuro Narrative: patient nonverbal Sensorium / Orientation: awake Psych Psych Narrative: patient mute, nonverbal Assessment & Plan Assessment/Plan (1) Aspiration pneumonia of right lower lobe: (2) Pleural effusion: (3) Valproic acid toxicity: PLAN: Plan #Sepsis due to aspiration pneumonia with right pleural effusion * Patient had lactic acidosis and her altered mental status as well. Patient was also hypotensive despite fluid resuscitation. * She remains hypotensive but is doing better. * On empiric antimicrobials namely vancomycin and Zosyn * Blood cultures and urine cultures pending. * Vasopressors as needed to maintain MAP more than 65 * critical care on board. 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 * Valproic acid level was elevated at 137 when she came in. Repeat valproic acid level is 74 so we will resume valproic acid. * I did try calling the nurse practitioner at the epilepsy center currently who takes care of patient at [phone] clarify recommended valproic acid level for patient as her sister insists that her level is usually kept higher than the upper limit of normal to prevent seizures. There was no answer and voicemail left. * Also on Keppra. * I spoke to neurologist at (Dr Rivera) who reviewed her chart and said her previous valproic acid levels were in the 80s and 90s, and said the recommended valproic acid level should be <100. * Patient also on clobazam 15mg in the morning, 20mg in the evening, as well as Rufinamide 600mg bid. * #History of dysphagia: on tube feed via PEG tube DVT prophylaxis: SCDs. GI prophylaxis: PPI Charges/Coding Visit Charges Inpatient E&M: 02299 Subs Hosp L3
--- NOTE | 2022-03-05 11:15 | CASEMGMT ---
DAKSHA ISAACS assessment: Face to Face with patient's sister, who is her guardian, for initial transition planning/care coordination assessment. DAKSHA ISAACS introduced self and role at [facility], pt voices understanding and consents to assessment. Pt is lying in bed in no distress on 1-2L.? Pt with autism and non-verbal. Pt's guardians are her mother and sister. Pt's parents and [employer]eric[employer] aide provide total care for pt at home. Care providers, pharmacy,?and demographics verified. ? Presentation: Per sister, pt has been 'off' last several days, tube feeding with foul odor, PCP did some labs Admitting dx: Sepsis, aspiration pna, valproic toxicity PCP: Derek Specialists: Miguel, neuro; Alana Villanueva, clinical transformer maker Preferred Pharmacy: [facility] Insurance: [facility] Prescription Benefit:?Yes Living Will/HPOA: Pt's mother and sister are legal guardians. LNOK: Dirk/Trini Pedrodonnell, parents; Trini Snow Black, sister Living Arrangements: Pt lives with parents in 1 story home and sister states no concerns at home. Pt gets assist with all ADL's from family and [employer] aide. Transportation: Parents transport pt with HCP accessible vehicle and state no concerns. DME/HHC: Pt has the following DME: hospital bed, w/c, ramp, shower chair, derrick lift, and tube feeds/supplies thru . Sister states no need for any further DME. Pt has had HHC in the past and has had OP water therapy but has not been to SNF. Pt has an aide thru [employer]- [phone] to assist parents with ADL's. Sister states no preference for DME company, if pt qualifies for home oxygen at discharge. Green sheet on chart, if pt qualifies for home oxygen. Sister states no concerns with pt going home at time of discharge. Pt is disabled. Pt does not smoke cigarettes or drink ETOH. Sister voices no further concerns/needs. CM to follow for home oxygen need and any further discharge planning/needs. Advised sister to ask for CM if any further questions/concerns/needs arise, voices understanding. ? Plan: Home w/ family support [place] DAKSHA ISAACS
--- NOTE | 2022-03-05 11:20 | RAD_ITS ---
INDICATION: PICC line placement EXAMINATION/TECHNIQUE: X-RAY - XR Chest 1 View COMPARISON: 03/04/2022.. FINDINGS: LINES/DEVICES: Right upper extremity PICC visualized with catheter tip in the SVC. EKG leads are seen superimposed over the chest. LUNGS: Opacification of the right hemithorax is visualized suggestive of a large right pleural effusion, mild haziness overlying the left hemithorax. Prominence of the bronchovascular interstitial lung markings is seen. No evidence of pneumothorax is seen. MEDIASTINUM AND CARDIOVASCULAR STRUCTURES: Cardiac silhouette not enlarged. BONES AND SOFT TISSUES: Unremarkable. RAD/CXR for Line Placement IMPRESSION: Right upper extremity PICC visualizes catheter tip in the SVC. Increased opacification of the right hemithorax is visualized would recommend clinical correlation for large right pleural effusion. Electronically Signed: Juan Daniel Goetz MD at 12:16 EDT ,
[2022-03-05] MEDS: Menthol/Lanolin/Calamine/Znox 113 GM Tube 1 APPLIC TOPICAL ×4 (11:25→20:39)
[2022-03-05] MEDS: Enoxaparin 40 MG/0.4 ML Syringe SC (11:25)
--- NOTE | 2022-03-05 11:28 | SEPSISATNOTE ---
Sepsis Attestation Date exam was performed: 03/05/22 Time exam was performed: 06:30 Possible Source of Sepsis: Pulmonary Fluid Resuscitation Fluid resuscitation indicated?: Yes Sepsis Note Date exam was performed: 03/05/22 Time exam was performed: 06:30 Sepsis Attestation: Sepsis re-evaluation was performed Response to fluids: Non Fluid responsive hypotension and Vasopressors started
[2022-03-05] MEDS: Valproic Acid 250 MG/5 ML UDC 1500 MG PO (20:37)
[2022-03-05] MEDS: MELATONIN 10 MG TABLET 5 MG PO (20:38)
[2022-03-05] MEDS: cloBAZam 20 MG TABLET PO (20:38)
[2022-03-05] MEDS: TITRATION PARAMETER CHANGE 1 EACH IV (21:42)
--- NOTE | 2022-03-05 23:57 | NURSING ---
Pt's RUE circumference measured for 36cm, just above PICC line. Guide ty for tape left on pt's skin and explained to sister at bedside the reason for leaving ty was to guide the next measurements for continuity.
[2022-03-06] VITALS (56 sets, daily range): BP systolic 75–157; BP diastolic 41–116; PULSE 55–93; RESP 15–35; TEMP 35.9–37.1; O2SAT 91–100
[2022-03-06 03:43] LABS: Absolute Lymphocyte Count 1.64 X10^3/uL (0.83-4.51); Absolute Neutrophil Count 3.5 X10^3/uL (2.0-7.7); Basophil# 0.05 X10^3/uL; Basophil% 0.8 % (0-1); Eosinophil# 0.51 X10^3/uL; Eosinophils% 7.8 % (0-5); Hematocrit 30.2 % (37-47); Hemoglobin 9.9 g/dL (12.0-15.0); Lymphocyte # 1.64 X10^3/ul (0.83-4.51); Mean Corp Hgb Conc 32.8 g/dL (32-36); Mean Corpuscular Hgb 32.5 pg (27.0-32.0); Mean Platelet Vol. 8.3 fl (6.2-12.0); Monocyte# 0.82 X10^3/uL; Monocyte% 12.5 % (0-10); NRBC Flagged by Analyzer 0 % (0-5); Neutrophil % 53.4 % (47-70); Platelet Count 135 K/mm3 (150-450); RBC Distribution Width CV 13.5 % (11.6-14.6); RBC Distribution Width SD 47.8 fl (35.1-43.9); Red Blood Count 3.05 M/mm3 (4.2-5.4); White Blood Count 6.6 K/mm3 (4.4-11.0)
[2022-03-06 03:57] LABS: Anion Gap 5 (5-15); BUN 8 mg/dL (7-18); BUN/Creat Ratio 17.7 RATIO (10-20); Calcium,Total 7.7 mg/dL (8.5-10.1); Chloride 111 mmol/L (98-107); Creatinine, Serum 0.45 mg/dL (0.55-1.02); EST Glomerular Filtration Rate 170 mL/min (>60); Est Glom Filt Rate - Afr Amer 206 mL/min (>60); Estimated Creatinine Clearance 141.95 ml/min; Glucose 88 mg/dL (74-106); Potassium 3.8 mmol/L (3.5-5.1); Sodium Level 143 mmol/L (136-145)
[2022-03-06] MEDS: 0.9% Normal Saline 1,000 ML 125 ML IV (04:44)
[2022-03-06] MEDS: 0.9% Saline Lock 10 ML Syringe IV ×2 (04:54→21:57)
--- NOTE | 2022-03-06 05:39 | PN.CC_ITS ---
Assessment & Plan Assessment/Plan (1) Aspiration pneumonia of right lower lobe: PLAN: Plan RECOMMENDATIONS: 1. Continue empiric antimicrobials. 2. Supplemental oxygen for saturations greater than 90%. 3. Continue Levophed to maintain mean arterial pressure at or above 65 mmHg. Start scheduled midodrine today. 4. Discontinue IV fluids. 5. Continue home antiepileptic therapy. 6. Nutritional support with tube feeding via G-tube. IMPRESSIONS: 1. Septic shock The patient presented with sepsis due to probable aspiration pneumonia with acute sepsis related organ dysfunction as evidenced by lactic acidemia and altered mentation. The patient ultimately developed fluid refractory hypotension, which required the initiation of vasopressors to maintain hemodynamic stability. We will plan to continue to monitor clinically. Plan to continue Levophed to maintain a mean arterial pressure at or above 65 mmHg. The patient has been more than adequately volume resuscitated. Therefore, continuous IV fluids will be discontinued. Continue empiric antimicrobials as ordered. Start scheduled midodrine to facilitate weaning from vasopressor support. 2. History of epilepsy associated with a chromosomal anomaly/cerebral palsy The patient has a history of difficult to control seizures and is followed by neurology through [facility]. The patient is maintained on a number of antiepileptics in her home environment. Although the patient's VPA level was initially elevated, a recheck demonstrated that it was within normal limits. Therefore, continue baseline outpatient antiepileptic medications. 3. High risk for aspiration Speech therapy is following. Plan to continue nutritional support via G-tube. TIME: 31 minutes of critical care time, independent of procedures, was spent addressing the patient's septic shock, review of all data and collaboration with the care team. Subjective Subjective The patient was seen and examined at the bedside this morning. Events from the last 24 hours have been reviewed. The patient is currently afebrile. She did ultimately have to be placed on low-dose vasopressor support yesterday to maintain hemodynamic stability. This morning, she continues to require low-dose Levophed, but is maintaining appropriate oxygen saturations on 4 L/min via nasal cannula. She is currently documented to be overall net +7.7 L for the hospitalization. She has been tolerant of tube feeding. No overnight issues were identified by the nursing staff. Objective Data Objective Data The patient's most recent lab work, culture data and imaging studies have all been personally reviewed. Blood and urine cultures are pending. Vital Signs: Vital Signs Temp Pulse Resp BP Pulse Ox O2 Del Method O2 Flow Rate 97 F L 70 23 H 97/56 L 99 Nasal Cannula 4 03/06/22 00:00 03/06/22 03:40 03/06/22 03:00 03/06/22 03:00 03/06/22 03:00 03/06/22 03:48 03/06/22 03:00 Oxygen Flow Rate (L/min) 4 Oxygen Delivery Method Nasal Cannula Weight: 169 lb 12.095 oz Body Mass Index (BMI) 29.9 Intake & Output: Intake and Output for Last 24 Hours 03/04/22 03/05/22 03/06/22 23:59 23:59 23:59 Intake Total 7720.08 / 7720.08 1079.42 / 1079.42 Output Total 425 / 425 650 / 650 Balance 7295.08 / 7295.08 429.42 / 429.42 Lab / Micro Data Attestation: I reviewed the patient's lab results. Result Diagrams: 03/06/22 03:35 03/06/22 03:35 Labs: Laboratory Results - last 24 hr 03/05/22 05:35: MRSA (PCR) Negative 03/05/22 09:00: Valproic Acid 74 03/06/22 03:35: WBC 6.6, RBC 3.05 L, Hgb 9.9 L, Hct 30.2 L, MCV 99.0, MCH 32.5 H , MCHC 32.8, RDW Std Deviation 47.8 H, RDW Coeff of Sylvia 13.5, Plt Count 135 L, MPV 8.3, Immature Gran % (Auto) 0.500, Neut % (Auto) 53.4, Lymph % (Auto) 25.0, [place] % (Auto) 12.5 H, Eos % (Auto) 7.8 H, Baso % (Auto) 0.8, Absolute Neuts (auto) 3.5, Absolute Lymphs (auto) 1.64, Nucleated RBC % 0 03/06/22 03:35: Sodium 143, Potassium 3.8, Chloride 111 H, Carbon Dioxide 27.0, Anion Gap 5, BUN 8, Creatinine 0.45 L, Estim Creat Clear Calc 141.95, Est GFR (MDRD) Af Amer 206, Est GFR (MDRD) Non-Af 170, BUN/Creatinine Ratio 17.7, Glucose 88, Calcium 7.7 L Micro: Microbiology 03/05/22 14:10 Stool Enteric Bacteriology - Final 03/05/22 14:10 Stool Stool Occult Blood (VANESSA) - Final 03/05/22 14:10 Stool C. difficile DNA Amplification - Final 03/05/22 05:10 Mucosa - Nasopharyngeal Respiratory Panel (PCR) - Final 03/04/22 22:09 Urine Catheter - Catheter Legionella Antigen - Final 03/04/22 22:09 Urine Catheter - Catheter Streptococcus pneumoniae Antigen (M - Final Radiography Diagnostic Testing: Radiology Impression Chest X-Ray 03/05/22 11:20 IMPRESSION: Right upper extremity PICC visualizes catheter tip in the SVC. Increased opacification of the right hemithorax is visualized would recommend clinical correlation for large right pleural effusion. Electronically Signed: Juan Daniel Goetz MD at 12:16 EDT Reading Location ID and State: [facility] / [place] Tel , Service support , Physical Exam Const no apparent distress Constitutional Narrative: Nonverbal at baseline. Sister is present at the bedside. General Appearance: lethargic and ill appearing HEENT normocephalic and head/scalp atraumatic Eyes PERRL and EOMs intact bilaterally Neck supple General: trachea midline Chest inspection of chest normal Resp Resp Narrative: Exceedingly poor patient dependent inspiratory effort with diminished air movement bilaterally. Cardio regular rate and regular rhythm GI normal to inspection, nondistended, normoactive bowel sounds Inspection: GI tube present Extremity General Extremity: edema; Negative for clubbing Skin no rashes or lesions noted Neuro moves all extremities Psych Mood & Affect: flat affect Charges/Coding Procedures Hospitalists Procedures: 41187 Critial Care 1st Hr
[2022-03-06] MEDS: Folic Acid 1 MG Tablet PO (08:06)
[2022-03-06] MEDS: RUFINAMIDE 200 MG 600 MG PO ×2 (08:10→21:56)
[2022-03-06] MEDS: levETIRAcetam 1,000 MG Tablet 2000 MG PO ×2 (08:13→21:53)
[2022-03-06] MEDS: Enoxaparin 40 MG/0.4 ML Syringe SC (08:14)
[2022-03-06] MEDS: cloBAZam 10 MG TABLET 15 MG PO (08:15)
[2022-03-06] MEDS: Menthol/Lanolin/Calamine/Znox 113 GM Tube 1 APPLIC TOPICAL ×4 (08:16→21:56)
[2022-03-06] MEDS: Midodrine HCl 5 MG Tablet 10 MG PO ×3 (08:22→16:11)
[2022-03-06] MEDS: Valproic Acid 250 MG/5 ML UDC 1250 MG PO (08:32)
--- NOTE | 2022-03-06 10:00 | PN.HOSP_ITS ---
Subjective Subjective Patient seen and examined. Her sister was by her bedside. Patient is nonverbal. She was started on levophed overnight for hypotension. She remains on levophed. Objective Data Objective Data Vital Signs: Vital Signs Temp Pulse Resp BP Pulse Ox O2 Del Method O2 Flow Rate 96.6 F L 60 19 H 137/79 H 100 Nasal Cannula 3 03/06/22 09:00 03/06/22 09:30 03/06/22 09:30 03/06/22 09:30 03/06/22 09:30 03/06/22 09:30 03/06/22 09:30 Oxygen Flow Rate (L/min) 3 Oxygen Delivery Method Nasal Cannula Weight: 169 lb 12.095 oz Body Mass Index (BMI) 29.9 Intake & Output: Intake and Output for Last 24 Hours 03/04/22 03/05/22 03/06/22 23:59 23:59 23:59 Intake Total 7720.08 / 7720.08 2071.41 / 2071.41 Output Total 425 / 425 850 / 850 Balance 7295.08 / 7295.08 1221.41 / 1221.41 Lab / Micro Data Result Diagrams: 03/06/22 03:35 03/06/22 03:35 Labs: Laboratory Results - last 24 hr 03/06/22 03:35: WBC 6.6, RBC 3.05 L, Hgb 9.9 L, Hct 30.2 L, MCV 99.0, MCH 32.5 H , MCHC 32.8, RDW Std Deviation 47.8 H, RDW Coeff of Sylvia 13.5, Plt Count 135 L, MPV 8.3, Immature Gran % (Auto) 0.500, Neut % (Auto) 53.4, Lymph % (Auto) 25.0, [place] % (Auto) 12.5 H, Eos % (Auto) 7.8 H, Baso % (Auto) 0.8, Absolute Neuts (auto) 3.5, Absolute Lymphs (auto) 1.64, Nucleated RBC % 0 03/06/22 03:35: Sodium 143, Potassium 3.8, Chloride 111 H, Carbon Dioxide 27.0, Anion Gap 5, BUN 8, Creatinine 0.45 L, Estim Creat Clear Calc 141.95, Est GFR (MDRD) Af Amer 206, Est GFR (MDRD) Non-Af 170, BUN/Creatinine Ratio 17.7, Glucose 88, Calcium 7.7 L Micro: Microbiology 03/05/22 14:10 Stool Enteric Bacteriology - Final 03/05/22 14:10 Stool Stool Occult Blood (VANESSA) - Final 03/05/22 14:10 Stool C. difficile DNA Amplification - Final 03/05/22 05:10 Mucosa - Nasopharyngeal Respiratory Panel (PCR) - Final 03/04/22 22:09 Urine Catheter - Catheter Legionella Antigen - Final 03/04/22 22:09 Urine Catheter - Catheter Streptococcus pneumoniae Antigen (M - Final Radiography Diagnostic Testing: Radiology Impression Chest X-Ray 03/05/22 11:20 IMPRESSION: Right upper extremity PICC visualizes catheter tip in the SVC. Increased opacification of the right hemithorax is visualized would recommend clinical correlation for large right pleural effusion. Electronically Signed: Juan Daniel Goetz MD at 12:16 EDT Reading Location ID and State: [email or web address] / [place] Tel , Service support , Physical Exam Const Constitutional Narrative: alert, non verbal HEENT head/scalp atraumatic and moist oral mucous membranes Eyes PERRL, EOMs intact bilaterally and conjunctivae normal Neck no lymphadenopathy and supple Resp normal respiratory effort, no retractions, no use of accessory muscles and clear to auscultation bilaterally Cardio regular rate, regular rhythm, S1 normal heart sound, S2 normal heart sound and no murmurs GI normal to inspection, nondistended, normoactive bowel sounds, soft to palpation, non-tender and non-distended Extremity normal to inspection Neuro Neuro Narrative: patient nonverbal Sensorium / Orientation: awake Psych Psych Narrative: patient mute, nonverbal Assessment & Plan Assessment/Plan (1) Aspiration pneumonia of right lower lobe: (2) Pleural effusion: (3) Valproic acid toxicity: PLAN: Plan #Septic shock due to aspiration pneumonia with right pleural effusion * now requiring vasopressors. On levophed. Titrate to maintain sats .90% * on IV unasyn * blood and urine cultures pending. * critical care on board * aspiration precautions * to be started on midodrine today. 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 * on sodium valproate * Patient also on clobazam 15mg in the morning, 20mg in the evening, as well as Rufinamide 600mg bid. * #History of dysphagia: on tube feed via PEG tube. DVT prophylaxis: SCDs. GI prophylaxis: PPI Charges/Coding Visit Charges Inpatient E&M: 03715 Subs Hosp L3
[2022-03-06] MEDS: Albuterol 2.5 MG/3 ML VIAL.NEB. INHALATION ×2 (15:21→19:25)
[2022-03-06] MEDS: Valproic Acid 250 MG/5 ML UDC 1500 MG PO (21:54)
[2022-03-06] MEDS: cloBAZam 20 MG TABLET PO (22:00)
[2022-03-07] VITALS (33 sets, daily range): BP systolic 84–125; BP diastolic 48–95; PULSE 57–124; RESP 15–35; TEMP 35.7–36.7; O2SAT 89–100
[2022-03-07 04:47] LABS: Absolute Lymphocyte Count 1.13 X10^3/uL (0.83-4.51); Absolute Neutrophil Count 3.3 X10^3/uL (2.0-7.7); Basophil# 0.04 X10^3/uL; Basophil% 0.7 % (0-1); Eosinophil# 0.53 X10^3/uL; Eosinophils% 9.5 % (0-5); Hematocrit 29.6 % (37-47); Hemoglobin 9.6 g/dL (12.0-15.0); Lymphocyte # 1.13 X10^3/ul (0.83-4.51); Lymphocyte % 20.2 % (19-41); Mean Corp Hgb Conc 32.4 g/dL (32-36); Mean Corpuscular Hgb 32.1 pg (27.0-32.0); Mean Platelet Vol. 8.6 fl (6.2-12.0); Monocyte% 10.7 % (0-10); NRBC Flagged by Analyzer 0 % (0-5); Neutrophil # 3.27 X10^3/uL (2.7-7.7); Neutrophil % 58.5 % (47-70); Platelet Count 122 K/mm3 (150-450); RBC Distribution Width CV 13.9 % (11.6-14.6); RBC Distribution Width SD 49.5 fl (35.1-43.9); Red Blood Count 2.99 M/mm3 (4.2-5.4); White Blood Count 5.6 K/mm3 (4.4-11.0)
[2022-03-07 05:05] LABS: Anion Gap 7 (5-15); BUN 9 mg/dL (7-18); Calcium,Total 7.9 mg/dL (8.5-10.1); Chloride 108 mmol/L (98-107); Creatinine, Serum 0.53 mg/dL (0.55-1.02); EST Glomerular Filtration Rate 142 mL/min (>60); Est Glom Filt Rate - Afr Amer 172 mL/min (>60); Estimated Creatinine Clearance 120.52 ml/min; Glucose 89 mg/dL (74-106); Potassium 3.5 mmol/L (3.5-5.1); Sodium Level 142 mmol/L (136-145)
--- NOTE | 2022-03-07 05:38 | PN.CC_ITS ---
Assessment & Plan Assessment/Plan (1) Aspiration pneumonia of right lower lobe: PLAN: Plan RECOMMENDATIONS: 1. Continue antimicrobials to complete 7 days of therapy. 2. Supplemental oxygen for saturations greater than 90%. 3. Continue scheduled midodrine. 4. Continue home antiepileptic therapy. 5. Nutritional support with tube feeding via G-tube. IMPRESSIONS: 1. Septic shock Improved. The patient presented with sepsis due to probable aspiration pneumonia with acute sepsis related organ dysfunction as evidenced by lactic acidemia and altered mentation. The patient ultimately developed fluid refractory hypotension, which required the initiation of vasopressors to maintain hemodynamic stability. She has since been weaned from Levophed, but is being maintained on midodrine to maintain hemodynamic stability. I would recommend that antimicrobials be continued to complete 7 days of therapy. 2. 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 The patient is maintained on a number of antiepileptics in her home environment. Although the patient's VPA level was initially elevated, a recheck demonstrated that it was within normal limits. Therefore, continue baseline outpatient antiepileptic medications. 3. High risk for aspiration Speech therapy is following. Plan to continue nutritional support via G-tube. This note was generated with [employer] dictation software. It may contain incorrect words, spelling, and punctuation that were not noted in checking the note before signing. Subjective Subjective The patient was seen and examined at the bedside this morning. Events from the last 24 hours have been reviewed. The patient is currently afebrile, hemodynamically stable and maintaining appropriate oxygen saturations on 2 L/min via nasal cannula. The patient was able to be successfully weaned off of Levophed yesterday afternoon. She is currently documented to be overall net +9 L for the hospitalization. Objective Data Objective Data The patient's most recent lab work, culture data and imaging studies have all been personally reviewed. Blood and urine cultures are pending. Vital Signs: Vital Signs Temp Pulse Resp BP Pulse Ox O2 Del Method O2 Flow Rate 96.6 F L 77 17 114/83 H 96 Nasal Cannula 2 03/07/22 04:00 03/07/22 05:00 03/07/22 05:00 03/07/22 05:00 03/07/22 05:00 03/07/22 05:00 03/07/22 05:00 Oxygen Flow Rate (L/min) 2 Oxygen Delivery Method Nasal Cannula Weight: 169 lb 12.095 oz Body Mass Index (BMI) 29.9 Intake & Output: Intake and Output for Last 24 Hours 03/05/22 03/06/22 03/07/22 23:59 23:59 23:59 Intake Total 7720.08 / 7720.08 4568.21 / 4688.21 378 / 378 Output Total 425 / 425 2575 / 3050 475 / 475 Balance 7295.08 / 7295.08 1993.21 / 1638.21 -97 / -97 Lab / Micro Data Attestation: I reviewed the patient's lab results. Result Diagrams: 03/07/22 04:40 03/07/22 04:40 Labs: Laboratory Results - last 24 hr 03/07/22 04:40: WBC 5.6, RBC 2.99 L, Hgb 9.6 L, Hct 29.6 L, MCV 99.0, MCH 32.1 H , MCHC 32.4, RDW Std Deviation 49.5 H, RDW Coeff of Sylvia 13.9, Plt Count 122 L, MPV 8.6, Immature Gran % (Auto) 0.400, Neut % (Auto) 58.5, Lymph % (Auto) 20.2, [place] % (Auto) 10.7 H, Eos % (Auto) 9.5 H, Baso % (Auto) 0.7, Absolute Neuts (auto) 3.3, Absolute Lymphs (auto) 1.13, Nucleated RBC % 0 03/07/22 04:40: Sodium 142, Potassium 3.5, Chloride 108 H, Carbon Dioxide 27.0, Anion Gap 7, BUN 9, Creatinine 0.53 L, Estim Creat Clear Calc 120.52, Est GFR (MDRD) Af Amer 172, Est GFR (MDRD) Non-Af 142, BUN/Creatinine Ratio 17.0, Glucose 89, Calcium 7.9 L Micro: Microbiology 03/05/22 00:00 Urine, Clean Catch Urine Culture - Preliminary Culture exhibits no growth. 03/05/22 14:10 Stool Enteric Bacteriology - Final 03/05/22 14:10 Stool Stool Occult Blood (VANESSA) - Final 03/05/22 14:10 Stool C. difficile DNA Amplification - Final 03/05/22 05:10 Mucosa - Nasopharyngeal Respiratory Panel (PCR) - Final 03/04/22 22:09 Urine Catheter - Catheter Legionella Antigen - Final 03/04/22 22:09 Urine Catheter - Catheter Streptococcus pneumoniae Antigen (M - Final Radiography Diagnostic Testing: Radiology Impression Chest X-Ray 03/05/22 11:20 IMPRESSION: Right upper extremity PICC visualizes catheter tip in the SVC. Increased opacification of the right hemithorax is visualized would recommend clinical correlation for large right pleural effusion. Electronically Signed: Juan Daniel Goetz MD at 12:16 EDT , Physical Exam Const no apparent distress Constitutional Narrative: Nonverbal at baseline. Sister is present at the bedside. General Appearance: lethargic HEENT normocephalic and head/scalp atraumatic Eyes PERRL and EOMs intact bilaterally Neck supple General: trachea midline Chest inspection of chest normal Resp Resp Narrative: Exceedingly poor patient dependent inspiratory effort with diminished air movement bilaterally. Cardio regular rate and regular rhythm GI normal to inspection, nondistended, normoactive bowel sounds Inspection: GI tube present Extremity General Extremity: edema; Negative for clubbing Skin no rashes or lesions noted Neuro moves all extremities Psych Mood & Affect: flat affect Charges/Coding Visit Charges Inpatient E&M: 74700 Subs Hosp L3
[2022-03-07] MEDS: Albuterol 2.5 MG/3 ML VIAL.NEB. INHALATION ×3 (06:52→19:23)
[2022-03-07] MEDS: Midodrine HCl 5 MG Tablet 10 MG PO ×3 (09:00→16:43)
[2022-03-07] MEDS: Cholecalciferol (VIT D3) 25 MCG TABLET (1,000 UNITS) 50 MCG PO (09:00)
[2022-03-07] MEDS: Folic Acid 1 MG Tablet PO (09:01)
--- NOTE | 2022-03-07 09:16 | PN.HOSP_ITS ---
Subjective Subjective Patient seen and examined. Sister was by her bedside. Sister mentioned that she had noticed that patient became hypotensive after she received breathing treatments, and HR normalised after about an hour. She said patient had numerous brief seizures overnight also. REveiw of systems otherwise negative. Objective Data Objective Data Vital Signs: Vital Signs Temp Pulse Resp BP Pulse Ox O2 Del Method O2 Flow Rate 97.0 F L 84 19 H 97/53 L 97 Nasal Cannula 2 03/07/22 06:00 03/07/22 07:00 03/07/22 07:00 03/07/22 07:00 03/07/22 07:00 03/07/22 07:00 03/07/22 07:00 Oxygen Flow Rate (L/min) 2 Oxygen Delivery Method Nasal Cannula Weight: 166 lb 10.711 oz Body Mass Index (BMI) 29.9 Intake & Output: Intake and Output for Last 24 Hours 03/05/22 03/06/22 03/07/22 23:59 23:59 23:59 Intake Total 7720.08 / 7720.08 4568.21 / 4688.21 569.25 / 569.25 Output Total 425 / 425 2575 / 3050 925 / 925 Balance 7295.08 / 7295.08 1993.21 / 1638.21 -355.75 / -355.75 Lab / Micro Data Result Diagrams: 03/07/22 04:40 03/07/22 04:40 Labs: Laboratory Results - last 24 hr 03/07/22 04:40: WBC 5.6, RBC 2.99 L, Hgb 9.6 L, Hct 29.6 L, MCV 99.0, MCH 32.1 H , MCHC 32.4, RDW Std Deviation 49.5 H, RDW Coeff of Sylvia 13.9, Plt Count 122 L, MPV 8.6, Immature Gran % (Auto) 0.400, Neut % (Auto) 58.5, Lymph % (Auto) 20.2, [place] % (Auto) 10.7 H, Eos % (Auto) 9.5 H, Baso % (Auto) 0.7, Absolute Neuts (auto) 3.3, Absolute Lymphs (auto) 1.13, Nucleated RBC % 0 03/07/22 04:40: Sodium 142, Potassium 3.5, Chloride 108 H, Carbon Dioxide 27.0, Anion Gap 7, BUN 9, Creatinine 0.53 L, Estim Creat Clear Calc 120.52, Est GFR (MDRD) Af Amer 172, Est GFR (MDRD) Non-Af 142, BUN/Creatinine Ratio 17.0, Glucose 89, Calcium 7.9 L Micro: Microbiology 03/05/22 00:00 Urine, Clean Catch Urine Culture - Preliminary Culture exhibits no growth. 03/05/22 14:10 Stool Enteric Bacteriology - Final 03/05/22 14:10 Stool Stool Occult Blood (VANESSA) - Final 03/05/22 14:10 Stool C. difficile DNA Amplification - Final 03/05/22 05:10 Mucosa - Nasopharyngeal Respiratory Panel (PCR) - Final 03/04/22 22:09 Urine Catheter - Catheter Legionella Antigen - Final 03/04/22 22:09 Urine Catheter - Catheter Streptococcus pneumoniae Antigen (M - Final Physical Exam Const Constitutional Narrative: alert, non verbal HEENT head/scalp atraumatic and moist oral mucous membranes Head and Scalp: normocephalic Mouth: oral and palatal mucosa normal and dry mucous membranes Eyes PERRL, EOMs intact bilaterally and conjunctivae normal Neck no lymphadenopathy and supple Resp normal respiratory effort, no retractions, no use of accessory muscles and clear to auscultation bilaterally Cardio regular rate, regular rhythm, S1 normal heart sound, S2 normal heart sound and no murmurs GI normal to inspection, nondistended, normoactive bowel sounds, soft to palpation, non-tender and non-distended GI Narrative: PEG tube in situ Extremity normal to inspection Neuro Neuro Narrative: patient nonverbal Sensorium / Orientation: awake Psych Psych Narrative: patient mute, nonverbal Assessment & Plan Assessment/Plan (1) Aspiration pneumonia of right lower lobe: (2) Pleural effusion: (3) Valproic acid toxicity: PLAN: Plan #Septic shock due to aspiration pneumonia with right pleural effusion * off vasopressors. 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 * on sodium valproate * Patient also on clobazam 15mg in the morning, 20mg in the evening, as well as Rufinamide 600mg bid. * sister reports brief episodes of seizures overnight, which is not out of the norm for her * seizure precautions * #History of dysphagia: on tube feed via PEG tube. DVT prophylaxis: SCDs. GI prophylaxis: PPI Charges/Coding Visit Charges Inpatient E&M: 02280 Subs Hosp L2
[2022-03-07] MEDS: Valproic Acid 250 MG/5 ML UDC 1250 MG PO (10:36)
[2022-03-07] MEDS: RUFINAMIDE 200 MG 600 MG PO ×2 (10:37→21:09)
[2022-03-07] MEDS: Enoxaparin 40 MG/0.4 ML Syringe SC (10:37)
[2022-03-07] MEDS: cloBAZam 10 MG TABLET 15 MG PO (10:39)
[2022-03-07] MEDS: levETIRAcetam 1,000 MG Tablet 2000 MG PO ×2 (10:41→21:17)
[2022-03-07] MEDS: Menthol/Lanolin/Calamine/Znox 113 GM Tube 1 APPLIC TOPICAL ×4 (10:42→21:09)
--- NOTE | 2022-03-07 13:54 | CPS ---
Patient kept pulling aerosol mask off of face.
[2022-03-07] MEDS: cloBAZam 20 MG TABLET PO (21:11)
[2022-03-07] MEDS: Valproic Acid 250 MG/5 ML UDC 1500 MG PO (21:36)
[2022-03-08] VITALS (28 sets, daily range): BP systolic 81–107; BP diastolic 44–69; PULSE 64–126; RESP 18–36; TEMP 35.8–36.7; O2SAT 80–98
[2022-03-08 07:05] LABS: Absolute Lymphocyte Count 1.08 X10^3/uL (0.83-4.51); Absolute Neutrophil Count 3.6 X10^3/uL (2.0-7.7); Basophil# 0.03 X10^3/uL; Basophil% 0.5 % (0-1); Eosinophil# 0.61 X10^3/uL; Eosinophils% 10.2 % (0-5); Hemoglobin 10.3 g/dL (12.0-15.0); Lymphocyte # 1.08 X10^3/ul (0.83-4.51); Lymphocyte % 18.1 % (19-41); Mean Corp Hgb Conc 32.2 g/dL (32-36); Mean Corpuscular Hgb 32.1 pg (27.0-32.0); Mean Corpuscular Volume 99.7 fL (81-99); Mean Platelet Vol. 8.5 fl (6.2-12.0); Monocyte# 0.59 X10^3/uL; Monocyte% 9.9 % (0-10); NRBC Flagged by Analyzer 0 % (0-5); Neutrophil # 3.62 X10^3/uL (2.7-7.7); Neutrophil % 60.6 % (47-70); Platelet Count 128 K/mm3 (150-450); RBC Distribution Width CV 14.2 % (11.6-14.6); Red Blood Count 3.21 M/mm3 (4.2-5.4)
[2022-03-08 07:11] LABS: Anion Gap 8 (5-15); BUN 11 mg/dL (7-18); Calcium,Total 8.4 mg/dL (8.5-10.1); Chloride 107 mmol/L (98-107); Creatinine, Serum 0.58 mg/dL (0.55-1.02); EST Glomerular Filtration Rate 127 mL/min (>60); Est Glom Filt Rate - Afr Amer 154 mL/min (>60); Estimated Creatinine Clearance 110.13 ml/min; Glucose 84 mg/dL (74-106); Potassium 3.8 mmol/L (3.5-5.1); Sodium Level 143 mmol/L (136-145)
--- NOTE | 2022-03-08 07:22 | PN.CC_ITS ---
Assessment & Plan Assessment/Plan (1) Aspiration pneumonia of right lower lobe: PLAN: Plan RECOMMENDATIONS: 1. Continue antimicrobials to complete 7 days of therapy. 2. Increase activity as tolerated 3. Continue scheduled midodrine. 4. Continue home antiepileptic therapy. 5. Nutritional support with tube feeding via G-tube. 6. Okay to leave the intensive care unit from my perspective IMPRESSIONS: 1. Septic shock Improved. The patient presented with sepsis due to probable aspiration pneumonia with acute sepsis related organ dysfunction as evidenced by lactic acidemia and altered mentation. The patient ultimately developed fluid refractory hypotension, which required the initiation of vasopressors to main tain hemodynamic stability. She has since been weaned from Levophed approximately 36 hours ago, but is being maintained on midodrine to maintain hemodynamic stability. Cultures have been negative, but will continue antimicrobials for total of 7 days of therapy 2. 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 The patient is maintained on a number of antiepileptics in her home environment. Although the patient's VPA level was initially elevated, a recheck demonstrated that it was within normal limits. Therefore, continue baseline outpatient antiepileptic medications. 3. High risk for aspiration Speech therapy is following. Plan to continue nutritional support via G- tube. Addendum 2:02 PM: Patient with marginal blood pressures throughout the day despite midodrine therapy. Patient has received 2 separate 500 cc boluses with improvement in blood pressure. Patient remains relatively asymptomatic. Sister at the bedside states that she has noticed more seizure activity through the day. Patient normally takes Klonopin on bad days and this has been ordered. Subjective Subjective Patient did okay overnight. Patient's mother is at the bedside. Patient's mo ther believes the patient may have had 2 or 3 seizures that were brief. Mother thought 2 of these were as she was approaching sleep. Patient's blood pressure has been slightly soft this morning, but no interventions have been required. Patient has been off of pressors for almost 36 hours at this time. No fevers noted overnight. Objective Data Objective Data Vital Signs: Vital Signs Temp Pulse Resp BP Pulse Ox O2 Del Method O2 Flow Rate 36.7 C 77 18 94/56 L 80 Nasal Cannula 2 03/08/22 04:00 03/08/22 06:00 03/08/22 06:00 03/08/22 06:00 03/08/22 07:05 03/08/22 07:07 03/08/22 07:07 Oxygen Flow Rate (L/min) 2 Oxygen Delivery Method Nasal Cannula Weight: 74.1 kg Body Mass Index (BMI) 29.9 Intake & Output: Intake and Output for Last 24 Hours 03/06/22 03/07/22 03/08/22 23:59 23:59 23:59 Intake Total 4568.21 / 4688.21 2588.75 / 2588.75 224 / 224 Output Total 2575 / 3050 2675 / 2675 550 / 550 Balance 1993.21 / 1638.21 -86.25 / -86.25 -326 / -326 Lab / Micro Data Attestation: I reviewed the patient's lab results. Result Diagrams: 03/08/22 06:45 03/08/22 06:45 Labs: Laboratory Results - last 24 hr 03/08/22 06:45: WBC 6.0, RBC 3.21 L, Hgb 10.3 L, Hct 32.0 L, MCV 99.7 H, MCH 32.1 H, MCHC 32.2, RDW Std Deviation 51.0 H, RDW Coeff of Sylvia 14.2, Plt Count 128 L, MPV 8.5, Immature Gran % (Auto) 0.700, Neut % (Auto) 60.6, Lymph % (Auto) 18.1 L, [place] % (Auto) 9.9, Eos % (Auto) 10.2 H, Baso % (Auto) 0.5, Absolute Neuts (auto) 3.6, Absolute Lymphs (auto) 1.08, Nucleated RBC % 0 03/08/22 06:45: Sodium 143, Potassium 3.8, Chloride 107, Carbon Dioxide 28.0, Anion Gap 8, BUN 11, Creatinine 0.58, Estim Creat Clear Calc 110.13, Est GFR (MDRD) Af Amer 154, Est GFR (MDRD) Non-Af 127, BUN/Creatinine Ratio 19.0, Glucose 84, Calcium 8.4 L Micro: Microbiology 03/04/22 01:00 Blood Culture (Wb) - Left Wrist Blood Culture - Preliminary No growth in 48 hours. 03/04/22 22:55 Blood Culture (Wb) - Anticubital Right Blood Culture - Preliminary No growth in 48 hours. 03/05/22 00:00 Urine, Clean Catch Urine Culture - Final Culture exhibits no growth. 03/05/22 14:10 Stool Enteric Bacteriology - Final 03/05/22 14:10 Stool Stool Occult Blood (VANESSA) - Final 03/05/22 14:10 Stool C. difficile DNA Amplification - Final 03/05/22 05:10 Mucosa - Nasopharyngeal Respiratory Panel (PCR) - Final 03/04/22 22:09 Urine Catheter - Catheter Legionella Antigen - Final 03/04/22 22:09 Urine Catheter - Catheter Streptococcus pneumoniae Antigen (M - Final Physical Exam Const no apparent distress Constitutional Narrative: Nonverbal at baseline. Mother is present at the bedside. Patient appears to be ignoring my request, but does make eye contact HEENT normocephalic and head/scalp atraumatic Eyes PERRL and EOMs intact bilaterally Neck supple General: trachea midline Chest inspection of chest normal Resp Resp Narrative: Exceedingly poor patient dependent inspiratory effort with diminished air movement bilaterally. Cardio regular rate, regular rhythm, no murmurs, no rub and no gallops GI normal to inspection, nondistended, normoactive bowel sounds Inspection: GI tube present Extremity General Extremity: edema; Negative for clubbing Skin no rashes or lesions noted Neuro moves all extremities Psych Mood & Affect: flat affect Charges/Coding Visit Charges Inpatient E&M: 48253 Subs Hosp L3
[2022-03-08] MEDS: Folic Acid 1 MG Tablet PO (07:31)
[2022-03-08] MEDS: Cholecalciferol (VIT D3) 25 MCG TABLET (1,000 UNITS) 50 MCG PO (07:32)
[2022-03-08] MEDS: Midodrine HCl 5 MG Tablet 10 MG PO ×3 (07:32→16:33)
[2022-03-08] MEDS: Albuterol 2.5 MG/3 ML VIAL.NEB. INHALATION ×2 (09:29→19:20)
[2022-03-08] MEDS: cloBAZam 10 MG TABLET 15 MG PO (09:57)
[2022-03-08] MEDS: RUFINAMIDE 200 MG 600 MG PO ×2 (09:57→20:47)
[2022-03-08] MEDS: Valproic Acid 250 MG/5 ML UDC 1250 MG PO (09:59)
[2022-03-08] MEDS: Enoxaparin 40 MG/0.4 ML Syringe SC (10:00)
[2022-03-08] MEDS: levETIRAcetam Oral Solution 500 MG/5 ML 2000 MG GT ×2 (10:04→20:51)
[2022-03-08] MEDS: Menthol/Lanolin/Calamine/Znox 113 GM Tube 1 APPLIC TOPICAL ×4 (10:28→20:48)
[2022-03-08] MEDS: clonazePAM 1 MG Tablet PO ×2 (11:43→23:26)
[2022-03-08] MEDS: LACTATED RINGERS 500 ML 999 ML IV (14:21)
--- NOTE | 2022-03-08 16:29 | CHAPLAIN ---
Type of Pastoral Visit _x__ Initial Visit ___ Follow-up Visit ___ On-call Visit ___ General Patient Visit ___ Spiritual Assessment ___ Family Conference ___ Bereavement ___ Rapid Response ___ Code Blue ___ Other (describe below) Pastoral Care Referral From ___ Patient _x__ Family ___ Nurse ___ Physician ___ Lamination Builder ___ Pattern Generator Operator ___ Other (describe below) Sacrament/Intervention _x__ Active listening ___ Anointing ___ Yarsani ___ Bereavement ___ Communion _x__ Jackie exploration ___ ___ Life review _x__ Prayer ___ Reconciliation ___ Sacrament of Sick _x__ Supportive presence ___ Wedding ___ Other (describe below) Pastoral Comments patient is sleeping; sister of patient is with her and is very talkative and interactive with this postage machine operator; sister has been very involved in patient's entire life and in her care; sister shows sensitivity and knowledge of the patient and is asking questions about spiritual care for sister and others; sister requests prayers for pt and expresses appreciation that hospital offers spiritual care support and prayer; sister welcomes future visits and prayers as possible
--- NOTE | 2022-03-08 16:54 | PCM.PN.HOSP ---
Subjective Subjective Patient was seen and examined today, had a lengthy conversation with patient's mother and caregiver who are at the bedside today. Patient is currently not receiving any IV pressor agents, her blood pressure has been in the 80s systolic today, critical care ordered additional fluids on the patient today. Patient remains afebrile, patient appears comfortable and in no distress. Objective Data Objective Data Vital Signs: Vital Signs Temp Pulse Resp BP Pulse Ox O2 Del Method O2 Flow Rate 96.5 F L 64 25 H 86/52 L 95 Room Air 2 03/08/22 12:00 03/08/22 15:00 03/08/22 15:00 03/08/22 15:00 03/08/22 15:00 03/08/22 15:00 03/08/22 07:07 Oxygen Flow Rate (L/min) 2 Oxygen Delivery Method Room Air Weight: 74.1 kg Body Mass Index (BMI) 29.9 Intake & Output: Intake and Output for Last 24 Hours 03/06/22 03/07/22 03/08/22 23:59 23:59 23:59 Intake Total 4568.21 / 4688.21 2588.75 / 2588.75 2418.5 / 2418.5 Output Total 2575 / 3050 2675 / 2675 950 / 950 Balance 1993.21 / 1638.21 -86.25 / -86.25 1468.5 / 1468.5 Lab / Micro Data Result Diagrams: 03/08/22 06:45 03/08/22 06:45 Labs: Laboratory Results - last 24 hr 03/08/22 06:45: WBC 6.0, RBC 3.21 L, Hgb 10.3 L, Hct 32.0 L, MCV 99.7 H, MCH 32.1 H, MCHC 32.2, RDW Std Deviation 51.0 H, RDW Coeff of Sylvia 14.2, Plt Count 128 L, MPV 8.5, Immature Gran % (Auto) 0.700, Neut % (Auto) 60.6, Lymph % (Auto) 18.1 L, [place] % (Auto) 9.9, Eos % (Auto) 10.2 H, Baso % (Auto) 0.5, Absolute Neuts (auto) 3.6, Absolute Lymphs (auto) 1.08, Nucleated RBC % 0 03/08/22 06:45: Sodium 143, Potassium 3.8, Chloride 107, Carbon Dioxide 28.0, Anion Gap 8, BUN 11, Creatinine 0.58, Estim Creat Clear Calc 110.13, Est GFR (MDRD) Af Amer 154, Est GFR (MDRD) Non-Af 127, BUN/Creatinine Ratio 19.0, Glucose 84, Calcium 8.4 L Micro: Microbiology 03/04/22 01:00 Blood Culture (Wb) - Left Wrist Blood Culture - Preliminary No growth in 48 hours. 03/04/22 22:55 Blood Culture (Wb) - Anticubital Right Blood Culture - Preliminary No growth in 48 hours. 03/05/22 00:00 Urine, Clean Catch Urine Culture - Final Culture exhibits no growth. 03/05/22 14:10 Stool Enteric Bacteriology - Final 03/05/22 14:10 Stool Stool Occult Blood (VANESSA) - Final 03/05/22 14:10 Stool C. difficile DNA Amplification - Final 03/05/22 05:10 Mucosa - Nasopharyngeal Respiratory Panel (PCR) - Final 03/04/22 22:09 Urine Catheter - Catheter Legionella Antigen - Final 03/04/22 22:09 Urine Catheter - Catheter Streptococcus pneumoniae Antigen (M - Final Physical Exam Const no apparent distress Constitutional Narrative: Patient appears comfortable, she is somnolent, patient shows signs of cognitive impairment HEENT normocephalic, head/scalp atraumatic and moist oral mucous membranes Eyes PERRL, EOMs intact bilaterally and conjunctivae normal Neck supple, no JVD, thyroid normal and no carotid bruits General: trachea midline Resp normal respiratory effort, no retractions and no use of accessory muscles Resp Narrative: Decreased breath sounds noted at the right base Auscultation: Negative for rales, rhonchi or wheezes Cardio regular rate, regular rhythm, S1 normal heart sound, S2 normal heart sound, no murmurs, no rub and no gallops GI normal to inspection, nondistended, normoactive bowel sounds, soft to palpation, non-tender and non-distended Extremity no clubbing, cyanosis or edema Skin no rashes or lesions noted General Skin Exam: no breakdown Neuro CN's II-XII intact bilaterally Neuro Narrative: Patient is nonverbal, she shows signs of cognitive impairment, she appears somnolent Psych Psych Narrative: Patient shows signs of cognitive impairment Assessment & Plan Assessment/Plan (1) Aspiration pneumonia of right lower lobe: PLAN: Plan 1. Septic shock-patient is currently on Unasyn, she was given extra fluid today by critical care, I discussed her case with critical care today, critical care requested that an echocardiogram be performed, I have also ordered a repeat chest x-ray for the patient in the morning. Patient is currently on room air at this time #2 right pleural effusion-etiology unclear at this point, again patient's chest x-ray will be repeated tomorrow and she will undergo an echocardiogram. #3 cerebral palsy-complicates care, management, recovery, and prognosis #4 seizure disorder-patient is currently on valproic acid and Keppra #5 autism disorder-complicates care, management, recovery, and prognosis Charges/Coding Visit Charges Inpatient E&M: 44224 Subs Hosp L2
--- NOTE | 2022-03-08 17:11 | ECHOD_ITS ---
Reason For Study: HYPOTENSION Procedure This was a 2D Doppler, Color Flow transthoracic echocardiogram. The exam was of adequate technical quality. Exam performed portable in ED. Left Ventricle Normal LV size. Left ventricular systolic function is normal. The estimated ejection fraction is 70 %. No evidence for diastolic dysfunction. No regional wall motion abnormalities noted. Right Ventricle Normal RV size. The right ventricle is normal in size, function, and thickness. Atria The left and right atria are normal. Normal right atrium. No doppler evidence for ASD. Mitral Valve There is no mitral annular calcification. Normal mitral valve. Trivial eccentric mitral valve insufficiency. Tricuspid Valve Normal tricuspid valve. Trivial tricuspid valve insufficiency. Unable to estimate RV systolic pressure due to insufficient tricuspid regurgitant envelope. Aortic Valve Trisinus/trileaflet aortic valve. Normal aortic valve. Pulmonic Valve The pulmonic valve is not well visualized. Trivial pulmonic valve insufficiency. Great Vessels Normal sized aortic root. Pericardium/Pleural No pericardial effusion. MMode/2D Measurements & Calculations LVIDd: 3.9 cm IVSd: 0.80 cm Ao root diam: 2.4 cm LVIDs: 2.0 cm LVPWd: 0.65 cm FS: 48.3 % LAV(MOD-sp4): 17.7 ml LVAd ap4: 16.2 cm2 SV(MOD-sp4): 29.1 ml LVLd ap4: 6.1 cm EDV(MOD-sp4): 34.3 ml EDV(sp4-el): 36.2 ml LVAs ap4: 5.7 cm2 LVLs ap4: 5.0 cm ESV(MOD-sp4): 5.2 ml ESV(sp4-el): 5.5 ml EF(MOD-sp4): 84.8 % EF(sp4-el): 84.9 % SV(sp4-el): 30.7 ml LA A4 area: 8.8 cm2 LA dimension(2D): 2.8 cm RA A4 area: 8.4 cm2 Time Measurements MV dec time: 0.22 sec Doppler Measurements & Calculations MV E max carlos: 79.3 cm/sec Lat Peak E' Carlos: 11.1 cm/sec Med Peak E' Carlos: 5.4 cm/sec MV A max carlos: 66.3 cm/sec E/E' lat: 7.1 E/E' med: 14.6 MV E/A: 1.2 MV V2 max: 90.7 cm/sec Ao V2 max: 116.3 cm/sec MV max P.3 mmHg MV dec slope: 378.0 cm/sec2 Ao max P.5 mmHg MV V2 mean: 58.3 cm/sec Ao V2 mean: 83.7 cm/sec MV mean P.5 mmHg Ao mean P.2 mmHg MV V2 VTI: 31.2 cm Ao V2 VTI: 23.6 cm LV V1 max: 102.8 cm/sec PA V2 max: 93.6 cm/sec LV V1 max P.2 mmHg LV V1 mean P.5 mmHg LV V1 mean: 74.1 cm/sec LV V1 VTI: 21.5 cm ECHO/Echo Complete Interpretation Summary Left ventricular systolic function is normal. The estimated ejection fraction is 70 %. Trivial eccentric mitral valve insufficiency. Trivial tricuspid valve insufficiency. Trivial pulmonic valve insufficiency. Unable to estimate RV systolic pressure due to insufficient tricuspid regurgita nt envelope. No evidence for diastolic dysfunction. Ordering Physician: Sivakumar Bradford Performed By: Emili Aquino RCS
--- NOTE | 2022-03-08 20:45 | NURSING ---
Pt 2200 medications given early by guardian's (at bedside) request due to incongruence with home regimen. This nurse obliged due to increased frequency of seizure activity with concern to the pt scheduled seizure medication. Will continue to monitor.
[2022-03-08] MEDS: cloBAZam 20 MG TABLET PO (20:48)
[2022-03-08] MEDS: Valproic Acid 250 MG/5 ML UDC 1500 MG PO (20:52)
--- NOTE | 2022-03-08 23:17 | PN.HOSP_ITS ---
Hospitalist Note Defied by Jacobo CROOKS that patient's mother is requesting transfer to [facility] in [place] due to patient's continued breakthrough seizures despite medications. Patient's mother states that her neurologist that she follows with is located at and she would feel more comfortable with her being there. Notified transfer line and Dr. hdz from neuro ICU was excepting of patient however they do not have any beds at this time. They are hopeful that they will have beds in the next 12 hours or so. Notified of patient family's request and continue breakthrough seizures. Also discussed with Dr. Arely Centeno RN concerns regarding giving patient clonazepam as in the past this has dropped her blood pressure which is already low. Following discussion with Dr. Mcgee patient initiated on Levophed so that she may be medicated for her breakthrough seizures with clonazepam.
[2022-03-09] VITALS (39 sets, daily range): BP systolic 74–138; BP diastolic 36–99; PULSE 55–103; RESP 15–30; TEMP 35.9–36.4; O2SAT 90–98
--- NOTE | 2022-03-09 | NURSING ---
Discussion with guardian at bedside and she requested transfer to where pt case is followed by neurology. COMPUTER APPLICATIONS INSTRUCTOR notified and initiated transfer with . Also discussed breakthrough seizures and use of clonazepam with concerns to pt continued low BP. Instructed to give clonazepam and new orders to restart levophed. Will continue to monitor.
--- NOTE | 2022-03-09 01:00 | NURSING ---
Pt guardian increasingly anxious and asking questions that this nurse is not qualified to answer. Guardian requested to speak with provider regarding current POC and disease processes. This nurse notified PEDIATRIC OCCUPATIONAL THERAPIST of questions and request to speak with provider. PEDIATRIC OCCUPATIONAL THERAPIST spoke with guardian and answered all questions to the best of her ability. Guardian was pleased with the outcome upon follow up assessment. Updated about current status of transfer to . Will continue to monitor.
[2022-03-09] MEDS: TITRATION PARAMETER CHANGE 1 EACH IV (04:36)
[2022-03-09 04:54] LABS: Absolute Lymphocyte Count 1.63 X10^3/uL (0.83-4.51); Absolute Neutrophil Count 5.6 X10^3/uL (2.0-7.7); Basophil# 0.05 X10^3/uL; Basophil% 0.5 % (0-1); Eosinophil# 1.02 X10^3/uL; Eosinophils% 10.7 % (0-5); Hematocrit 34.2 % (37-47); Hemoglobin 10.9 g/dL (12.0-15.0); Lymphocyte # 1.63 X10^3/ul (0.83-4.51); Lymphocyte % 17.1 % (19-41); Mean Corp Hgb Conc 31.9 g/dL (32-36); Mean Corpuscular Hgb 31.8 pg (27.0-32.0); Mean Corpuscular Volume 99.7 fL (81-99); Mean Platelet Vol. 8.5 fl (6.2-12.0); Monocyte# 1.14 X10^3/uL; Monocyte% 11.9 % (0-10); NRBC Flagged by Analyzer 0 % (0-5); Neutrophil # 5.64 X10^3/uL (2.7-7.7); Neutrophil % 59.2 % (47-70); Platelet Count 143 K/mm3 (150-450); RBC Distribution Width SD 50.8 fl (35.1-43.9); Red Blood Count 3.43 M/mm3 (4.2-5.4); White Blood Count 9.5 K/mm3 (4.4-11.0)
[2022-03-09 05:07] LABS: Anion Gap 6 (5-15); BUN 11 mg/dL (7-18); BUN/Creat Ratio 17.4 RATIO (10-20); Calcium,Total 8.6 mg/dL (8.5-10.1); Chloride 106 mmol/L (98-107); Creatinine, Serum 0.63 mg/dL (0.55-1.02); EST Glomerular Filtration Rate 115 mL/min (>60); Est Glom Filt Rate - Afr Amer 139 mL/min (>60); Estimated Creatinine Clearance 101.39 ml/min; Glucose 116 mg/dL (74-106); Potassium 3.8 mmol/L (3.5-5.1); Sodium Level 142 mmol/L (136-145)
--- NOTE | 2022-03-09 05:55 | RAD_ITS ---
STUDY: X-RAY CHEST REASON FOR EXAM: Female, 31 years old. RIGHT pleural effusion TECHNIQUE: Portable, upright, AP chest radiograph COMPARISON: 03/05/2022 RAD/Chest 1 View (Portable) IMPRESSION: Mild decrease in right pleural effusion compared to 03/05/2022. The left lung appears clear. Right upper extremity PICC remains. Electronically Signed: Adonis Kat MD at 4:30 EDT ,
--- NOTE | 2022-03-09 07:04 | PCM.PN.INT ---
Assessment & Plan Assessment/Plan (1) Aspiration pneumonia of right lower lobe: PLAN: Plan RECOMMENDATIONS: 1. Continue antimicrobials to complete 7 days of therapy. 2. Increase activity as tolerated 3. Continue scheduled midodrine. Titrate Levophed to maintain MAP greater than 65 4. Continue home antiepileptic therapy. Await transfer to 5. Nutritional support with tube feeding via G-tube. 6. Possible CT scan with thoracentesis if delayed transfer IMPRESSIONS: 1. Septic shock The patient presented with sepsis due to probable aspiration pneumonia with acute sepsis related organ dysfunction as evidenced by lactic acidemia and altered mentation. The patient ultimately developed fluid refractory hypotension, which required the initiation of vasopressors to maintain hemodynamic stability. Patient had been off of Levophed for approximately 36 hours, but this had to be reinitiated overnight. Unclear if patient has a possible loculated infection such as empyema leading to recurrence, but no fevers or significant leukocytosis have been noted. Patient has had anasarca for months. If transfer is delayed, may proceed with a CT scan plus or minus diagnostic thoracentesis to evaluate for empyema. Patient does not appear sick enough for empyema. Other possibility would be recurrent seizures leading to autonomic dysregulation. 2. 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 The patient is maintained on a number of antiepileptics in her home environment. Although the patient's VPA level was initially elevated, a recheck demonstrated that it was within normal limits. Transfer to for neurologic evaluation has already been initiated. 3. High risk for aspiration Speech therapy is following. Plan to continue nutritional support via G-tube. TIME: 35 minutes critical care time spent addressing patient's hypotension, recurrent seizures, discussing with family, review of all data and collaboration with care team Subjective Subjective Overnight events were reviewed. Patient continues to have family at the bedside. They are reporting multiple seizures despite continuation of antiepileptics. Patient was given Klonopin yesterday with some improvement, but given frequency of seizures, transfer to [facility] was initiated overnight. Klonopin has led to a decrease in blood pressure, so Levophed had to be reinitiated. There is hope that a bed will be available today. Patient's sister reports that she was recently admitted to [facility] for 3 months and attempt to break repeated seizures. Objective Data Objective Data Vital Signs: Vital Signs Temp Pulse Resp BP Pulse Ox O2 Del Method O2 Flow Rate 35.9 C L 68 19 H 99/65 92 Room Air 2 03/09/22 04:00 03/09/22 06:00 03/09/22 06:00 03/09/22 06:00 03/09/22 06:00 03/09/22 06:00 03/09/22 01:00 Oxygen Flow Rate (L/min) 2 Oxygen Delivery Method Room Air Weight: 74.7 kg Body Mass Index (BMI) 29.9 Intake & Output: Intake and Output for Last 24 Hours 03/07/22 03/08/22 03/09/22 23:59 23:59 23:59 Intake Total 2588.75 / 2588.75 3380.5 / 3380.5 168.40 / 168.40 Output Total 2675 / 2675 1900 / 2850 1400 / 1400 Balance -86.25 / -86.25 1480.5 / 530.5 -1231.60 / -1231.60 Lab / Micro Data Result Diagrams: 03/09/22 04:43 03/09/22 04:43 Labs: Laboratory Results - last 24 hr 03/08/22 06:45: WBC 6.0, RBC 3.21 L, Hgb 10.3 L, Hct 32.0 L, MCV 99.7 H, MCH 32.1 H, MCHC 32.2, RDW Std Deviation 51.0 H, RDW Coeff of Sylvia 14.2, Plt Count 128 L, MPV 8.5, Immature Gran % (Auto) 0.700, Neut % (Auto) 60.6, Lymph % (Auto) 18.1 L, [place] % (Auto) 9.9, Eos % (Auto) 10.2 H, Baso % (Auto) 0.5, Absolute Neuts (auto) 3.6, Absolute Lymphs (auto) 1.08, Nucleated RBC % 0 03/08/22 06:45: Sodium 143, Potassium 3.8, Chloride 107, Carbon Dioxide 28.0, Anion Gap 8, BUN 11, Creatinine 0.58, Estim Creat Clear Calc 110.13, Est GFR (MDRD) Af Amer 154, Est GFR (MDRD) Non-Af 127, BUN/Creatinine Ratio 19.0, Glucose 84, Calcium 8.4 L 03/09/22 04:43: WBC 9.5, RBC 3.43 L, Hgb 10.9 L, Hct 34.2 L, MCV 99.7 H, MCH 31.8, MCHC 31.9 L, RDW Std Deviation 50.8 H, RDW Coeff of Sylvia 14.0, Plt Count 143 L, MPV 8.5, Immature Gran % (Auto) 0.600, Neut % (Auto) 59.2, Lymph % (Auto) 17.1 L, [place] % (Auto) 11.9 H, Eos % (Auto) 10.7 H, Baso % (Auto) 0.5, Absolute Neuts (auto) 5.6, Absolute Lymphs (auto) 1.63, Nucleated RBC % 0 03/09/22 04:43: Sodium 142, Potassium 3.8, Chloride 106, Carbon Dioxide 30.0, Anion Gap 6, BUN 11, Creatinine 0.63, Estim Creat Clear Calc 101.39, Est GFR (MDRD) Af Amer 139, Est GFR (MDRD) Non-Af 115, BUN/Creatinine Ratio 17.4, Glucose 116 H, Calcium 8.6 Micro: Microbiology 03/09/22 00:10 Nasal Secretion SARS-CoV-2 Antigen (Rapid) - Final 03/04/22 01:00 Blood Culture (Wb) - Left Wrist Blood Culture - Preliminary No growth in 48 hours. 03/04/22 22:55 Blood Culture (Wb) - Anticubital Right Blood Culture - Preliminary No growth in 48 hours. 03/05/22 00:00 Urine, Clean Catch Urine Culture - Final Culture exhibits no growth. 03/05/22 14:10 Stool Enteric Bacteriology - Final 03/05/22 14:10 Stool Stool Occult Blood (VANESSA) - Final 03/05/22 14:10 Stool C. difficile DNA Amplification - Final 03/05/22 05:10 Mucosa - Nasopharyngeal Respiratory Panel (PCR) - Final 03/04/22 22:09 Urine Catheter - Catheter Legionella Antigen - Final 03/04/22 22:09 Urine Catheter - Catheter Streptococcus pneumoniae Antigen (M - Final Radiography Diagnostic Testing: Radiology Impression Chest X-Ray 03/09/22 05:55 IMPRESSION: Mild decrease in right pleural effusion compared to 03/05/2022. The left lung appears clear. Right upper extremity PICC remains. Electronically Signed: Adonis Kat MD at 4:30 EDT , Physical Exam Const no apparent distress Constitutional Narrative: Patient appears comfortable. Sister is reporting multiple seizures when patient lifts her head off the bed and extends her left arm. HEENT normocephalic, head/scalp atraumatic and moist oral mucous membranes Eyes PERRL, EOMs intact bilaterally and conjunctivae normal Neck supple, no JVD, thyroid normal and no carotid bruits General: trachea midline Chest inspection of chest normal Resp no retractions and no use of accessory muscles Resp Narrative: Poor respiratory effort Auscultation: Negative for rales, rhonchi or wheezes Percussion: dullness Lower: right Cardio regular rate, regular rhythm, S1 normal heart sound, S2 normal heart sound, no murmurs, no rub and no gallops GI normal to inspection, nondistended, normoactive bowel sounds, soft to palpation, non-tender and non-distended Inspection: GI tube present Extremity no clubbing, cyanosis or edema General Extremity: edema; Negative for clubbing Skin no rashes or lesions noted General Skin Exam: no breakdown Neuro CN's II-XII intact bilaterally Neuro Narrative: Patient is nonverbal, she shows signs of cognitive impairment, she appears somnolent Psych Psych Narrative: Patient shows signs of cognitive impairment Mood & Affect: flat affect Charges/Coding Procedures Hospitalists Procedures: 45862 Critial Care 1st Hr
--- NOTE | 2022-03-09 09:28 | PCA ---
Called [facility] at 0928. They got the most recent vitals and said that they do not have a bed yet and will call us when one becomes available.
[2022-03-09] MEDS: Folic Acid 1 MG Tablet PO (09:29)
[2022-03-09] MEDS: Midodrine HCl 5 MG Tablet 10 MG PO ×3 (09:30→17:11)
[2022-03-09] MEDS: Albuterol 2.5 MG/3 ML VIAL.NEB. INHALATION (09:30)
[2022-03-09] MEDS: Cholecalciferol (VIT D3) 25 MCG TABLET (1,000 UNITS) 50 MCG PO (09:30)
[2022-03-09] MEDS: cloBAZam 10 MG TABLET 15 MG PO (09:31)
[2022-03-09] MEDS: RUFINAMIDE 200 MG 600 MG PO ×2 (09:31→21:15)
[2022-03-09] MEDS: Enoxaparin 40 MG/0.4 ML Syringe SC (09:32)
[2022-03-09] MEDS: Valproic Acid 250 MG/5 ML UDC 1250 MG PO (09:32)
[2022-03-09] MEDS: levETIRAcetam Oral Solution 500 MG/5 ML 2000 MG GT ×2 (09:33→21:16)
[2022-03-09] MEDS: Menthol/Lanolin/Calamine/Znox 113 GM Tube 1 APPLIC TOPICAL ×4 (09:52→21:12)
[2022-03-09] MEDS: cloBAZam 10 MG TABLET 5 MG PO (12:33)
[2022-03-09 15:03] LABS: KEPPRA (LEVETIRACETAM) 85.9 ug/mL (10.0-40.0)
--- NOTE | 2022-03-09 15:51 | CT_ITS ---
INDICATION: Effusion EXAMINATION: CT CHEST WITHOUT CONTRAST - CT Chest W/O Contrast Injection TECHNIQUE: Helically acquired images were obtained of the chest. A radiation dose optimization technique was used for this scan. IV Contrast dosage and agent: None. COMPARISON: Chest x-ray earlier today FINDINGS: Right upper extremity PICC with tip in the catheter in the superior vena cava. LUNGS, PLEURA AND LARGE AIRWAYS: No masses, consolidation, or edema. Large right pleural effusion with near-complete collapse of the right lung. Tiny left pleural effusion. THYROID: No thyroid lesions. HEART AND PERICARDIUM: Heart size is normal. No pericardial effusion. CORONARY ARTERIES: Coronary artery calcification VESSELS: Thoracic aorta is not dilated. MEDIASTINUM AND MARCELINO: No mediastinal or hilar adenopathy. Esophagus is unremarkable. No hiatal hernia. UPPER ABDOMEN: Percutaneous gastrostomy tube. BONES: No suspicious lytic or blastic abnormality. CT/Chest without Contrast IMPRESSION: Large right pleural effusion with near-total collapse of the right lung. Electronically Signed: Donnie Mc MD at 17:19 EDT ,
--- NOTE | 2022-03-09 18:52 | PN.HOSP_ITS ---
Subjective Subjective Patient was seen and examined today, I had a discussion with Dr. Nugent from intensive care today concerning contact the patient's neurologist at today, I put in a phone call and talk to her personally, she told me that it was not uncommon for the patient to have 11 seizures in a day, she was reluctant to change any of the patient's seizure medications but after discussion with her agreed that one of her medications could be increased slightly. The discussion came up about this because the patient's sister felt that the patient was having ongoing seizures although the intensive care physician could not see any actual tonic-clonic activity, the patient's neurologist at told me that when the patient has seizures that usually at night and is usually tonic movements. Today I increased the patient's Onfi to 20 mg twice a day. The neurologist I spoke to on the phone today it was a Dr. [phone], at . I was told today by intensive care that the patient's family requested the patient be transferred to but of bed was not available at this time and so the patient remains here. Patient's blood pressure is better today, At the time of this dictation, her pressure is 100/58 and she is on room air. Chest x-ray was performed today which showed presence again of a large right pleural effusion, patient's echocardiogram was unremarkable. Objective Data Objective Data Vital Signs: Vital Signs Temp Pulse Resp BP Pulse Ox O2 Del Method O2 Flow Rate 97.2 F L 79 29 H 100/58 L 95 Room Air 25 03/09/22 16:00 03/09/22 18:00 03/09/22 18:00 03/09/22 18:00 03/09/22 18:00 03/09/22 18:00 03/09/22 14:00 Oxygen Flow Rate (L/min) 25 Oxygen Delivery Method Room Air Weight: 74.7 kg Body Mass Index (BMI) 29.9 Intake & Output: Intake and Output for Last 24 Hours 03/07/22 03/08/22 03/09/22 23:59 23:59 23:59 Intake Total 2588.75 / 2588.75 3380.5 / 3380.5 2046.09 / 2046.09 Output Total 2675 / 2675 1900 / 2850 2300 / 2300 Balance -86.25 / -86.25 1480.5 / 530.5 -253.91 / -253.91 Lab / Micro Data Result Diagrams: 03/10/22 04:12 03/10/22 04:12 Labs: Laboratory Results - last 24 hr 03/04/22 22:55: Levetiracetam 85.9 H 03/09/22 04:43: WBC 9.5, RBC 3.43 L, Hgb 10.9 L, Hct 34.2 L, MCV 99.7 H, MCH 31.8, MCHC 31.9 L, RDW Std Deviation 50.8 H, RDW Coeff of Sylvia 14.0, Plt Count 143 L, MPV 8.5, Immature Gran % (Auto) 0.600, Neut % (Auto) 59.2, Lymph % (Auto) 17.1 L, [place] % (Auto) 11.9 H, Eos % (Auto) 10.7 H, Baso % (Auto) 0.5, Absolute Neuts (auto) 5.6, Absolute Lymphs (auto) 1.63, Nucleated RBC % 0 03/09/22 04:43: Sodium 142, Potassium 3.8, Chloride 106, Carbon Dioxide 30.0, Anion Gap 6, BUN 11, Creatinine 0.63, Estim Creat Clear Calc 101.39, Est GFR (MDRD) Af Amer 139, Est GFR (MDRD) Non-Af 115, BUN/Creatinine Ratio 17.4, Glucose 116 H, Calcium 8.6 Micro: Microbiology 03/09/22 00:10 Nasal Secretion SARS-CoV-2 Antigen (Rapid) - Final 03/04/22 01:00 Blood Culture (Wb) - Left Wrist Blood Culture - Preliminary No growth in 48 hours. 03/04/22 22:55 Blood Culture (Wb) - Anticubital Right Blood Culture - Preliminary No growth in 48 hours. 03/05/22 00:00 Urine, Clean Catch Urine Culture - Final Culture exhibits no growth. 03/05/22 14:10 Stool Enteric Bacteriology - Final 03/05/22 14:10 Stool Stool Occult Blood (VANESSA) - Final 03/05/22 14:10 Stool C. difficile DNA Amplification - Final 03/05/22 05:10 Mucosa - Nasopharyngeal Respiratory Panel (PCR) - Final 03/04/22 22:09 Urine Catheter - Catheter Legionella Antigen - Final 03/04/22 22:09 Urine Catheter - Catheter Streptococcus pneumoniae Antigen (M - Final Radiography Diagnostic Testing: Radiology Impression Echocardiogram 03/08/22 17:11 Interpretation Summary Left ventricular systolic function is normal. The estimated ejection fraction is 70 %. Trivial eccentric mitral valve insufficiency. Trivial tricuspid valve insufficiency. Trivial pulmonic valve insufficiency. Unable to estimate RV systolic pressure due to insufficient tricuspid regurgitant envelope. No evidence for diastolic dysfunction. Ordering Physician: Sivakumar Bradford Performed By: Emili Aquino RCS Chest X-Ray 03/09/22 05:55 IMPRESSION: Mild decrease in right pleural effusion compared to 03/05/2022. The left lung appears clear. Right upper extremity PICC remains. Electronically Signed: Adonis Kat MD at 4:30 EDT , Chest CT 03/09/22 15:51 IMPRESSION: Large right pleural effusion with near-total collapse of the right lung. Electronically Signed: Donnie Mc MD at 17:19 EDT , Physical Exam Narrative no apparent distress Constitutional Narrative: Patient appears comfortable, she is somnolent, patient shows signs of cognitive impairment HEENT normocephalic, head/scalp atraumatic and moist oral mucous membranes Eyes PERRL, EOMs intact bilaterally and conjunctivae normal Neck supple, no JVD, thyroid normal and no carotid bruits General: trachea midline Resp normal respiratory effort, no retractions and no use of accessory muscles Resp Narrative: Decreased breath sounds noted at the right base Auscultation: Negative for rales, rhonchi or wheezes Cardio regular rate, regular rhythm, S1 normal heart sound, S2 normal heart sound, no murmurs, no rub and no gallops GI normal to inspection, nondistended, normoactive bowel sounds, soft to palpation, non-tender and non-distended Extremity no clubbing, cyanosis or edema Skin no rashes or lesions noted General Skin Exam: no breakdown Neuro CN's II-XII intact bilaterally Neuro Narrative: Patient is nonverbal, she shows signs of cognitive impairment, she appears somnolent Psych Psych Narrative: Patient shows signs of cognitive impairment Assessment & Plan Assessment/Plan (1) Septic shock: (2) Aspiration pneumonia of right lower lobe: PLAN: Plan 1. Septic shock-patient is currently on Unasyn, blood pressure at this time appears to be stable off Levophed #2 right pleural effusion-etiology unclear at this point, echocardiogram today did not show any impairment of her LV function #3 cerebral palsy-complicates care, management, recovery, and prognosis #4 seizure disorder-patient is currently on valproic acid,Onfi, and Keppra. Patient's dose of Onfi was increased today. #5 autism disorder-complicates care, management, recovery, and prognosis Charges/Coding Visit Charges Inpatient E&M: 46975 Subs Hosp L2
[2022-03-09] MEDS: cloBAZam 20 MG TABLET PO (21:15)
[2022-03-09] MEDS: Valproic Acid 250 MG/5 ML UDC 1500 MG PO (21:16)
[2022-03-10] VITALS (51 sets, daily range): BP systolic 83–133; BP diastolic 42–99; PULSE 49–126; RESP 15–30; TEMP 35.9–36.8; O2SAT 90–100
[2022-03-10 04:48] LABS: Absolute Lymphocyte Count 1.63 X10^3/uL (0.83-4.51); Absolute Neutrophil Count 4.7 X10^3/uL (2.0-7.7); Basophil# 0.05 X10^3/uL; Basophil% 0.6 % (0-1); Eosinophil# 0.94 X10^3/uL; Eosinophils% 11.4 % (0-5); Hematocrit 33.8 % (37-47); Lymphocyte # 1.63 X10^3/ul (0.83-4.51); Lymphocyte % 19.7 % (19-41); Mean Corp Hgb Conc 32.5 g/dL (32-36); Mean Corpuscular Hgb 32.3 pg (27.0-32.0); Mean Corpuscular Volume 99.1 fL (81-99); Mean Platelet Vol. 8.7 fl (6.2-12.0); Monocyte# 0.91 X10^3/uL; NRBC Flagged by Analyzer 0.2 % (0-5); Neutrophil # 4.68 X10^3/uL (2.7-7.7); Neutrophil % 56.5 % (47-70); Platelet Count 136 K/mm3 (150-450); RBC Distribution Width CV 13.9 % (11.6-14.6); RBC Distribution Width SD 50.2 fl (35.1-43.9); Red Blood Count 3.41 M/mm3 (4.2-5.4); White Blood Count 8.3 K/mm3 (4.4-11.0)
[2022-03-10 05:20] LABS: Anion Gap 8 (5-15); BUN 13 mg/dL (7-18); BUN/Creat Ratio 20.7 RATIO (10-20); Calcium,Total 8.5 mg/dL (8.5-10.1); Chloride 105 mmol/L (98-107); Creatinine, Serum 0.63 mg/dL (0.55-1.02); EST Glomerular Filtration Rate 116 mL/min (>60); Est Glom Filt Rate - Afr Amer 141 mL/min (>60); Estimated Creatinine Clearance 101.39 ml/min; Glucose 108 mg/dL (74-106); Potassium 3.6 mmol/L (3.5-5.1); Sodium Level 141 mmol/L (136-145)
[2022-03-10] MEDS: Midodrine HCl 5 MG Tablet 10 MG PO ×3 (08:13→16:44)
[2022-03-10] MEDS: Cholecalciferol (VIT D3) 25 MCG TABLET (1,000 UNITS) 50 MCG PO (08:14)
[2022-03-10] MEDS: Folic Acid 1 MG Tablet PO (08:14)
--- NOTE | 2022-03-10 09:51 | PCA ---
Called gave most recent vitals. Still no bed available will call when one opens up.
[2022-03-10] MEDS: levETIRAcetam Oral Solution 500 MG/5 ML 2000 MG GT ×2 (10:15→21:39)
[2022-03-10] MEDS: RUFINAMIDE 200 MG 600 MG PO ×2 (10:15→21:40)
[2022-03-10] MEDS: cloBAZam 10 MG TABLET 20 MG PO (10:16)
[2022-03-10] MEDS: Valproic Acid 250 MG/5 ML UDC 1500 MG PO ×2 (10:17→21:38)
[2022-03-10] MEDS: Menthol/Lanolin/Calamine/Znox 113 GM Tube 1 APPLIC TOPICAL ×3 (10:18→21:40)
--- NOTE | 2022-03-10 11:38 | US_ITS ---
PROCEDURE: ULTRASOUND GUIDED THORACENTESIS. DATE: 03/10/2022. INDICATION: Female, 31 years old. Right pleural effusion. PHYSICIAN: Chin Gonzales M.D. PROCEDURE: The risks, benefits, and alternatives to the procedure were explained to the patient and patient''s sister. The specific risks of bleeding, infection, and pneumothorax requiring chest tube insertion were discussed and accepted. Written informed consent was obtained. Ultrasonographic evaluation of the right lower pleural space was carried out. An adequate pocket was identified. The patient was placed in the sitting, upright position. The overlying skin was prepped and draped in sterile fashion. 1% lidocaine was administered subcutaneously for local anesthesia. Under ultrasound guidance, a 5 Belarusian thoracentesis needle/catheter system was advanced into the right posterior lower pleural fluid collection. Approximately 400 mL of alexa-colored fluid was drained. The catheter was removed, and a sterile dressing was applied. A specimen was collected and sent to the laboratory for analysis, as requested by the referring clinician. The patient tolerated the procedure well. A chest x-ray was ordered. US/Thoracentesis W US IMPRESSION: Ultrasound-guided right thoracentesis. Electronically Signed: Chin Gonzales MD at 15:32 EDT ,
--- NOTE | 2022-03-10 12:09 | CHAPLAIN ---
Type of Pastoral Visit __ Initial Visit _x__ Follow-up Visit ___ On-call Visit ___ General Patient Visit ___ Spiritual Assessment ___ Family Conference ___ Bereavement ___ Rapid Response ___ Code Blue ___ Other (describe below) Pastoral Care Referral From ___ Patient _x__ Family ___ Nurse ___ Physician ___ Tool/Die Maker ___ Yarn Weigher ___ Other (describe below) Sacrament/Intervention _x__ Active listening ___ Anointing ___ Episcopal ___ Bereavement ___ Communion ___ Jackie exploration ___ ___ Life review _x__ Prayer ___ Reconciliation ___ Sacrament of Sick _x__ Supportive presence ___ Wedding ___ Other (describe below) Pastoral Comments patient is non verbal per her normal; pt is sitting up in chair; sister of pt at chair beside her; sister reviews current status of pt and receives support; sister requests prayer for specifics about care and possibly procedures for pt when she is transferred out;
--- NOTE | 2022-03-10 13:51 | TELEMED_ITS ---
[facility] Tele[facility] has confirmed receipt of a request for visit. This document confirms receipt of the order initiating the consult. To find the results of the consultation, please view the patient's reports for the scanned Telemed Consult.
--- NOTE | 2022-03-10 14:28 | FLU_PTH ---
PATIENT: CELESTE SIDHU LOC: [facility] U#:[id number] AGE/SX: 31/F ROOM: ICU02 RE03/05/[address]: Dr. Sivakumar Bradford DO : 1990 BED: 1 DIS: 03/11/2022 SPEC #: [id number] RECD: 03/10/22 15:07 STATUS: YOLIS REQ #: [id number] KAN: 03/10/22 14:[address]: Sivakumar Bradford DEPT: CYTOLOGY RECD BY: Ping Lomeli ENTERED: 03/11/22 08:04 SP TYPE: Fluid OTHR DR: MD Dr. Guzman Azul DO Dr. Jordan Garrison, DO Dr. Nana Yaa Koram, MD Tissues: Pleural fluid, NOS Procedures: Special Stain Group II Surgery Specimen Level IV Cytospin Fluid HEADER OPERATION: Ultrasound-guided thoracentesis PRE-OP DIAGNOSIS: Right pleural effusion TISSUE SUBMITTED: Thoracentesis fluid for cytology DIAGNOSIS CYTOLOGY Thoracentesis fluid for cytology (cytospin): Negative for malignant cells. Acute inflammation. AM:candice 03/12/2022 CYTOLOGY STUDY Slides are reviewed. CYTOLOGY GROSS Received is 80 ml of yellow cloudy fluid labeled with the patient's name and and designated per the requisition as thoracentesis. Submitted for cytology preparation including cell block. / candice 03/11/2022 TC:2 CPT: 50105, 82304
[2022-03-10] MEDS: Lidocaine 2% (10 ml mdv) 10 ML Vial INFILT (14:45)
--- NOTE | 2022-03-10 14:53 | RAD_ITS ---
STUDY: X-RAY CHEST REASON FOR EXAM: Female, 31 years old. POST THORA TECHNIQUE: AP inspiration and expiration views following thoracentesis. COMPARISON: Comparison is made with prior examination dated 03/09/2022. FINDINGS: EKG electrodes are seen. A right-sided PICC line catheter seen with the tip in the midportion of the superior vena cava. Persistent pleural-parenchymal changes at the right lung base. No evidence of pneumothorax. RAD/Chest Insp/Exp 2 View IMPRESSION: No evidence of pneumothorax on the post right thoracentesis examination. Electronically Signed: Chin Gonzales MD at 15:17 EDT ,
--- NOTE | 2022-03-10 15:53 | PN.CC_ITS ---
Assessment & Plan Assessment/Plan (1) Aspiration pneumonia of right lower lobe: PLAN: Continue Unasyn Patient is unable to do incentive spirometry, will do vest therapy with postural drainage See below for parapneumonic effusion management If infected, she will need to be transferred for thoracic surgery consultation at [facility]. (2) Breakthrough seizure: PLAN: Yesterday's EEG was preliminary negative for seizure activity, repeat today due to sisters observation and believe that the patient was having frequent seizures during the day. If seizures are present, recommend neurology transfer to [facility] for continuous EEG monitoring and neuro input. (3) Autism disorder: PLAN: Chronic, unchanged (4) Septic shock: PLAN: Patient remains pressor dependent, will attempt to wean norepinephrine today while keeping MAP greater than 65. (5) Parapneumonic effusion: PLAN: Bedside ultrasound today showed densely organized, nonloculated fluid, not free-flowing, with pleural thickening diffusely. This likely represents an organizing complex right parapneumonic effusion after the patient's aspiration pneumonia which occurred probably 2 weeks or more ago. -Plan for ultrasound thoracentesis today if a locule can be identified with a more high resolution ultrasound machine -She may need transfer to [facility] urgently for pleural drainage procedure; either VAT decortication plus or minus chest tube management, which is beyond the scope of pulmonary practice for this late pleural effusion. Inst illation of alteplase is unlikely to be sufficiently successful for chemical decortication. Subjective Subjective Patient is nonverbal. No obvious signs of distress. Patient's sister thought that she was continuing to have seizures every 30 to 120 minutes, 3-4 times per day, mostly at night. Objective Data Objective Data Vital Signs: Vital Signs Temp Pulse Resp BP Pulse Ox O2 Del Method O2 Flow Rate 36.8 C 71 30 H 102/53 L 92 Room Air 2 03/10/22 12:00 03/10/22 14:30 03/10/22 14:30 03/10/22 14:30 03/10/22 14:00 03/10/22 14:30 03/10/22 08:00 Oxygen Flow Rate (L/min) 2 Oxygen Delivery Method [1500] Room Air Oxygen Delivery Method [1450] Room Air Oxygen Delivery Method [1445] Room Air Oxygen Delivery Method [1430] Room Air Oxygen Delivery Method Room Air Weight: 75.2 kg Body Mass Index (BMI) 29.9 Intake & Output: Intake and Output for Last 24 Hours 03/08/22 03/09/22 03/10/22 23:59 23:59 23:59 Intake Total 3380.5 / 3380.5 2175.09 / 2178.89 1326.78 / 1326.78 Output Total 1900 / 2850 2300 / 2800 1700 / 1700 Balance 1480.5 / 530.5 -124.91 / -621.11 -373.22 / -373.22 Lab / Micro Data Attestation: I reviewed the patient's lab results. Lab results narrative: In addition to the below, eosinophils are 11.4%, glucose 108. Norepinephrine is weaning from 6 mcg/min with MAP remaining greater than 65. Bedside thoracic ultrasound showed dense fluid with no loculation and no pneu mothorax. The patient is being sent to invasive radiology for better quality ultrasound and drainage of any available pockets, today. Procedure explained to patient's sister including indications, alternatives, risks and benefits. No new positive cultures. Result Diagrams: 03/10/22 04:12 03/10/22 04:12 Labs: Laboratory Results - last 24 hr 03/10/22 04:12: WBC 8.3, RBC 3.41 L, Hgb 11.0 L, Hct 33.8 L, MCV 99.1 H, MCH 32.3 H, MCHC 32.5, RDW Std Deviation 50.2 H, RDW Coeff of Sylvia 13.9, Plt Count 136 L, MPV 8.7, Immature Gran % (Auto) 0.800, Neut % (Auto) 56.5, Lymph % (Auto) 19.7, [place] % (Auto) 11.0 H, Eos % (Auto) 11.4 H, Baso % (Auto) 0.6, Absolute Neuts (auto) 4.7, Absolute Lymphs (auto) 1.63, Nucleated RBC % 0.2 03/10/22 04:12: Sodium 141, Potassium 3.6, Chloride 105, Carbon Dioxide 28.0, Anion Gap 8, BUN 13, Creatinine 0.63, Estim Creat Clear Calc 101.39, Est GFR (MDRD) Af Amer 141, Est GFR (MDRD) Non-Af 116, BUN/Creatinine Ratio 20.7 H, Glucose 108 H, Calcium 8.5 Micro: Microbiology 03/09/22 00:10 Nasal Secretion SARS-CoV-2 Antigen (Rapid) - Final 03/04/22 01:00 Blood Culture (Wb) - Left Wrist Blood Culture - Preliminary No growth in 48 hours. 03/04/22 22:55 Blood Culture (Wb) - Anticubital Right Blood Culture - Preliminary No growth in 48 hours. 03/05/22 00:00 Urine, Clean Catch Urine Culture - Final Culture exhibits no growth. 03/05/22 14:10 Stool Enteric Bacteriology - Final 03/05/22 14:10 Stool Stool Occult Blood (VANESSA) - Final 03/05/22 14:10 Stool C. difficile DNA Amplification - Final 03/05/22 05:10 Mucosa - Nasopharyngeal Respiratory Panel (PCR) - Final 03/04/22 22:09 Urine Catheter - Catheter Legionella Antigen - Final 03/04/22 22:09 Urine Catheter - Catheter Streptococcus pneumoniae Antigen (M - Final Radiography Diagnostic Testing: Radiology Impression Chest CT 03/09/22 15:51 IMPRESSION: Large right pleural effusion with near-total collapse of the right lung. Electronically Signed: Donnie Mc MD at 17:19 EDT , Thoracentesis Ultrasound 03/10/22 11:38 IMPRESSION: Ultrasound-guided right thoracentesis. Electronically Signed: Chin Gonzales MD at 15:32 EDT , Chest X-Ray 03/10/22 14:53 IMPRESSION: No evidence of pneumothorax on the post right thoracentesis examination. Electronically Signed: Chin Gonzales MD at 15:17 EDT , Physical Exam Narrative Well-developed, overweight, developmentally delayed woman who does not track, does respond to noxious stimuli but not commands, nonverbal, no acute distress, strong occasional cough. No obvious seizure activity. HEENT: Mucous membranes moist rolling eye movements. Neck: Supple no JVD Chest: Lungs diminished right greater than left with poor air movement and occasional rhonchi on the right mid lung field. Good air movement on the left, poor expansion bilaterally. Breathing unlabored with no wheezes. No tubular breath sounds. No rub Heart: Normal S1-S2 no murmurs rubs or gallops Abdomen soft nontender no organomegaly or mass, PEG tube insertion site was visualized and was intact, with a abdominal binder over, and clean dressing. Bolus feeds underway. : Normal female genitalia Extremities: No clubbing cyanosis, positive nonpitting edema of hands and feet, according to patient's sister was unchanged for weeks. Skin: Intact without lesions rash or petechiae Endocrine: No sweat or tremor. Neuro Sensorium / Orientation: awake, alert and stuporous Speech: total aphasia Gait (Neuro): staggering, wide-based and other Needs complete 2-3 person assistance to walk and sit up/transfer from chair to bed. Observed personally today. Motor Exam: general weakness Sepsis Attestation Sepsis Attestation: Agree w/Sepsis Date exam was performed: 03/10/22 Time exam was performed: 11:00 Possible Source of Sepsis: Pulmonary Sepsis Organ Dysfunction Criteria Present: SBP < 90 mmHg or MAP < 65 mmHg Supportive Findings: Continued pressor requirement Critical care time spent with patient at bedside, review of documentation, lab results, radiology and other test results, discussion with colleagues and ancillary staff, clinical management of patient, and updating family if applicable, was 80 minutes. This time does not include any procedures, if performed. [place] [address], [address]78 x 1.
[2022-03-10 16:18] LABS: Body Fluid Mononuclear WBC # 0.732 10^3/uL; Body Fluid Mononuclear WBC % 30.7 %; Body Fluid Polynuclear WBC # 1.652 10^3/uL; Body Fluid Polynuclear WBC % 69.3 %; Body Fluid Total Cells Counted 2.484 10^3/ul; White Blood Count/Body Fluid 2.384 10^3/uL
--- NOTE | 2022-03-10 16:32 | PN.HOSP_ITS ---
Subjective Subjective Patient was seen and examined today, I briefly talked with pulmonary medicine about her care. Patient is on low-dose Levophed at this time for blood pressure support. I talked to the patient's sister who was in the room at the time of my examination, she states that she was concerned the patient was having multiple seizures yesterday but she states that today the patient seems back to her baseline. Patient was noted to be more alert than yesterday, she is sitting in a chair. Patient underwent a right thoracentesis today with removal of approximately 400 cc of alexa-colored fluid. Objective Data Objective Data Vital Signs: Vital Signs Temp Pulse Resp BP Pulse Ox O2 Del Method O2 Flow Rate 98.2 F 71 30 H 102/53 L 92 Room Air 2 03/10/22 12:00 03/10/22 14:30 03/10/22 14:30 03/10/22 14:30 03/10/22 14:00 03/10/22 14:30 03/10/22 08:00 Oxygen Flow Rate (L/min) 2 Oxygen Delivery Method [1500] Room Air Oxygen Delivery Method [1450] Room Air Oxygen Delivery Method [1445] Room Air Oxygen Delivery Method [1430] Room Air Oxygen Delivery Method Room Air Weight: 75.2 kg Body Mass Index (BMI) 29.9 Intake & Output: Intake and Output for Last 24 Hours 03/08/22 03/09/22 03/10/22 23:59 23:59 23:59 Intake Total 3380.5 / 3380.5 2175.09 / 2178.89 1326.78 / 1326.78 Output Total 1900 / 2850 2300 / 2800 1700 / 1700 Balance 1480.5 / 530.5 -124.91 / -621.11 -373.22 / -373.22 Lab / Micro Data Result Diagrams: 03/10/22 04:12 03/10/22 04:12 Labs: Laboratory Results - last 24 hr 03/10/22 04:12: WBC 8.3, RBC 3.41 L, Hgb 11.0 L, Hct 33.8 L, MCV 99.1 H, MCH 32.3 H, MCHC 32.5, RDW Std Deviation 50.2 H, RDW Coeff of Sylvia 13.9, Plt Count 136 L, MPV 8.7, Immature Gran % (Auto) 0.800, Neut % (Auto) 56.5, Lymph % (Auto) 19.7, [place] % (Auto) 11.0 H, Eos % (Auto) 11.4 H, Baso % (Auto) 0.6, Absolute Neuts (auto) 4.7, Absolute Lymphs (auto) 1.63, Nucleated RBC % 0.2 03/10/22 04:12: Sodium 141, Potassium 3.6, Chloride 105, Carbon Dioxide 28.0, Anion Gap 8, BUN 13, Creatinine 0.63, Estim Creat Clear Calc 101.39, Est GFR (MDRD) Af Amer 141, Est GFR (MDRD) Non-Af 116, BUN/Creatinine Ratio 20.7 H, Glucose 108 H, Calcium 8.5 Micro: Microbiology 03/09/22 00:10 Nasal Secretion SARS-CoV-2 Antigen (Rapid) - Final 03/04/22 01:00 Blood Culture (Wb) - Left Wrist Blood Culture - Preliminary No growth in 48 hours. 03/04/22 22:55 Blood Culture (Wb) - Anticubital Right Blood Culture - Preliminary No growth in 48 hours. 03/05/22 00:00 Urine, Clean Catch Urine Culture - Final Culture exhibits no growth. 03/05/22 14:10 Stool Enteric Bacteriology - Final 03/05/22 14:10 Stool Stool Occult Blood (VANESSA) - Final 03/05/22 14:10 Stool C. difficile DNA Amplification - Final 03/05/22 05:10 Mucosa - Nasopharyngeal Respiratory Panel (PCR) - Final 03/04/22 22:09 Urine Catheter - Catheter Legionella Antigen - Final 03/04/22 22:09 Urine Catheter - Catheter Streptococcus pneumoniae Antigen (M - Final Radiography Diagnostic Testing: Radiology Impression Chest CT 03/09/22 15:51 IMPRESSION: Large right pleural effusion with near-total collapse of the right lung. Electronically Signed: Donnie Mc MD at 17:19 EDT , Thoracentesis Ultrasound 03/10/22 11:38 IMPRESSION: Ultrasound-guided right thoracentesis. Electronically Signed: Chin Gonzales MD at 15:32 EDT , Chest X-Ray 03/10/22 14:53 IMPRESSION: No evidence of pneumothorax on the post right thoracentesis examination. Electronically Signed: Chin Gonzales MD at 15:17 EDT , Physical Exam Const alert and no apparent distress Constitutional Narrative: Patient is alert but has cognitive impairment, she is nonverbal Orientation / Consciousness: awake HEENT normocephalic, head/scalp atraumatic and moist oral mucous membranes Eyes PERRL, EOMs intact bilaterally and conjunctivae normal Neck supple, no JVD, thyroid normal and no carotid bruits General: trachea midline Resp normal respiratory effort, no retractions, no use of accessory muscles and clear to auscultation bilaterally Resp Narrative: Decreased breath sounds are noted at the right lung base Auscultation: Negative for rales, rhonchi or wheezes Cardio regular rate, regular rhythm, S1 normal heart sound, S2 normal heart sound, no murmurs, no rub and no gallops GI normal to inspection, nondistended, normoactive bowel sounds, soft to palpation, non-tender and non-distended Extremity no clubbing, cyanosis or edema Skin no rashes or lesions noted General Skin Exam: no breakdown Neuro CN's II-XII intact bilaterally Neuro Narrative: Patient is nonverbal Sensorium / Orientation: awake and alert Psych Psych Narrative: Patient has signs of cognitive impairment, she is alert but nonverbal Assessment & Plan Assessment/Plan (1) Septic shock: (2) Aspiration pneumonia of right lower lobe: PLAN: Plan 1. Septic shock-patient is currently on Unasyn, blood pressure is being supported with low-dose Levophed at this time #2 right pleural effusion-etiology unclear at this point, patient had a thoracentesis today with removal of 400 cc of fluid #3 cerebral palsy-complicates care, management, recovery, and prognosis #4 seizure disorder-patient is currently on valproic acid,Onfi, and Keppra. #5 autism disorder-complicates care, management, recovery, and prognosis Charges/Coding Visit Charges Inpatient E&M: 29323 Subs Hosp L2
[2022-03-10 17:57] LABS: Macrophages 16 %; Monocytes 11 %; Neutrophil (Segs) 25 %
[2022-03-10 17:58] LABS: Mesothelial Cells 6 %
[2022-03-10 18:00] LABS: Auto B Fluid Analyzer BKGD Ct COUNTS W/IN LIMITS (W/IN LIMITS); Color/Body Fluid LT YEL; Source- Body Fluid PLEURAL FLUID/RIGHT
[2022-03-10 18:01] LABS: Appearance/Body Fluid CLOUDY; Body Fluid QC Type(s) BF5Q; Other Cell Type/BF 42 %; Red Cell Count/Body Fluid 1040 /mm3
[2022-03-10 18:42] LABS: Cytology, Body Fluid / CSF SEE PATHOLOGY REPORT
[2022-03-10 18:43] LABS: Glucose, Body Fluid 111 mg/dL (40-70); LDH,Body Fluid 314 Units/l (Not Establ.); Protein, Body Fluid 4.4 g/dL (Not Establ.)
[2022-03-10] MEDS: cloBAZam 20 MG TABLET PO (21:41)
--- NOTE | 2022-03-10 22:05 | NURSING ---
Addendum entered by Renee Cruz 03/10/22 23:15: When giving pt Night time medications through peg tube, pt coughed and medication and syringe disconnected and spilled onto pt. Pt did not receive any of her medications. Family requesting medications to be given again as pt was not able to receive them due to this. Note completed by: Renee Cruz RN. Original Note: When giving pt Night time medications through peg tube, pt coughed and medication and syringe disconnected and spilled onto pt. Family requesting medications to be given again as pt was not able to receive them due to this. Note completed by: Renee Cruz RN.
[2022-03-11] VITALS (46 sets, daily range): BP systolic 73–124; BP diastolic 45–97; PULSE 56–100; RESP 14–29; TEMP 36.4–37.7; O2SAT 90–97
[2022-03-11 03:41] LABS: Absolute Lymphocyte Count 1.65 X10^3/uL (0.83-4.51); Absolute Neutrophil Count 4.8 X10^3/uL (2.0-7.7); Basophil# 0.04 X10^3/uL; Basophil% 0.5 % (0-1); Eosinophil# 0.78 X10^3/uL; Eosinophils% 9.4 % (0-5); Hematocrit 32.9 % (37-47); Hemoglobin 10.6 g/dL (12.0-15.0); Lymphocyte # 1.65 X10^3/ul (0.83-4.51); Lymphocyte % 19.9 % (19-41); Mean Corp Hgb Conc 32.2 g/dL (32-36); Mean Corpuscular Hgb 31.9 pg (27.0-32.0); Mean Corpuscular Volume 99.1 fL (81-99); Mean Platelet Vol. 8.6 fl (6.2-12.0); Monocyte# 0.96 X10^3/uL; Monocyte% 11.6 % (0-10); NRBC Flagged by Analyzer 0.2 % (0-5); Neutrophil # 4.77 X10^3/uL (2.7-7.7); Neutrophil % 57.6 % (47-70); Platelet Count 115 K/mm3 (150-450); RBC Distribution Width SD 49.7 fl (35.1-43.9); Red Blood Count 3.32 M/mm3 (4.2-5.4); White Blood Count 8.3 K/mm3 (4.4-11.0)
[2022-03-11 03:52] LABS: Anion Gap 7 (5-15); BUN 14 mg/dL (7-18); Calcium,Total 8.4 mg/dL (8.5-10.1); Chloride 104 mmol/L (98-107); Creatinine, Serum 0.58 mg/dL (0.55-1.02); EST Glomerular Filtration Rate 126 mL/min (>60); Est Glom Filt Rate - Afr Amer 153 mL/min (>60); Estimated Creatinine Clearance 110.13 ml/min; Glucose 96 mg/dL (74-106); Potassium 3.8 mmol/L (3.5-5.1); Sodium Level 140 mmol/L (136-145)
[2022-03-11] MEDS: Albuterol 2.5 MG/3 ML VIAL.NEB. INHALATION (07:01)
[2022-03-11] MEDS: Folic Acid 1 MG Tablet PO (10:02)
[2022-03-11] MEDS: Midodrine HCl 5 MG Tablet 10 MG PO ×3 (10:03→16:19)
[2022-03-11] MEDS: Cholecalciferol (VIT D3) 25 MCG TABLET (1,000 UNITS) 50 MCG PO (10:03)
[2022-03-11] MEDS: RUFINAMIDE 200 MG 600 MG PO (10:03)
[2022-03-11] MEDS: cloBAZam 10 MG TABLET 20 MG PO (10:06)
[2022-03-11] MEDS: Valproic Acid 250 MG/5 ML UDC 1250 MG PO (10:20)
[2022-03-11] MEDS: levETIRAcetam Oral Solution 500 MG/5 ML 2000 MG GT (10:38)
[2022-03-11] MEDS: Menthol/Lanolin/Calamine/Znox 113 GM Tube 1 APPLIC TOPICAL ×3 (10:41→17:34)
[2022-03-11] MEDS: Enoxaparin 40 MG/0.4 ML Syringe SC (10:49)
--- NOTE | 2022-03-11 11:58 | PCM.PN.INT ---
Assessment & Plan Assessment/Plan (1) Aspiration pneumonia of right lower lobe: PLAN: This patient has had an unusual presentation and course. She has a massive right pleural effusion, with right lung compressive atelectasis, which is likely of at least 2 weeks duration after an aspiration/vomiting episode 2 weeks ago. Delayed presentation, with antibiotics empirically, no positive cultures, but sputum and blood and pleural fluid marked eosinophilia. The patient's sister believes that diffuse swelling started approximately 4 months ago when she started Depakote, and thinks the patient may have a ongoing chronic allergic reaction. Allergy panel and IgE are pending. She may be benefit from weaning off Depakote with the assistance of neurology. -Pleural fluid results so far show exudate with normal glucose and without bacterial infection on antibiotics (final cultures pending), but with marked eosinophilia which can sometimes be seen with old effusions. I doubt a parasitic infection, and eosinophilic pneumonitis is usually bilateral. -There is extensive residual pleural reaction and thickening after the thoracentesis of 400 cc from a small locule. She will likely need decortication to prevent lung entrapment, note that her white count remains elevated. Calcitonin, CRP and ESR were ordered. -Continue Unasyn for at least 2 weeks due to the complex right parapneumonic effusion -Bronchopulmonary hygiene; patient is unable to do incentive spirometry, vest percussion therapy with postural drainage, not tolerated well due to agitation - Patient will be transferred for thoracic surgery consultation and management of her complex parapneumonic pleural disease at [facility]. She was accepted by Dr. Rosado, a bed is available, and transfer will likely happen later today. (2) Breakthrough seizure: PLAN: 03/10 repeat EEG showed brief runs of semirhythmic theta, sometimes with sharply contoured delta, but no evolution into electrographic seizure. No seizures were identified during this EEG. -Once patient is transferred to [facility], recommend neurologic consultation. -Continue current antiseizure medications, currently Keppra 2000 mg twice daily, valproic acid 1250 mg daily, -As above, she may benefit from weaning off Depakote due to possible allergy (3) Autism disorder: PLAN: Chronic, unchanged (4) Septic shock: PLAN: Patient remains pressor dependent on norepinephrine 5 mcg/min or less, despite the addition of hydrocortisone today for her eosinophilia, midodrine, IV antibiotics since admission. This is likely due to her ongoing pleural inflammatory disease. (5) Parapneumonic effusion: PLAN: - ultrasound thoracentesis 03/10 over 400 cc of alexa fluid -Probable need for VAT decortication plus or minus chest tube management, by thoracic surgery. instillation of alteplase is unlikely to be sufficiently successful for chemical decortication of this large, organized effusion. PLAN: Plan Critical care time spent with patient at bedside, review of documentation, lab results, radiology and other test results, discussion with colleagues and ancillary staff, clinical management of patient, and updating family if applicable, was 50 minutes. This time does not include any procedures, if performed. Critical care codes for today 90645. Subjective Subjective Patient is unchanged, nonverbal, no cough. Patient's sister at bedside thought she had a seizure today, while he was present, which involved patient opening her eyes wide, brief stretching of the fingers of the right hand, moving around in bed, with no convulsive activity. Patient is being transferred to [facility] today for thoracic surgery consultation for complex right parapneumonic effusion with eosinophilia. She remains on IV Levophed at 4 to 5 mcg/min. For septic shock. She is on room air Objective Data Objective Data Vital Signs: Vital Signs Temp Pulse Resp BP Pulse Ox O2 Del Method O2 Flow Rate 36.4 C L 68 22 H 89/55 L 95 Room Air 2 03/11/22 04:00 03/11/22 07:00 03/11/22 07:00 03/11/22 07:00 03/11/22 07:00 03/11/22 07:00 03/11/22 03:00 FiO2 25 03/11/22 00:00 Oxygen Flow Rate (L/min) 2 Oxygen Delivery Method [1500] Room Air Oxygen Delivery Method [1450] Room Air Oxygen Delivery Method [1445] Room Air Oxygen Delivery Method [1430] Room Air Oxygen Delivery Method Room Air Weight: 76.3 kg Body Mass Index (BMI) 29.9 Intake & Output: Intake and Output for Last 24 Hours 03/09/22 03/10/22 03/11/22 23:59 23:59 23:59 Intake Total 2175.09 / 2178.89 2319.45 / 2321.35 276.15 / 276.15 Output Total 2300 / 2800 2300 / 2600 650 / 650 Balance -124.91 / -621.11 19.45 / -278.65 -373.85 / -373.85 Lab / Micro Data Result Diagrams: 03/11/22 03:30 03/11/22 03:30 Labs: Laboratory Results - last 24 hr 03/10/22 14:35: Fluid Glucose 111 H, Fluid Total Protein 4.4, Fluid LDH 314 03/10/22 14:48: Fluid Source PLEURAL FLUID/RIGHT, Fluid Color LT YEL, Fluid Appearance CLOUDY, Fluid WBC 2.384, Fluid RBC 1040, Fluid Tot Cell Count 2.484 H, Fld Polynuclear WBCs # 1.652, Fld Polynuclear WBCs % 69.3, Fluid Mononuclear WBCs 0.732, Fld Mononuclear WBCs % 30.7, Fluid Neutrophils 25, Fluid Monocytes 11, Fluid Macrophages 16, Fld Mesothelial Cells 6, Fluid Other Cells 42, Fl Pathologist Comment May follow, Fluid Comment 2 SEE COMMENT, 45% of PMNs are eosinophils 03/11/22 03:30: WBC 8.3, RBC 3.32 L, Hgb 10.6 L, Hct 32.9 L, MCV 99.1 H, MCH 31.9, MCHC 32.2, RDW Std Deviation 49.7 H, RDW Coeff of Sylvia 14.0, Plt Count 115 L, MPV 8.6, Immature Gran % (Auto) 1.000 H, Neut % (Auto) 57.6, Lymph % (Auto) 19.9, [place] % (Auto) 11.6 H, Eos % (Auto) 9.4 H, Baso % (Auto) 0.5, Absolute Neuts (auto) 4.8, Absolute Lymphs (auto) 1.65, Nucleated RBC % 0.2 03/11/22 03:30: Sodium 140, Potassium 3.8, Chloride 104, Carbon Dioxide 29.0, Anion Gap 7, BUN 14, Creatinine 0.58, Estim Creat Clear Calc 110.13, Est GFR (MDRD) Af Amer 153, Est GFR (MDRD) Non-Af 126, BUN/Creatinine Ratio 24.0 H, Glucose 96, Calcium 8.4 L Micro: Microbiology 03/10/22 14:48 Fluid - Thoracentesis Fluid Gram Stain - Final: Rare white blood cells, no organisms seen. 03/10/22 14:48 fluid -body fluid culture: No growth to date 03/09/22 00:10 Nasal Secretion SARS-CoV-2 Antigen (Rapid) - Final negative 03/04/22 01:00 Blood Culture (Wb) - Left Wrist Blood Culture - Preliminary No growth in 48 hours. 03/04/22 22:55 Blood Culture (Wb) - Anticubital Right Blood Culture - Preliminary No growth in 48 hours. 03/05/22 00:00 Urine, Clean Catch Urine Culture - Final Culture exhibits no growth. 03/05/22 14:10 Stool Enteric Bacteriology - Final 03/05/22 14:10 Stool Stool Occult Blood (VANESSA) - Final 03/05/22 14:10 Stool C. difficile DNA Amplification - Final negative 03/05/22 05:10 Mucosa - Nasopharyngeal Respiratory Panel (PCR) - Final negative 03/04/22 22:09 Urine Catheter - Catheter Legionella Antigen - Final 03/04/22 22:09 Urine Catheter - Catheter Streptococcus pneumoniae Antigen (M - Final Radiography Diagnostic Testing: Radiology Impression Thoracentesis Ultrasound 03/10/22 11:38 IMPRESSION: Ultrasound-guided right thoracentesis. Electronically Signed: Chin Gonzales MD at 15:32 EDT , Chest X-Ray 03/10/22 14:53 IMPRESSION: No evidence of pneumothorax on the post right thoracentesis examination. Electronically Signed: Chin Gonzales MD at 15:17 EDT , Physical Exam Narrative Unchanged from yesterday. Eyes open, alert, but not responsive and not verbal does not follow commands. Mucous membranes dry Chest has diminished breath sounds on the right hemithorax, no pleural rub, no wheezes Regular S1-S2 Abdomen is soft, nontender Extremities have diffuse swelling with no erythema Skin is without rash or petechiae Neuro is grossly nonfocal, patient is able to stand with two-person assist and pivot with assist.
--- NOTE | 2022-03-11 13:06 | CPS ---
pt was placed in Trendelenburg on right side. pt tolerated well for 8 mins. no coughing or productive cough
[2022-03-11 13:20] LABS: Pathologist Comment/Body Fluid Reviewed
[2022-03-11 13:26] LABS: Erythrocyte Sedimentation Rate 49 mm/hr (0-30)
[2022-03-11] MEDS: Hydrocortisone Sod Succinate 100 MG/2 ML Vial 50 MG IV (13:27)
[2022-03-11 13:36] LABS: Procalcitonin 0.07 ng/mL (0.00-0.09)
--- NOTE | 2022-03-11 15:40 | PCM.DC.SUM ---
Providers Date of Admission: 03/05/22 Date of Discharge: 03/11/22 Primary Care Physician: Dr. Gen Reed, Consultations 03/05/22 02:07 Consult: Nurse First Assist / Pulmonary Medicine Routine Consulting Provider: Guzman Calvin Reason for Consult: Sepsis, Aspiration PNA EMERGENT Consult: No MD Notified: Yes Date Notified: 03/05/22 Time Notified: 01:51 Method of Notification: Text Reason For Visit: SEPSIS, ASPIRATION PNA, VALPROIC ACID TOXICITY Diagnosis Discharge Diagnosis (1) Septic shock: Status: Acute Code(s): A41.9 - Sepsis, unspecified organism; R65.21 - Severe sepsis with septic shock (2) Aspiration pneumonia of right lower lobe: Status: Acute Code(s): J69.0 - Pneumonitis due to inhalation of food and vomit Plan 1. Septic shock-patient is currently on Unasyn, blood pressure is being supported with low-dose Levophed at this time #2 right pleural effusion-etiology unclear at this point, patient had a thoracentesis today with removal of 400 cc of fluid #3 cerebral palsy-complicates care, management, recovery, and prognosis #4 seizure disorder-patient is currently on valproic acid,Onfi, and Keppra. #5 autism disorder-complicates care, management, recovery, and prognosis Medications at Discharge Home Medications folic acid 800 mcg tablet 1 mg PO DAILY 06/15/13 levetiracetam 500 mg tablet 2,000 mg PO BID 06/15/13 rufinamide 200 mg tablet (Banzel) 600 mg PO BID 06/15/13 clobazam 10 mg tablet 15 mg PO 0700 seizures 08/16/21 furosemide 40 mg tablet (Lasix) 40 mg PO DAILY 01/05/22 valproic acid (as sodium salt) 250 mg/5 mL oral solution 25 ml PO DAILY 01/05/22 calcium carbonate 600 mg calcium (1,500 mg) tablet 600 mg PO DAILY 03/04/22 clobazam 20 mg tablet 20 mg PO 1900 seizures 03/04/22 melatonin 5 mg tablet 5 mg PO QHS 03/04/22 valproic acid (as sodium salt) 250 mg/5 mL oral solution 1,500 mg PO BID 03/04/22 vit [id number] factor-folic acid cmb#2 500 mcg-20 mg-800 mcg tablet 1 tab PO DAILY 03/04/22 Isosource 1.5 Andrew 250 ml G-tube 4X/DAY nutrition 03/05/22 cholecalciferol (vitamin D3) 50 mcg (2,000 unit) capsule (Vitamin D3) 50 mcg PO DAILY Check with primary doctor 03/06/22 Hospital Course Operations None Procedures 2-D Echocardiogram Summary of Care Provided Minutes Spent on Discharge: 33 Hospital Course: This 31-year-old white female with a history of autism and cerebral palsy was seen in the emergency room at [facility] with lethargy and nausea and vomiting. Patient is being followed by neurologist through [facility] in [place] for a seizure disorder. Patient was documented to have a temp of 99.2 in the emergency room, initial blood pressure was documented to be 89/54, lab showed no evidence of leukocytosis, chemistry profile demonstrated a lactic acid which was elevated 2.2, urinalysis was unremarkable. CT of the head revealed no acute intracranial abnormality, CT of the abdomen pelvis demonstrated a right-sided pleural effusion which was large with right middle lobe pneumonia. Patient received IV fluids and started on IV antibiotics, she was admitted to the intensive care unit for septic shock and placed on pressor support. Patient was seen in consultation by critical care. Over the next several days, patient's blood pressure remained low and she was placed on midodrine in addition to her pressor agents, echocardiogram was performed which showed a normal ejection fraction. Patient's family was concerned the patient was having further seizures, her seizure medications were adjusted after discussion with her primary neurologist in [place]. Patient underwent a thoracentesis with removal of some fluid in the right lower hemithorax, unfortunately, there was felt to be additional chronic fluid accumulation which could not be drained and it was recommended that the patient be transferred to a tertiary facility for possible thoracoscopy. [facility] agreed to take the patient in transfer. On 03/11/2022, patient was seen and examined: On examination she appeared older than her stated age with evidence of cognitive impairment, she was nonverbal,, she does not appear to be in any distress. Vital signs as documented. Skin warm and dry and without overt rashes. Neck without JVD, thyroid appears normal, trachea is midline, neck is supple. Lungs clear, normal air movement was noted. Heart exam notable for regular rhythm, normal sounds and absence of murmurs, rubs or gallops. Abdomen unremarkable and without evidence of organomegaly, masses, or abdominal aortic enlargement, bowel sounds are present in all 4 quadrants, no abdominal tenderness was noted. Extremities nonedematous, no cyanosis was noted, no clubbing was noted. Neuro: Cranial nerves II through XII are grossly intact, no focal motor deficits were noted, sensation to light touch and pinprick is intact, motor exam 5/5 throughout. Psych: Patient is alert but nonverbal On 03/11/2022, patient was transferred to [facility] for further care. Weight / BMI Weight Weight: 76.3 kg Body Mass Index (BMI) 29.9 ABG / Lab / Microbiology Data Result Diagrams: 03/11/22 03:30 03/11/22 03:30 Laboratory: Laboratory Results - last 24 hr 03/10/22 14:35: Fluid Glucose 111 H, Fluid Total Protein 4.4, Fluid LDH 314 03/10/22 14:48: Fluid Source PLEURAL FLUID/RIGHT, Fluid Color LT YEL, Fluid Appearance CLOUDY, Fluid WBC 2.384, Fluid RBC 1040, Fluid Tot Cell Count 2.484 H, Fld Polynuclear WBCs # 1.652, Fld Polynuclear WBCs % 69.3, Fluid Mononuclear WBCs 0.732, Fld Mononuclear WBCs % 30.7, Fluid Neutrophils 25, Fluid Monocytes 11, Fluid Macrophages 16, Fld Mesothelial Cells 6, Fluid Other Cells 42, Fl Pathologist Comment Reviewed, Fluid Comment 2 SEE COMMENT 03/11/22 03:30: WBC 8.3, RBC 3.32 L, Hgb 10.6 L, Hct 32.9 L, MCV 99.1 H, MCH 31.9, MCHC 32.2, RDW Std Deviation 49.7 H, RDW Coeff of Sylvia 14.0, Plt Count 115 L, MPV 8.6, Immature Gran % (Auto) 1.000 H, Neut % (Auto) 57.6, Lymph % (Auto) 19.9, [place] % (Auto) 11.6 H, Eos % (Auto) 9.4 H, Baso % (Auto) 0.5, Absolute Neuts (auto) 4.8, Absolute Lymphs (auto) 1.65, Nucleated RBC % 0.2 03/11/22 03:30: Sodium 140, Potassium 3.8, Chloride 104, Carbon Dioxide 29.0, Anion Gap 7, BUN 14, Creatinine 0.58, Estim Creat Clear Calc 110.13, Est GFR (MDRD) Af Amer 153, Est GFR (MDRD) Non-Af 126, BUN/Creatinine Ratio 24.0 H, Glucose 96, Calcium 8.4 L 03/11/22 12:30: ESR 49 H 03/11/22 12:30: C-React Prot Ext Range 82.90 H 03/11/22 12:30: Procalcitonin 0.07 Microbiology: Microbiology 03/10/22 14:48 Fluid - Thoracentesis Fluid Gram Stain - Final 03/10/22 14:48 Fluid - Thoracentesis Fluid Body Fluid Culture - Preliminary No growth-Final to follow 03/09/22 00:10 Nasal Secretion SARS-CoV-2 Antigen (Rapid) - Final 03/04/22 01:00 Blood Culture (Wb) - Left Wrist Blood Culture - Preliminary No growth in 48 hours. 03/04/22 22:55 Blood Culture (Wb) - Anticubital Right Blood Culture - Preliminary No growth in 48 hours. 03/05/22 00:00 Urine, Clean Catch Urine Culture - Final Culture exhibits no growth. 03/05/22 14:10 Stool Enteric Bacteriology - Final 03/05/22 14:10 Stool Stool Occult Blood (VANESSA) - Final 03/05/22 14:10 Stool C. difficile DNA Amplification - Final 03/05/22 05:10 Mucosa - Nasopharyngeal Respiratory Panel (PCR) - Final 03/04/22 22:09 Urine Catheter - Catheter Legionella Antigen - Final 03/04/22 22:09 Urine Catheter - Catheter Streptococcus pneumoniae Antigen (M - Final Meaningful Use Info Meaningful Use Diagnoses (Choose all that apply): None applicable Discharge Plan Admission Admit Date/Time: 03/05/22 00:48 Attending Provider: Sivakumar Bradford Primary Care Provider: Gen Reed Consulting Providers: Guzman Calvin ; Inga Gonzalez ; Ailyn Miller Instructions Patient Instructions: RAD RN Thoracentesis Dc Discharge Orders/Prescriptions Prescriptions: No Action levetiracetam 500 MG tablet 2,000 mg PO BID folic acid 0.8 MG tablet 1 mg PO DAILY rufinamide [Banzel] 200 MG tablet 600 mg PO BID clobazam 10 mg Tablet 15 mg PO 0700 Rx Instructions: 15 mg in the morning 20 mg at night valproic acid (as sodium salt) 250 mg/5 mL solution 25 ml PO DAILY Label Comments: take 25ml in the morning and 30ml at night furosemide [Lasix] 40 mg Tablet 40 mg PO DAILY valproic acid (as sodium salt) 250 mg/5 mL Solution 1,500 mg PO BID calcium carbonate 600 mg calcium (1,500 mg) tablet 600 mg PO DAILY Label Comments: TAKE 1 TABLET DAILY. melatonin 5 mg Tablet 5 mg PO QHS clobazam 20 mg Tablet 20 mg PO 1900 vit [id number] fact-FA cmb #2 500-20-800 mcg-mg-mcg Tablet 1 tab PO DAILY Isosource 1.5 Andrew 250 ml G-tube 4X/DAY cholecalciferol (vitamin D3) [Vitamin D3] 50 mcg (2,000 unit) Capsule 50 mcg PO DAILY Referrals / Follow Up: Gen Reed DO [Primary Care Provider] - Disposition Disposition (needs filled in before D/C Order can be placed): Acute Care Hospital Charges/Coding Visit Charges Inpatient E&M: 78146 Disch Hosp
[2022-03-18 00:07] LABS: Alternaria alternata <0.10 kU/L (Class 0); Aspergillus fumigatus <0.10 kU/L (Class 0); Bahia Grass <0.10 kU/L (Class 0); Bermuda Grass <0.10 kU/L (Class 0); Bluegrass, Kentucky <0.10 kU/L (Class 0); Cat Hair/Dander, Standard <0.10 kU/L (Class 0); Cedar, Mountain <0.10 kU/L (Class 0); Cladosporium herbarum <0.10 kU/L (Class 0); Cockroach, American <0.10 kU/L (Class 0); D farinae Mite <0.10 kU/L (Class 0); D pteronyssinus <0.10 kU/L (Class 0); Dog Epithelia <0.10 kU/L (Class 0); Elm, American White <0.10 kU/L (Class 0); Hazelnut Tree <0.10 kU/L (Class 0); Hickory, White <0.10 kU/L (Class 0); Johnson Grass <0.10 kU/L (Class 0); Maple/Box Elder <0.10 kU/L (Class 0); Mucor racemosus <0.10 kU/L (Class 0); Mugwort <0.10 kU/L (Class 0); Mulberry, White <0.10 kU/L (Class 0); Nettle <0.10 kU/L (Class 0); Oak, White <0.10 kU/L (Class 0); Penicillium chrysogen <0.10 kU/L (Class 0); Pigweed, Rough <0.10 kU/L (Class 0); Plantain, English <0.10 kU/L (Class 0); Ragweed, Short/Common <0.10 kU/L (Class 0); Sheep Sorrel(Dock) <0.10 kU/L (Class 0); Stemphylium herbarum <0.10 kU/L (Class 0); Sweet Gum <0.10 kU/L (Class 0); Sycamore, American <0.10 kU/L (Class 0)
[2022-03-18 10:36] LABS: Mouse Urine <0.10 kU/L (Class 0)
[2022-03-18 12:34] LABS: Immunoglobulin E 9 IU/mL (6-495)
== END 2022-03-11 18:50 | disposition short-term general hospital (02) | DRG 871 ==
LOC: ED 03-05 00:45 → ICU 03-05 01:53
PROVIDERS: Internal Medicine; Student in an Organized Health Care Education/Training Program; Admitting Provider Family Medicine; Emergency Provider Emergency Medicine; PCP Student in an Organized Health Care Education/Training Program; Visit Provider Internal Medicine
DX: A41.9 Sepsis, unspecified organism (principal); J69.0 Pneumonitis due to inhalation of food and vomit; R65.21 Severe sepsis with septic shock; E87.2 Acidosis; J91.8 Pleural effusion in other conditions classified elsewhere; F84.0 Autistic disorder; G40.409 Other generalized epilepsy and epileptic syndromes, not intractable, without status epilepticus; G80.9 Cerebral palsy, unspecified; Z93.1 Gastrostomy status; I10 Essential (primary) hypertension; D64.9 Anemia, unspecified; I95.89 Other hypotension; E66.9 Obesity, unspecified; Z68.30 Body mass index [BMI] 30.0-30.9, adult; Z79.899 Other long term (current) drug therapy
CPT/HCPCS: 32555; 36415; 36569; 70450; 71045; 71046; 71250; 74176; 80048; 80053; 80076; 80164; 80177; 81001; 82274; 82607; 82728; 82746; 82785; 82945; 83540; 83550; 83605; 83615; 83690; 83735; 83986; 84100; 84145; 84157; 85025; 85652; 86003; 86140; 87040; 87070; 87075; 87086; 87205; 87426; 87449; 87493; 87506; 87633; 87641; 88108; 88305; 88313; 89050; 93005; 93306; 94640; 94667; 94668; 94762; 95819; 97110; 97162; 97166; 97530; 97802; 97803; 99284; J7030; J7040; J7050; J7120; P9612; Q9957; A4216; J0295

== ENCOUNTER 2023-07-25 11:00 | Outpatient (RCR) | payer MEDICARE, MEDICAID, SELFPAY ==
--- NOTE | 2023-07-25 16:29 | HP.PTEVAL ---
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 Date of Evaluation: 07/25/23 Physical Therapist: FORREST Hamilton Visit Plan Frequency: 2x /Week Duration: 6 Weeks Plan: 2X/ week for 4-8 weeks for AT (caregiver and mom will help pt and therapist needs to be in water to help facilitate movement and help caregiver and mom help to learn an idep program to continue on their own) AT for posture, extension of the knees and general LE strength, gait training, balance, core strength with HEP Subjective Subjective: Mom and caregiver are present. Mom reports needs to make her legs stronger. She is progressively weaker in the legs. At times she will crawl instead of walk and walks holding onto the wall. She does not understand the concept of moving her legs. She has been in the therapy pool before and they want her legs to get stronger. Non verbal autistic and epilepipsy. She gets seizure in her sleep. Mom and caregiver will get into the pool with her and the therapist to help manuver her. She is able to get into the water using the stairs... the chair sometimes if she is too tired from all the exercises. It has been 5 years since been in the water. To transfer she is usually 2 but occ she is one assist. Objective Objective: Pt is unable to follow commands so LE strength vial MMT unable to obtain Sit to stand with Mod A X 2 to get out of a chair Stands with heavy use of UE on caregiver and therapist with bent knees and R foot does turn in Gait: walks with therapist and caregiver arm in arm with bent knees and turn in R foot for approx 20 feet and then reached for the chair to sit down. Attempted to have pt use Nu-step and she was not able to push/pull on own....machine was driven by therapist. Posture: very rounded shoulders and very flexed and FW head. Unable to get up to full erect posture. Pt has low tone in UE/LE Balance/Special Test Scores Lower Extremity Functional Score: 6 Goals Goal 1:: Mom and Caregiver to learn Indep pool routine to help pt to get some exercise Goal Time Frame: 4-6 Weeks Goal 2:: Sit to stand with MIN A X 2 Goal Time Frame: 4-6 Weeks Goal 3:: Be able to walk 20 feet with more upright posture and less flexed knees Goal Time Frame: 4-6 Weeks Rehabilitation Potential Rehabilitation Potential: Fair Anticipated Interventions Patient/Client Instruction: Educate patient on: Condition and Plan of Care For the Purpose of:: To improve muscle performance and motor function, To improve ability to perform ADL's, To increase tolerance to activity/condition/position, To improve performance and independence with ADL's, To improve ability of physical actions for home/community/work/leisure, To improve gait and locomotor functions, To improve endurance and To improve balance Therapeutic Exercise to Include: Strength training, Endurance training, Balance training, Coordination, Body mechanics, Postural training, Gait and locomotor training, Neuromotor development, In an aquatic setting, Active ROM and Dynamic Lumbar Stabilization For the Purpose of:: To improve muscle performance and motor function, To improve ability to perform ADL's, To increase tolerance to activity/condition/position, To improve performance and independence with ADL's, To improve gait and locomotor functions, To improve balance and To improve safety with gait Functional Training to Include: Gait training For the Purpose of:: To improve gait and locomotor functions and To improve safety with gait Text: Thank you for the opportunity to evaluate your patient. For Medicare and Medicare HMO plans, please review the plan of care and approve it. It will need to be FAXED BACK to us at [phone] for Medicare purposes. For Medicare only, by signing this I certify the plan of care. Please let me know if there are questions or concerns regarding this plan of care. Physician Signature: Date:
--- NOTE | 2023-10-12 12:22 | HP.PT.NRP(2) ---
Patient Information Patient Information: CELESTE SIDHU was seen in my office for initial evaluation on . The following Plan of Care was established for this patient: Last Seen Last Seen: This patient was last seen in our office . Pertinent comments regarding their Physical therapy will appear below: At this point I will be discontinuing this patient from physical therapy. I would be happy to see this patient again in the future if found appropriate by the physician. Thank you! Linette Clarke, MPT
== END 2023-07-25 19:00 | disposition home or self-care (01) ==
LOC: PT 11:00
PROVIDERS: PCP Student in an Organized Health Care Education/Training Program
DX: F84.0 Autistic disorder (principal); Q99.9 Chromosomal abnormality, unspecified; R26.2 Difficulty in walking, not elsewhere classified; G40.812 Lennox-Gastaut syndrome, not intractable, without status epilepticus
CPT/HCPCS: 97162

== ENCOUNTER 2023-12-26 15:31 | Emergency (ER) | payer MEDICARE, MEDICAID, SELFPAY ==
[2023-12-26 15:32] VITALS: PULSE 72; RESP 16; TEMP 36.2; O2SAT 99
--- NOTE | 2023-12-26 18:17 | ED.RN ---
PER [facility] GON[facility] FOR FAMILY TO ADMINISTER HOME SEIZURE MEDICATIONS.
--- NOTE | 2023-12-26 18:30 | US_ITS ---
EXAM: US DUPLEX RIGHT LOWER EXTREMITY VEINS CLINICAL INDICATION: RT ANTERIOR CALF LUMP TECHNIQUE: Real-time duplex ultrasound scan of the right lower extremity veins integrating B-mode two-dimensional vascular structure, Doppler spectral analysis, color flow Doppler imaging and compression. COMPARISON: No relevant prior studies available. FINDINGS: DEEP VEINS: Unremarkable. No DVT in the visualized common femoral, femoral, proximal deep femoral or popliteal veins. The veins demonstrate normal color flow, are normally compressible, with normal phasic flow and/or augmentation response. SUPERFICIAL VEINS: Unremarkable. No thrombus in the visualized great saphenous vein. SOFT TISSUES: There is a 5 mm hypoechoic structure in the subcutaneous catheter. No popliteal cyst. US/Venous Duplex Imag/Limited/Uni IMPRESSION: 1. No sonographic evidence of deep venous thrombosis. 2. Small hypoechoic structure in the subcutaneous tissues anterior to the calf. Electronically Signed: Varun Putnam MD at 19:45 EDT ,
--- NOTE | 2023-12-26 19:23 | EDS_ITS ---
HPI History of Present Illness Chief Complaint: Lower Extremity Injury Informant: family Narrative Narrative: Patient is a 33-year-old female with history of cerebral palsy and seizures presenting with firmness and swelling to her right anterior mckenzie. Her sister is at the bedside states that she had some type of bruise or injury to the area about 5 weeks ago however they had a recent car trip in the car for 12 hours about 2 weeks ago. She states still feels a little warm she is concerned it could be a DVT. She thinks that maybe the leg is little more swollen than the other side. No report of any fevers. Patient does not feel pain normally so they are not sure if it is bothering her. No other complaints or concerns reported at this time. No history of DVT or PE. She is not on any blood thinners [facility] Medical History Obesity HTN (hypertension) Normocytic anemia Chromosomal anomaly Cerebral palsy Valproic acid toxicity Aspiration pneumonia of right lower lobe Breakthrough seizure Autism Seizures Generalized epilepsy Autism disorder Home Medications ?Medication ?Instructions ?Recorded ?Last Taken ?Type folic acid 800 mcg tablet 1 mg PO DAILY 06/15/13 Unknown History levetiracetam 500 mg tablet 2,000 mg PO BID 06/15/13 Unknown History rufinamide 200 mg tablet (Banzel) 600 mg PO BID 06/15/13 Unknown History clobazam 10 mg tablet 15 mg PO 0700 seizures 08/16/21 Unknown History furosemide 40 mg tablet (Lasix) 40 mg PO DAILY 01/05/22 Unknown History valproic acid (as sodium salt) 250 25 ml PO DAILY 01/05/22 Unknown History mg/5 mL oral solution calcium carbonate 600 mg PO DAILY 03/04/22 Unknown History clobazam 20 mg tablet 20 mg PO 1900 seizures 03/04/22 Unknown History melatonin 5 mg tablet 5 mg PO QHS 03/04/22 Unknown History valproic acid (as sodium salt) 250 1,500 mg PO BID 03/04/22 Unknown History mg/5 mL oral solution vit [id number] factor-folic 1 tab PO DAILY 03/04/22 Unknown History acid cmb#2 500 mcg-20 mg-800 mcg tablet Isosource 1.5 Andrew 250 ml G-tube 4X/DAY nutrition 03/05/22 Unknown History cholecalciferol (vitamin D3) 50 50 mcg PO DAILY Check with primary 03/06/22 Unknown History mcg (2,000 unit) capsule (Vitamin doctor D3) Allergy/AdvReac Type Severity Reaction Status Date / Time lacosamide (From Vimpat) Allergy Mild Hives Verified 12/26/23 15:38 vancomycin Allergy Shortness Verified 12/26/23 15:38 of breath lithium AdvReac Other Verified 12/26/23 15:38 lorazepam (From Ativan) AdvReac Other Verified 12/26/23 15:38 Family History Father CVA (cerebral vascular accident) Heart disease Mother Diabetes Surgical History S/P gastric surgery Social History household members: family Smoking Status: Never smoker alcohol intake: never substance use type: does not use ROS ROS ED Review of Systems ROS Unobtainable: due to mental status Constitutional Constitutional ED: Denies chills or fever(s) Gastrointestinal Gastrointestinal: Denies vomiting Musculoskeletal Musculoskeletal: Reports other Details: Right anterior mckenzie injury Integumentary Reports other Details: Skin changes to right anterior mckenzie Neurologic Neurologic: Denies paresthesias or weakness Hematologic/Lymphatic Hematologic/Lymphatic: Denies easy bleeding or easy bruising EXAM Physical Exam Const Vital Signs: 12/26/23 15:32 Temperature 97.2 F L Temperature Source Temporal Pulse Rate 72 Respiratory Rate 16 Pulse Ox 99 Oxygen Delivery Method Room Air Positive well nourished and well developed General Appearance ED: well developed and NAD HEENT Reports moist mucous membranes Chest Wall inspection of chest normal Resp normal respiratory effort and clear to auscultation bilaterally Cardio regular rate and regular rhythm Cardio Narrative: 2+ DP pulses Extremity normal to inspection and full ROM Extremity Narrative: No bony tenderness or deformity appreciated of the lower extremities. Compartments are soft. No palpable cords. General Extremety ED: Negative for edema General Extremity: Negative for edema Neuro moves all extremities Neuro Narrative: At baseline Sensorium / Orientation: alert and orientation impaired Skin Skin Narrative: Patient has approximately 6 cm circumferential area of warmth and slight firmness of the skin with a palpable hematoma. No significant discoloration of the skin is appreciated. No fluctuance appreciated. No associated lymphangitic streaking. MDM MDM MDM Narrative Medical decision making narrative: Patient is evaluated for warmth and changes to her right anterior mckenzie. This is most consistent consistent with a contusion/hematoma. No overlying signs of cellulitis. Physical exam not consistent with abscess. Low suspicion for an infected hematoma. Venous duplex is obtained which is negative. Explained to family that is very unlikely to have a DVT in the anterior aspect of the mckenzie. They verbalized agreement or stands plan. Counseled on symptomatic treatment including compressive dressing and ice. Given return precautions. Discharged home in stable condition Discharge Plan Triage Chief Complaint: Lower Extremity Injury ED Provider: Cony Aldrich Dx/Rx/DC Orders Clinical Impression: Hematoma of right lower extremity Instructions: ED Contusion, Lower Extremity, ED Hematoma Prescriptions: No Action levetiracetam 500 MG tablet 2,000 mg PO BID folic acid 0.8 MG tablet 1 mg PO DAILY rufinamide [Banzel] 200 MG tablet 600 mg PO BID clobazam 10 mg Tablet 15 mg PO 0700 Rx Instructions: 15 mg in the morning 20 mg at night valproic acid (as sodium salt) 250 mg/5 mL solution 25 ml PO DAILY Patient Comments: take 25ml in the morning and 30ml at night furosemide [Lasix] 40 mg Tablet 40 mg PO DAILY valproic acid (as sodium salt) 250 mg/5 mL Solution 1,500 mg PO BID calcium carbonate 600 mg calcium (1,500 mg) tablet 600 mg PO DAILY Patient Comments: TAKE 1 TABLET DAILY. melatonin 5 mg Tablet 5 mg PO QHS clobazam 20 mg Tablet 20 mg PO 1900 vit [id number] fact-FA cmb #2 500-20-800 mcg-mg-mcg Tablet 1 tab PO DAILY Isosource 1.5 Andrew 250 ml G-tube 4X/DAY cholecalciferol (vitamin D3) [Vitamin D3] 50 mcg (2,000 unit) Capsule 50 mcg PO DAILY Primary Care Provider: MAHAD VÁSQUEZ Referrals: MAHAD VÁSQUEZ [Other] Activity Restrictions/Additional Instructions: There are no finding consistent with blood clot/DVT. I suspect there is a deeper bruise called a hematoma that is what we are feeling over the right mckenzie. As long as there is not worsening redness, signs of infection or fever it should resolve on its own. If you would like you can apply ice packs and an Ford wrap but regardless it should resolve on its own. Print Language: [place] Citizen Disposition Disposition: Home, Self Care
[2023-12-26 19:31] VITALS: BP 115/78; PULSE 75; RESP 16; TEMP 36.6; O2SAT 98
== END 2023-12-26 19:33 | disposition home or self-care (01) ==
PROVIDERS: Emergency Provider Emergency Medicine; Visit Provider Emergency Medicine
DX: S80.11XA Contusion of right lower leg, initial encounter (principal); G80.9 Cerebral palsy, unspecified; G40.409 Other generalized epilepsy and epileptic syndromes, not intractable, without status epilepticus; X58.XXXA Exposure to other specified factors, initial encounter; I10 Essential (primary) hypertension; Z79.899 Other long term (current) drug therapy
CPT/HCPCS: 93971; 99282

== ENCOUNTER 2024-05-22 13:28 | Outpatient (RCR) | payer MEDICARE, MEDICAID, SELFPAY ==
--- NOTE | 2024-05-22 14:40 | HP.PTEVAL_ITS ---
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 Date of Evaluation: 05/22/24 Physical Therapist: Pee Castillo, PT, Cert MDT, OCS Visit Plan Frequency: 1 visit Plan: This patient will benefit from manual w/c due to poor mobility unable to walk safely needs assist ,assist with transfers and needs manual w/c to optimize function with assist . Patient is unable to operate scooter/PMD and needs assist with w/c mobility . Patient will use manual wheelchair in home for ADLS and will need assist for propulsion thus will benefit from manual w/c and for proper fitting. Subjective Subjective: This 34 y/o female presents to physical therapy with w/c evaluation. Patient requires new wheelchair due to improper fitting with tilt back. Patient dependent with transfers with assist to bed and and sit-stand mod assasis . Patient is mod assist with with walk arm to arm. Patient is dependent with bathing/dressing. Patient needs assist for feeding . Patient is non verbal ,patient has min expression of pain. Patient raunch with ramp and handicape walking in chair with shower chair and hospital bed. Patient has no skin break down . Patient has feeding tube for medication. Patient is w/c dependent.Patient has [employer] 8 hrs /day Patient will benefit from new w/c. SOCAIL:lives with parents Objective Objective: POSTURE: posterior pelvic tilt rounded shoulders head forward SITTING BALANCE: fair NEURO:WFL GAIT: arm to arm short distances with mod assist unsteady PROM: BUE /BLE WFL AROM: patient is able to move extremities but difficulty upon commands MMT: at least 3/5 BUE/BLE grossly unable to follow consistent Goals Goal 1:: Recommend manual w/c. Goal Time Frame: 1visit Rehabilitation Potential Physical Therapy Diagnosis: This patient will benefit from manual w/c due to poor mobility unable to walk safely needs assist ,assist with transfers and needs manual w/c to optimize function with assist . Patient is unable to operate scooter/PMD and needs assist with w/c mobility . Patient will use manual wheelchair in home for ADLS and will need assist for propulsion thus will benefit from manual w/c and for proper fitting. Rehabilitation Potential: Poor Anticipated Interventions Patient/Client Instruction: Educate patient on: Condition and Plan of Care For the Purpose of:: Other Other: vivianel w/c Text: Thank you for the opportunity to evaluate your patient. For Medicare and Medicare HMO plans, please review the plan of care and approve it. It will need to be FAXED BACK to us at [phone] for Medicare purposes. For Medicare only, by signing this I certify the plan of care. Please let me know if there are questions or concerns regarding this plan of care. Physician Signature: Date:
--- NOTE | 2024-10-18 11:25 | HP.PT.NRP ---
Patient Information Patient Information: CELESTE SIDHU was seen in my office for initial evaluation on 05/22/24. The following Plan of Care was established for this patient: POC Established Initial Frequency: 1 visit Anticipated Interventions Patient/Client Instruction: Educate patient on: Condition and Plan of Care For the Purpose of:: Other Other: manaul w/c Last Seen Last Seen: This patient was last seen in our office . Pertinent comments regarding their Physical therapy will appear below: Patient was seen for PT areli for w/c thus d/c At this point I will be discontinuing this patient from physical therapy. I would be happy to see this patient again in the future if found appropriate by the physician. Thank you! Pee Castillo, PT, Cert MDT, OCS
== END 2024-05-22 19:00 | disposition home or self-care (01) ==
LOC: PT 13:28
DX: G40.812 Lennox-Gastaut syndrome, not intractable, without status epilepticus (principal); Q99.9 Chromosomal abnormality, unspecified; Z99.3 Dependence on wheelchair
CPT/HCPCS: 97163

== ENCOUNTER 2024-11-13 20:35 | Emergency (ER) | payer MEDICARE, MEDICAID, SELFPAY ==
[2024-11-13 20:36] VITALS: PULSE 95; RESP 18; TEMP 36.1; O2SAT 100
[2024-11-13 21:22] VITALS: BP 120/87; PULSE 95; RESP 18; TEMP 36.1; O2SAT 100
--- NOTE | 2024-11-13 22:20 | EDS_ITS ---
HPI History of Present Illness Chief Complaint: Wound Check Narrative Narrative: History and physical limited secondary to cerebral palsy. Patient presents with her mother and grandmother because of gastrotomy tube malfunction. They relate history that patient has had previous G-tube's that were pulled out. This particular G-tube has been placed for approximately 1 year. She is post to have a procedure performed for Ruddy button. Mother noticed that there was a crack in the G-tube. She cut the G-tube down to below where the crack was, and was able to give her medications. She presents to the emergency department needing a G-tube exchange. [facility] Medical History Obesity HTN (hypertension) Normocytic anemia Chromosomal anomaly Cerebral palsy Valproic acid toxicity Aspiration pneumonia of right lower lobe Breakthrough seizure Autism Seizures Generalized epilepsy Autism disorder Home Medications ?Medication ?Instructions ?Recorded ?Last Taken ?Type folic acid 800 mcg tablet 1 mg PO DAILY 06/15/13 Unkno wn History levetiracetam 500 mg tablet 2,000 mg PO BID 06/15/13 U nknown History rufinamide 200 mg tablet (Banzel) 600 mg PO BID Unknown History clobazam 10 mg tablet 15 mg PO 0700 seizures 08/16 Unknown History furosemide 40 mg tablet (Lasix) 40 mg PO DAILY 2 Unknown History valproic acid (as sodium salt) 250 25 ml PO DAILY 12/12 12/02 Unknown History mg/5 mL oral solution calcium carbonate 600 mg PO DAILY 03/04/22 Unk nown History clobazam 20 mg tablet 20 mg PO 1900 seizures 03/04 Unknown History melatonin 5 mg tablet 5 mg PO QHS 03/04/22 Unknown History valproic acid (as sodium salt) 250 1,500 mg PO BID Unknown History mg/5 mL oral solution vit [id number]-adtkragid factor-folic 1 tab PO DAILY 03/04/22 Unknown History acid cmb#2 500 mcg-20 mg-800 mcg tablet Isosource 1.5 Andrew 250 ml G-tube 4X/DAY nutriti on 03/05/22 Unknown History cholecalciferol (vitamin D3) 50 50 mcg PO DAILY Check with primary 03/06/22 Unknown History mcg (2,000 unit) capsule (Vitamin doctor D3) Allergy/AdvReac Type Severity Reaction Status Date / Time lacosamide (From Vimpat) Allergy Mild Hives Verified 11/13/24 20:36 vancomycin Allergy Shortness Verified 11/13/24 20:36 of breath lithium AdvReac Other Verified 11/13/24 20:36 lorazepam (From Ativan) AdvReac Other Verified 11/13/24 20:36 Family History Father CVA (cerebral vascular accident) Heart disease Mother Diabetes Surgical History S/P gastric surgery Social History household members: family housing: house Smoking Status: Never smoker alcohol intake: never substance use type: does not use ROS ROS ED ROS Narrative Unable to obtain from patient secondary to cerebral palsy. Per mother, no problems except for with gastrotomy tube. Positive clear rhinorrhea recently, no fevers or chills, no nausea or vomiting, no purulent drainage. EXAM Physical Exam Narrative Exam Narrative: Afebrile. Vital signs noted. Nontoxic-appearing. Neurological examination consistent with cerebral palsy. Positive PEG tube/gastrotomy tube. No surrounding erythema except for mild skin breakdown, no fluctuance. Const Vital Signs: 11/13/24 20:36 11/13/24 21:22 Temperature 97 F L 97 F L Temperature Source Temporal Pulse Rate 95 95 Respiratory Rate 18 18 Blood Pressure 120/87 H Blood Pressure Mean 98 Pulse Ox 100 100 Oxygen Delivery Method Room Air MDM MDM MDM Narrative Medical decision making narrative: I do not feel differential diagnosis is applicable here. The only available G- tubes in the emergency department or 20 or 24 Bahamian with 2 ports. Initially, I attempted to withdraw water from the balloon port, but only 1 to 2 cc returned. Mother states that the port is removable, and she had cut the G-tube down previously. Hence, I do not think that the port that she is using has a balloon. She may have more of a plastic stopper. In attempting to remove the G-tube, there was a lot of resistance. In order to avoid causing trauma and making the G-tube orifice larger, attempts to remove was abandoned. I do feel that the patient would be better served going up to [facility] for pediatric surgery consultation as she may require more of a procedure to replace the G-tube, or perhaps even have the procedure for Ruddy button placement. Mother and grandmother are agreeable to the plan. Disposition is discharged in stable condition. History & Record Review Discussion w/independent historian: Family Discharge Plan Triage Chief Complaint: Wound Check ED Provider: Timoteo Loving Dx/Rx/DC Orders Clinical Impression: Cerebral palsy, Gastrostomy tube dysfunction Instructions: Feeding Tube Prescriptions: No Action levetiracetam 500 MG tablet 2,000 mg PO BID folic acid 0.8 MG tablet 1 mg PO DAILY rufinamide [Banzel] 200 MG tablet 600 mg PO BID clobazam 10 mg Tablet 15 mg PO 0700 Rx Instructions: 15 mg in the morning 20 mg at night valproic acid (as sodium salt) 250 mg/5 mL solution 25 ml PO DAILY Patient Comments: take 25ml in the morning and 30ml at night furosemide [Lasix] 40 mg Tablet 40 mg PO DAILY valproic acid (as sodium salt) 250 mg/5 mL Solution 1,500 mg PO BID calcium carbonate 600 mg calcium (1,500 mg) tablet 600 mg PO DAILY Patient Comments: TAKE 1 TABLET DAILY. melatonin 5 mg Tablet 5 mg PO QHS clobazam 20 mg Tablet 20 mg PO 1900 vit [id number] fact-FA cmb #2 500-20-800 mcg-mg-mcg Tablet 1 tab PO DAILY Isosource 1.5 Andrew 250 ml G-tube 4X/DAY cholecalciferol (vitamin D3) [Vitamin D3] 50 mcg (2,000 unit) Capsule 50 mcg PO DAILY Primary Care Provider: MAHAD VÁSQUEZ Referrals: MAHAD VÁSQUEZ [Other] Activity Restrictions/Additional Instructions: The G-tube was unable to be removed here in the emergency department. Go directly to [facility] as she may need a procedure to have the G-tube removed and replaced. Print Language: Paraguayan Disposition Disposition: Home, Self Care Discharge Date/Time: 11/13/24 21:35
== END 2024-11-13 21:35 | disposition home or self-care (01) ==
LOC: ED 21:28
PROVIDERS: Emergency Provider Emergency Medicine; Visit Provider Emergency Medicine
DX: G80.9 Cerebral palsy, unspecified (principal); K94.29 Other complications of gastrostomy; F84.0 Autistic disorder
CPT/HCPCS: 99282